=== PATIENT | female | born 1960 | race Caucasian/White ===

== ENCOUNTER 2016-07-25 13:06 | Emergency (ER) | payer MEDICARE, OTHER ==
[2016-07-25 13:09] VITALS: BP 115/58; PULSE 107; RESP 16; TEMP 98.7; O2SAT 99
--- NOTE | 2016-07-25 14:07 | PD ---
HPI Chief Complaint: ba Time Seen by Provider: 14:00 Travel History International Travel<30 days: No Contact w/Intl Traveler<30days: No Traveled to known affect area: No History of Present Illness HPI This is a 56-year-old female who is under Sahni act. According to her paperwork she was transferred here from [facility] because she is outside of their scope of care. According to the paperwork she has an AV fistula that was recently placed and she needs regular dialysis and for this reason she was outside of their scope of care. The Sahni act reads as follows "Chata has been refusing to take her prescribed medication. She states that she will hurt herself by not taking her medication without help. She advised that she has wanted to hurt herself all her life and is currently very depressed." The patient endorses feeling depressed for "a while" and she occasionally has passive thoughts of suicide. She denies any homicidal ideation. Denies any drug or alcohol use, hallucinations. She has no other complaints. Dialysis TRS , due tomorrow, [facility] Nixon. [facility] Social History Tobacco Use: No Allergies-Medications (Allergen,Severity, Reaction): Coded Allergies: No Known Allergies (Unverified , 07/25/16) Reported Meds & Prescriptions Reported Meds & Active Scripts Active Reported Valproic Acid 250 Mg Cap 250 Mg PO TID Pravastatin 20 Mg Tab 20 Mg PO DAILY Levothyroxine (Levothyroxine Sodium) 125 Mcg Tab 125 Mcg PO DAILY Lactulose 10 Gm/15 Ml Solution 20 Gm DAILY Fenofibrate 54 Mg Tab 54 Mg PO DAILY Epogen (Epoetin Brad) 20,000 Unit/2 Ml Vial 10,000 Units 2XWEEK Doxazosin (Doxazosin Mesylate) 8 Mg Tab 8 Mg PO DAILY Citalopram (Citalopram Hydrobromide) 20 Mg Tab 20 Mg PO DAILY Carvedilol 3.125 Mg Tab 3.125 Mg PO BID Calcitriol 0.5 Mcg Cap 0.5 Mcg PO DAILY Bupropion HCl ER (Bupropion HCl) 200 Mg Tablet.er 300 Mg Aspirin 81 (Aspirin) 81 Mg Tabdr 81 Mg PO DAILY Aripiprazole 10 Mg Tab 10 Mg PO DAILY Review of Systems Except as stated in HPI: all other systems reviewed are Neg Physical Exam Narrative GENERAL: Well-nourished female in no acute distress SKIN: Warm and dry. Dialysis access site noted to the right chest wall. HEAD: Atraumatic. Normocephalic. EYES: Pupils equal and round. No scleral icterus. No injection or drainage. ENT: No nasal bleeding or discharge. Mucous membranes pink and moist. NECK: Trachea midline. No JVD. CARDIOVASCULAR: Regular rate and rhythm. No murmur appreciated. RESPIRATORY: No accessory muscle use. Clear to auscultation. Breath sounds equal bilaterally. GASTROINTESTINAL: Abdomen soft, non-tender, nondistended. Hepatic and splenic margins not palpable. MUSCULOSKELETAL: No obvious deformities. Recent AV fistula placed left proximal arm. NEUROLOGICAL: Awake and alert. No obvious cranial nerve deficits. Motor grossly within normal limits. Normal speech. PSYCHIATRIC: Flat affect. Insight and judgment limited. Data Data Last Documented VS Vital Signs Date Time Temp Pulse Resp B/P Pulse Ox O2 Delivery O2 Flow Rate FiO2 07/25/16 14:16 97.6 83 18 102/63 100 Room Air Orders ^ Sitter (07/25/16 14:04) Complete Blood Count With Diff (07/25/16 14:15) Comprehensive Metabolic Panel (07/25/16 14:15) Psych Screen (07/25/16 14:15) Labs Laboratory Tests Test 07/25/16 14:43 White Blood Count 4.5 TH/MM3 Red Blood Count 3.60 MIL/MM3 Hemoglobin 11.2 GM/DL Hematocrit 35.3 % Mean Corpuscular Volume 98.0 FL Mean Corpuscular Hemoglobin 31.0 PG Mean Corpuscular Hemoglobin 31.7 % Concent Red Cell Distribution Width 15.7 % Platelet Count 195 TH/MM3 Mean Platelet Volume 8.7 FL Neutrophils (%) (Auto) 61.9 % Lymphocytes (%) (Auto) 17.8 % Monocytes (%) (Auto) 14.5 % Eosinophils (%) (Auto) 4.8 % Basophils (%) (Auto) 1.0 % Neutrophils # (Auto) 2.8 TH/MM3 Lymphocytes # (Auto) 0.8 TH/MM3 Monocytes # (Auto) 0.7 TH/MM3 Eosinophils # (Auto) 0.2 TH/MM3 Basophils # (Auto) 0.0 TH/MM3 CBC Comment DIFF FINAL Differential Comment Sodium Level 137 MEQ/L Potassium Level 3.6 MEQ/L Chloride Level 99 MEQ/L Carbon Dioxide Level 21.8 MEQ/L Anion Gap 16 MEQ/L Blood Urea Nitrogen 48 MG/DL Creatinine 9.10 MG/DL Estimat Glomerular Filtration 4 ML/MIN Rate Random Glucose 75 MG/DL Calcium Level 9.3 MG/DL Total Bilirubin 0.4 MG/DL Aspartate Amino Transf 37 U/L (AST/SGOT) Alanine Aminotransferase 26 U/L (ALT/SGPT) Alkaline Phosphatase 45 U/L Total Protein 7.5 GM/DL Albumin 3.2 GM/DL MDM Medical Decision Making Medical Screen Exam Complete: Yes Emergency Medical Condition: Yes Medical Record Reviewed: Yes Differential Diagnosis Major depressive disorder, acute psychosis, substance-induced disorder, schizophrenia, schizoaffective disorder Narrative Course 56-year-old female presents under Sahni act for psychiatric evaluation of depression and passive suicidal thoughts. Mental health screening discussed with the patient. Psychiatric screen ordered. The patient will be medically cleared, disposition per psychiatry. If this patient is still here tomorrow then a nephrology consultation should be placed for routine dialysis. Sahni act was lifted by the psychiatry team. The patient is stable for discharge, outpatient dialysis as scheduled tomorrow. Diagnosis Primary Impression: Suicidal ideation Additional Instructions: Follow-up with your staff nurse tomorrow for dialysis as scheduled. Return for any emergent medical conditions. Med/Other Pt SpecificInfo: No Change to Meds Disposition: 01 DISCHARGE HOME Condition: Stable Evelio Gaspar Jul 25, 2016 14:07
[2016-07-25 14:16] VITALS: BP 102/63; PULSE 83; RESP 18; TEMP 97.6; O2SAT 100
[2016-07-25 14:54] LABS: AUTOMATED NEUTROPHIL # 2.8 TH/MM3 (1.8-7.7); EOSINOPHIL # 0.2 TH/MM3 (0-0.4); EOSINOPHIL % 4.8 % (0.0-4.0); HEMATOCRIT 35.3 % (35.0-46.0); HEMO FLAGS DIFF FINAL; LYMPH % 17.8 % (9.0-44.0); LYMPHOCYTE # 0.8 TH/MM3 (1.0-4.8); MEAN CORPUSCULAR HGB CONC 31.7 % (32.0-36.0); MONO % 14.5 % (0.0-8.0); NEUT % 61.9 % (16.0-70.0); PLATELET COUNT 195 TH/MM3 (150-450); RED CELL DISTRIBUTION WIDTH 15.7 % (11.6-17.2); WHITE BLOOD COUNT 4.5 TH/MM3 (4.0-11.0)
[2016-07-25] MEDS ORDERED: DOXA1TAB43 PO (15:01)
[2016-07-25] MEDS ORDERED: LEVO125T4 PO (15:01)
[2016-07-25] MEDS ORDERED: CARV3.12 PO (15:01)
[2016-07-25] MEDS ORDERED: ASPI-110 PO (15:01)
[2016-07-25] MEDS ORDERED: VALP250C PO (15:01)
[2016-07-25] MEDS ORDERED: BUPR200T22 (15:01)
[2016-07-25] MEDS ORDERED: CALC0.5C6 PO (15:01)
[2016-07-25] MEDS ORDERED: [UNRECOGNIZED DRUG - CODE] (15:01)
[2016-07-25] MEDS ORDERED: FENO54TA PO (15:01)
[2016-07-25] MEDS ORDERED: LACT10SO5 (15:01)
[2016-07-25] MEDS ORDERED: CITA20TA4 PO (15:01)
[2016-07-25] MEDS ORDERED: PRAV20TA2 PO (15:01)
[2016-07-25] MEDS ORDERED: ARIP1TAB12 PO (15:01)
[2016-07-25 15:28] LABS: ALKALINE PHOSPHATASE 45 U/L (45-117); TOTAL BILIRUBIN ADULT 0.4 MG/DL (0.2-1.0)
[2016-07-25 15:30] LABS: ALT (GPT) 26 U/L (10-53); ANION GAP 16 MEQ/L (5-15); AST (GOT) 37 U/L (15-37); BICARBONATE 21.8 MEQ/L (21.0-32.0); BLOOD UREA NITROGEN 48 MG/DL (7-18); CHLORIDE 99 MEQ/L (98-107); GLOMERULAR FILTRATION RATE 4 ML/MIN (>89); POTASSIUM 3.6 MEQ/L (3.5-5.1); SODIUM (NA) 137 MEQ/L (136-145)
--- NOTE | 2016-07-25 16:25 | PD ---
History of Present Illness Chief Complaint: Psychiatric Symptoms Time Seen by Provider: 16:10 Travel History International Travel<30 Days: No Contact w/Intl Traveler<30days: No Known affected area: No Legal Status Legal Status: Sahni Act History of Present Illness: History of Present Illness This is a 56-year-old female with history of bipolar disorder who is under Sahni act initiated by [place]. The paperwork staes that she has been refusing to take her medication. She said that she will hurt herself by not taking her medication. She advised she wanted to hurt herself all her life and is currently very depressed. According to her paperwork she was transferred here from [facility] because she is outside of their scope of care due to having an AV fistula . According to the paperwork she has an AV fistula that was recently placed and she needs regular dialysis and for this reason she was outside of their scope of care. EMR is reviewed. No previous contact with [facility] psychiatry team. No hx of substance use. The patient is seen in main ED. Sitter at bedside. She is alert and oriented female. She is calm. No leanna or hypomania. There is no indication that she is experiencing any hallucinations, no delusions and no paranoia. Her speech is clear and logical. She presents at times with childlike responses. She denies suicidal ideation and tells me that she doesn't' take her medication because " I 'm not thirsty so I don't take them. Other times I don't feel well so I don't take them. She denies that it is a suicidal gesture but rather that she does not have help to insure that she does take her medication. She would like to have a nurse help her take her medication or have her sister help her although she appears to be capable of doing so on her own. She acknowledges feeling overwhelmed with multiple medical problems including having dialysis Telephone call to her sister Miriam at [phone]. She informs me that her sister moved from [place] to [place] about 8 months ago and has not had a psychiatric appointment. She informs me that the patient has a hx of leanna in the past. She agrees to pick her up. I have provided her with referrals to [facility]. [facility] Past Medical History Arthritis: Yes Anxiety: Yes Depression: Yes Dialysis: Yes (TUES, THURS, SAT) Hypertension: Yes Psychiatric: Yes Renal Failure: Yes (END STAGE) Thyroid Disease: Yes (HYPO) Past Surgical History Other Surgery: Yes (LEFT ARM AV FISTULA, PERITONEAL DIALYSIS PORT) Psychiatric History Psychiatric History Hx [place] at age 11 years. History of Inpatient Treatment: Yes Guns or firearms in home: No Social History Single female. Lives in an independent living apartment. Hx Alcohol Use: Yes (RARE) Hx Tobacco Use: No Hx Substance Use: No Allergies-Medications (Allergen,Severity, Reaction): Coded Allergies: No Known Allergies (Unverified , 07/25/16) Reported Meds & Prescriptions Reported Meds & Active Scripts Active Reported Valproic Acid 250 Mg Cap 250 Mg PO TID Pravastatin 20 Mg Tab 20 Mg PO DAILY Levothyroxine (Levothyroxine Sodium) 125 Mcg Tab 125 Mcg PO DAILY Lactulose 10 Gm/15 Ml Solution 20 Gm DAILY Fenofibrate 54 Mg Tab 54 Mg PO DAILY Epogen (Epoetin Brad) 20,000 Unit/2 Ml Vial 10,000 Units 2XWEEK Doxazosin (Doxazosin Mesylate) 8 Mg Tab 8 Mg PO DAILY Citalopram (Citalopram Hydrobromide) 20 Mg Tab 20 Mg PO DAILY Carvedilol 3.125 Mg Tab 3.125 Mg PO BID Calcitriol 0.5 Mcg Cap 0.5 Mcg PO DAILY Bupropion HCl ER (Bupropion HCl) 200 Mg Tablet.er 300 Mg Aspirin 81 (Aspirin) 81 Mg Tabdr 81 Mg PO DAILY Aripiprazole 10 Mg Tab 10 Mg PO DAILY Review of Systems Constitutional: COMPLAINS OF: Change in appetite Endocrine: DENIES: Abnorml menstrual pattern, Heat/cold intolerance, Polydipsia , Polyuria, Polyphagia Eyes: COMPLAINS OF: Vision loss Ears, nose, mouth, throat: DENIES: Tinnitus, Hearing loss, Vertigo, Nasal discharge, Oral lesions, Throat pain, Hoarseness, Ear Pain, Running Nose, Epistaxis, Sinus Pain, Toothache, Odynophagia Respiratory: DENIES: Apneas, Cough, Snoring, Wheezing, Hemoptysis, Sputum production, Shortness of breath Cardiovascular: DENIES: Chest pain, Palpitations, Syncope, Dyspnea on Exertion , PND, Lower Extremity Edema, Orthopnea, Claudication Gastrointestinal: COMPLAINS OF: Anorexia Genitourinary: DENIES: Abnormal vaginal bleeding, Dysmenorrhea, Dyspareunia, Sexual dysfunction, Urinary frequency, Urinary incontinence, Urgency, Hematuria , Dysuria, Nocturia, Vaginal discharge Musculoskeletal: DENIES: Joint pain, Muscle aches, Stiffness, Joint Swelling, Back pain, Neck pain Integumentary: DENIES: Abnormal pigmentation, Pruritus, Rash, Nail changes, Breast masses, Breast skin changes, Nipple discharge Hematologic/lymphatic: DENIES: Bruising, Lymphadenopathy Immunologic/allergic: DENIES: Eczema, Urticaria Neurologic: DENIES: Abnormal gait, Headache, Localized weakness, Paresthesias, Seizures, Speech Problems, Tremor, Poor Balance Exam Alert: Yes Savage: Person (ox4) Mood: Calm Affect: Restricted Speech: Clear, Logical Eye Contact: Normal Memory Intact: Comment (No impairmetn) Hallucinations: Other (negative ) Delusions: No Suicidal: Ideation (deneis any) Homicidal: Ideation (deneis any) Insight/Judgement Fair. Notimpaired [facility] Medical Decision Making Medical Record Reviewed: Yes Assessment/Plan 56 year old female with history of bipolar disorder. She has not been medication compliant. She was placed under a BA as this was interpreted as a suicidal ideation. Patient denies any intent to harm self. She states she doesn 't' take her medication due to multiple other reasons and because she believes she needs more help. At this time the patient does not meet BA criteria. I have discussed her care with her sister who agrees to pick her up, contact area psychiatrist for outpatient care as well as to obtain further help for her at home. Orders ^ Sitter (07/25/16 14:04) Complete Blood Count With Diff (07/25/16 14:15) Comprehensive Metabolic Panel (07/25/16 14:15) Psych Screen (07/25/16 14:15) Results Vital Signs Date Time Temp Pulse Resp B/P Pulse Ox O2 Delivery O2 Flow Rate FiO2 07/25/16 14:16 97.6 83 18 102/63 100 Room Air 07/25/16 13:09 98.7 107 16 115/58 99 Room Air Laboratory Tests Test 6/12/17 14:43 White Blood Count 4.5 Red Blood Count 3.60 Hemoglobin 11.2 Hematocrit 35.3 Mean Corpuscular Volume 98.0 Mean Corpuscular Hemoglobin 31.0 Mean Corpuscular Hemoglobin 31.7 Concent Red Cell Distribution Width 15.7 Platelet Count 195 Mean Platelet Volume 8.7 Neutrophils (%) (Auto) 61.9 Lymphocytes (%) (Auto) 17.8 Monocytes (%) (Auto) 14.5 Eosinophils (%) (Auto) 4.8 Basophils (%) (Auto) 1.0 Neutrophils # (Auto) 2.8 Lymphocytes # (Auto) 0.8 Monocytes # (Auto) 0.7 Eosinophils # (Auto) 0.2 Basophils # (Auto) 0.0 CBC Comment DIFF FINAL Differential Comment Sodium Level 137 Potassium Level 3.6 Chloride Level 99 Carbon Dioxide Level 21.8 Anion Gap 16 Blood Urea Nitrogen 48 Creatinine 9.10 Estimat Glomerular Filtration 4 Rate Random Glucose 75 Calcium Level 9.3 Total Bilirubin 0.4 Aspartate Amino Transf 37 (AST/SGOT) Alanine Aminotransferase 26 (ALT/SGPT) Alkaline Phosphatase 45 Total Protein 7.5 Albumin 3.2 Diagnosis Primary Impression: Bipolar disorder current episode depressed Ruled Out: Suicidal ideation Psychiatrically Cleared: Yes Med/ Other Pt Specific Info: No Change to Meds Disposition: 01 DISCHARGE HOME Condition: Stable Problem Qualifiers Primary Impression: Bipolar disorder current episode depressed Qualified Code: F31.31 - Bipolar affective disorder, currently depressed, mild Isabel Caballero [facility] Jul 25, 2016 16:25
== END 2016-07-25 19:54 | disposition home or self-care (01) ==
LOC: NEPD 13:06
DX: F31.31 Bipolar disorder, current episode depressed, mild (principal)
CPT/HCPCS: 80053; 85025; 99285

== ENCOUNTER 2017-09-21 01:19 | Inpatient (IN) ==
--- NOTE | 2017-09-21 02:02 | ED ---
HPI General Chief Complaint: Psychiatric Symptoms Stated Complaint: Psych BONNIE Herrera Time Seen by Provider: 09/21/17 01:44 Source: patient and police Mode of arrival: ambulatory Limitations: no limitations History of Present Illness HPI Narrative: 57-year-old white female presents emergency department under Sahni act by PD. The patient was just seen at [facility] and was released. She lives in a rehab facility. Patient has a history of chronic kidney disease on hemodialysis. She is acutely psychotic. She is screaming out making no sense. A history is not obtainable. The patient is uncooperative and combative. She is placed in nonviolent restraints and medicated with Geodon 10 mg and Ativan 2 mg IM. Related Data Home Medications Medication Instructions Recorded Confirmed Unable to Obtain Home Meds 09/16/17 09/21/17 Allergies Allergy/AdvReac Type Severity Reaction Status Date / Time No Known Allergies Allergy Unverified 09/21/17 01:49 Review of Systems ROS Unobtainable ROS Unobtainable: unobtainable due to mental condition PMFSH Medical History Medical History Schizoaffective disorder (Acute) Anemia (Acute) Anxiety (Acute) End stage renal disease (Acute) Hyperlipemia (Acute) Hypertension (Acute) Hypothyroidism (Acute) Muscle weakness (Acute) Osteoarthritis (Acute) Renal dialysis status (Acute) Family History Family History Other Family history of hypertension Social History Social History Substance History: No History of Abuse Second Hand Smoke Exposure: No Smoking Status: Former smoker Tobacco Type: Cigarettes How Often Do You Have a Drink Containing Alcohol: Never Recent Travel in [place] within the Last 8 Weeks: No Recent Out of Country Travel within the Last 8 Weeks: No Immunization History Tetanus Immunization: Unable to Assess Hx Influenza Vaccine This Season: Unable to Assess Exam Narrative Exam Narrative: GENERAL: Well-nourished, well-developed patient. Patient in soft restraints. SKIN: Warm and dry. Patient has multiple abrasions and skin lesions in various stages of healing. I see no overt cellulitis. HEAD: Normocephalic and atraumatic. EYES: No scleral icterus. No injection or drainage. ENT: No nasal drainage noted. Mucous membranes pink. Airway patent. NECK: Supple, trachea midline. Moves head freely without obvious discomfort. CARDIOVASCULAR: Regular rate and rhythm without murmurs, gallops, or rubs. RESPIRATORY: Breath sounds equal bilaterally. No accessory muscle use. GASTROINTESTINAL: Abdomen soft, non-tender, nondistended. EXTREMITIES: Patient has 1-2+ pitting edema in the lower extremities. She has a dialysis shunt in her left upper arm.. BACK: Nontender without obvious deformity. No CVA tenderness. NEURO: Patient is alert and oriented. no sensorimotor deficits. Nonfocal. Normal speech. PSYCH: Patient is acutely psychotic. Course Initial Documented Vital Signs Temperature 98.1 F 09/21/17 01:42 Pulse Rate 87 09/21/17 01:42 Respiratory Rate 16 09/21/17 01:42 Blood Pressure 127/60 09/21/17 01:42 Pulse Oximetry 100 09/21/17 01:42 Last Documented Vital Signs Temperature 98.3 F 09/21/17 15:04 Pulse Rate 78 09/21/17 15:04 Respiratory Rate 18 09/21/17 15:04 Blood Pressure 147/69 H 09/21/17 15:04 Pulse Oximetry 100 09/21/17 09:25 Medical Decision Making MDM Narrative Medical decision making narrative: Patient was placed in nonviolent restraints and medicated with Geodon 10 mg IM and Ativan 2 mg IM. Routine laboratory tests sent for analysis. I reviewed her visit from earlier last week. The patient now has become cooperative. She is taken out of restraints. Laboratory tests have been reviewed. Patient's labs are stable from prior visit. Differential Diagnosis Differential Diagnosis: MDM: High Differential diagnoses: Schizophrenia, schizoaffective disorder, bipolar, anxiety, depression, adjustment reaction, mood disorder NOS, ODD, depressive disorder NOS, psychosis NOS, substance induced mood disorder, DMDD, Asperger syndrome, infection,electrolyte abnormality, malingering. Mental health screening discussed with the patient. Psychiatric screen ordered. Lab Data Result diagrams: 09/21/17 02:50 09/21/17 02:50 Lab Results 09/21/17 09/21/17 09/21/17 Range/Units 02:50 02:50 10:30 WBC 6.1 (4.0-11.0) th/mm3 RBC 2.74 L (4.00-5.30) mil/mm3 Hgb 8.4 L (11.6-15.3) gm/dL Hct 24.7 L (35.0-46.0) % MCV 90.3 (80.0-100.0) fL MCH 30.8 (27.0-34.0) pg MCHC 34.0 (32.0-36.0) % RDW 14.9 (11.6-17.2) % Plt Count 304 (150-450) th/mm3 MPV 7.6 (7.0-11.0) fL Neut % (Auto) 73.6 H (16.0-70.0) % Lymph % (Auto) 12.6 (9.0-44.0) % Pratt % (Auto) 9.2 H (0.0-8.0) % Eos % (Auto) 3.4 (0.0-4.0) % Baso % (Auto) 1.2 (0.0-2.0) % Neut # (Auto) 4.5 (1.8-7.7) th/mm3 Lymph # (Auto) 0.8 L (1.0-4.8) th/mm3 Pratt # (Auto) 0.6 (0.0-0.9) th/mm3 Eos # (Auto) 0.2 (0.0-0.4) th/mm3 Baso # (Auto) 0.1 (0.0-0.2) th/mm3 WBC Differential . Differential Comment Auto diff final Sodium 136 (136-145) meq/L Potassium 3.8 (3.5-5.1) meq/L Chloride 94 L (98-107) meq/L Carbon Dioxide 30.5 (21.0-32.0) meq/L Anion Gap 12 (5-15) meq/L BUN 31 H (7-18) mg/dL Creatinine 6.21 H (0.50-1.00) mg/dL Estimated GFR 7 L (>89) mL/min POC Glucose (68-110) mg/dl Random Glucose 98 (74-106) mg/dL Calcium 9.5 (8.5-10.1) mg/dL Total Bilirubin 0.4 (0.2-1.0) mg/dL AST 20 (15-37) U/L ALT 10 (10-53) U/L Alkaline Phosphatase 86 (45-117) U/L Total Protein 7.0 (6.4-8.2) g/dL Albumin 3.3 L (3.4-5.0) g/dL Urine Opiates Screen Neg (Neg) Ur Barbiturates Screen Neg (Neg) Ur Amphetamines Screen Neg (Neg) U Benzodiazepines Scrn Neg (Neg) Urine Cocaine Screen Neg (Neg) U Cannabinoids Screen Neg (Neg) Serum Alcohol Less than 3 (0-5) mg/dL 09/21/17 Range/Units 16:13 WBC (4.0-11.0) th/mm3 RBC (4.00-5.30) mil/mm3 Hgb (11.6-15.3) gm/dL Hct (35.0-46.0) % MCV (80.0-100.0) fL MCH (27.0-34.0) pg MCHC (32.0-36.0) % RDW (11.6-17.2) % Plt Count (150-450) th/mm3 MPV (7.0-11.0) fL Neut % (Auto) (16.0-70.0) % Lymph % (Auto) (9.0-44.0) % Pratt % (Auto) (0.0-8.0) % Eos % (Auto) (0.0-4.0) % Baso % (Auto) (0.0-2.0) % Neut # (Auto) (1.8-7.7) th/mm3 Lymph # (Auto) (1.0-4.8) th/mm3 Pratt # (Auto) (0.0-0.9) th/mm3 Eos # (Auto) (0.0-0.4) th/mm3 Baso # (Auto) (0.0-0.2) th/mm3 WBC Differential Differential Comment Sodium (136-145) meq/L Potassium (3.5-5.1) meq/L Chloride (98-107) meq/L Carbon Dioxide (21.0-32.0) meq/L Anion Gap (5-15) meq/L BUN (7-18) mg/dL Creatinine (0.50-1.00) mg/dL Estimated GFR (>89) mL/min POC Glucose 121 H (68-110) mg/dl Random Glucose (74-106) mg/dL Calcium (8.5-10.1) mg/dL Total Bilirubin (0.2-1.0) mg/dL AST (15-37) U/L ALT (10-53) U/L Alkaline Phosphatase (45-117) U/L Total Protein (6.4-8.2) g/dL Albumin (3.4-5.0) g/dL Urine Opiates Screen (Neg) Ur Barbiturates Screen (Neg) Ur Amphetamines Screen (Neg) U Benzodiazepines Scrn (Neg) Urine Cocaine Screen (Neg) U Cannabinoids Screen (Neg) Serum Alcohol (0-5) mg/dL Discharge Plan Discharge Disposition Patient Disposition: 01 Discharge Home Discharge Condition Condition: Stable Discharge Order Discharge Orders: Discharge Order (Routine); Ordered 09/21/17 Ordered By: Gokul Clarke Physicians Team ED Provider: Chandler Davila ED Midlevel Provider: Gokul Clarke Primary Care Provider: UNKNOWN, Attending Provider: Be Marquez Other Providers: Onur Santos ; Schuyler Mir ; Regan Mckinley Discharge Interventions Interventions: ED Discharge Assessment Last Done: 09/21/17 12:47 Vital Signs Last Done: 09/21/17 09:25 Status ED Status: Left Department Discharge Information Discharge Date/Time: 09/21/17 12:48
[2017-09-21 03:08] LABS: Baso # (Auto) 0.1 th/mm3 (0.0-0.2); Baso % (Auto) 1.2 % (0.0-2.0); Eos # (Auto) 0.2 th/mm3 (0.0-0.4); Eos % (Auto) 3.4 % (0.0-4.0); Hematocrit 24.7 % (35.0-46.0); Hemoglobin 8.4 gm/dL (11.6-15.3); Lymph # (Auto) 0.8 th/mm3 (1.0-4.8); Lymph % (Auto) 12.6 % (9.0-44.0); Mean Corpuscular Hemoglobin 30.8 pg (27.0-34.0); Mean Corpuscular Volume 90.3 fL (80.0-100.0); Mean Platelet Volume 7.6 fL (7.0-11.0); Mono # (Auto) 0.6 th/mm3 (0.0-0.9); Mono % (Auto) 9.2 % (0.0-8.0); Neut # (Auto) 4.5 th/mm3 (1.8-7.7); Neut % (Auto) 73.6 % (16.0-70.0); Platelet Count 304 th/mm3 (150-450); Red Blood Count 2.74 mil/mm3 (4.00-5.30); Red Cell Distribution Width 14.9 % (11.6-17.2); White Blood Count 6.1 th/mm3 (4.0-11.0)
[2017-09-21 03:28] LABS: Chloride 94 meq/L (98-107); Potassium 3.8 meq/L (3.5-5.1); Sodium 136 meq/L (136-145)
[2017-09-21 03:33] LABS: Alanine Aminotransferase 10 U/L (10-53)
[2017-09-21 03:49] LABS: Albumin 3.3 g/dL (3.4-5.0); Alkaline Phosphatase 86 U/L (45-117); Anion Gap 12 meq/L (5-15); Aspartate Aminotransferase 20 U/L (15-37); Blood Urea Nitrogen 31 mg/dL (7-18); Calcium 9.5 mg/dL (8.5-10.1); Carbon Dioxide 30.5 meq/L (21.0-32.0); Glomerular Filtration Rate 7 mL/min (>89); Glucose,Random 98 mg/dL (74-106)
[2017-09-21] MEDS ORDERED: Aluminum/Magnesium/Simethacone Susp 30 ML UDC PO PRN (10:12)
[2017-09-21] MEDS ORDERED: Bisacodyl 10 MG Supp RECTAL PRN (10:12)
--- NOTE | 2017-09-21 10:44 | P.HPPSY ---
Provisional Diagnosis Admission Date: September 21, 2017 01:19 [place] I.: Psychotic disorder Competence Certification of Person's Competence To Provide Express and Informed Consent I have personally examined Chata Vargas, a person being served at [facility] on, September 21, 2017 1033. Express and informed consent means consent voluntarily given in writing, by a competent person, after sufficient explanation and disclosure of the subject matter involved to enable the person to make a knowing and willful decision without any element of force, fraud, deceit, duress, or other form of constraint or coercion. This person is 18 years of age or older, is not now known to be incompetent to consent to treatment with a guardian advocate, and does not have a health care surrogate or proxy currently making medical treatment decisions. I have found this person to be one of the following: [] Competent to provide express and informed consent, as defined above, for voluntary admission to this facility and is competent to provide express and informed consent for treatment. He/she has the consistent capacity to make well reasoned, willful, and knowing decisions concerning his or her medical or mental health treatment. The person fully and consistently understands the purpose of the admission for examination/placement and is fully capable of personally exercising all rights [place] [] Incompetent to provide express and informed consent to voluntary admission, and this is incompetent to provide express and informed consent to treatment. The person must be transferred to involuntary status and a petition for a guardian advocate filed with the Circuit Court. [] Refusing to provide express and informed consent to voluntary admission but is competent to provide express and informed consent for treatment. The person must be discharged or transferred to involuntary status. Form shall be completed within 24 hours of a person's arrival at the receiving facility and filed in the clinical record of each person: 1. Admitted on a voluntary basis 2. Permitted to provide express and informed consent to his/her own treatment 3. Allowed to transfer from involuntary to voluntary status 4. Prior to permitting a person to consent to his or her own treatment after having been previously found incompetent to consent to treatment. History of Present Illness Capacity: Has capacity Chief Complaint: Paranoia History of Present Illness: 57-year-old female with history of renal disease, presents under a Sahni act for suicidality and psychotic symptoms. According to the Sahni act, law enforcement was called to evaluate the patient for having suicidal thoughts. When the patient was contacted by the officer, she indicated she did want to commit suicide by "restraints" and repeatedly insisted she wanted to kill herself. 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 However, she also repeated that [employer] was faxing her and [employer] wanted to kill her. She became increasingly agitated and threatened to kill herself with a phone cord. She also reportedly attempted to wrap a bed sheet around her neck. She was screaming inappropriately. Upon interview, the patient is aware of her comments and her suicidality. She is needing dialysis and wants to have this treatment. She is unable to explain her recent thinking or behavior. She does have appropriate insight at this point to competently ask for and receive medical treatment. Review of Systems All other systems reviewed negative except as stated in HPI PMFSH - History History Provided By: Patient - Medical / Surgical Hx Neg / Unobtainable Medical Problems Denied: Yes Surgical History: Unable to Obtain - Medical History Medical History: Medical History (Last Reviewed 09/21/17 @ 01:59 by CLINTON Guan) Anemia Anxiety End stage renal disease Hyperlipemia Hypertension Hypothyroidism Muscle weakness Osteoarthritis Renal dialysis status Schizoaffective disorder - Tobacco History Smoking Status: Refused to answer - Alcohol History How Often Do You Have a Drink Containing Alcohol: Unable to Obtain - Substance Use History Substance History: Unable to Obtain - Travel History Recent Travel in the [place] Within the Last 8 Weeks: No Recent Travel Out of the Country Within the Last 8 Weeks: No - Immunization History Tetanus Immunization: Unable to Assess Hx Influenza Vaccine This Season: Unable to Assess Medications and Allergies Active Medications: Active Medications Al Hydrox/Mg Hydrox/Simethicone (Mag-Al Plus Susp Liq) 30 ml PO Q6H PRN PRN Reason: DYSPEPSIA Al Hydroxide/Mg Hydroxide (Milk Of Magnesia Liq) 30 ml PO Q12H PRN PRN Reason: Mild Constipation Bisacodyl (Dulcolax Supp) 10 mg RECTAL DAILY PRN PRN Reason: SEVERE CONSITIPATION Lactulose (Lactulose Liq) 30 ml PO DAILY PRN PRN Reason: SEVERE CONSITIPATION Senna/Docusate Sodium (Tram-Colace) 1 tab PO BID HEATH Sennosides (Senokot) 17.2 mg PO Q12H PRN PRN Reason: Moderate Constipation Allergies Allergy/AdvReac Type Severity Reaction Status Date / Time No Known Allergies Allergy Unverified 09/21/17 01:49 Home Medications Medication Instructions Recorded Confirmed Type Unable to Obtain Home Meds 09/16/17 09/21/17 History Results - Labs CBC & Chem 7: 09/21/17 02:50 09/21/17 02:50 Labs: Laboratory Results - last 24 hr 09/21/17 09/21/17 02:50 02:50 WBC 6.1 RBC 2.74 L Hgb 8.4 L Hct 24.7 L MCV 90.3 MCH 30.8 MCHC 34.0 RDW 14.9 Plt Count 304 MPV 7.6 Neut % (Auto) 73.6 H Lymph % (Auto) 12.6 [place] % (Auto) 9.2 H Eos % (Auto) 3.4 Baso % (Auto) 1.2 Neut # (Auto) 4.5 Lymph # (Auto) 0.8 L [place] # (Auto) 0.6 Eos # (Auto) 0.2 Baso # (Auto) 0.1 WBC Differential . Differential Comment Auto diff final Sodium 136 Potassium 3.8 Chloride 94 L Carbon Dioxide 30.5 Anion Gap 12 BUN 31 H Creatinine 6.21 H Estimated GFR 7 L Random Glucose 98 Calcium 9.5 Total Bilirubin 0.4 AST 20 ALT 10 Alkaline Phosphatase 86 Total Protein 7.0 Albumin 3.3 L Serum Alcohol Less than 3 Exam Vital signs: Vital Signs 09/21/17 01:42 09/21/17 09:25 Temperature 98.1 F Pulse Rate 87 80 Respiratory Rate 16 19 Blood Pressure 127/60 166/78 H Pulse Oximetry 100 100 Intake & Output 09/20/17 09/21/17 09/21/17 18:59 06:59 18:59 Output Total 300 / 300 Balance -300 / -300 Weight 81.647 kg Output: Urine 300 / 300 Other: # Voids 1 Narrative: Observed to have abnormal gait and station. Mental Status Examination Appearance: Appropriate Consciousness: Alert Orientation: x4 Motor Activity: Abnormal gait Speech: Unremarkable Language: Adequate Fund of Knowledge: Adequate Attention and Concentration: Inadequate Memory: Unremarkable Mood: Sad, Anxious Affect: Sad, Anxious Thought Process & Associations: Other Thought Content: Delusional Hallucination Type: None Delusion Type: Paranoid Suicidal Ideation: Yes Suicidal Plan: Yes Suicidal Intention: Yes Homicidal Ideation: No Homicidal Plan: No Homicidal Intention: No Insight: Fair Judgment: Impulsive Assessment and Plan - Plan Plan: Estimated LOS: [] days Patient requires significant medical attention as well as psychiatric treatment and is therefore being admitted to [facility] Dr. Marquez. Laboratory analyses ordered include CBC with differential, comprehensive metabolic profile, thyroid- stimulating hormone level, EKG to determine cardiac conduction status prior to making significant psychotropic medication changes, hospitalist and boom truck driver consult with hopeful dialysis as soon as possible. Psychotropic medicines however may be needed on an emergency basis to control agitation and active suicidal behavior. Case discussed with patient's nurse and Dr. Marquez. Case management also involved to assist with information gathering and disposition planning. Medications are not able to be reconciled at this time as home meds have not been accurately discerned by emergency department staff. Justification for Continued Inpatient Stay: Actively suicidal and exhibiting paranoid delusions.
[2017-09-21 11:25] LABS: Amphetamine Screen,Urine Neg (Neg); Barbiturate Screen,Urine Neg (Neg); Cannabinoid Screen,Urine Neg (Neg); Cocaine Screen,Urine Neg (Neg)
[2017-09-21 11:57] LABS: Opiate Screen,Urine Neg (Neg)
--- NOTE | 2017-09-21 12:27 | P.CONIM ---
History of Present Illness Service: [facility] Consult date: 09/21/17 Requesting Physician: Orlando Ho Reason for Consult: MEDICAL MANAGEMENT Primary Care Provider: UNKNOWN Family Provider: UNKNOWN Chief Complaint: Help with medical management with a history of dialysis etc. History of Present Illness: Patient is a 57-year-old female who came in acutely suicidal. Patient has been Sahni acted by the police department. Patient was recently seen at [facility] was released. She lives in a rehab facility. Has history of end-stage renal disease on hemodialysis. Is acutely psychotic. She was given Geodon and Ativan earlier today. Per chart review patient had been Sahni acted, law-enforcement was called to evaluate the patient for having suicidal thoughts. When the patient was contacted by the officer, she indicated that she wanted to commit suicide by "restraints". And repeatedly insisted she wanted to kill herself. 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 However she also repeated that present entrance was faxing her and president from wanting to kill her. She became increasingly agitated and threatening to kill herself with a phone cord. She attempted to wrap a bed sheet around her neck was screaming inappropriately patient needs chronic dialysis. End-stage renal disease We have been called consulted regarding medical management Patient has a history of end-stage renal disease on hemodialysis encephalopathic , actively suicidal, and exhibiting paranoid delusions Review of Systems unobtainable due to mental condition, unobtainable due to mental status PMFSH - History History Provided By: Patient - Medical / Surgical Hx Neg / Unobtainable Medical Problems Denied: Yes - Medical History Medical History: Medical History (Last Updated 09/21/17 @ 10:38 by Orlando Ho MD) Schizoaffective disorder (Acute) Anemia Anxiety End stage renal disease Hyperlipemia Hypertension Hypothyroidism Muscle weakness Osteoarthritis Renal dialysis status - Family History Family History: Family History (Last Updated 09/21/17 @ 12:20 by Regan Mckinley DO) Other Family history of hypertension - Tobacco History Smoking Status: Refused to answer - Alcohol History How Often Do You Have a Drink Containing Alcohol: Unable to Obtain - Substance Use History Substance History: Unable to Obtain - Travel History Recent Travel in the [place] Within the Last 8 Weeks: No Recent Travel Out of the Country Within the Last 8 Weeks: No - Immunization History Tetanus Immunization: Unable to Assess Hx Influenza Vaccine This Season: Unable to Assess Medications and Allergies Active Medications: Active Medications Al Hydrox/Mg Hydrox/Simethicone (Mag-Al Plus Susp Liq) 30 ml PO Q6H PRN PRN Reason: DYSPEPSIA Al Hydroxide/Mg Hydroxide (Milk Of Magnesia Liq) 30 ml PO Q12H PRN PRN Reason: Mild Constipation Bisacodyl (Dulcolax Supp) 10 mg RECTAL DAILY PRN PRN Reason: SEVERE CONSITIPATION Lactulose (Lactulose Liq) 30 ml PO DAILY PRN PRN Reason: SEVERE CONSITIPATION Senna/Docusate Sodium (Tram-Colace) 1 tab PO BID HEATH Sennosides (Senokot) 17.2 mg PO Q12H PRN PRN Reason: Moderate Constipation Allergies Allergy/AdvReac Type Severity Reaction Status Date / Time No Known Allergies Allergy Unverified 09/21/17 01:49 Home Medications Medication Instructions Recorded Confirmed Type Unable to Obtain Home Meds 09/16/17 09/21/17 History Exam Vital signs: Vital Signs 09/21/17 01:42 09/21/17 09:25 Temperature 98.1 F Pulse Rate 87 80 Respiratory Rate 16 19 Blood Pressure 127/60 166/78 H Pulse Oximetry 100 100 Intake & Output 09/20/17 09/21/17 09/21/17 18:59 06:59 18:59 Output Total 300 / 300 Balance -300 / -300 Weight 81.647 kg Output: Urine 300 / 300 Other: # Voids 1 Narrative: GENERAL: Awake and alert and oriented 3 talkative and cooperative now SKIN: Warm and dry. HEAD: Atraumatic. Normocephalic. EYES: Pupils equal and round. No scleral icterus. No injection or drainage. ENT: No nasal bleeding or discharge. Mucous membranes pink and moist. Tongue is midline NECK: Trachea midline. No JVD. Supple CARDIOVASCULAR: Regular rate and rhythm. S1-S2 no S3 or S4 no heave or thrill or rub or gallop RESPIRATORY: No accessory muscle use. Clear to auscultation. Breath sounds equal bilaterally. Obese GASTROINTESTINAL: Abdomen soft, non-tender, nondistended. Hepatic and splenic margins not palpable. MUSCULOSKELETAL: Extremities without clubbing, cyanosis. +2 edema bilateral lower extremities. No obvious deformities. Left upper extremity AV fistula with good thrill and bruit NEUROLOGICAL: Awake and alert. No obvious cranial nerve deficits. Motor grossly within normal limits. Five out of 5 muscle strength in the arms and legs. Normal speech. PSYCHIATRIC: INAppropriate mood and affect; insight and judgment ABnormal. Results - Labs CBC & Chem 7: 09/21/17 02:50 09/21/17 02:50 Labs: Laboratory Results - last 24 hr 09/21/17 09/21/17 09/21/17 02:50 02:50 10:30 WBC 6.1 RBC 2.74 L Hgb 8.4 L Hct 24.7 L MCV 90.3 MCH 30.8 MCHC 34.0 RDW 14.9 Plt Count 304 MPV 7.6 Neut % (Auto) 73.6 H Lymph % (Auto) 12.6 [place] % (Auto) 9.2 H Eos % (Auto) 3.4 Baso % (Auto) 1.2 Neut # (Auto) 4.5 Lymph # (Auto) 0.8 L [place] # (Auto) 0.6 Eos # (Auto) 0.2 Baso # (Auto) 0.1 WBC Differential . Differential Comment Auto diff final Sodium 136 Potassium 3.8 Chloride 94 L Carbon Dioxide 30.5 Anion Gap 12 BUN 31 H Creatinine 6.21 H Estimated GFR 7 L Random Glucose 98 Calcium 9.5 Total Bilirubin 0.4 AST 20 ALT 10 Alkaline Phosphatase 86 Total Protein 7.0 Albumin 3.3 L Urine Opiates Screen Neg Ur Barbiturates Screen Neg Ur Amphetamines Screen Neg U Benzodiazepines Scrn Neg Urine Cocaine Screen Neg U Cannabinoids Screen Neg Serum Alcohol Less than 3 Assessment and Plan - Plan Acute paranoid delusions per psychiatry will defer this treatment to them End-stage renal disease on hemodialysis will consult nephrology Hypertension by history continue home medications Hyperlipidemia by history continue home medications Schizoaffective disorder will defer to psychiatry Anemia monitor Hyperlipidemia try and obtain home medications Hypothyroidism we will check a free T4 and a TSH Osteoarthritis will consult physical therapy and Occupational Therapy Muscle weakness will consult physical therapy and Occupational Therapy We will get a.m. labs and will follow throughout the admission for any other issues that may arise we will make sure she is on a sliding scale coverage at this time since she may be a diabetic but lab work does not reflect uncontrolled diabetes Code Status: Full code Discussed Condition With: RN and patient Discharge Planning: Pending psychiatric and nephrology clearance
[2017-09-21] MEDS ORDERED: Dextrose 50% in Water 50 ML Vial IV.PUSH PRN (12:32)
[2017-09-21] MEDS ORDERED: Acetaminophen 325 MG Tablet PO PRN (12:48)
[2017-09-21] MEDS ORDERED: Sod Chloride 0.9% Inj 1,000 ML IV.CONT PRN (12:48)
[2017-09-21] MEDS ORDERED: Sod Chloride 0.9% Inj 1,000 ML OTHER PRN ×2 (12:48)
[2017-09-21] MEDS ORDERED: Albumin Human 25% Inj 100 ML IV.SIG PRN (12:48)
[2017-09-21] MEDS ORDERED: Heparin 10,000 UNITS/10 ML Vial (for IV use) OTHER PRN ×2 (12:48)
--- NOTE | 2017-09-21 13:21 | P.CONNP ---
<Bree Evans - Last Filed: 09/21/17 14:30> History of Present Illness Service: Nephrology Consult date: 09/21/17 Reason for Consult: ESRD on HD Primary Care Provider: UNKNOWN Family Provider: UNKNOWN Chief Complaint: Help with medical management with a history of dialysis etc. History of Present Illness: This is a 57 y/o brought to ER as a horn act due to suicidal ideation/attempt ( putting cord and sheets around her neck) while at her nursing facility. PMH includes ESRD (HD TTS), anemia, HTN, bipolar disorder, hyperlipidemia. She has recent hip surgery in August. since then she has had a decline, being hospitalized on multiple occasions. On exam today she is crying, cooperative but fearful, thinks she has hurt people including the president. She is unaware of recent events. Her lower extremities are edematous, right more than left. She is due for dialysis today, last treatment was Monday. Left arm AVF is patent. Psych has been called to evaluate. Review of Systems Constitutional: Denies anorexia Cardiovascular: Denies chest pain Gastrointestinal: Denies abdominal pain Musculoskeletal: Reports abnormal walking, Reports joint pain, Denies muscle cramps Psychiatric: Reports behavioral changes, Reports panic attacks, Reports paranoia , Reports seeing things others do not see, Reports thoughts of hurting/killing yourself, Reports other, Denies abnormal sleep pattern, Denies hopelessness Comments: delusions of grandeur PMFSH - History History Provided By: Patient - Medical / Surgical Hx Neg / Unobtainable Medical Problems Denied: Yes - Medical History Medical History: Medical History (Last Updated 09/21/17 @ 10:38 by Orlando Ho MD) Schizoaffective disorder (Acute) Anemia Anxiety End stage renal disease Hyperlipemia Hypertension Hypothyroidism Muscle weakness Osteoarthritis Renal dialysis status - Family History Family History: Family History (Last Updated 09/21/17 @ 12:20 by Regan Mckinley DO) Other Family history of hypertension - Tobacco History Smoking Status: Refused to answer - Alcohol History How Often Do You Have a Drink Containing Alcohol: Unable to Obtain - Substance Use History Substance History: Unable to Obtain - Travel History Recent Travel in the [place] Within the Last 8 Weeks: No Recent Travel Out of the Country Within the Last 8 Weeks: No - Immunization History Tetanus Immunization: Unable to Assess Hx Influenza Vaccine This Season: Unable to Assess Medications and Allergies Allergies Allergy/AdvReac Type Severity Reaction Status Date / Time No Known Allergies Allergy Unverified 09/21/17 01:49 Home Medications Medication Instructions Recorded Confirmed Type Unable to Obtain Home Meds 09/16/17 09/21/17 History Active Medications: Active Medications Acetaminophen (Tylenol) 650 mg PO UNSCH PRN PRN Reason: SEE LABEL COMMENTS Al Hydrox/Mg Hydrox/Simethicone (Mag-Al Plus Susp Liq) 30 ml PO Q6H PRN PRN Reason: DYSPEPSIA Al Hydroxide/Mg Hydroxide (Milk Of Magnesia Liq) 30 ml PO Q12H PRN PRN Reason: Mild Constipation Bisacodyl (Dulcolax Supp) 10 mg RECTAL DAILY PRN PRN Reason: SEVERE CONSITIPATION Clonidine HCl (Catapres) 0.1 mg PO UNSCH PRN PRN Reason: SEE LABEL COMMENTS Dextrose (D50w Vial) 50 ml IV.PUSH UNSCH PRN PRN Reason: PER HYPOGLYCEMIA PROTOCOL Diphenhydramine HCl (Benadryl) 25 mg PO UNSCH PRN PRN Reason: SEE LABEL COMMENTS Epoetin Brad (Epogen Inj) 10,000 unit IV.PUSH UNSCH PRN PRN Reason: SEE LABEL COMMENTS Gelatin (Gelfoam 12 Mm/7 Mm Topical) 1 foam TOPICAL PRN PRN PRN Reason: help stop bleeding from site Gentamicin Sulfate (Gentamicin Inj) 20 mg OTHER WITH DIALYSIS PRN PRN Reason: Dwell Gentamycin Lock Glucagon (Glucagon Inj) 1 mg OTHER PRN PRN PRN Reason: for Hypoglycemia Protocol Heparin Sodium (Porcine) (Heparin Inj) 8,000 units OTHER WITH DIALYSIS PRN PRN Reason: for machine prime Heparin Sodium (Porcine) (Heparin Inj) 1,000 units OTHER WITH DIALYSIS PRN PRN Reason: Dwell Heparin to Fill Catheter Sodium Chloride (Ns Inj) 1,000 mls @ 200 mls/hr OTHER .Q5H PRN PRN Reason: for dialyzer flush PRN Sodium Chloride (Ns Inj) 1,000 mls @ 0 mls/hr IV.CONT .Q0M PRN PRN Reason: hypotension / volume replace Albumin Human (Flexbumin 25% Inj) 100 mls @ 60 mls/hr IV.SIG WITH DIALYSIS PRN PRN Reason: hypotension / volume replace Sodium Chloride (Ns Inj) 1,000 mls @ 0 mls/hr OTHER .Q0M PRN PRN Reason: for prime and rinse back Insulin Aspart (Novolog Insulin Correctional Sugar Inj) 0 unit SQ ACHS AND 3AM HEATH; Protocol Lactulose (Lactulose Liq) 30 ml PO DAILY PRN PRN Reason: SEVERE CONSITIPATION Mannitol (Mannitol Inj) 12.5 gm IV.PUSH UNSCH PRN PRN Reason: hypotension / volume replace Nitroglycerin (Nitrostat Sl) 0.4 mg SL Q5M PRN PRN Reason: CHEST PAIN Ondansetron HCl (Zofran Inj) 4 mg IV.PUSH UNSCH PRN PRN Reason: NAUSEA OR VOMITING Senna/Docusate Sodium (Tram-Colace) 1 tab PO BID HEATH Sennosides (Senokot) 17.2 mg PO Q12H PRN PRN Reason: Moderate Constipation Sodium Chloride (Ns Flush) 5 ml IV.FLUSH PRN PRN PRN Reason: flush each lumen during HD Exam Vital signs: Vital Signs 09/21/17 01:42 09/21/17 09:25 Temperature 98.1 F Pulse Rate 87 80 Respiratory Rate 16 19 Blood Pressure 127/60 166/78 H Pulse Oximetry 100 100 Intake & Output 09/20/17 09/21/17 09/21/17 18:59 06:59 18:59 Output Total 300 / 300 Balance -300 / -300 Weight 81.647 kg Output: Urine 300 / 300 Other: # Voids 1 - Constitutional mild distress, obese, cooperative, agitated - Routine HEENT Exam Head: Present: normocephalic - Routine Neck Exam Present: supple, full ROM - Routine Respiratory Exam Present: CTA bilaterally. Absent: accessory muscle use - Routine Cardiovascular Exam Present: RRR, S1, S2 - Routine Abdominal Exam Present: soft, normoactive bowel sounds - Routine Extremities Exam Present: full ROM. Absent: edema - Routine Skin Exam Present: intact, dry, warm - Routine Neurological Exam Present: alert, altered mental status, moving all extremities - Routine Psychiatric Exam Present: suicidal ideation, auditory hallucinations, cooperative, depressed, agitated, paranoid, manic. Absent: normal affect, normal thought process, good insight - Detailed Psychiatric Exam Mood and affect: Present: labile, tearful Thought process: Present: illogical Thought content: Present: phobias, delusions Results - Lab Results 09/21/17 02:50 09/21/17 02:50 Most recent lab results Calcium 9.5 mg/dL (8.5-10.1) 09/21/17 02:50 - Image Kidney/bladder ultrasound: other (not required ) Assessment and Plan - Assessment (1) ESRD (end stage renal disease) on dialysis Code(s): N18.6 - End stage renal disease; Z99.2 - Dependence on renal dialysis Status: Acute Plan: HD TTS, due today Patent AVF left arm, functions well Avoid IVF administration Repeat labs intermittently High protein diet encouraged Obtain phosphorus level in AM (2) Anemia Code(s): D64.9 - Anemia, unspecified Status: Acute Plan: Epogen has been ordered to be given with dialysis. (3) HTN (hypertension) Code(s): I10 - Essential (primary) hypertension Status: Acute Plan: Home medications unknown. Start amlodipine in AM Fluid removal with dialysis. (4) Acute psychosis Code(s): F23 - Brief psychotic disorder Status: Acute Plan: Kaitlyn James Hx of bipolar, has had recent change in behavior Psych has been consulted <Onur Santos - Last Filed: 09/21/17 17:04> History of Present Illness Primary Care Provider: UNKNOWN Family Provider: UNKNOWN [facility] - Medical History Medical History: Medical History (Last Updated 09/21/17 @ 10:38 by Orlando Ho MD) Schizoaffective disorder (Acute) Anemia Anxiety End stage renal disease Hyperlipemia Hypertension Hypothyroidism Muscle weakness Osteoarthritis Renal dialysis status - Family History Family History: Family History (Last Updated 09/21/17 @ 12:20 by Regan Mckinley DO) Other Family history of hypertension Medications and Allergies Active Medications: Active Medications Acetaminophen (Tylenol) 650 mg PO UNSCH PRN PRN Reason: SEE LABEL COMMENTS Al Hydrox/Mg Hydrox/Simethicone (Mag-Al Plus Susp Liq) 30 ml PO Q6H PRN PRN Reason: DYSPEPSIA Al Hydroxide/Mg Hydroxide (Milk Of Magnesia Liq) 30 ml PO Q12H PRN PRN Reason: Mild Constipation Bisacodyl (Dulcolax Supp) 10 mg RECTAL DAILY PRN PRN Reason: SEVERE CONSITIPATION Clonidine HCl (Catapres) 0.1 mg PO UNSCH PRN PRN Reason: SEE LABEL COMMENTS Dextrose (D50w Vial) 50 ml IV.PUSH UNSCH PRN PRN Reason: PER HYPOGLYCEMIA PROTOCOL Diphenhydramine HCl (Benadryl) 25 mg PO UNSCH PRN PRN Reason: SEE LABEL COMMENTS Epoetin Brad (Epogen Inj) 10,000 unit IV.PUSH UNSCH PRN PRN Reason: SEE LABEL COMMENTS Last Admin: 09/21/17 14:37 Dose: 10,000 unit Gelatin (Gelfoam 12 Mm/7 Mm Topical) 1 foam TOPICAL PRN PRN PRN Reason: help stop bleeding from site Gentamicin Sulfate (Gentamicin Inj) 20 mg OTHER WITH DIALYSIS PRN PRN Reason: Dwell Gentamycin Lock Glucagon (Glucagon Inj) 1 mg OTHER PRN PRN PRN Reason: for Hypoglycemia Protocol Heparin Sodium (Porcine) (Heparin Inj) 8,000 units OTHER WITH DIALYSIS PRN PRN Reason: for machine prime Heparin Sodium (Porcine) (Heparin Inj) 1,000 units OTHER WITH DIALYSIS PRN PRN Reason: Dwell Heparin to Fill Catheter Sodium Chloride (Ns Inj) 1,000 mls @ 200 mls/hr OTHER .Q5H PRN PRN Reason: for dialyzer flush PRN Sodium Chloride (Ns Inj) 1,000 mls @ 0 mls/hr IV.CONT .Q0M PRN PRN Reason: hypotension / volume replace Albumin Human (Flexbumin 25% Inj) 100 mls @ 60 mls/hr IV.SIG WITH DIALYSIS PRN PRN Reason: hypotension / volume replace Sodium Chloride (Ns Inj) 1,000 mls @ 0 mls/hr OTHER .Q0M PRN PRN Reason: for prime and rinse back Insulin Aspart (Novolog Insulin Correctional Sugar Inj) 0 unit SQ ACHS AND 3AM HAETH; Protocol Lactulose (Lactulose Liq) 30 ml PO DAILY PRN PRN Reason: SEVERE CONSITIPATION Mannitol (Mannitol Inj) 12.5 gm IV.PUSH UNSCH PRN PRN Reason: hypotension / volume replace Nitroglycerin (Nitrostat Sl) 0.4 mg SL Q5M PRN PRN Reason: CHEST PAIN Ondansetron HCl (Zofran Inj) 4 mg IV.PUSH UNSCH PRN PRN Reason: NAUSEA OR VOMITING Senna/Docusate Sodium (Tram-Colace) 1 tab PO BID HEATH Sennosides (Senokot) 17.2 mg PO Q12H PRN PRN Reason: Moderate Constipation Sodium Chloride (Ns Flush) 5 ml IV.FLUSH PRN PRN PRN Reason: flush each lumen during HD Exam Vital signs: Vital Signs 09/21/17 01:42 09/21/17 09:25 09/21/17 15:04 Temperature 98.1 F 98.3 F Pulse Rate 87 80 78 Respiratory Rate 16 19 18 Blood Pressure 127/60 166/78 H 147/69 H Pulse Oximetry 100 100 Intake & Output 09/20/17 09/21/17 09/21/17 18:59 06:59 18:59 Output Total 300 / 300 Balance -300 / -300 Weight 81.647 kg 85.2 kg Output: Urine 300 / 300 Other: # Voids 1 Weight On Admission 85.2 kg Results - Lab Results 09/21/17 02:50 09/21/17 02:50 Most recent lab results Calcium 9.5 mg/dL (8.5-10.1) 09/21/17 02:50 Assessment and Plan - Assessment (1) ESRD (end stage renal disease) on dialysis Code(s): N18.6 - End stage renal disease; Z99.2 - Dependence on renal dialysis Status: Acute (2) Anemia Code(s): D64.9 - Anemia, unspecified Status: Acute (3) HTN (hypertension) Code(s): I10 - Essential (primary) hypertension Status: Acute (4) Acute psychosis Code(s): F23 - Brief psychotic disorder Status: Acute - Attending Attestation patient was seen and examined. Patient known to me for more than a year. On HD TTS at [place]. Has a long history of psychiatric illness, probably bipolar illness. Renal disease could have been due to [place]. Recently had right hip replacement after which she was sent to rehab. Her condition has deteriorated after this hospitalization, it is possible that she was not getting her psych medications appropriately. She was on Abilify before the hospital admission, and appeared to be doing well on it. physical education aide had called rehab to make sure she was getting the medication. She has had at least 3 ER visits including this because of psychotic episodes. Last Monday she was seen in [place] ER, but was discharged after dialysis. She needs thorough psychiatric evaluation, and treatment to stabilize her condition. Dialysis arranged today, seen again during dialysis. Epogen for anemia.
[2017-09-21] MEDS: Insulin NovoLOG Aspart Correctional Sugar Inj SQ SCH ×2 (17:24→20:39)
[2017-09-21] MEDS: Senna/Docusate Sodium 8.6/50 MG Tablet PO SCH (20:39)
[2017-09-22] MEDS: Insulin NovoLOG Aspart Correctional Sugar Inj SQ SCH ×5 (04:33→20:26)
[2017-09-22 08:38] LABS: Baso # (Auto) 0.1 th/mm3 (0.0-0.2); Baso % (Auto) 1.9 % (0.0-2.0); Eos # (Auto) 0.1 th/mm3 (0.0-0.4); Eos % (Auto) 2.6 % (0.0-4.0); Hematocrit 26.5 % (35.0-46.0); Hemoglobin 9.2 gm/dL (11.6-15.3); Lymph # (Auto) 0.9 th/mm3 (1.0-4.8); Lymph % (Auto) 18.9 % (9.0-44.0); Mean Corpuscular HGB Conc 34.7 % (32.0-36.0); Mean Corpuscular Hemoglobin 31.5 pg (27.0-34.0); Mean Corpuscular Volume 90.7 fL (80.0-100.0); Mean Platelet Volume 7.7 fL (7.0-11.0); Mono # (Auto) 0.5 th/mm3 (0.0-0.9); Mono % (Auto) 9.9 % (0.0-8.0); Neut # (Auto) 3.2 th/mm3 (1.8-7.7); Neut % (Auto) 66.7 % (16.0-70.0); Platelet Count 310 th/mm3 (150-450); Red Blood Count 2.92 mil/mm3 (4.00-5.30); Red Cell Distribution Width 15.6 % (11.6-17.2); White Blood Count 4.7 th/mm3 (4.0-11.0)
[2017-09-22 09:01] LABS: Alanine Aminotransferase 10 U/L (10-53); Albumin 3.4 g/dL (3.4-5.0); Anion Gap 9 meq/L (5-15); Aspartate Aminotransferase 22 U/L (15-37); Blood Urea Nitrogen 22 mg/dL (7-18); Calcium 9.8 mg/dL (8.5-10.1); Carbon Dioxide 30.2 meq/L (21.0-32.0); Chloride 98 meq/L (98-107); Cholesterol 159 mg/dL (120-200); Glomerular Filtration Rate 9 mL/min (>89); Glucose,Random 98 mg/dL (74-106); Magnesium 2.2 mg/dL (1.5-2.5); Phosphorus 2.9 mg/dL (2.5-4.9); Potassium 3.9 meq/L (3.5-5.1); Sodium 137 meq/L (136-145); Triglycerides 259 mg/dL (42-150)
[2017-09-22 09:13] LABS: Alkaline Phosphatase 93 U/L (45-117); Chol/HDL Ratio 4.24 Ratio; Free T4 (Free Thyroxine) 0.77 ng/dL (0.76-1.46); HDL Cholesterol 37.5 mg/dL (40.0-60.0); LDL Cholesterol,Calculated 70 mg/dL (0-99); Total Protein 7.5 g/dL (6.4-8.2)
[2017-09-22] MEDS ORDERED: Acetaminophen 325 MG Tablet PO PRN (10:39)
[2017-09-22] MEDS ORDERED: Aluminum/Magnesium/Simethacone Susp 30 ML UDC PO PRN (10:40)
--- NOTE | 2017-09-22 10:54 | P.PN ---
Subjective Interval history: Patient is a 57-year-old female who came in acutely suicidal, Sahni acted. Currently in rehab after right hip replacement in August 2017. Found actively psychotic. Has PMHX of ESRD on HD x 1 year, HTN, Hyperlipidemia, hypothyroidism. Pt. seen for medical management. Sitting up in chair, c/o pain to right hip, a 4-5 on scale. Ambulated with assistance. Noted with swelling to RLE, states it has been present since rehab. No cp, no sob, no fever. States she is on abx for dental infection, no current list of medications from SNF available. Requesting probiotic, afraid of getting diarrhea. No recent diarrhea, has been eating well. Cooperative, denies suicidal ideation. 12 point ros completed, negative except as noted above Physical Exam Vital signs: Vital Signs 09/21/17 15:04 09/21/17 20:12 09/22/17 06:45 Temperature 98.3 F 97.2 F L Pulse Rate 78 87 Respiratory Rate 18 17 Blood Pressure 147/69 H 161/65 H Pulse Oximetry 95 93 L 09/22/17 08:08 Temperature Pulse Rate Respiratory Rate Blood Pressure Pulse Oximetry 93 L Intake & Output 09/21/17 09/22/17 09/22/17 18:59 06:59 18:59 Intake Total 720 / 720 Output Total 2800 / 2800 Balance -2800 / -2800 720 / 720 Weight 85.2 kg Intake: Oral 720 / 720 Output: Urine 300 / 300 Hemodialysis Amount 2500 / 2500 Other: # Voids 1 2 # Bowel Movements 1 Weight On Admission 85.2 kg Narrative: GENERAL: well developed, well nourished female. No NAD SKIN: Warm and dry. HEAD: Atraumatic. Normocephalic. EYES: Pupils equal and round. No scleral icterus. No injection or drainage. ENT: No nasal bleeding or discharge. Mucous membranes pink and moist. NECK: Trachea midline. No JVD. CARDIOVASCULAR: Regular rate and rhythm, soft murmur noted. RESPIRATORY: No accessory muscle use. Clear to auscultation. Breath sounds equal bilaterally. GASTROINTESTINAL: Abdomen soft, non-tender, nondistended. Hepatic and splenic margins not palpable. MUSCULOSKELETAL: Right hip with incision intact, no erythema, healing well. Right LE/foot with +1 edema, pedal pulses 2+ bilat. RLE with minimal erythema. No obvious deformities. Left AVF with + B/T. NEUROLOGICAL: Awake and alert. No obvious cranial nerve deficits. Motor grossly within normal limits. Five out of 5 muscle strength in the arms and legs. Normal speech. PSYCHIATRIC: Appropriate, cooperative. Results - Labs CBC & Chem 7: 09/22/17 08:14 09/22/17 08:14 Laboratory Results - last 24 hr 09/21/17 09/21/17 09/21/17 10:30 16:13 19:56 WBC RBC Hgb Hct MCV MCH MCHC RDW Plt Count MPV Neut % (Auto) Lymph % (Auto) [place] % (Auto) Eos % (Auto) Baso % (Auto) Neut # (Auto) Lymph # (Auto) [place] # (Auto) Eos # (Auto) Baso # (Auto) WBC Differential Differential Comment Sodium Potassium Chloride Carbon Dioxide Anion Gap BUN Creatinine Estimated GFR POC Glucose 121 H 182 H Random Glucose Calcium Phosphorus Magnesium Total Bilirubin AST ALT Alkaline Phosphatase Ammonia Total Protein Albumin Triglycerides Cholesterol LDL Cholesterol, Calc HDL Cholesterol Cholesterol/HDL Ratio TSH Free T4 Urine Opiates Screen Neg Ur Barbiturates Screen Neg Ur Amphetamines Screen Neg U Benzodiazepines Scrn Neg Urine Cocaine Screen Neg U Cannabinoids Screen Neg 09/22/17 09/22/17 09/22/17 04:29 08:13 08:14 WBC RBC Hgb Hct MCV MCH MCHC RDW Plt Count MPV Neut % (Auto) Lymph % (Auto) [place] % (Auto) Eos % (Auto) Baso % (Auto) Neut # (Auto) Lymph # (Auto) [place] # (Auto) Eos # (Auto) Baso # (Auto) WBC Differential Differential Comment Sodium 137 Potassium 3.9 Chloride 98 Carbon Dioxide 30.2 Anion Gap 9 BUN 22 H Creatinine 4.97 H Estimated GFR 9 L POC Glucose 149 H 113 H Random Glucose 98 Calcium 9.8 Phosphorus 2.9 Magnesium 2.2 Total Bilirubin 0.4 AST 22 ALT 10 Alkaline Phosphatase 93 Ammonia Total Protein 7.5 Albumin 3.4 Triglycerides 259 H Cholesterol 159 LDL Cholesterol, Calc 70 HDL Cholesterol 37.5 L Cholesterol/HDL Ratio 4.24 TSH 41.000 H Free T4 0.77 Urine Opiates Screen Ur Barbiturates Screen Ur Amphetamines Screen U Benzodiazepines Scrn Urine Cocaine Screen U Cannabinoids Screen 09/22/17 09/22/17 08:14 08:14 WBC 4.7 RBC 2.92 L Hgb 9.2 L Hct 26.5 L MCV 90.7 MCH 31.5 MCHC 34.7 RDW 15.6 Plt Count 310 MPV 7.7 Neut % (Auto) 66.7 Lymph % (Auto) 18.9 [place] % (Auto) 9.9 H Eos % (Auto) 2.6 Baso % (Auto) 1.9 Neut # (Auto) 3.2 Lymph # (Auto) 0.9 L [place] # (Auto) 0.5 Eos # (Auto) 0.1 Baso # (Auto) 0.1 WBC Differential . Differential Comment Auto diff final Sodium Potassium Chloride Carbon Dioxide Anion Gap BUN Creatinine Estimated GFR POC Glucose Random Glucose Calcium Phosphorus Magnesium Total Bilirubin AST ALT Alkaline Phosphatase Ammonia 21 Total Protein Albumin Triglycerides Cholesterol LDL Cholesterol, Calc HDL Cholesterol Cholesterol/HDL Ratio TSH Free T4 Urine Opiates Screen Ur Barbiturates Screen Ur Amphetamines Screen U Benzodiazepines Scrn Urine Cocaine Screen U Cannabinoids Screen Assessment and Plan - Plan Assessment/Plan Patient is a 57-year-old female who came in acutely suicidal, Sahni acted. Currently in rehab after right hip replacement in August 2017. Found actively psychotic. Has PMHX of ESRD on HD x 1 year, HTN, Hyperlipidemia, hypothyroidism. [facility] requested for medical management Acute paranoid delusions, improved today. Psychotropic agents may have possibly stopped during prior admission and caused psychosis that led to this admission. Schizoaffective disorder. -started on Abilify, dose will be increased today. Pt. better today -psychiatry managing. End-stage renal disease on hemodialysis x 1 year -Nephrology following -continue with HD per schedule, had tx yesterday -change to renal diet -monitor BMP, renal indices improved. HTN, BP elevated. Medication list not available -will order Clonidine 0.1 mg PO q 6 PRN SBP > 170 and DBP >90 -RN to obtain medication list. Hyperlipidemia by history -will restart statin when home medications obtained. Anemia of CKF -monitor CBC Elevated blood glucose, unclear if she has DM, pt. denies -Continue accuchecks AC/HS with ISS -HgbA1C pending Hypothyroidism -Thyroid function results noted, TSH 41 , free T4 0.77 -medication list not available. Will start Levothyroxine 25 mcg PO daily S/P right hip replacement August 2017, hx of OA -will order Tylenol 650 mg PO q 4 prn pain -PT eval and tx Right leg swelling noted, has been ongoing at SNF -will check US of RLE r/o DVT -hold off on roxann hose at this time Ambulation for DVT prophylaxis. D/W RN, need medication list from facility to reconcile. She has left a message Plan of care d/w pt and RN, further management of the patient will be dependent on the hospital course.
--- NOTE | 2017-09-22 10:58 | P.PNPSY ---
Subjective Chief Complaint: Paranoia Remarks: Patient initially admitted by Dr. Orlando Ho's H&P reviewed and agreed with. Patient was admitted under the Sahni act. I have finished the initial psychiatric admission template orders and the med reconciliation review. Patient also seen by me she is alert oriented somewhat hyperverbal white female feeling a history of mental health issues and also end-stage renal disease. She also just had a hip replaced but him less than a month ago. She was in a rehab facility however it appears her psychotropic medications were not continued leading to her becoming depressed vaguely suicidal and somewhat psychotic leading to this hospitalization. Today patient is calm and pleasant that she is willing to take her dialysis was happy she acknowledged and had her dialysis yesterday. She is willing to go back on a medication he states she was taking Abilify 10 mg daily. She does deny suicidality homicidality voice or visions at the present time. She states she feels like she would be going back to her rehab once she is discharged from here to finish the rehabilitation for her right hip fracture. Thus today I will restart the Abilify at 10 mg in the morning the first dose now I will give an extra dose tonight around 8 PM the continue it at 10 mg daily if all goes well consider discharge first middle part of next week Review of Systems All other systems reviewed negative except as stated in HPI Mental Status Examination Appearance: Appropriate Consciousness: Alert Orientation: x4 Motor Activity: Abnormal gait Speech: Unremarkable Language: Adequate Fund of Knowledge: Adequate Attention and Concentration: Adequate Memory: Unremarkable Mood: Sad, Anxious Affect: Other (Slight increased range and intensity) Thought Process & Associations: Intact, Other Thought Content: Delusional (Decreasing) Hallucination Type: None Delusion Type: Paranoid Suicidal Ideation: No Suicidal Plan: No Suicidal Intention: No Homicidal Ideation: No Homicidal Plan: No Homicidal Intention: No Insight: Fair Judgment: Impulsive Assessment and Plan - Plan Plan: Patient meets criteria for further inpatient psychiatric hospitalization of the Sahni act I will do first opinion request second opinion. They feel she does have capacity sign for medications. We will restart medications continue the dialysis we have both hospitalist and audio visual design engineer consulting with us discharge plans me include return to her rehab facility to continue her rehabilitation for her hip surgery Justification for Continued Inpatient Stay: At this time patient would decompensate a place to a lower level of care Discharge Planning: Possible return to her rehab facility Request Healthcare Surrogate/Guardian Advocate?: No
[2017-09-22] MEDS: ARIPiprazole 10 MG Tablet PO SCH (11:43)
--- NOTE | 2017-09-22 13:48 | P.PNNP ---
Subjective Interval history: She is much more lucid today. Dialzyed yesterday, at that time she had episodes of inappropriate laughter crying historically. <Bree Evans - Last Filed: 09/22/17 13:40> Physical Exam Vital signs: Vital Signs 09/21/17 15:04 09/21/17 20:12 09/22/17 06:45 Temperature 98.3 F 97.2 F L Pulse Rate 78 87 Respiratory Rate 18 17 Blood Pressure 147/69 H 161/65 H Pulse Oximetry 95 93 L 09/22/17 08:08 Temperature Pulse Rate Respiratory Rate Blood Pressure Pulse Oximetry 93 L Intake & Output 09/21/17 09/22/17 09/22/17 18:59 06:59 18:59 Intake Total 720 / 720 Output Total 2800 / 2800 Balance -2800 / -2800 720 / 720 Weight 85.2 kg Intake: Oral 720 / 720 Output: Urine 300 / 300 Hemodialysis Amount 2500 / 2500 Other: # Voids 1 2 # Bowel Movements 1 Weight On Admission 85.2 kg - Constitutional no acute distress, morbidly obese - Routine HEENT Exam Head: Present: normocephalic, atraumatic - Routine Neck Exam Present: supple, full ROM - Routine Respiratory Exam Present: CTA bilaterally. Absent: accessory muscle use - Routine Cardiovascular Exam Present: RRR, S1, S2 - Routine Abdominal Exam Present: soft, normoactive bowel sounds - Routine Extremities Exam Present: full ROM, pulses intact. Absent: edema - Routine Skin Exam Present: intact, dry, warm - Routine Neurological Exam Present: alert, oriented X3, CN II-XII intact - Detailed Neurological Exam: Coma Scale Eye Opening: Spontaneous Verbal Response: Oriented Motor Response: Obey commands Nargis Coma Scale Total: 15 - Routine Psychiatric Exam Present: normal affect, normal thought process <Bree Evans - Last Filed: 09/22/17 13:40> Vital signs: Vital Signs 09/21/17 15:04 09/21/17 20:12 09/22/17 06:45 Temperature 98.3 F 97.2 F L Pulse Rate 78 87 Respiratory Rate 18 17 Blood Pressure 147/69 H 161/65 H Pulse Oximetry 95 93 L 09/22/17 08:08 Temperature Pulse Rate Respiratory Rate Blood Pressure Pulse Oximetry 93 L Intake & Output 09/21/17 09/22/17 09/22/17 18:59 06:59 18:59 Intake Total 720 / 720 Output Total 2800 / 2800 Balance -2800 / -2800 720 / 720 Weight 85.2 kg Intake: Oral 720 / 720 Output: Urine 300 / 300 Hemodialysis Amount 2500 / 2500 Other: # Voids 1 2 # Bowel Movements 1 Weight On Admission 85.2 kg <Onur Santos - Last Filed: 09/22/17 14:53> Assessment and Plan - Assessment (1) ESRD (end stage renal disease) on dialysis Code(s): N18.6 - End stage renal disease; Z99.2 - Dependence on renal dialysis Status: Acute Plan: HD TTS, 2.5L UF yesterday. Patent AVF left arm, functions well Avoid IVF administration Repeat labs intermittently High protein diet encouraged Low-normal phosphorus level, not on binders, monitor. (2) Anemia Code(s): D64.9 - Anemia, unspecified Status: Acute Plan: Epogen with dialysis. Follow Hemoglobin. (3) HTN (hypertension) Code(s): I10 - Essential (primary) hypertension Status: Acute Plan: Home medications unknown. On amlodipine. Fluid removal with dialysis. (4) Acute psychosis Code(s): F23 - Brief psychotic disorder Status: Acute Plan: Kaitlyn Acted Hx of bipolar, has had recent change in behavior since her hip surgery Psych following, on Abilify Much better today. <Bree Evans - Last Filed: 09/22/17 13:40> - Assessment (1) ESRD (end stage renal disease) on dialysis Code(s): N18.6 - End stage renal disease; Z99.2 - Dependence on renal dialysis Status: Acute (2) Anemia Code(s): D64.9 - Anemia, unspecified Status: Acute (3) HTN (hypertension) Code(s): I10 - Essential (primary) hypertension Status: Acute (4) Acute psychosis Code(s): F23 - Brief psychotic disorder Status: Acute - Attending Attestation patient was seen and examined. Agree with above assessment and plan. She has been placed on Abilify. Patient needs PT/OT due to recent hip surgery. <Onur Santos - Last Filed: 09/22/17 14:53>
[2017-09-22] MEDS: amLODIPine 10 MG Tablet PO SCH (14:44)
--- NOTE | 2017-09-22 15:14 | US ---
EXAM DATE: 09/22/2017 3:05 PM EDT AGE/SEX: 57 years / Female INDICATIONS: Edema. CLINICAL DATA: This is the patient's initial encounter. Patient reports that signs and symptoms have been present for 1 day and indicates a pain score of 4/10. MEDICAL/SURGICAL HISTORY: Anemia. Hypothyroidism. Hypertension. Anxiety. End stage renal dis ease. Hyperlipidemia. Osteoarthritis. Schizoaffective disorder. Muscle weakness. Hemodialysis. . Mona ble to obtain. COMPARISON: No prior exams available for comparison. TECHNIQUE: Venous ultrasound of both lower extremities was performed from the inguinal ligament to t he proximal calf. Real-time, color Doppler and spectral tracing, compression and augmentation techni ques were used. FINDINGS: Normal compression of the deep venous system from the inguinal region to the proximal calf . No echogenic clot is seen. Normal response of the venous system to augmentation and respiration. CONCLUSION: 1. No DVT. 2. Subcutaneous edema seen within the calf. Electronically signed by: Renny Bravo MD 09/22/2017 3:13 PM EDT
[2017-09-22 17:06] LABS: Hemoglobin A1c 5.8 % (4.3-6.0)
[2017-09-22] MEDS ORDERED: ARIPiprazole 10 MG Tablet PO ONE (20:00)
[2017-09-22] MEDS: Senna/Docusate Sodium 8.6/50 MG Tablet PO SCH (21:02)
[2017-09-23] MEDS: Insulin NovoLOG Aspart Correctional Sugar Inj SQ SCH ×3 (02:30→11:45)
[2017-09-23 07:37] LABS: Calcium 9.8 mg/dL (8.5-10.1); Carbon Dioxide 27.4 meq/L (21.0-32.0); Potassium 3.9 meq/L (3.5-5.1)
[2017-09-23] MEDS: ARIPiprazole 10 MG Tablet PO SCH (08:14)
[2017-09-23] MEDS: Senna/Docusate Sodium 8.6/50 MG Tablet PO SCH ×2 (08:15→20:44)
--- NOTE | 2017-09-23 09:32 | P.PNNP ---
Subjective Interval history: patient was seen today during dialysis. She still appears somewhat "euphoric", very pleasant. No distress is noted. ON 3K, UF goal is 3 liters. Tolerating it well. AVF is cannulated. Physical Exam Vital signs: Vital Signs 09/22/17 18:15 09/23/17 05:10 09/23/17 07:53 Temperature 98.6 F 97.4 F L Pulse Rate 88 74 Respiratory Rate 18 16 Blood Pressure 161/72 H 140/64 Pulse Oximetry 96 98 98 Intake & Output 09/22/17 09/23/17 09/23/17 18:59 06:59 18:59 Intake Total 1200 / 1200 200 / 200 Output Total 1 / 1 2 / 2 Balance 1199 / 1199 -2 / -2 200 / 200 Intake: Oral 1200 / 1200 200 / 200 Output: Urine / 2 Stool Other: # Voids 5 Date of Last Bowel Movement 09/22/17 - Constitutional no acute distress - Routine HEENT Exam Head: Present: normocephalic, atraumatic Eye: Present: EOMI, PERRL ENT: Present: mucous membranes moist - Routine Neck Exam Present: supple, full ROM - Routine Respiratory Exam Present: CTA bilaterally - Routine Cardiovascular Exam Present: RRR, S1, S2, murmur - Routine Abdominal Exam Present: soft, normoactive bowel sounds - Routine Extremities Exam Present: edema - Routine Neurological Exam Present: alert, oriented X3, CN II-XII intact Assessment and Plan - Assessment (1) ESRD (end stage renal disease) on dialysis Code(s): N18.6 - End stage renal disease; Z99.2 - Dependence on renal dialysis Status: Acute Plan: HD TTS, dialysis today as above. Patent AVF left arm, functions well Avoid IVF administration Repeat labs intermittently High protein diet encouraged Low-normal phosphorus level, not on binders, monitor. (2) Anemia Code(s): D64.9 - Anemia, unspecified Status: Acute Plan: Epogen with dialysis. Follow Hemoglobin. (3) HTN (hypertension) Code(s): I10 - Essential (primary) hypertension Status: Acute Plan: . On amlodipine. Fluid removal with dialysis. (4) Acute psychosis Code(s): F23 - Brief psychotic disorder Status: Acute Plan: Hx of bipolar, has had recent change in behavior since her hip surgery Psych following, on Abilify. Overall improvement.
[2017-09-23] MEDS: Gelatin 12 MM/7 MM Topical Foam TOPICAL PRN (11:00)
[2017-09-23] MEDS ORDERED: Levothyroxine 125 MCG Tablet PO SCH (11:43)
[2017-09-23] MEDS: amLODIPine 10 MG Tablet PO SCH (11:45)
--- NOTE | 2017-09-23 11:53 | P.PN ---
Subjective Interval history: Patient is a 57-year-old female who came in acutely suicidal, Sahni acted. Currently in rehab after right hip replacement in August 2017. Found actively psychotic. Has PMHX of ESRD on HD x 1 year, HTN, Hyperlipidemia, hypothyroidism. Pt. seen for medical management. Evaluated in HD, tolerating HD well. C/O inc. anxiety, distracting herself by drawing. Feels better but still with some anxiety especially since she can't get up and move around. Right hip pain stable. BP ok. States that she was on Levothyroxine 125 mcg orally daily. Asked about abx use, states she is not on it. Still waiting on SNF to send med list. C/O right leg swelling, has been like that since surgery. Doesn't have Teds in place yet. Overall feels better Physical Exam Vital signs: Vital Signs 09/22/17 18:15 09/23/17 05:10 09/23/17 07:53 Temperature 98.6 F 97.4 F L Pulse Rate 88 74 Respiratory Rate 18 16 Blood Pressure 161/72 H 140/64 Pulse Oximetry 96 98 98 Intake & Output 09/22/17 09/23/17 09/23/17 18:59 06:59 18:59 Intake Total 1200 / 1200 200 / 200 Output Total 1 / 1 2 / 2 Balance 1199 / 1199 -2 / -2 200 / 200 Intake: Oral 1200 / 1200 200 / 200 Output: Urine 2 / 2 Stool / Other: # Voids 5 Date of Last Bowel Movement 09/22/17 09/22/17 Narrative: GENERAL: well developed, well nourished female. No NAD SKIN: Warm and dry. HEAD: Atraumatic. Normocephalic. EYES: Pupils equal and round. No scleral icterus. No injection or drainage. ENT: No nasal bleeding or discharge. Mucous membranes pink and moist. NECK: Trachea midline. No JVD. CARDIOVASCULAR: Regular rate and rhythm, soft murmur noted. RESPIRATORY: No accessory muscle use. Clear to auscultation. Breath sounds equal bilaterally. GASTROINTESTINAL: Abdomen soft, non-tender, nondistended. Hepatic and splenic margins not palpable. MUSCULOSKELETAL: Right hip with incision intact, no erythema, healing well. Right LE/foot with +1 edema, pedal pulses 2+ bilat. RLE with minimal erythema. No obvious deformities. Left AVF with + B/T. NEUROLOGICAL: Awake and alert. No obvious cranial nerve deficits. Motor grossly within normal limits. Five out of 5 muscle strength in the arms and legs. Normal speech. PSYCHIATRIC: Appropriate, cooperative. Anxious, euphoric. Results - Labs CBC & Chem 7: 09/22/17 08:14 09/23/17 06:40 Laboratory Results - last 24 hr 09/22/17 09/22/17 09/22/17 08:14 13:45 15:33 Sodium Potassium Chloride Carbon Dioxide Anion Gap BUN Creatinine Estimated GFR POC Glucose 119 H 140 H Random Glucose Hemoglobin A1c 5.8 Calcium 09/22/17 09/23/17 09/23/17 20:21 06:40 07:50 Sodium 139 Potassium 3.9 Chloride 100 Carbon Dioxide 27.4 Anion Gap 12 BUN 35 H Creatinine 6.72 H Estimated GFR 6 L POC Glucose 135 H 98 Random Glucose 90 Hemoglobin A1c Calcium 9.8 - Imaging Impressions Venous Doppler Study 09/22/17 00:00 CONCLUSION: 1. No DVT. 2. Subcutaneous edema seen within the calf. Assessment and Plan - Plan Assessment/Plan Patient is a 57-year-old female who came in acutely suicidal, Sahni acted. Currently in rehab after right hip replacement in August 2017. Found actively psychotic. Has PMHX of ESRD on HD x 1 year, HTN, Hyperlipidemia, hypothyroidism. [facility] requested for medical management Acute paranoid delusions, improved today. Psychotropic agents may have possibly stopped during prior admission and caused psychosis that led to this admission. Schizoaffective disorder. -Continue Abilify 10 mg PO daily -psychiatry managing. -poss dc middle of next week -symptoms improving End-stage renal disease on hemodialysis x 1 year -Nephrology following -continue with HD per schedule, had tx yesterday -continue renal diet -monitor BMP, renal indices improved. HTN, BP elevated. Medication list not available -continue Clonidine 0.1 mg PO q 6 PRN SBP > 170 and DBP >90 -Continue Norvasc. -BP improved. Hyperlipidemia by history -will restart statin when home medications obtained. Anemia of CKF -monitor CBC, stable Elevated blood glucose, unclear if she has DM, pt. denies -Blood glucose 110s, will stop accucheck -HgbA1C 5.8 -d/w pt. need for lifestyle modification, needs to lose weight, portion control. Hypothyroidism -Thyroid function results noted, TSH 41 , free T4 0.77 -Inc. Levothyroxine 125 mcg PO daily, was on this dose before. S/P right hip replacement August 2017, hx of OA -continue Tylenol 650 mg PO q 4 prn pain -PT eval and tx Right leg swelling noted, has been ongoing at SNF -US of RLE negative DVT -will order roxann hose. Ambulation/TEDS for DVT prophylaxis.
--- NOTE | 2017-09-23 16:49 | P.PNPSY ---
Subjective Chief Complaint: Paranoia Remarks: This is a request for second opinion. Admission note was reviewed and I agree with the history. Patient was seen and case was discussed with nursing. Patient continues to have signs of leanna and psychosis. She is hyper energetic , hyperverbal, with pressured speech and bizarre delusions. She just thought that Trump was trying to kill her. Insight is fair, realizing she needs her medications. She vehemently denies suicidal or homicidal ideation intent or plan. Getting along well with her roommate Mental Status Examination Appearance: Appropriate Consciousness: Alert Orientation: x4 Motor Activity: Abnormal gait Speech: Unremarkable Language: Adequate Fund of Knowledge: Adequate Attention and Concentration: Adequate Memory: Unremarkable Mood: Sad, Anxious Affect: Other (Slight increased range and intensity) Thought Process & Associations: Intact, Other Thought Content: Delusional (Decreasing) Hallucination Type: None Delusion Type: Paranoid Suicidal Ideation: No Suicidal Plan: No Suicidal Intention: No Homicidal Ideation: No Homicidal Plan: No Homicidal Intention: No Insight: Fair Judgment: Impulsive Assessment and Plan - Plan Plan: I agree with the first opinion to continue petition. Criteria include acute psychosis Justification for Continued Inpatient Stay: Patient would decompensate in a less restrictive setting Request Healthcare Surrogate/Guardian Advocate?: No
--- NOTE | 2017-09-24 08:27 | P.PNNP ---
Subjective Interval history: Had dialysis yesterday. BP is high. Seen by psychiatry for a second opinion. Notes were reviewed. Physical Exam Vital signs: Vital Signs 09/23/17 21:39 09/24/17 05:42 Temperature 99.1 F Pulse Rate 99 H Respiratory Rate 16 18 Blood Pressure 161/76 H Pulse Oximetry 100 Intake & Output 09/23/17 09/24/17 09/24/17 18:59 06:59 18:59 Intake Total 400 / 400 600 / 600 Output Total 2500 / 2500 Balance -2100 / -2100 600 / 600 Intake: Oral 400 / 400 600 / 600 Output: Hemodialysis Amount 2500 / 2500 Other: # Voids 4 Date of Last Bowel Movement 09/22/17 - Constitutional no acute distress - Routine HEENT Exam Head: Present: normocephalic, atraumatic Eye: Present: EOMI, PERRL - Routine Neck Exam Present: supple. Absent: JVD, lymphadenopathy, thyromegaly - Routine Respiratory Exam Present: CTA bilaterally - Routine Cardiovascular Exam Present: RRR, S1, S2 - Routine Abdominal Exam Present: soft, normoactive bowel sounds - Routine Skin Exam Present: intact - Routine Neurological Exam Present: alert, vision grossly intact, hearing grossly intact - Routine Psychiatric Exam Present: paranoid Assessment and Plan - Assessment (1) ESRD (end stage renal disease) on dialysis Code(s): N18.6 - End stage renal disease; Z99.2 - Dependence on renal dialysis Status: Acute Plan: HD TTS, monitor fluid and electrolytes. Patent AVF left arm, functions well Avoid IVF administration Repeat labs intermittently High protein diet encouraged Low-normal phosphorus level, not on binders, monitor. (2) Anemia Code(s): D64.9 - Anemia, unspecified Status: Acute Plan: Epogen with dialysis. Follow Hemoglobin. (3) HTN (hypertension) Code(s): I10 - Essential (primary) hypertension Status: Acute Plan: . On amlodipine. Started Losartan. Fluid removal with dialysis. (4) Acute psychosis Code(s): F23 - Brief psychotic disorder Status: Acute Plan: Hx of bipolar, has had recent change in behavior since her hip surgery Psych following, on Abilify. Overall improvement.
[2017-09-24] MEDS: Senna/Docusate Sodium 8.6/50 MG Tablet PO SCH ×3 (08:54→20:57)
[2017-09-24] MEDS: amLODIPine 10 MG Tablet PO SCH (08:54)
[2017-09-24] MEDS: ARIPiprazole 10 MG Tablet PO SCH (08:54)
[2017-09-24] MEDS: Acetaminophen 325 MG Tablet PO PRN (10:08)
--- NOTE | 2017-09-24 10:36 | P.PN ---
Subjective Interval history: follow up for medical management-pt. examined in room, appears more anxious, hyperenergetic. " I can't get to my REM", requesting meds to help her sleep. Eating okay. Has dry patches to RLE, hx of psoriasis per SNF report. Per RN, one noted to right leg and small one to buttock. No itching. Temp max 99.7. No cp, no sob, no cough. Eating well and moving bowels.Using walker to get out of bed. BP up 160s. Dr. Danielle calvillo Physical Exam Vital signs: Vital Signs 09/23/17 21:39 09/24/17 05:42 Temperature 99.1 F Pulse Rate 99 H Respiratory Rate 16 18 Blood Pressure 161/76 H Pulse Oximetry 100 Intake & Output 09/23/17 09/24/17 09/24/17 18:59 06:59 18:59 Intake Total 400 / 400 600 / 600 Output Total 2500 / 2500 Balance -2100 / -2100 600 / 600 Intake: Oral 400 / 400 600 / 600 Output: Hemodialysis Amount 2500 / 2500 Other: # Voids 4 Date of Last Bowel Movement 09/22/17 Narrative: GENERAL: well developed, well nourished female. No NAD SKIN: Warm and dry. Dry scaly patch RLE HEAD: Atraumatic. Normocephalic. EYES: Pupils equal and round. No scleral icterus. No injection or drainage. ENT: No nasal bleeding or discharge. Mucous membranes pink and moist. NECK: Trachea midline. No JVD. CARDIOVASCULAR: Regular rate and rhythm, soft murmur noted. RESPIRATORY: No accessory muscle use. Clear to auscultation. Breath sounds equal bilaterally. GASTROINTESTINAL: Abdomen soft, non-tender, nondistended. Hepatic and splenic margins not palpable. MUSCULOSKELETAL: Right hip with incision intact, no erythema, healing well. Right LE/foot with +1 edema, pedal pulses 2+ bilat. RLE with minimal erythema. No obvious deformities. Left AVF with + B/T. NEUROLOGICAL: Awake and alert. No obvious cranial nerve deficits. Motor grossly within normal limits. Five out of 5 muscle strength in the arms and legs. Normal speech. PSYCHIATRIC: hyper today, anxious. Results - Labs CBC & Chem 7: 09/22/17 08:14 09/23/17 06:40 Laboratory Results - last 24 hr 09/23/17 09/23/17 16:45 20:20 POC Glucose 111 H 94 Assessment and Plan - Plan Assessment/Plan Patient is a 57-year-old female who came in acutely suicidal, Sahni acted. Currently in rehab after right hip replacement in August 2017. Found actively psychotic. Has PMHX of ESRD on HD x 1 year, HTN, Hyperlipidemia, hypothyroidism. [facility] requested for medical management Acute paranoid delusions, improved today. Psychotropic agents may have possibly stopped during prior admission and caused psychosis that led to this admission. Schizoaffective disorder. -Continue Abilify 10 mg PO daily -psychiatry managing. End-stage renal disease on hemodialysis x 1 year -Nephrology following -continue with HD per schedule, had tx yesterday -continue renal diet HTN, BP elevated. Medication list not available -continue Clonidine 0.1 mg PO q 6 PRN SBP > 170 and DBP >90 -Continue Norvasc. -Losartan started per nephrology Hyperlipidemia by history -will restart statin when home medications obtained. Anemia of CKF -monitor CBC, stable Elevated blood glucose, unclear if she has DM, pt. denies -Blood glucose 110s, will stop accucheck -HgbA1C 5.8 -d/w pt. need for lifestyle modification, needs to lose weight, portion control. Hypothyroidism -Thyroid function results noted, TSH 41 , free T4 0.77 -Home Levothyroxine dosage noted, resume. Levothyroxine 175 mcg po daily -need TSH in 4-6 weeks. S/P right hip replacement August 2017, hx of OA -continue Tylenol 650 mg PO q 4 prn pain as well as Tramadol PRN -PT eval and tx Right leg swelling noted, has been ongoing at [facility] -US of RLE negative DVT -ALICIA dose RLE with rash, hx of psoriasis. On Triamcinolone at [facility] -resume Triamcinolone Ambulation/TEDS for DVT prophylaxis. [facility] provided med list, reviewed, initiated as indicated Plan of care D/W RN, pt.m, Dr. Santos.
[2017-09-24] MEDS: Aspirin 325 MG Tablet PO SCH ×2 (11:47→20:34)
[2017-09-24] MEDS: Lactobacillus Acidophilus/L. Spores Tablet PO SCH ×2 (11:47→20:33)
--- NOTE | 2017-09-24 16:12 | P.PNPSY ---
Subjective Chief Complaint: Paranoia Remarks: Patient was seen and case discussed with nursing. Patient remains quite manic. She is very elevated hyperverbal with pressured speech and tangential thought process. She is behaving well on the unit. Has not needed any ETO's. She denies suicidal or homicidal ideation intent or plan. Mental Status Examination Appearance: Appropriate Consciousness: Alert Orientation: x4 Motor Activity: Abnormal gait Speech: Pressured Language: Adequate Fund of Knowledge: Adequate Attention and Concentration: Adequate Memory: Unremarkable Mood: Sad, Anxious Affect: Other (Elevated) Thought Process & Associations: Intact, Other Thought Content: Delusional (Decreasing) Hallucination Type: None Delusion Type: Paranoid Suicidal Ideation: No Suicidal Plan: No Suicidal Intention: No Homicidal Ideation: No Homicidal Plan: No Homicidal Intention: No Insight: Fair Judgment: Impulsive Assessment and Plan - Plan Plan: I agree with the first opinion to continue petition. Criteria include acute psychosis Justification for Continued Inpatient Stay: Patient would decompensate in a less restrictive setting Request Healthcare Surrogate/Guardian Advocate?: No
[2017-09-25] MEDS: Acetaminophen 325 MG Tablet PO PRN (03:30)
[2017-09-25] MEDS: Levothyroxine 100 MCG Tablet PO SCH (06:07)
[2017-09-25] MEDS: Levothyroxine 75 MCG Tablet PO SCH (06:08)
--- NOTE | 2017-09-25 08:13 | P.PN ---
Subjective Interval history: Follow-up visit for end-stage renal disease, HTN right hip replacement. Nurse reports that patient complaining of nausea, no vomiting. No acute events overnight or this morning. Patient is seen and examined resting in bed comfortably, appears to be in no acute distress. She is diffusely confused and oriented x1. She reports nausea but no vomiting, states this is chronic and she takes a pill under her tongue for nausea at her facility. She denies any fevers or chills, last move her bowels about 3 days ago. Patient is a poor historian. Physical Exam Vital signs: Vital Signs 09/24/17 12:42 09/24/17 16:52 09/25/17 07:00 Temperature 36.5 C 36.6 C Pulse Rate 76 60 Respiratory Rate 18 17 Blood Pressure 138/77 135/70 Pulse Oximetry 99 98 97 Intake & Output 09/24/17 09/25/17 09/25/17 18:59 06:59 18:59 Intake Total 480 / 480 Balance 480 / 480 Intake: Oral 480 / 480 Other: Date of Last Bowel Movement 09/24/17 Narrative: GENERAL: well developed, well nourished female. No NAD SKIN: Warm and dry. Dry scaly patch lateral RLE EYES: Pupils equal and round. No scleral icterus or drainage. ENT: No nasal bleeding or discharge. Mucous membranes pink and moist. NECK: Trachea midline. No JVD. CARDIOVASCULAR: Regular rate and rhythm, left AV fistula with positive bruit and thrill RESPIRATORY: No accessory muscle use. Clear to auscultation. Breath sounds equal bilaterally. GASTROINTESTINAL: Abdomen soft, non-tender, nondistended. Hepatic and splenic margins not palpable. MUSCULOSKELETAL: Right hip with incision intact, no erythema, healing well. Right LE/foot with +1 edema, pedal pulses 2+ bilat. RLE with minimal erythema. No obvious deformities. NEUROLOGICAL: Awake and alert. No obvious cranial nerve deficits. Motor grossly within normal limits. Normal speech. PSYCHIATRIC: hyper today, anxious. Results - Labs CBC & Chem 7: 09/22/17 08:14 09/23/17 06:40 Assessment and Plan - Plan Patient is a 57-year-old female who came in acutely suicidal, Sahni acted. Currently in rehab after right hip replacement in August 2017. Found actively psychotic. Has PMHX of ESRD on HD x 1 year, HTN, Hyperlipidemia, hypothyroidism. [facility] requested for medical management Acute paranoid delusions, improved today. Psychotropic agents may have possibly stopped during prior admission and caused psychosis that led to this admission. Schizoaffective disorder. -Continue Abilify 10 mg PO daily -psychiatry managing. End-stage renal disease on hemodialysis x 1 year -Nephrology following -continue with HD per schedule, HD 09/24 with 2.5 L removed -continue renal diet HTN, BP elevated. Medication list not available -continue Clonidine 0.1 mg PO q 6 PRN SBP > 170 and DBP >90 -Continue Norvasc and losartan per nephrology -BP improved Hyperlipidemia by history -will restart statin when home medications obtained. Anemia of CKF -monitor CBC, stable Elevated blood glucose, unclear if she has DM, pt. denies -Blood glucose 110s, will stop accucheck -HgbA1C 5.8 -d/w pt. need for lifestyle modification, needs to lose weight, portion control. Hypothyroidism -Thyroid function results noted, TSH 41 , free T4 0.77 -Home Levothyroxine dosage noted, resume. Levothyroxine 175 mcg po daily -need TSH in 4-6 weeks. S/P right hip replacement August 2017, hx of OA -continue Tylenol 650 mg PO q 4 prn pain as well as Tramadol PRN -PT eval and tx Right leg swelling noted, has been ongoing at SNF -US of RLE negative DVT -ALICIA dose RLE with rash, hx of psoriasis. -Continue triamcinolone Nausea Constipation -Patient is a poor historian, check KUB -Zofran as needed, no noted administration as of today and mar -Continue Tram-Colace twice daily Ambulation/TEDS for DVT prophylaxis. Discussed Condition With: Patient, RN
[2017-09-25] MEDS ORDERED: Non-Formulary Drug (Levothyroxine [Levothyroxine] 175 MCG) PO SCH (09:00)
[2017-09-25] MEDS: ARIPiprazole 10 MG Tablet PO SCH (10:30)
[2017-09-25] MEDS: Aspirin 325 MG Tablet PO SCH ×2 (10:30→20:26)
[2017-09-25] MEDS: Lactobacillus Acidophilus/L. Spores Tablet PO SCH ×2 (10:30→20:26)
[2017-09-25] MEDS: Senna/Docusate Sodium 8.6/50 MG Tablet PO SCH ×2 (10:30→20:26)
[2017-09-25] MEDS: amLODIPine 10 MG Tablet PO SCH (10:30)
--- NOTE | 2017-09-25 10:56 | P.PNNP ---
Subjective Interval history: She is awake. Seems manic today. Psych at the bedside. <Bree Evans - Last Filed: 09/25/17 10:53> Physical Exam Vital signs: Vital Signs 09/24/17 12:42 09/24/17 16:52 09/25/17 07:00 Temperature 97.7 F 97.9 F Pulse Rate 76 60 Respiratory Rate 18 17 Blood Pressure 138/77 135/70 Pulse Oximetry 99 98 97 Intake & Output 09/24/17 09/25/17 09/25/17 18:59 06:59 18:59 Intake Total 480 / 480 Balance 480 / 480 Intake: Oral 480 / 480 Other: Date of Last Bowel Movement 09/24/17 - Constitutional no acute distress, morbidly obese - Routine HEENT Exam Head: Present: normocephalic - Routine Neck Exam Present: supple, full ROM - Routine Respiratory Exam Present: CTA bilaterally. Absent: accessory muscle use - Routine Cardiovascular Exam Present: RRR, S1, S2 - Routine Abdominal Exam Present: soft, normoactive bowel sounds - Routine Extremities Exam Present: full ROM, AV fistula. Absent: edema - Routine Skin Exam Present: intact, warm - Routine Neurological Exam Present: alert, oriented X3 - Detailed Neurological Exam: Coma Scale Eye Opening: Spontaneous Verbal Response: Oriented Motor Response: Obey commands [place] Coma Scale Total: 15 - Routine Psychiatric Exam Present: cooperative, anxious, manic. Absent: suicidal ideation, good insight, good judgment - Detailed Psychiatric Exam Mood and affect: Present: labile Thought process: Present: confabulating, flight of ideas, loose association Speech and movement: Present: pressured speech <Bree Evans - Last Filed: 09/25/17 10:53> Vital signs: Vital Signs 09/25/17 18:00 09/26/17 05:56 Temperature 98.0 F 97.3 F L Pulse Rate 96 H 83 Respiratory Rate 18 17 Blood Pressure 172/74 H 160/70 H Pulse Oximetry 95 99 Intake & Output 09/25/17 09/26/17 09/26/17 18:59 06:59 18:59 Intake Total 840 / 840 300 / 300 Balance 840 / 840 300 / 300 Intake: Oral 840 / 840 300 / 300 Other: Date of Last Bowel Movement 09/24/17 09/24/17 <Onur Santos - Last Filed: 09/26/17 08:02> Assessment and Plan - Assessment (1) ESRD (end stage renal disease) on dialysis Code(s): N18.6 - End stage renal disease; Z99.2 - Dependence on renal dialysis Status: Acute Plan: HD TTS, monitor fluid and electrolytes. Patent AVF left arm, functions well Avoid IVF administration Repeat labs intermittently High protein diet encouraged Low-normal phosphorus level, not on binders, monitor. (2) Anemia Code(s): D64.9 - Anemia, unspecified Status: Acute Plan: Epogen with dialysis. Follow Hemoglobin. (3) HTN (hypertension) Code(s): I10 - Essential (primary) hypertension Status: Acute Plan: On amlodipine and Losartan. Fluid removal with dialysis. (4) Acute psychosis Code(s): F23 - Brief psychotic disorder Status: Acute Plan: Hx of bipolar, has had recent change in behavior since her hip surgery Psych following, on Abilify. <Bree Evans - Last Filed: 09/25/17 10:53> - Assessment (1) ESRD (end stage renal disease) on dialysis Code(s): N18.6 - End stage renal disease; Z99.2 - Dependence on renal dialysis Status: Acute (2) Anemia Code(s): D64.9 - Anemia, unspecified Status: Acute (3) HTN (hypertension) Code(s): I10 - Essential (primary) hypertension Status: Acute (4) Acute psychosis Code(s): F23 - Brief psychotic disorder Status: Acute - Attending Attestation patient was seen and examined. Agree with above assessment and plan. <Onur Santos - Last Filed: 09/26/17 08:02>
--- NOTE | 2017-09-25 15:55 | XR ---
EXAM DATE: 09/25/2017 2:52 PM EDT AGE/SEX: 57 years / Female INDICATIONS: Abdominal pain and nausea. CLINICAL DATA: This is the patient's initial encounter. Patient reports that signs and symptoms have been present for 2 days and indicates a pain score of 5/10. MEDICAL/SURGICAL HISTORY: Non-responsive. Non-responsive. COMPARISON: PCI, CT ABDOMEN AND PELVIS W/O CONTRAST, 07/03/2017. . FINDINGS: Air and stool seen throughout the colon. No dilated loops of bowel. No significant pneumatosis or gr oss free air. Surgical clips in the right upper quadrant consistent with prior cholecystectomy. No ab normal calcifications. Right hip arthroplasty in place. CONCLUSION: 1. Nonobstructive bowel gas pattern. Electronically signed by: Lino Richmond MD 09/25/2017 3:54 PM EDT
--- NOTE | 2017-09-25 20:55 | P.PNPSY ---
Subjective Chief Complaint: Paranoia Remarks: Patient seen for follow-up, chart reviewed. Discussion nursing staff reported the patient denying any perceptual disturbances with poor sleep less evening and reporting constipation. Patient was found lying hospital bed noted to have pressured speech, loosening associations and flight of ideas during interview and disorganized at times. Patient states she had poor sleep last evening due to "panic attacks" states that the Abilify is helping. Patient recalls not having been receiving her medications during her rehabilitation prior to admission. Patient denying any suicide ideation. Review of Systems All other systems reviewed negative except as stated in HPI Mental Status Examination Appearance: Appropriate Consciousness: Alert Orientation: x4 Motor Activity: Abnormal gait Speech: Pressured Language: Adequate Fund of Knowledge: Adequate Attention and Concentration: Adequate Memory: Unremarkable Mood: Anxious Affect: Other (Elevated) Thought Process & Associations: Tangential, Other (Flight of ideas) Thought Content: Delusional (Decreasing) Hallucination Type: None Delusion Type: Paranoid Suicidal Ideation: No Suicidal Plan: No Suicidal Intention: No Homicidal Ideation: No Homicidal Plan: No Homicidal Intention: No Insight: Fair Judgment: Impulsive Assessment and Plan - Assessment (1) Acute psychosis Code(s): F23 - Brief psychotic disorder Status: Acute - Plan Plan: Patient this time continues with disorganization, denying any perceptional services but noted to have pressured speech and flight of ideas. We will increase Abilify to 15 mg p.o. daily, continue with medications. Continue dialysis as scheduled. Nephrology and hospitalist consult input appreciated. Continue to monitor mood and behavior. Discharge planning in progress. Justification for Continued Inpatient Stay: At risk for further decompensation if at lower level of care. Request Healthcare Surrogate/Guardian Advocate?: No
[2017-09-26] MEDS: Levothyroxine 75 MCG Tablet PO SCH (05:39)
[2017-09-26] MEDS: Levothyroxine 100 MCG Tablet PO SCH (05:39)
[2017-09-26] MEDS: Lactobacillus Acidophilus/L. Spores Tablet PO SCH ×2 (09:32→20:36)
[2017-09-26] MEDS: Senna/Docusate Sodium 8.6/50 MG Tablet PO SCH ×2 (09:32→20:37)
[2017-09-26] MEDS: amLODIPine 10 MG Tablet PO SCH (09:32)
[2017-09-26] MEDS: Aspirin 325 MG Tablet PO SCH ×2 (09:32→20:36)
--- NOTE | 2017-09-26 10:18 | P.PNNP ---
Subjective Interval history: Seen during dialysis. She is paranoid, with flight of ideas. Currently cooperative. <Bree Evans - Last Filed: 09/26/17 10:15> Physical Exam Vital signs: Vital Signs 09/25/17 18:00 09/26/17 05:56 Temperature 98.0 F 97.3 F L Pulse Rate 96 H 83 Respiratory Rate 18 17 Blood Pressure 172/74 H 160/70 H Pulse Oximetry 95 99 Intake & Output 09/25/17 09/26/17 09/26/17 18:59 06:59 18:59 Intake Total 840 / 840 300 / 300 Balance 840 / 840 300 / 300 Intake: Oral 840 / 840 300 / 300 Other: Date of Last Bowel Movement 09/24/17 09/24/17 - Constitutional no acute distress, chronically ill appearing, cooperative, agitated - Routine HEENT Exam Head: Present: normocephalic ENT: Present: mucous membranes dry - Routine Neck Exam Present: supple, full ROM - Routine Respiratory Exam Present: CTA bilaterally. Absent: accessory muscle use - Routine Cardiovascular Exam Present: RRR, S1, S2 - Routine Abdominal Exam Present: soft, normoactive bowel sounds - Routine Extremities Exam Present: full ROM, pulses intact. Absent: edema - Routine Skin Exam Present: intact, dry, warm - Routine Neurological Exam Present: alert, CN II-XII intact, moving all extremities - Detailed Neurological Exam: Coma Scale Eye Opening: Spontaneous Verbal Response: Confused Motor Response: Obey commands [place] Coma Scale Total: 14 - Routine Psychiatric Exam Present: cooperative, anxious, agitated. Absent: auditory hallucinations, good insight - Detailed Psychiatric Exam Mood and affect: Present: labile, expansive Thought process: Present: confabulating, circumstantial, flight of ideas, illogical, loose association Thought content: Present: delusions Speech and movement: Present: pressured speech <Bree Evans - Last Filed: 09/26/17 10:15> Vital signs: Vital Signs 09/27/17 05:29 Temperature 98 F Pulse Rate 82 Respiratory Rate 17 Blood Pressure 130/59 L Pulse Oximetry 95 Intake & Output 09/26/17 09/27/17 09/27/17 18:59 06:59 18:59 Intake Total 220 / 220 180 / 180 Output Total 4003 / 4003 Balance -3783 / -3783 180 / 180 Intake: IV 100 / 100 Flexbumin 25% Inj 100 ML @ 60 100 / 100 mls/hr IV.SIG WITH DIALYSIS PRN Rx#:[id number] Oral 120 / 120 180 / 180 Output: Urine 2 / 2 Stool 1 / Hemodialysis Amount 4000 / 4000 Other: # Voids 4 Date of Last Bowel Movement 09/24/17 09/24/17 # Bowel Movements 1 <Onur Santos - Last Filed: 09/27/17 09:06> Assessment and Plan - Assessment (1) ESRD (end stage renal disease) on dialysis Code(s): N18.6 - End stage renal disease; Z99.2 - Dependence on renal dialysis Status: Acute Plan: Seen during dialysis today on a 2K, 350 BFR, goal 2.5L Continue HD TTS Intermittently monitor fluid and electrolytes. Patent AVF left arm, functions well Avoid IVF administration Repeat labs intermittently High protein diet encouraged Low-normal phosphorus level, not on binders, monitor. (2) Anemia Code(s): D64.9 - Anemia, unspecified Status: Acute Plan: Epogen with dialysis. Follow Hemoglobin. (3) HTN (hypertension) Code(s): I10 - Essential (primary) hypertension Status: Acute Plan: On amlodipine and Losartan. Fluid removal with dialysis. (4) Acute psychosis Code(s): F23 - Brief psychotic disorder Status: Acute Plan: Hx of bipolar, has had recent change in behavior since her hip surgery Psych following, on Abilify, dosage recently increased for symptom management. <Bree Evans - Last Filed: 09/26/17 10:15> - Assessment (1) ESRD (end stage renal disease) on dialysis Code(s): N18.6 - End stage renal disease; Z99.2 - Dependence on renal dialysis Status: Acute (2) Anemia Code(s): D64.9 - Anemia, unspecified Status: Acute (3) HTN (hypertension) Code(s): I10 - Essential (primary) hypertension Status: Acute (4) Acute psychosis Code(s): F23 - Brief psychotic disorder Status: Acute - Attending Attestation patient was seen and examined. Agree with above assessment and plan. In full blown manic episode. Seen during dialysis. <Onur Santos - Last Filed: 09/27/17 09:06>
[2017-09-26 12:50] LABS: Eos # (Auto) 0.2 th/mm3 (0.0-0.4); Eos % (Auto) 3.2 % (0.0-4.0); Hematocrit 29.3 % (35.0-46.0); Hemoglobin 9.7 gm/dL (11.6-15.3); Lymph # (Auto) 0.8 th/mm3 (1.0-4.8); Lymph % (Auto) 15.5 % (9.0-44.0); Mean Corpuscular HGB Conc 33.2 % (32.0-36.0); Mean Corpuscular Hemoglobin 31.2 pg (27.0-34.0); Mean Corpuscular Volume 93.8 fL (80.0-100.0); Mean Platelet Volume 8.2 fL (7.0-11.0); Mono # (Auto) 0.4 th/mm3 (0.0-0.9); Mono % (Auto) 8.4 % (0.0-8.0); Neut # (Auto) 3.5 th/mm3 (1.8-7.7); Neut % (Auto) 71.9 % (16.0-70.0); Platelet Count 319 th/mm3 (150-450); Red Blood Count 3.13 mil/mm3 (4.00-5.30); White Blood Count 4.9 th/mm3 (4.0-11.0)
[2017-09-26 13:18] LABS: Carbon Dioxide 26.3 meq/L (21.0-32.0); Potassium 4.7 meq/L (3.5-5.1)
--- NOTE | 2017-09-26 16:16 | P.PN ---
Subjective Interval history: Follow-up visit end-stage renal disease on hemodialysis, HTN, right hip replacement. Patient seen and examined today. Reports increasing anxiety. States that she has not been sleeping well. States she needs something for sleep at night. States that every time she goes to sleep she would apparently hear the TV and wake up and start screaming and yelling. She appears to be confused and reports hallucinations. Continues to have right lower extremity edema with pain. Denies SOB/ dyspnea. Denies chest pain, palpitations, headaches, dizziness. Denies fevers, chills, n/v/d. Physical Exam Vital signs: Vital Signs 09/25/17 18:00 09/26/17 05:56 Temperature 98.0 F 97.3 F L Pulse Rate 96 H 83 Respiratory Rate 18 17 Blood Pressure 172/74 H 160/70 H Pulse Oximetry 95 99 Intake & Output 09/25/17 09/26/17 09/26/17 18:59 06:59 18:59 Intake Total 840 / 840 300 / 300 100 / 100 Output Total 1999 Balance 840 / 840 300 / 300 -1900 / -1900 Intake: IV 100 / 100 Flexbumin 25% Inj 100 ML @ 60 100 / 100 mls/hr IV.SIG WITH DIALYSIS PRN Rx#:[id number] Oral 840 / 840 300 / 300 Output: Hemodialysis Amount 1999 Other: Date of Last Bowel Movement 09/24/17 09/24/17 09/24/17 Narrative: GENERAL: This is a well-nourished, well-developed patient, in no apparent distress. SKIN: Warm and dry. HEENT: Normocephalic. Pupils equal round and reactive. Nose without bleeding. Airway patent. NECK: Trachea midline. Supple. CARDIOVASCULAR: Regular rate and rhythm without murmurs, gallops, or rubs. RESPIRATORY: Clear to auscultation. Breath sounds equal bilaterally. No wheezes , rales, or rhonchi. GASTROINTESTINAL: Abdomen soft, non-tender, nondistended. Bowel Sounds normoactive x4. MUSCULOSKELETAL: Extremities without clubbing, cyanosis. RLE edema, tender to palpate NEUROLOGICAL: Awake and alert. Oriented to place, person. Moves all extremities. Normal speech. Results - Labs CBC & Chem 7: 09/26/17 08:35 08/14/18 08:35 Laboratory Results - last 24 hr 09/26/1718 18 08:35 08:35 14:59 WBC 4.9 RBC 3.13 L Hgb 9.7 L Hct 29.3 L MCV 93.8 MCH 31.2 MCHC 33.2 RDW 17.0 Plt Count 319 MPV 8.2 Neut % (Auto) 71.9 H Lymph % (Auto) 15.5 [place] % (Auto) 8.4 H Eos % (Auto) 3.2 Baso % (Auto) 1.0 Neut # (Auto) 3.5 Lymph # (Auto) 0.8 L [place] # (Auto) 0.4 Eos # (Auto) 0.2 Baso # (Auto) 0.0 WBC Differential . Differential Comment Auto diff final Sodium 139 Potassium 4.7 Chloride 101 Carbon Dioxide 26.3 Anion Gap 12 BUN 33 H Creatinine 5.85 H Estimated GFR 7 L Random Glucose 112 H Calcium 10.0 Phosphorus 3.2 Assessment and Plan - Plan Patient is a 57-year-old female who came in acutely suicidal, Sahni acted. Currently in rehab after right hip replacement in August 2017. Found actively psychotic. Has PMHX of ESRD on HD x 1 year, HTN, Hyperlipidemia, hypothyroidism. [facility] requested for medical management Acute paranoid delusions, improved today. Psychotropic agents may have possibly stopped during prior admission and caused psychosis that led to this admission. Schizoaffective disorder. -Managed by psychiatry team -Increasing anxiety. Discussed with nurse, may have to evaluate patient's medication at night if she is not sleeping well. As per nurse, patient is already on Benadryl and Atarax. End-stage renal disease on hemodialysis x 1 year -Nephrology following -continue with HD per schedule, HD 09/24 with 2.5 L removed -continue renal diet HTN, uncontrolled HLD -continue Clonidine 0.1 mg PO q 6 PRN SBP > 170 and DBP >90 -Continue Norvasc and losartan per nephrology -Has not received med today as per nurse. Noted BP elevation. Will give dose tonight. -Start lipitor 10mg daily Hyperlipidemia by history -will restart statin when home medications obtained. Elevated blood glucose -HgbA1C 5.8 -Lifestyle modification, needs to lose weight, portion control. Hypothyroidism -Thyroid function results noted, TSH 41 , free T4 0.77 -Home Levothyroxine dosage noted, resume. Levothyroxine 175 mcg po daily -need TSH in 4-6 weeks. S/P right hip replacement August 2017, hx of OA -continue Tylenol 650 mg PO q 4 prn pain as well as Tramadol PRN -PT eval and tx Right leg swelling noted, has been ongoing at SNF -US of RLE negative DVT -TEDs RLE with rash, hx of psoriasis. -Continue triamcinolone Nausea Constipation -Patient is a poor historian, check KUB -Zofran as needed, no noted administration as of today and mar -Continue Tram-Colace twice daily Ambulation/TEDS for DVT prophylaxis. Code Status: Full code Discussed Condition With: Patient, nursing Discharge Planning: DC disposition by primary team
[2017-09-26] MEDS ORDERED: amLODIPine 10 MG Tablet PO ONE (16:21)
--- NOTE | 2017-09-26 16:43 | P.PNPSY ---
Subjective Chief Complaint: Paranoia Remarks: Patient seen in her room with floor staff, chart reviewed, patient did go through dialysis yesterday she is somewhat alert today though she is disorganized somewhat intense speech is somewhat rapid and pressured. Some vague drug seeking especially saying that she still feels kind of intense and not sleeping well. Though she does like the Abilify. She denies suicidality today but is vague about any voices. We will increase Abilify to 15 mg twice daily Review of Systems All other systems reviewed negative except as stated in HPI Mental Status Examination Appearance: Appropriate Consciousness: Alert Orientation: x4 Motor Activity: Abnormal gait Speech: Pressured Language: Adequate Fund of Knowledge: Adequate Attention and Concentration: Adequate Memory: Unremarkable Mood: Anxious Affect: Other (Elevated) Thought Process & Associations: Tangential, Other (Flight of ideas) Thought Content: Delusional (Decreasing) Hallucination Type: None Delusion Type: Paranoid Suicidal Ideation: No Suicidal Plan: No Suicidal Intention: No Homicidal Ideation: No Homicidal Plan: No Homicidal Intention: No Insight: Fair Judgment: Impulsive Assessment and Plan - Assessment (1) Acute psychosis Code(s): F23 - Brief psychotic disorder Status: Acute - Plan Plan: Patient remained somewhat intense and psychotic please see medication adjustments above Justification for Continued Inpatient Stay: At this time patient would decompensate a place to a lower level of care Discharge Planning: To be determined Request Healthcare Surrogate/Guardian Advocate?: No
[2017-09-27] MEDS: Levothyroxine 75 MCG Tablet PO SCH (05:53)
[2017-09-27] MEDS: Levothyroxine 100 MCG Tablet PO SCH (05:53)
[2017-09-27] MEDS: amLODIPine 10 MG Tablet PO SCH (08:52)
[2017-09-27] MEDS: Senna/Docusate Sodium 8.6/50 MG Tablet PO SCH ×2 (08:52→20:25)
[2017-09-27] MEDS: Lactobacillus Acidophilus/L. Spores Tablet PO SCH ×2 (08:53→20:25)
[2017-09-27] MEDS: Aspirin 325 MG Tablet PO SCH ×2 (08:53→20:26)
--- NOTE | 2017-09-27 09:34 | P.PNPSY ---
Subjective Chief Complaint: Paranoia Remarks: Patient seen in her room with floor staff, chart reviewed, patient compliant medication. Patient continues to improve she feels better and more focused with the addition of the afternoon Abilify. She is oriented to person place time and situation. She denies suicidality homicidality voices or visions. She is willing to continue with her dialysis both here and as an outpatient and continue with outpatient follow-up. I discussed this with the counselor we are verifying that she will return to her independent living her back to her health and rehab for further rehab on her fractured hip. With mental health follow-up with follow-up in the community through [facility] Review of Systems All other systems reviewed negative except as stated in HPI Mental Status Examination Appearance: Appropriate Consciousness: Alert Orientation: x4 Motor Activity: Abnormal gait (Patient using a walker) Speech: Pressured (Decreased) Language: Adequate Fund of Knowledge: Adequate Attention and Concentration: Adequate Memory: Unremarkable Mood: Other (Euthymic to mildly anxious) Affect: Other (Good range and intensity) Thought Process & Associations: Tangential (More focused) Thought Content: Delusional (Decreasing) Hallucination Type: None Delusion Type: Paranoid (Markedly diminished) Suicidal Ideation: No Suicidal Plan: No Suicidal Intention: No Homicidal Ideation: No Homicidal Plan: No Homicidal Intention: No Insight: Fair Judgment: Adequate (Fair) Assessment and Plan - Assessment (1) Acute psychosis Code(s): F23 - Brief psychotic disorder Status: Acute - Plan Plan: Patient's psychosis resolving, compliant medications, at this time will lift Sahni act low patient signed voluntary Justification for Continued Inpatient Stay: At this time patient would decompensate the place to a lower level of care Discharge Planning: The to determine whether return to her independent living or return to health and rehab for further treatment of her fractured hip Request Healthcare Surrogate/Guardian Advocate?: No
--- NOTE | 2017-09-27 10:49 | P.PN ---
Subjective Interval history: Follow-up visit end-stage renal disease on hemodialysis, HTN, right hip replacement. Patient seen and examined today. Reports she is doing a lot betetr. States her medications have been adjusted and she was okay. Denies pain and discomfort. Denies SOB/ dyspnea. Denies chest pain, palpitations, headaches, dizziness. Denies fevers, chills, n/v/d. Physical Exam Vital signs: Vital Signs 09/27/17 05:29 Temperature 98 F Pulse Rate 82 Respiratory Rate 17 Blood Pressure 130/59 L Pulse Oximetry 95 Intake & Output 09/26/17 09/27/17 09/27/17 18:59 06:59 18:59 Intake Total 220 / 220 180 / 180 Output Total 4003 / 4003 Balance -3783 / -3783 180 / 180 Intake: IV 100 / 100 Flexbumin 25% Inj 100 ML @ 60 100 / 100 mls/hr IV.SIG WITH DIALYSIS PRN Rx#:[id number] Oral 120 / 120 180 / 180 Output: Urine 2 / 2 Stool 1 / Hemodialysis Amount 4000 / 4000 Other: # Voids 4 Date of Last Bowel Movement 09/24/17 09/24/17 # Bowel Movements 1 Narrative: GENERAL: This is a well-nourished, well-developed patient, in no apparent distress. SKIN: Warm and dry. HEENT: Normocephalic. Pupils equal round and reactive. Nose without bleeding. Airway patent. NECK: Trachea midline. Supple. CARDIOVASCULAR: Regular rate and rhythm without murmurs, gallops, or rubs. RESPIRATORY: Clear to auscultation. Breath sounds equal bilaterally. No wheezes , rales, or rhonchi. GASTROINTESTINAL: Abdomen soft, non-tender, nondistended. Bowel Sounds normoactive x4. MUSCULOSKELETAL: Extremities without clubbing, cyanosis. RLE edema trace, incision site right hip clean dry intact. NEUROLOGICAL: Awake and alert. Oriented to place, person. Moves all extremities. Normal speech. Results - Labs CBC & Chem 7: 09/26/17 08:35 09/26/17 08:35 Laboratory Results - last 24 hr 09/26/17 09/26/17 09/26/17 08:35 08:35 14:59 WBC 4.9 RBC 3.13 L Hgb 9.7 L Hct 29.3 L MCV 93.8 MCH 31.2 MCHC 33.2 RDW 17.0 Plt Count 319 MPV 8.2 Neut % (Auto) 71.9 H Lymph % (Auto) 15.5 [place] % (Auto) 8.4 H Eos % (Auto) 3.2 Baso % (Auto) 1.0 Neut # (Auto) 3.5 Lymph # (Auto) 0.8 L [place] # (Auto) 0.4 Eos # (Auto) 0.2 Baso # (Auto) 0.0 WBC Differential . Differential Comment Auto diff final Sodium 139 Potassium 4.7 Chloride 101 Carbon Dioxide 26.3 Anion Gap 12 BUN 33 H Creatinine 5.85 H Estimated GFR 7 L Random Glucose 112 H Calcium 10.0 Phosphorus 3.2 Assessment and Plan - Plan Patient is a 57-year-old female who came in acutely suicidal, Sahni acted. Currently in rehab after right hip replacement in August 2017. Found actively psychotic. Has PMHX of ESRD on HD x 1 year, HTN, Hyperlipidemia, hypothyroidism. [facility] requested for medical management Acute paranoid delusions, improved today. Psychotropic agents may have possibly stopped during prior admission and caused psychosis that led to this admission. Schizoaffective disorder. -Managed by psychiatry team -Improved anxiety End-stage renal disease on hemodialysis x 1 year -Nephrology following -continue with HD per schedule, HD 09/24 with 2.5 L removed -continue renal diet HTN, uncontrolled HLD -Continue Norvasc and losartan per nephrology -continue Clonidine 0.1 mg PO q 6 PRN SBP > 170 and DBP >90 -Lipitor 10 mg daily Elevated blood glucose -HgbA1C 5.8 -Lifestyle modification, needs to lose weight, portion control. Hypothyroidism -Thyroid function results noted, TSH 41 , free T4 0.77 -Home Levothyroxine dosage noted, resume. Levothyroxine 175 mcg po daily -need TSH in 4-6 weeks. S/P right hip replacement August 2017, hx of OA -continue Tylenol 650 mg PO q 4 prn pain as well as Tramadol PRN -PT eval and tx Right leg swelling noted, has been ongoing at [facility] -US of RLE negative DVT -TEDs -Improved RLE with rash, hx of psoriasis. -Continue triamcinolone Nausea Constipation -Patient is a poor historian, check KUB -Zofran as needed, no noted administration as of today and mar -Continue Tram-Colace twice daily Ambulation/TEDS for DVT prophylaxis. Code Status: Full code Discussed Condition With: Patient, nursing Discharge Planning: DC disposition by primary team
--- NOTE | 2017-09-27 10:58 | P.PNNP ---
Subjective Interval history: Seen in therapy room. She is happy today, labile emotions. <Bree Evans - Last Filed: 09/27/17 10:56> Physical Exam Vital signs: Vital Signs 09/27/17 05:29 Temperature 98 F Pulse Rate 82 Respiratory Rate 17 Blood Pressure 130/59 L Pulse Oximetry 95 Intake & Output 09/26/17 09/27/17 09/27/17 18:59 06:59 18:59 Intake Total 220 / 220 180 / 180 Output Total 4003 / 4003 Balance -3783 / -3783 180 / 180 Intake: IV 100 / 100 Flexbumin 25% Inj 100 ML @ 60 100 / 100 mls/hr IV.SIG WITH DIALYSIS PRN Rx#:[id number] Oral 120 / 120 180 / 180 Output: Urine 2 / 2 Stool / Hemodialysis Amount 4000 / 4000 Other: # Voids 4 Date of Last Bowel Movement 09/24/17 09/24/17 # Bowel Movements 1 - Constitutional no acute distress, morbidly obese - Routine HEENT Exam Head: Present: normocephalic - Routine Neck Exam Present: supple, full ROM - Routine Respiratory Exam Present: CTA bilaterally. Absent: accessory muscle use - Routine Cardiovascular Exam Present: RRR, S1, S2 - Routine Abdominal Exam Present: soft, normoactive bowel sounds - Routine Skin Exam Present: intact, dry, warm - Routine Neurological Exam Present: alert, oriented X3, CN II-XII intact - Detailed Neurological Exam: Coma Scale Eye Opening: Spontaneous Verbal Response: Oriented Motor Response: Obey commands Nargis Coma Scale Total: 15 - Routine Psychiatric Exam Present: normal affect, normal thought process <Bree Evans - Last Filed: 09/27/17 10:56> Vital signs: Vital Signs 09/27/17 17:13 09/28/17 05:40 Temperature 98.1 F 98 F Pulse Rate 83 81 Respiratory Rate 16 18 Blood Pressure 189/82 H 140/68 Pulse Oximetry 95 98 Intake & Output 09/27/17 09/28/17 09/28/17 18:59 06:59 18:59 Intake Total 480 / 480 Balance 480 / 480 Weight 80.6 kg Intake: Oral 480 / 480 Other: # Voids 1 Date of Last Bowel Movement 09/24/17 <Onur Santos - Last Filed: 09/28/17 07:37> Assessment and Plan - Assessment (1) ESRD (end stage renal disease) on dialysis Code(s): N18.6 - End stage renal disease; Z99.2 - Dependence on renal dialysis Status: Acute Plan: Continue HD TTS Intermittently monitor fluid and electrolytes. Patent AVF left arm, functions well Avoid IVF administration Repeat labs intermittently High protein diet encouraged Low-normal phosphorus level, not on binders, monitor. (2) Anemia Code(s): D64.9 - Anemia, unspecified Status: Acute Plan: Epogen with dialysis. Follow Hemoglobin. (3) HTN (hypertension) Code(s): I10 - Essential (primary) hypertension Status: Acute Plan: On amlodipine and Losartan. Fluid removal with dialysis. (4) Acute psychosis Code(s): F23 - Brief psychotic disorder Status: Acute Plan: Hx of bipolar, has had recent change in behavior since her hip surgery Psych following, on Abilify, may need additional medications added to profile. <Bree Evans - Last Filed: 09/27/17 10:56> - Assessment (1) ESRD (end stage renal disease) on dialysis Code(s): N18.6 - End stage renal disease; Z99.2 - Dependence on renal dialysis Status: Acute (2) Anemia Code(s): D64.9 - Anemia, unspecified Status: Acute (3) HTN (hypertension) Code(s): I10 - Essential (primary) hypertension Status: Acute (4) Acute psychosis Code(s): F23 - Brief psychotic disorder Status: Acute - Attending Attestation patient was seen and examined. Agree with above assessment and plan. <Onur Santos - Last Filed: 09/28/17 07:37>
[2017-09-28] MEDS: Levothyroxine 100 MCG Tablet PO SCH (06:18)
[2017-09-28] MEDS: Levothyroxine 75 MCG Tablet PO SCH (06:18)
--- NOTE | 2017-09-28 09:09 | P.PNPSY ---
Subjective Chief Complaint: Paranoia Remarks: Patient seen in her room with nurse praneeth, chart reviewed, patient compliant medications. Patient calm cooperative focused. Denying suicidality homicidality voice or visions. Is excited about being able to return to her own apartment with home health care. She is compliant and also with her dialysis. For now continue treatment consider discharge tomorrow Review of Systems All other systems reviewed negative except as stated in HPI Mental Status Examination Appearance: Appropriate Consciousness: Alert Orientation: x4 Motor Activity: Abnormal gait (Patient using a walker) Speech: Pressured (Decreased) Language: Adequate Fund of Knowledge: Adequate Attention and Concentration: Adequate Memory: Unremarkable Mood: Other (Euthymic to mildly anxious) Affect: Other (Good range and intensity) Thought Process & Associations: Tangential (More focused) Thought Content: Delusional (Decreasing) Hallucination Type: None Delusion Type: Paranoid (Markedly diminished) Suicidal Ideation: No Suicidal Plan: No Suicidal Intention: No Homicidal Ideation: No Homicidal Plan: No Homicidal Intention: No Insight: Fair Judgment: Adequate (Fair) Assessment and Plan - Assessment (1) Acute psychosis Code(s): F23 - Brief psychotic disorder Status: Acute - Plan Plan: Patient's psychosis is resolving, she is calm cooperative compliant medication, consider possible discharge tomorrow Justification for Continued Inpatient Stay: At this time patient would decompensate if placed in a lower level of care Discharge Planning: Possible discharge tomorrow to her own apartment Request Healthcare Surrogate/Guardian Advocate?: No
[2017-09-28] MEDS: Gelatin 12 MM/7 MM Topical Foam TOPICAL PRN (11:55)
[2017-09-28] MEDS: Aspirin 325 MG Tablet PO SCH ×2 (13:31→20:50)
[2017-09-28] MEDS: amLODIPine 10 MG Tablet PO SCH (13:32)
[2017-09-28] MEDS: Lactobacillus Acidophilus/L. Spores Tablet PO SCH ×2 (13:32→20:50)
[2017-09-28] MEDS: Senna/Docusate Sodium 8.6/50 MG Tablet PO SCH ×2 (13:32→20:50)
--- NOTE | 2017-09-28 14:53 | P.PN ---
Subjective Interval history: Follow-up visit end-stage renal disease on hemodialysis, HTN, right hip replacement. Patient seen and examined today. Reports doing well. Denies pain and discomfort. Denies SOB/ dyspnea. Denies chest pain, palpitations, headaches, dizziness. Denies fevers, chills, n/v/d. Physical Exam Vital signs: Vital Signs 09/27/17 17:13 09/28/17 05:40 Temperature 98.1 F 98 F Pulse Rate 83 81 Respiratory Rate 16 18 Blood Pressure 189/82 H 140/68 Pulse Oximetry 95 98 Intake & Output 09/27/17 09/28/17 09/28/17 18:59 06:59 18:59 Intake Total 480 / 480 480 / 480 Output Total 1500 / 1500 Balance 480 / 480 -1020 / -1020 Weight 80.6 kg Intake: Oral 480 / 480 480 / 480 Output: Hemodialysis Amount 1500 / 1500 Other: # Voids 1 Date of Last Bowel Movement 09/24/17 Narrative: GENERAL: This is a well-nourished, well-developed patient, in no apparent distress. SKIN: Warm and dry. HEENT: Normocephalic. Pupils equal round and reactive. Nose without bleeding. Airway patent. NECK: Trachea midline. Supple. CARDIOVASCULAR: Regular rate and rhythm without murmurs, gallops, or rubs. RESPIRATORY: Coarse BS. Moderate air entry. GASTROINTESTINAL: Abdomen soft, non-tender, nondistended. Bowel Sounds normoactive x4. MUSCULOSKELETAL: Extremities without clubbing, cyanosis. RLE edema trace, incision site right hip clean dry intact. NEUROLOGICAL: Awake and alert. Oriented to place, person. Moves all extremities. Normal speech. Results - Labs CBC & Chem 7: 09/26/17 08:35 09/26/17 08:35 Laboratory Results - last 24 hr 09/28/17 12:02 POC Glucose 112 H Assessment and Plan - Plan Patient is a 57-year-old female who came in acutely suicidal, Sahni acted. Currently in rehab after right hip replacement in August 2017. Found actively psychotic. Has PMHX of ESRD on HD x 1 year, HTN, Hyperlipidemia, hypothyroidism. [facility] requested for medical management Acute paranoid delusions -Managed by psychiatry team -Improving End-stage renal disease on hemodialysis x 1 year -Nephrology following -continue with HD per schedule -continue renal diet HTN, uncontrolled HLD -Continue Norvasc and losartan per nephrology -continue Clonidine 0.1 mg PO q 6 PRN SBP > 170 and DBP >90 -Lipitor 10 mg daily -Improving BP Trend Hypothyroidism -Thyroid function results noted, TSH 41 , free T4 0.77 -Home Levothyroxine dosage noted, resume. Levothyroxine 175 mcg po daily -need TSH in 4-6 weeks, follow up in the outpatient S/P right hip replacement August 2017, hx of OA Right leg swelling noted, has been ongoing at SNF -continue Tylenol 650 mg PO q 4 prn pain as well as Tramadol PRN -PT eval and tx -US of RLE negative DVT -TEDs -Improving. Elevate at rest RLE with rash, hx of psoriasis. -Continue triamcinolone Elevated blood glucose initially -HgbA1C 5.8 -Lifestyle modification, needs to lose weight, portion control. Ambulation/TEDS for DVT prophylaxis. Stable from Hospitalist standpoint. Medically cleared for DC or transfer to SNF Code Status: Full Code Discussed Condition With: Patient, nursing Discharge Planning: DC disposition by primary team
[2017-09-29] MEDS: Levothyroxine 100 MCG Tablet PO SCH (06:17)
[2017-09-29] MEDS: Levothyroxine 75 MCG Tablet PO SCH (06:17)
[2017-09-29 06:40] VITALS: BP 127/60; PULSE 80; RESP 17; TEMP 97.5; O2SAT 97
[2017-09-29] MEDS: Aspirin 325 MG Tablet PO SCH (09:01)
[2017-09-29] MEDS: Lactobacillus Acidophilus/L. Spores Tablet PO SCH (09:01)
[2017-09-29] MEDS: amLODIPine 10 MG Tablet PO SCH (09:01)
[2017-09-29] MEDS: Senna/Docusate Sodium 8.6/50 MG Tablet PO SCH (09:01)
--- NOTE | 2017-09-29 09:05 | P.DSPSY ---
Psychiatry Discharge Summary Inpatient Psychiatric care?: Yes Advance Directives: No Mental Health Advance Directive: No Health Care Proxy: No - Admission Admission Date: September 21, 2017 11:12 - Admission Diagnosis (1) Schizoaffective disorder Code(s): F25.9 - Schizoaffective disorder, unspecified Brief History: 57-year-old female with history of renal disease, presents under a Sahni act for suicidality and psychotic symptoms. According to the Sahni act, law enforcement was called to evaluate the patient for having suicidal thoughts. When the patient was contacted by the officer, she indicated she did want to commit suicide by "restraints" and repeatedly insisted she wanted to kill herself. 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 However, she also repeated that [employer] was faxing her and President [employer] wanted to kill her. She became increasingly agitated and threatened to kill herself with a phone cord. She also reportedly attempted to wrap a bed sheet around her neck. She was screaming inappropriately. Upon interview, the patient is aware of her comments and her suicidality. She is needing dialysis and wants to have this treatment. She is unable to explain her recent thinking or behavior. She does have appropriate insight at this point to competently ask for and receive medical treatment. Tobacco Use In Past 30 Days: No How Often Do You Have a Drink Containing Alcohol: Never Hospital Course: Patient's hospital course initially was somewhat chaotic with psychosis paranoia and hallucinations. However as she became compliant with medications there is the adjustment in the Abilify and she went through with her dialysis with psychosis slowly resolved. There is some residual mild delusional ideation but it is soft and is not intrusive. Patient denies suicidality homicidality voice or visions. She does have her own apartment to go back to she does have appropriate home health care by Dr. Bloom. She does have mental health care through [facility] and she does have her dialysis set up already. Patient is compliant with medications. Has been no behavior problems. Thus at this time we feel this is reached maximum benefit of this hospitalization thus patient to be discharged today with Rx times 1 month follow-up as mentioned above - Discharge Discharge Date: 09/29/17 Discharge Disposition: Home - Discharge Instructions Discharge Diet: Regular Diet Activities You Can Perform: Weight Bearing As Tolerat - Discharge Time > 30 minutes Mental Status Examination Appearance: Appropriate Consciousness: Alert Orientation: x4 Motor Activity: Abnormal gait (Patient using a walker) Speech: Pressured (Decreased) Language: Adequate Fund of Knowledge: Adequate Attention and Concentration: Adequate Memory: Unremarkable Mood: Other (Euthymic to mildly anxious) Affect: Other (Good range and intensity) Thought Process & Associations: Tangential (More focused) Thought Content: Delusional (Decreasing) Hallucination Type: None Delusion Type: Paranoid (Markedly diminished) Suicidal Ideation: No Suicidal Plan: No Suicidal Intention: No Homicidal Ideation: No Homicidal Plan: No Homicidal Intention: No Insight: Fair Judgment: Adequate (Fair) Discharge/Advance Care Plan - Results Vital Signs: Last Vital Signs Temp 97.5 F L 09/29/17 06:00 Pulse 80 09/29/17 06:00 Resp 17 09/29/17 06:00 BP 127/60 09/29/17 06:00 Pulse Ox 97 09/29/17 06:00 Lab Results: Abnormal Lab Results 09/28/17 12:02 POC Glucose 112 H Laboratory Results Hemoglobin A1c 5.8 % (4.3-6.0) 09/22/17 08:14 Triglycerides 259 mg/dL (42-150) H 09/22/17 08:14 Cholesterol 159 mg/dL (120-200) 09/22/17 08:14 LDL Cholesterol, Calc 70 mg/dL (0-99) 09/22/17 08:14 HDL Cholesterol 37.5 mg/dL (40.0-60.0) L 09/22/17 08:14 TSH 41.000 uIU/mL (0.358-3.740) H 09/22/17 08:14 Free T4 0.77 ng/dL (0.76-1.46) 09/22/17 08:14 Summary of Procedures: None done Imaging: ITS Impressions Venous Doppler Study 09/22/17 00:00 CONCLUSION: 1. No DVT. 2. Subcutaneous edema seen within the calf. Abdomen X-Ray 09/25/17 00:00 CONCLUSION: 1. Nonobstructive bowel gas pattern. Pending Results: None - Medications Number of antipsychotic medications at discharge: 1 - Discharge Care Plan Goals to Promote Your Health: * To prevent worsening of your condition and complications * To maintain your health at the optimal level Directions to Meet Your Goals: Take your medications as prescribed Follow your dietary instruction Follow activity as directed Keep your appointments as scheduled Take your immunizations and boosters as scheduled If your symptoms worsen call your PCP, if no PCP go to Urgent Care Center or Emergency Room For 05/09 questions related to your inpatient stay or results of tests pending at discharge, please contact Dr. Be Marquez MD at Smoking is Dangerous to Your Health. Avoid second hand smoking (1) Schizoaffective disorder Qualifiers: Schizoaffective disorder type: bipolar Qualified Code(s): F25.0 - Schizoaffective disorder, bipolar type
== END 2017-09-29 12:45 | disposition home or self-care (01) ==
LOC: NEPD 01:19 → NEDA 11:12 → H4EA 13:16
PROVIDERS: ADMIT Psychiatry & Neurology Psychiatry; ATTEND Psychiatry & Neurology Psychiatry

== ENCOUNTER 2017-10-06 21:17 | Inpatient (IN) ==
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
[2017-10-06 23:05] LABS: Baso # (Auto) 0.1 th/mm3 (0.0-0.2); Baso % (Auto) 1.1 % (0.0-2.0); Eos # (Auto) 0.3 th/mm3 (0.0-0.4); Eos % (Auto) 4.6 % (0.0-4.0); Hematocrit 31.5 % (35.0-46.0); Hemoglobin 10.6 gm/dL (11.6-15.3); Lymph % (Auto) 17.2 % (9.0-44.0); Mean Corpuscular HGB Conc 33.8 % (32.0-36.0); Mean Corpuscular Hemoglobin 31.3 pg (27.0-34.0); Mean Corpuscular Volume 92.7 fL (80.0-100.0); Mean Platelet Volume 8.1 fL (7.0-11.0); Mono # (Auto) 0.5 th/mm3 (0.0-0.9); Mono % (Auto) 7.9 % (0.0-8.0); Neut # (Auto) 4.1 th/mm3 (1.8-7.7); Neut % (Auto) 69.2 % (16.0-70.0); Platelet Count 266 th/mm3 (150-450); Red Cell Distribution Width 16.3 % (11.6-17.2)
[2017-10-06 23:22] LABS: Anion Gap 12 meq/L (5-15); Aspartate Aminotransferase 19 U/L (15-37); Blood Urea Nitrogen 34 mg/dL (7-18); Calcium 9.9 mg/dL (8.5-10.1); Carbon Dioxide 30.2 meq/L (21.0-32.0); Chloride 97 meq/L (98-107); Glomerular Filtration Rate 6 mL/min (>89); Glucose,Random 122 mg/dL (74-106); Potassium 3.8 meq/L (3.5-5.1); Sodium 139 meq/L (136-145)
[2017-10-06 23:23] LABS: Alanine Aminotransferase 17 U/L (10-53)
[2017-10-06 23:33] LABS: Alkaline Phosphatase 112 U/L (45-117); Total Protein 8.4 g/dL (6.4-8.2)
[2017-10-07] MEDS ORDERED: Levothyroxine 75 MCG Tablet PO ONE (00:05)
[2017-10-07] MEDS ORDERED: Levothyroxine 100 MCG Tablet PO ONE (00:06)
[2017-10-07] MEDS ORDERED: LORazepam 1 MG Tablet PO ONE (09:34)
[2017-10-07] MEDS ORDERED: Acetaminophen 325 MG Tablet PO PRN ×2 (11:54→13:49)
[2017-10-07] MEDS ORDERED: Aluminum/Magnesium/Simethacone Susp 30 ML UDC PO PRN (11:54)
--- NOTE | 2017-10-07 12:46 | ED ---
HPI - Psych - General Source: patient Mode of arrival: wheelchair Limitations: physical limitation (uses walker) - History of Present Illness MD complaint: suicidal ideation Onset (ago): day(s) Duration: constant History of same: Yes Relieving factors: medication Exacerbating factors: none Context: not taking psychiatric medications Associated psychiatric symptoms: suicidal ideation, racing thoughts, delusions Associated symptoms: nausea, insomnia Treatments prior to arrival: chemical restraints If self harm: admits thoughts of self harm - General Chief Complaint: Psychiatric Symptoms Stated Complaint: Psych screen/FCSO Time Seen by Provider: 10/07/17 11:33 - History of Present Illness HPI Narrative: This is a 57 year-old , female who presents under a Sahni Act for making suicidal and paranoid statements. She is well-known to this facility. She was discharged from inpatient on 09/29/17. Reviewed electronic medical record, labs, and discussed patient with staff. Patient was evaluated and J103. She is awake, alert and oriented 3. Her speech is clear, organized, mostly logical, and at times rapid with intermittent stuttering present. She endorses suicidal ideation but is vague as far as a plan. She denies homicidal ideation, auditory visual hallucinations. She is internally stimulated as she is heard talking when in the room by herself. Her mood and affect are extremely anxious and irritable. Seems to be having some paranoid delusions when she states, "I am [employer], my sister and brother were trying to steal for me and I had to turn them in which resulted in the of thousands of people". "The reason I had to do a Sahni act was I was afraid I would hurt myself". Patient reports that she lives by herself and has home health and sometimes [facility] come in to help her. She states that she had some college and did work a job at sometime in the past but she refuses to relate what type of work she did. She is reporting that she has not taken her medication for 4 days stating, "I kept doing it in correct I did not want to do it and cracked". She denies any previous suicidal attempts. She denies familial history of mental illness or suicide. She denies any any firearms. She denies smoking, drinking alcohol, and using illicit substances. During the evaluation she became very irritable and agitated. (Marilynn Armendariz) - Related Data Home Medications Medication Instructions Recorded Confirmed amlodipine 10 mg PO DAILY 10/07/17 10/07/17 aripiprazole 15 mg PO BID 10/07/17 10/07/17 atorvastatin 10 mg PO HS 10/07/17 10/07/17 levothyroxine 175 mg PO DAILY 10/07/17 10/07/17 losartan 25 mg PO DAILY 10/07/17 10/07/17 triamcinolone acetonide TOPICAL BID 10/07/17 Allergies Allergy/AdvReac Type Severity Reaction Status Date / Time No Known Allergies Allergy Verified 10/06/17 21:45 Review of Systems All other systems reviewed negative except as stated in HPI [facility] - History History Provided By: Patient - Medical History Medical History: Medical History (Last Reviewed 10/07/17 @ 12:39 by JUAN DIEGO Erwin) Schizoaffective disorder (Acute) End stage renal disease (Acute) Anemia (Acute) Muscle weakness (Acute) Renal dialysis status (Acute) Anxiety (Acute) Hyperlipemia (Acute) Hypothyroidism (Acute) Osteoarthritis (Acute) Hypertension (Acute) - Family History Family History: Family History (Last Updated 09/21/17 @ 12:20 by Regan Mckinley DO) Other Family history of hypertension - Tobacco History Second Hand Smoke Exposure: No Smoking Status: Refused to answer Tobacco Type: Cigarettes - Alcohol History How Often Do You Have a Drink Containing Alcohol: Unable to Obtain - Substance Use History Substance History: Unable to Obtain - Travel History Recent Travel in the [place] Within the Last 8 Weeks: No Recent Travel Out of the Country Within the Last 8 Weeks: No - Immunization History Tetanus Immunization: Unable to Assess Hx Influenza Vaccine This Season: Unable to Assess Psychiatric History - Psychiatric History Psychiatric Treatment History: History of Psychiatric Treatment, History of Hospitalization in a Psychiatric Facility History of Inpatient Treatment: Yes Firearms in Home: No - Psychiatric History Last admission to this facility 09/21/17-09/29/17. (Marilynn Armendariz) - Legal History Denies (Marilynn Armendariz) - Family Psychiatric History Denies. (Marilynn Armendariz) Physical Exam - General Limitations: physical limitation (uses a walker) - Head Head exam: atraumatic - Neurological Exam Neurological exam: Present: alert, oriented X3 - Psychiatric Psychiatric exam: Present: agitated, anxious Mental Status Examination Appearance: Disheveled Consciousness: Alert, Vigilant Orientation: x4 Motor Activity: Abnormal gait Speech: Pressured, Rapid, Stuttering Language: Adequate Fund of Knowledge: Inadequate Attention and Concentration: Adequate Memory: Unremarkable Mood: Anxious, Irritable Affect: Irritable, Anxious Thought Process & Associations: Loose associations Thought Content: Bizarre thinking, Delusional Hallucination Type: None Delusion Type: Bizarre, Paranoid Suicidal Ideation: Yes Suicidal Plan: No Suicidal Intention: No Homicidal Ideation: No Homicidal Plan: No Homicidal Intention: No Insight: Poor Judgment: Impulsive Initial Documented Vital Signs Temperature 98.9 F 10/06/17 21:34 Pulse Rate 89 10/06/17 21:34 Respiratory Rate 16 10/06/17 21:34 Blood Pressure 148/66 H 10/06/17 21:34 Pulse Oximetry 100 10/06/17 21:34 Last Documented Vital Signs Temperature 98.9 F 10/06/17 21:34 Pulse Rate 74 10/07/17 05:26 Respiratory Rate 18 10/07/17 05:26 Blood Pressure 155/70 H 10/07/17 05:26 Pulse Oximetry 97 10/07/17 05:[address] [facility] - Psych - Diagnosis (1) Schizoaffective disorder Status: Acute - Lab Data Result diagrams: 10/06/17 22:00 10/06/17 22:00 - [facility] Narrative Medical decision making narrative: Patient is endorsing suicide although she is vague about a plan. There is delusional material present she believes that her decision resulted in "thousands of ". She is extremely irritable and anxious. At this point I do believe she would be a danger to herself or perhaps others. Therefore, she will be admitted to a locked inpatient psychiatric unit for further evaluation and treatment to achieve psychiatric stabilization. She will be admitted under the Sahni act however she does have the capacity and has signed for her medications. (Marilynn Armendariz) - Lab Data Lab Results 10/06/17 10/06/17 Range/Units 22:00 22:00 WBC 6.0 (4.0-11.0) th/mm3 RBC 3.40 L (4.00-5.30) mil/mm3 Hgb 10.6 L (11.6-15.3) gm/dL Hct 31.5 L (35.0-46.0) % MCV 92.7 (80.0-100.0) fL MCH 31.3 (27.0-34.0) pg MCHC 33.8 (32.0-36.0) % RDW 16.3 (11.6-17.2) % Plt Count 266 (150-450) th/mm3 MPV 8.1 (7.0-11.0) fL Neut % (Auto) 69.2 (16.0-70.0) % Lymph % (Auto) 17.2 (9.0-44.0) % [place] % (Auto) 7.9 (0.0-8.0) % Eos % (Auto) 4.6 H (0.0-4.0) % Baso % (Auto) 1.1 (0.0-2.0) % Neut # (Auto) 4.1 (1.8-7.7) th/mm3 Lymph # (Auto) 1.0 (1.0-4.8) th/mm3 [place] # (Auto) 0.5 (0.0-0.9) th/mm3 Eos # (Auto) 0.3 (0.0-0.4) th/mm3 Baso # (Auto) 0.1 (0.0-0.2) th/mm3 WBC Differential . Differential Comment Auto diff final Sodium 139 (136-145) meq/L Potassium 3.8 (3.5-5.1) meq/L Chloride 97 L (98-107) meq/L Carbon Dioxide 30.2 (21.0-32.0) meq/L Anion Gap 12 (5-15) meq/L BUN 34 H (7-18) mg/dL Creatinine 7.19 H (0.50-1.00) mg/dL Estimated GFR 6 L (>89) mL/min Random Glucose 122 H (74-106) mg/dL Calcium 9.9 (8.5-10.1) mg/dL Total Bilirubin 0.4 (0.2-1.0) mg/dL AST 19 (15-37) U/L ALT 17 (10-53) U/L Alkaline Phosphatase 112 (45-117) U/L Total Protein 8.4 H (6.4-8.2) g/dL Albumin 4.0 (3.4-5.0) g/dL TSH 21.300 H (0.358-3.740) uIU/mL Serum Alcohol Less than 3 (0-5) mg/dL
[2017-10-07] MEDS ORDERED: Heparin 10,000 UNITS/10 ML Vial (for IV use) OTHER PRN (13:49)
[2017-10-07] MEDS ORDERED: Sodium Chlor 0.9% Inj 200 ML IV.SIG PRN (13:49)
[2017-10-07] MEDS ORDERED: Albumin Human 25% Inj 100 ML IV.SIG PRN (13:49)
[2017-10-07] MEDS ORDERED: Sod Chloride 0.9% Inj 1,000 ML OTHER PRN ×2 (13:49)
[2017-10-07] MEDS ORDERED: Gelatin 12 MM/7 MM Topical Foam TOPICAL PRN (13:49)
[2017-10-07] MEDS: LORazepam 1 MG Tablet PO PRN (14:20)
[2017-10-07] MEDS ORDERED: Sodium Chlor 0.9% Inj 200 ML IV.CONT PRN (14:45)
--- NOTE | 2017-10-07 15:13 | P.CONNP ---
History of Present Illness Service: Nephrology Consult date: 10/07/17 Requesting Physician: Jeff Lee Reason for Consult: End-stage renal disease on hemodialysis Primary Care Provider: No Primary Care Physician Family Provider: No Primary Care Physician History of Present Illness: Patient is a 57-year-old white female with a history of manic schizoaffective disorder, she has psychosis and was threatening to herself and others and was agitated, she was brought for admission in the psychiatric lee, patient follows with Dr. Santos on Monday, and Monday dialysis, today is her daily hemodialysis. Patient has a left upper arm AV shunt. 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 Patient cries as well at times. Review of Systems unobtainable due to mental status PMFSH - History History Provided By: Patient - Medical History Medical History: Medical History (Last Reviewed 10/07/17 @ 12:39 by JUAN DIEGO Erwin) Schizoaffective disorder (Acute) End stage renal disease (Acute) Anemia (Acute) Muscle weakness (Acute) Renal dialysis status (Acute) Anxiety (Acute) Hyperlipemia (Acute) Hypothyroidism (Acute) Osteoarthritis (Acute) Hypertension (Acute) - Family History Family History: Family History (Last Updated 09/21/17 @ 12:20 by Regan Mckinley DO) Other Family history of hypertension - Tobacco History Second Hand Smoke Exposure: No Smoking Status: Refused to answer Tobacco Type: Cigarettes - Alcohol History How Often Do You Have a Drink Containing Alcohol: Unable to Obtain - Substance Use History Substance History: Unable to Obtain - Travel History Recent Travel in the [place] Within the Last 8 Weeks: No Recent Travel Out of the Country Within the Last 8 Weeks: No - Immunization History Tetanus Immunization: Unable to Assess Hx Influenza Vaccine This Season: Unable to Assess Medications and Allergies Active Medications: Active Medications Acetaminophen (Tylenol) 650 mg PO Q4H PRN PRN Reason: Pain 1-5 or Temp >101F Acetaminophen (Tylenol) 650 mg PO UNSCH PRN PRN Reason: SEE LABEL COMMENTS Al Hydrox/Mg Hydrox/Simethicone (Mag-Al Plus Susp Liq) 30 ml PO Q6H PRN PRN Reason: DYSPEPSIA Amlodipine Besylate (Norvasc) 10 mg PO DAILY HEATH Aripiprazole (Abilify) 15 mg PO BID HEATH Atorvastatin Calcium (Lipitor) 10 mg PO HS HEATH Clonidine HCl (Catapres) 0.1 mg PO UNSCH PRN PRN Reason: SEE LABEL COMMENTS Diphenhydramine HCl (Benadryl) 50 mg PO HS PRN PRN Reason: INSOMNIA Diphenhydramine HCl (Benadryl) 25 mg PO UNSCH PRN PRN Reason: SEE LABEL COMMENTS Epoetin Brad (Epogen Inj) 4,000 unit IV.PUSH UNSCH PRN PRN Reason: SEE LABEL COMMENTS Gelatin (Gelfoam 12 Mm/7 Mm Topical) 1 foam TOPICAL PRN PRN PRN Reason: help stop bleeding from site Heparin Sodium (Porcine) (Heparin Inj) 8,000 units OTHER WITH DIALYSIS PRN PRN Reason: for machine prime Albumin Human (Flexbumin 25% Inj) 100 mls @ 60 mls/hr IV.SIG WITH DIALYSIS PRN PRN Reason: hypotension / volume replace Sodium Chloride (Ns Inj) 1,000 mls @ 0 mls/hr OTHER .Q0M PRN PRN Reason: for prime and rinse back Sodium Chloride (Ns Inj) 1,000 mls @ 200 mls/hr OTHER .Q5H PRN PRN Reason: for dialyzer flush PRN Sodium Chloride (Ns Inj) 200 mls @ 0 mls/hr IV.CONT .Q0M PRN PRN Reason: hypotension / volume replace Lorazepam (Ativan) 1 mg PO Q6H PRN PRN Reason: MODERATE TO SEVERE ANXIETY Lorazepam (Ativan Inj) 1 mg IM Q6H PRN PRN Reason: MODERATE TO SEVERE ANXIETY Lorazepam (Ativan Inj) 0.5 mg IM Q12H PRN PRN Reason: MODERATE TO SEVERE ANXIETY Lorazepam (Ativan) 0.5 mg PO Q12H PRN PRN Reason: MODERATE TO SEVERE ANXIETY Losartan Potassium (Cozaar) 25 mg PO DAILY HEATH Mannitol (Mannitol Inj) 12.5 gm IV.PUSH UNSCH PRN PRN Reason: hypotension / volume replace Nitroglycerin (Nitrostat Sl) 0.4 mg SL Q5M PRN PRN Reason: CHEST PAIN Non-Formulary Medication (Levothyroxine [Levothyroxine]) 175 mg PO DAILY HEATH Ondansetron HCl (Zofran Inj) 4 mg IV.PUSH UNSCH PRN PRN Reason: WITH DIALYSIS Senna/Docusate Sodium (Tram-Colace) 1 tab PO BID HEATH Sodium Chloride (Ns Flush) 5 ml IV.FLUSH UNSCH PRN PRN Reason: flush each lumen during HD Triamcinolone Acetonide (Aristocort 0.1% Cream) 0 applicatio TOPICAL BID HEATH Allergies Allergy/AdvReac Type Severity Reaction Status Date / Time No Known Allergies Allergy Verified 10/06/17 21:45 Home Medications Medication Instructions Recorded Confirmed Type amlodipine 10 mg PO DAILY 10/07/17 10/07/17 History aripiprazole 15 mg PO BID 10/07/17 10/07/17 History atorvastatin 10 mg PO HS 10/07/17 10/07/17 History levothyroxine 175 mg PO DAILY 10/07/17 10/07/17 History losartan 25 mg PO DAILY 10/07/17 10/07/17 History triamcinolone acetonide TOPICAL BID 10/07/17 History Exam Vital signs: Vital Signs 10/06/17 21:34 10/07/17 05:26 10/07/17 13:07 Temperature 98.9 F 98.4 F Pulse Rate 89 74 94 H Respiratory Rate 16 18 18 Blood Pressure 148/66 H 155/70 H 168/73 H Pulse Oximetry 100 97 97 Intake & Output 10/06/17 10/07/17 10/07/17 18:59 06:59 18:59 Weight 90.718 kg 87.997 kg Other: Weight On Admission 87.997 kg - Constitutional no acute distress - Routine HEENT Exam Head: Present: normocephalic - Routine Neck Exam Present: supple - Routine Respiratory Exam Present: CTA bilaterally - Routine Cardiovascular Exam Present: RRR - Routine Abdominal Exam Present: soft, normoactive bowel sounds - Routine Extremities Exam Present: edema - Routine Neurological Exam Present: alert - Routine Psychiatric Exam Present: suicidal ideation, homicidal ideation, depressed, anxious, manic Results - Lab Results 10/06/17 22:00 10/06/17 22:00 Most recent lab results Calcium 9.9 mg/dL (8.5-10.1) 10/06/17 22:00 Assessment and Plan - Assessment (1) Acute psychosis Code(s): F23 - Brief psychotic disorder Status: Acute (2) ESRD (end stage renal disease) on dialysis Code(s): N18.6 - End stage renal disease; Z99.2 - Dependence on renal dialysis Status: Acute (3) HTN (hypertension) Code(s): I10 - Essential (primary) hypertension Status: Acute (4) Schizoaffective disorder Code(s): F25.9 - Schizoaffective disorder, unspecified Status: Acute - Plan Patient has psychiatric issues and exhibited manic depressive features, patient is seen during hemodialysis he is tolerating dialysis well, ultrafiltration of 3 lesions as planned Continue with Monday, and Monday dialysis schedule Follow-up with Dr. Santos (4) Schizoaffective disorder Qualifiers: Schizoaffective disorder type: bipolar Qualified Code(s): F25.0 - Schizoaffective disorder, bipolar type
[2017-10-07 19:43] LABS: Hepatitis A IgM Antibody Nonreactive (Nonreactive); Hepatitits B Surface Antigen Nonreactive (Nonreactive)
[2017-10-07] MEDS: Senna/Docusate Sodium 8.6/50 MG Tablet PO SCH (22:14)
[2017-10-08] MEDS: Levothyroxine 100 MCG Tablet PO SCH (05:53)
[2017-10-08] MEDS: Levothyroxine 75 MCG Tablet PO SCH (05:53)
[2017-10-08] MEDS ORDERED: Levothyroxine 100 MCG Tablet PO SCH (06:00)
[2017-10-08] MEDS: amLODIPine 10 MG Tablet PO SCH (09:37)
[2017-10-08] MEDS: LORazepam 1 MG Tablet PO PRN (09:37)
[2017-10-08] MEDS: Senna/Docusate Sodium 8.6/50 MG Tablet PO SCH ×3 (09:37→21:20)
--- NOTE | 2017-10-08 13:00 | P.HPPSY ---
Provisional Diagnosis Admission Date: October 07, 2017 11:54 Cecil I.: Unspecified psychosis, history of bipolar disorder and anxiety Cecil II.: Deferred Cecil III.: Hypertension Competence Certification of Person's Competence To Provide Express and Informed Consent I have personally examined Chata Vargas, a person being served at [facility] on, October 08, 2017 1246. Express and informed consent means consent voluntarily given in writing, by a competent person, after sufficient explanation and disclosure of the subject matter involved to enable the person to make a knowing and willful decision without any element of force, fraud, deceit, duress, or other form of constraint or coercion. This person is 18 years of age or older, is not now known to be incompetent to consent to treatment with a guardian advocate, and does not have a health care surrogate or proxy currently making medical treatment decisions. I have found this person to be one of the following: [] Competent to provide express and informed consent, as defined above, for voluntary admission to this facility and is competent to provide express and informed consent for treatment. He/she has the consistent capacity to make well reasoned, willful, and knowing decisions concerning his or her medical or mental health treatment. The person fully and consistently understands the purpose of the admission for examination/placement and is fully capable of personally exercising all rights assured [place] Incompetent to provide express and informed consent to voluntary admission, and this is incompetent to provide express and informed consent to treatment. The person must be transferred to involuntary status and a petition for a guardian advocate filed with the Circuit Court. [x] Refusing to provide express and informed consent to voluntary admission but is competent to provide express and informed consent for treatment. The person must be discharged or transferred to involuntary status. Form shall be completed within 24 hours of a person's arrival at the receiving facility and filed in the clinical record of each person: 1. Admitted on a voluntary basis 2. Permitted to provide express and informed consent to his/her own treatment 3. Allowed to transfer from involuntary to voluntary status 4. Prior to permitting a person to consent to his or her own treatment after having been previously found incompetent to consent to treatment. History of Present Illness Capacity: Has capacity History of Present Illness: The patient is 57 year-old woman, domiciled along in an independent living facility in [place], , no kids, well known by the service, with a psychiatric history of bipolar disorder, anxiety, multiple psychiatric hospitalizations, last hospitalization was here in [place] under the care of Dr. Marquez at the beginning of September 2017, just discharged in September 29, 2017 , the patient is in Abilify 15 mg daily prescribed by nurse practitioner in [facility], medical history hypertension, who presents under a Sahni Act for making suicidal and paranoid statements. Reviewed electronic medical record, labs, and discussed patient with staff. Initial evaluation by [employer] rene Armendariz: "Patient was evaluated and J103. She is awake, alert and oriented 3. Her speech is clear, organized, mostly logical, and at times rapid with intermittent stuttering present. She endorses suicidal ideation but is vague as far as a plan. She denies homicidal ideation, auditory visual hallucinations. She is internally stimulated as she is heard talking when in the room by herself. Her mood and affect are extremely anxious and irritable. Seems to be having some paranoid delusions when she states, "I am Yarsanism, my sister and brother were trying to steal for me and I had to turn them in which resulted in the of thousands of people". On my psychiatric evaluation today find a patient that is calm, cooperative, in a very good spirit. She is eating her breakfast. She reports to be in a very good mood, denies depressive symptoms. The patient reports that the reason she is here is because she had to press charges against her sister and brother because they has being stealing from her. She also states that she has being cooperated with the police and tried to find "a criminal luis f who has being hiding in the [place]" the patient is fully oriented 3, she denies suicidal and homicidal ideation, denies visual and auditory hallucinations at the moment. The patient seems to be at times disorganized, but mostly goal-directed, no loosening of associations, no ideas of reference, no prominent disorganized thought processes present. He denies the use of alcohol and illegal drugs PPHx: psychiatric history of bipolar disorder, anxiety, multiple psychiatric hospitalizations, last hospitalization was here in [place] under the care of Dr. Marquez at the beginning of September 2017, just discharged in September 29, 2017 , the patient is in Abilify 15 mg daily PMHx: Hypertension Substance Hx: She denies the use of illegal drugs and alcohol Family Hx: Patient denies psychiatric family history social Hx: The patient was born and raised in [place], she lives in an independent living facility in [place], she is , no acute - Inpatient Certification I certify that the inpatient services were ordered in accordance with Medicare regulations governing the order. This includes certification that hospital inpatient services are reasonable and necessary and in the case of services not specified as inpatient-only under 42 CFR 419.22(n), that they are appropriately provided as inpatient services in accordance to with the 2-midnight benchmark under 43 CFR 412.3(e) I certify that inpatient psychiatric hospital services are medically necessary. Evaluation and treatment and/or diagnostic testing are expected to improve the patient's condition. The patient needs on a daily basis, active treatment furnished directly by or requiring the supervision of inpatient psychiatric facility personnel. Estimated Total Length of Stay (Days): 7 Plans for Post Hospital Care: Not yet determined Review of Systems Constitutional: Denies anorexia, Denies body ache(s), Denies chills, Denies daytime sleepiness, Denies excessive sweating, Denies fatigue, Denies fever(s), Denies headache(s), Denies increased appetite, Denies lack of energy, Denies malaise, Denies night sweats, Denies weakness, Denies weight gain, Denies weight loss, Denies other Eyes: Denies blind spots, Denies blurry vision, Denies bulging eyes, Denies change in vision, Denies double vision, Denies discharge, Denies dry eyes, Denies floaters, Denies irritation, Denies itchy eyes, Denies loss of vision, Denies pain, Denies requires corrective lenses, Denies sensitivity to light, Denies other Ears, Nose, Mouth, and Throat: Denies abnormal hearing, Denies bleeding gums, Denies bad breath, Denies change in voice, Denies dental pain, Denies difficulty swallowing, Denies dizziness, Denies dry mouth, Denies ear discharge , Denies ear pain, Denies facial pain, Denies headache(s), Denies hearing loss, Denies hoarseness, Denies lip swelling, Denies nosebleed, Denies mouth lesions, Denies mouth pain, Denies nasal congestion, Denies nasal discharge, Denies nasal obstruction, Denies nasal trauma, Denies neck lump, Denies neck pain, Denies nose pain, Denies pain with swallowing, Denies poor balance, Denies post nasal drip, Denies ringing in the ears, Denies sinus pain, Denies sinus pressure , Denies sore throat, Denies throat swelling, Denies tongue swelling, Denies other Cardiovascular: Denies chest pain, Denies chest pain at rest, Denies chest pain with activity, Denies excessive sweating, Denies fainting, Denies fast heart rate, Denies foot swelling, Denies generalized swelling, Denies irregular heart rhythm, Denies leg pain with activity, Denies leg sores, Denies leg swelling, Denies lightheadedness, Denies radiating jaw, neck or arm pain, Denies rapid, pounding, or irregular heartbeat, Denies shortness of breath, Denies shortness of breath with activity, Denies shortness of breath when lying down, Denies shortness of breath causing sudden awakening, Denies slow heart rate, Denies other Respiratory: Denies change in phlegm color, Denies chest congestion, Denies cough, Denies coughing up blood, Denies excessive phlegm production, Denies pain on inspiration, Denies pain with cough, Denies shortness of breath, Denies shortness of breath with activity, Denies snoring, Denies stridor, Denies wheezing, Denies other Gastrointestinal: Denies abdominal pain, Denies belching, Denies black, tarry stools, Denies bloating, Denies bright, red blood in stools, Denies change in bowel habits, Denies constant urge to pass stool, Denies change in stools, Denies coffee ground vomit, Denies constipation, Denies cramping, Denies difficulty swallowing, Denies excessive passing of gas, Denies feeling full early, Denies heartburn, Denies incontinent of stools, Denies loose stools, Denies nausea, Denies pain with swallowing, Denies vomiting, Denies vomiting blood, Denies other Genitourinary: Denies abnormal periods, Denies abnormal vaginal bleeding, Denies absent period, Denies bleeding between periods, Denies blood in urine, Denies difficulty starting urination, Denies difficulty urinating, Denies dribbling after urination, Denies frequent nighttime urination, Denies genital itching, Denies genital lesions, Denies heavy periods, Denies hot flashes, Denies light periods, Denies nipple discharge, Denies painful intercourse, Denies painful periods, Denies painful urination, Denies pelvic pain, Denies prolapse symptoms, Denies sexual problems, Denies side pain, Denies urinary incontinence, Denies urinary urgency, Denies vaginal discharge, Denies vaginal dryness, Denies vaginal odor, Denies vaginal itching, Denies other Musculoskeletal: Denies abnormal walking, Denies back pain, Denies body aches, Denies decreased muscle mass, Denies deformity, Denies joint pain, Denies joint swelling, Denies limited joint movement, Denies loss of height, Denies muscle cramps, Denies muscle weakness, Denies neck pain, Denies numbness, Denies radiating pain into limb, Denies stiffness, Denies tingling, Denies other Neurologic: Denies abnormal hearing, Denies abnormal movements, Denies abnormal speech, Denies abnormal walking, Denies behavioral changes, Denies burning sensations, Denies confusion, Denies dizziness, Denies fainting, Denies frequent falls, Denies headache(s), Denies lack of coordination, Denies localized weakness, Denies loss of vision, Denies memory loss, Denies numbness, Denies other visual disturbances, Denies radiating pain, Denies restless legs, Denies convulsions, Denies seizure-like activity, Denies sensory deficit, Denies tingling, Denies tingling/numbness/burning sensations, Denies tremor(s), Denies unsteadiness, Denies weakness, Denies other Psychiatric: Reports paranoia, Denies abnormal sleep pattern, Denies anxiety, Denies behavioral changes, Denies change in appetite, Denies change in sex drive , Denies confusion, Denies depression, Denies difficulty concentrating, Denies hearing things others do not hear, Denies hopelessness, Denies irritability, Denies lack of enjoyment, Denies memory loss, Denies mood swings, Denies panic attacks, Denies seeing things others do not see, Denies sensing things others do not sense, Denies tactile hallucinations, Denies thoughts of hurting/killing others, Denies thoughts of hurting/killing yourself, Denies other PMFSH - History History Provided By: Patient - Medical History Medical History: Medical History (Last Reviewed 10/07/17 @ 12:39 by JUAN DIEGO Erwin) Schizoaffective disorder (Acute) End stage renal disease (Acute) Anemia (Acute) Muscle weakness (Acute) Renal dialysis status (Acute) Anxiety (Acute) Hyperlipemia (Acute) Hypothyroidism (Acute) Osteoarthritis (Acute) Hypertension (Acute) - Family History Family History: Family History (Last Updated 09/21/17 @ 12:20 by Regan Mckinley DO) Other Family history of hypertension - Tobacco History Second Hand Smoke Exposure: No Smoking Status: Refused to answer Tobacco Type: Cigarettes - Alcohol History How Often Do You Have a Drink Containing Alcohol: Unable to Obtain - Substance Use History Substance History: Unable to Obtain - Travel History Recent Travel in the [place] Within the Last 8 Weeks: No Recent Travel Out of the Country Within the Last 8 Weeks: No - Immunization History Tetanus Immunization: Unable to Assess Hx Influenza Vaccine This Season: Unable to Assess Medications and Allergies Active Medications: Active Medications Acetaminophen (Tylenol) 650 mg PO Q4H PRN PRN Reason: Pain 1-5 or Temp >101F Acetaminophen (Tylenol) 650 mg PO UNSCH PRN PRN Reason: SEE LABEL COMMENTS Al Hydrox/Mg Hydrox/Simethicone (Mag-Al Plus Susp Liq) 30 ml PO Q6H PRN PRN Reason: DYSPEPSIA Amlodipine Besylate (Norvasc) 10 mg PO DAILY [facility] Last Admin: 10/08/17 09:37 Dose: 10 mg Aripiprazole (Abilify) 15 mg PO BID [facility] Last Admin: 10/08/17 09:37 Dose: 15 mg Atorvastatin Calcium (Lipitor) 10 mg PO HS [facility] Last Admin: 10/07/17 22:10 Dose: 10 mg Clonidine HCl (Catapres) 0.1 mg PO UNSCH PRN PRN Reason: SEE LABEL COMMENTS Diphenhydramine HCl (Benadryl) 50 mg PO HS PRN PRN Reason: INSOMNIA Diphenhydramine HCl (Benadryl) 25 mg PO UNSCH PRN PRN Reason: SEE LABEL COMMENTS Epoetin Brad (Epogen Inj) 4,000 unit IV.PUSH UNSCH PRN PRN Reason: SEE LABEL COMMENTS Gelatin (Gelfoam 12 Mm/7 Mm Topical) 1 foam TOPICAL PRN PRN PRN Reason: help stop bleeding from site Heparin Sodium (Porcine) (Heparin Inj) 8,000 units OTHER WITH DIALYSIS PRN PRN Reason: for machine prime Albumin Human (Flexbumin 25% Inj) 100 mls @ 60 mls/hr IV.SIG WITH DIALYSIS PRN PRN Reason: hypotension / volume replace Sodium Chloride (Ns Inj) 1,000 mls @ 0 mls/hr OTHER .Q0M PRN PRN Reason: for prime and rinse back Sodium Chloride (Ns Inj) 1,000 mls @ 200 mls/hr OTHER .Q5H PRN PRN Reason: for dialyzer flush PRN Sodium Chloride (Ns Inj) 200 mls @ 0 mls/hr IV.CONT .Q0M PRN PRN Reason: hypotension / volume replace Levothyroxine Sodium (Synthroid) 75 mcg PO DAILY@0600 [facility] Last Admin: 10/08/17 05:53 Dose: 75 mcg Levothyroxine Sodium (Synthroid) 100 mcg PO DAILY@0600 [facility] Last Admin: 10/08/17 05:53 Dose: 100 mcg Lorazepam (Ativan) 1 mg PO Q6H PRN PRN Reason: MODERATE TO SEVERE ANXIETY Last Admin: 10/08/17 09:37 Dose: 1 mg Lorazepam (Ativan Inj) 1 mg IM Q6H PRN PRN Reason: MODERATE TO SEVERE ANXIETY Lorazepam (Ativan Inj) 0.5 mg IM Q12H PRN PRN Reason: MODERATE TO SEVERE ANXIETY Lorazepam (Ativan) 0.5 mg PO Q12H PRN PRN Reason: MODERATE TO SEVERE ANXIETY Losartan Potassium (Cozaar) 25 mg PO DAILY [facility] Last Admin: 10/08/17 09:37 Dose: 25 mg Mannitol (Mannitol Inj) 12.5 gm IV.PUSH UNSCH PRN PRN Reason: hypotension / volume replace Nitroglycerin (Nitrostat Sl) 0.4 mg SL Q5M PRN PRN Reason: CHEST PAIN Ondansetron HCl (Zofran Inj) 4 mg IV.PUSH UNSCH PRN PRN Reason: WITH DIALYSIS Senna/Docusate Sodium (Tram-Colace) 1 tab PO BID [facility] Last Admin: 10/08/17 09:37 Dose: 1 tab Sodium Chloride (Ns Flush) 5 ml IV.FLUSH UNSCH PRN PRN Reason: flush each lumen during HD Triamcinolone Acetonide (Aristocort 0.1% Cream) 0 applicatio TOPICAL BID [facility] Last Admin: 10/08/17 11:29 Dose: 1 applicatio Allergies Allergy/AdvReac Type Severity Reaction Status Date / Time No Known Allergies Allergy Verified 10/06/17 21:45 Home Medications Medication Instructions Recorded Confirmed Type amlodipine 10 mg PO DAILY 10/07/17 10/07/17 History aripiprazole 15 mg PO BID 10/07/17 10/07/17 History atorvastatin 10 mg PO HS 10/07/17 10/07/17 History levothyroxine 175 mg PO DAILY 10/07/17 10/07/17 History losartan 25 mg PO DAILY 10/07/17 10/07/17 History triamcinolone acetonide TOPICAL BID 10/07/17 History Results - Labs CBC & Chem 7: 10/06/17 22:00 10/06/17 22:00 Labs: Laboratory Results - last 24 hr 10/07/17 16:00 Hepatitis A IgM Ab Nonreactive Hep Bs Antigen Nonreactive Hep B Core IgM Ab Nonreactive Hep C IgG Ab Nonreactive Exam Vital signs: Vital Signs 10/07/17 13:07 10/08/17 06:00 Temperature 98.4 F 98.6 F Pulse Rate 94 H 100 H Respiratory Rate 18 19 Blood Pressure 168/73 H 141/66 H Pulse Oximetry 97 94 L Intake & Output 10/07/17 10/08/17 10/08/17 18:59 06:59 18:59 Intake Total 720 / 720 Output Total 2500 / 2500 Balance -2500 / -2500 719 / 719 Weight 87.997 kg Intake: Oral 720 / 720 Output: Urine Hemodialysis Amount 2500 / 2500 Other: # Voids 2 Weight On Admission 87.997 kg Narrative: No tremors, no EPS, no psychomotor agitation or retardation, no stiffness - Constitutional no acute distress - Routine HEENT Exam Head: Present: normocephalic Eye: Present: EOMI, PERRL ENT: Present: mucous membranes moist Mental Status Examination Appearance: Disheveled Consciousness: Alert, Vigilant Orientation: x4 Motor Activity: Abnormal gait Speech: Pressured, Rapid, Stuttering Language: Adequate Fund of Knowledge: Inadequate Attention and Concentration: Adequate Memory: Unremarkable Mood: Anxious, Irritable Affect: Irritable, Anxious Thought Process & Associations: Loose associations Thought Content: Bizarre thinking, Delusional Hallucination Type: None Delusion Type: Bizarre, Paranoid Suicidal Ideation: Yes Suicidal Plan: No Suicidal Intention: No Homicidal Ideation: No Homicidal Plan: No Homicidal Intention: No Insight: Poor Judgment: Impulsive Assessment and Plan - Assessment (1) Unspecified psychosis Code(s): F29 - Unspecified psychosis not due to a substance or known physiological condition Status: Acute - Plan Plan: Estimated LOS: [] days On psychiatric evaluation today the patient is calm, cooperative and pleasant, but continues to present seems to be quite complex, with a structure and fixed persecutory delusions. Patient does not seem to be aggressive at this moment, but she has been reported as responding to internal stimulation and be quite paranoid. The patient will be admitted in psychiatry for stabilization and safety. I will restart her psychotropics, Abilify 50 mg twice daily. Trazodone 100 mg, gabapentin 800 mg 3 times daily. Will consult psychiatry for second opinion. Justification for Continued Inpatient Stay: Continue admission.
[2017-10-08] MEDS: LORazepam 0.5 MG Tablet PO PRN (20:49)
[2017-10-09] MEDS: LORazepam 1 MG Tablet PO PRN ×3 (01:45→17:55)
[2017-10-09] MEDS: Levothyroxine 75 MCG Tablet PO SCH (06:35)
[2017-10-09] MEDS: Levothyroxine 100 MCG Tablet PO SCH (06:40)
[2017-10-09] MEDS: amLODIPine 10 MG Tablet PO SCH (09:05)
[2017-10-09] MEDS: Senna/Docusate Sodium 8.6/50 MG Tablet PO SCH ×2 (09:05→21:01)
--- NOTE | 2017-10-09 10:14 | P.PNNP ---
Subjective Interval history: Seen in psych day room. She is calm, still delusional. Last HD was Monday. <Bree Evans. - Last Filed: 10/09/17 10:10> Physical Exam Vital signs: Vital Signs 10/08/17 17:41 10/09/17 06:00 Temperature 98.3 F 98.2 F Pulse Rate 86 75 Respiratory Rate 16 16 Blood Pressure 142/66 H 148/67 H Pulse Oximetry 96 100 Intake & Output 10/08/17 10/09/17 10/09/17 18:59 06:59 18:59 Intake Total 1200 / 1200 460 / 460 Balance 1200 / 1200 460 / 460 Weight 83.8 kg Intake: Oral 1200 / 1200 360 / 360 Oral Supplement 100 / 100 Other: # Voids 3 2 Date of Last Bowel Movement 10/08/17 - Constitutional no acute distress, cooperative - Routine HEENT Exam Head: Present: normocephalic - Routine Neck Exam Present: supple, full ROM - Routine Respiratory Exam Present: CTA bilaterally. Absent: accessory muscle use - Routine Cardiovascular Exam Present: RRR, S1, S2 - Routine Abdominal Exam Present: soft, normoactive bowel sounds - Routine Extremities Exam Present: full ROM, AV fistula. Absent: edema - Routine Skin Exam Present: intact, dry, warm - Routine Neurological Exam Present: alert, CN II-XII intact, moving all extremities - Detailed Neurological Exam: Coma Scale Eye Opening: Spontaneous Verbal Response: Confused Motor Response: Obey commands Nargis Coma Scale Total: 14 - Routine Psychiatric Exam Present: cooperative, anxious, paranoid, manic. Absent: normal affect, normal thought process, suicidal ideation, good insight, good judgment <Bree Evans. - Last Filed: 10/09/17 10:10> Vital signs: Vital Signs 10/08/17 17:41 10/09/17 06:00 Temperature 98.3 F 98.2 F Pulse Rate 86 75 Respiratory Rate 16 16 Blood Pressure 142/66 H 148/67 H Pulse Oximetry 96 100 Intake & Output 10/08/17 10/09/17 10/09/17 18:59 06:59 18:59 Intake Total 1200 / 1200 460 / 460 Balance 1200 / 1200 460 / 460 Weight 83.8 kg Intake: Oral 1200 / 1200 360 / 360 Oral Supplement 100 / 100 Other: # Voids 3 2 Date of Last Bowel Movement 10/08/17 <Onur Santos - Last Filed: 10/09/17 11:44> Assessment and Plan - Assessment (1) ESRD (end stage renal disease) on dialysis Code(s): N18.6 - End stage renal disease; Z99.2 - Dependence on renal dialysis Status: Acute Plan: HD TTS, due tomorrow. AVF functions well, protect LUE. Avoid IVF administration. High protein diet should be offered. Epogen ordered for anemia of CKD. (2) Acute psychosis Code(s): F23 - Brief psychotic disorder Status: Acute Plan: Psych managing. On Abilify, but dose may be incorrect, have asked RN to investigate (50 mg BID vs. 15 mg BID) Also on trazodone and gabapentin. (3) Schizoaffective disorder Code(s): F25.9 - Schizoaffective disorder, unspecified Status: Acute Qualifiers: Schizoaffective disorder type: bipolar Qualified Code(s): F25.0 - Schizoaffective disorder, bipolar type Plan: See above. May need skilled nursing placement. (4) HTN (hypertension) Code(s): I10 - Essential (primary) hypertension Status: Acute Plan: Continue medications as ordered. <Bree Evans - Last Filed: 10/09/17 10:10> - Assessment (1) ESRD (end stage renal disease) on dialysis Code(s): N18.6 - End stage renal disease; Z99.2 - Dependence on renal dialysis Status: Acute (2) Acute psychosis Code(s): F23 - Brief psychotic disorder Status: Acute (3) Schizoaffective disorder Code(s): F25.9 - Schizoaffective disorder, unspecified Status: Acute Qualifiers: Schizoaffective disorder type: bipolar Qualified Code(s): F25.0 - Schizoaffective disorder, bipolar type (4) HTN (hypertension) Code(s): I10 - Essential (primary) hypertension Status: Acute - Attending Attestation patient was seen and examined. Agree with above assessment and plan. I believe the dose of Abilify was 15 mg PO BID. She remains delusional, but is calm. Discussed with psychiatrist regarding her issues. Hopefully her condition can be stabilized before her discharge. <Onur Santos - Last Filed: 10/09/17 11:44>
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
[2017-10-10] MEDS: LORazepam 1 MG Tablet PO PRN ×3 (00:50→22:18)
[2017-10-10] MEDS: Levothyroxine 75 MCG Tablet PO SCH (05:08)
[2017-10-10] MEDS: Levothyroxine 100 MCG Tablet PO SCH (05:09)
[2017-10-10] MEDS: Epoetin Alfa Inj 4,000 UNIT/ML Vial IV.PUSH PRN (10:03)
--- NOTE | 2017-10-10 10:05 | P.PNNP ---
Subjective Interval history: Today she is still delusional, talking about her sister and writing a novel about her murder. Due for HD today. <Bree Evans - Last Filed: 10/10/17 10:02> Physical Exam Vital signs: Vital Signs 10/09/17 17:44 Temperature 98.1 F Pulse Rate 83 Respiratory Rate 16 Blood Pressure 124/59 L Pulse Oximetry 98 Intake & Output 10/09/17 10/10/17 10/10/17 18:59 06:59 18:59 Intake Total 720 / 720 240 / 240 240 / 240 Balance 720 / 720 240 / 240 240 / 240 Intake: Oral 720 / 720 240 / 240 240 / 240 Other: # Voids 2 Date of Last Bowel Movement 10/08/17 - Constitutional no acute distress, obese, disheveled, agitated - Routine HEENT Exam Head: Present: normocephalic - Routine Respiratory Exam Present: CTA bilaterally - Routine Cardiovascular Exam Present: RRR, S1, S2 - Routine Abdominal Exam Present: soft, normoactive bowel sounds. Absent: tenderness, guarding - Routine Extremities Exam Present: full ROM, AV fistula. Absent: edema - Routine Skin Exam Present: intact, dry, warm - Routine Neurological Exam Present: alert, altered mental status, normal speech - Detailed Neurological Exam: Coma Scale Eye Opening: Spontaneous Verbal Response: Confused Motor Response: Obey commands Nargis Coma Scale Total: 14 - Routine Psychiatric Exam Present: depressed, paranoid, manic. Absent: normal affect, normal thought process, visual hallucinations, good insight, good judgment - Detailed Psychiatric Exam Mood and affect: Present: labile, expansive Thought process: Present: confabulating, flight of ideas, impoverished Thought content: Present: delusions <Bree Evans. - Last Filed: 10/10/17 10:02> Vital signs: Vital Signs 10/09/17 17:44 Temperature 98.1 F Pulse Rate 83 Respiratory Rate 16 Blood Pressure 124/59 L Pulse Oximetry 98 Intake & Output 10/09/17 10/10/17 10/10/17 18:59 06:59 18:59 Intake Total 720 / 720 240 / 240 240 / 240 Balance 720 / 720 240 / 240 240 / 240 Intake: Oral 720 / 720 240 / 240 240 / 240 Other: # Voids 2 Date of Last Bowel Movement 10/08/17 <Onur Santos - Last Filed: 10/10/17 11:39> Assessment and Plan - Assessment (1) ESRD (end stage renal disease) on dialysis Code(s): N18.6 - End stage renal disease; Z99.2 - Dependence on renal dialysis Status: Acute Plan: HD TTS, due today. Protect left arm from procedures as her AVF functions well. Avoid IVF administration. High protein diet ordered. Epogen ordered for anemia of CKD. (2) Acute psychosis Code(s): F23 - Brief psychotic disorder Status: Acute Plan: Psych managing. On Abilify, trazodone, and gabapentin. (3) Schizoaffective disorder Code(s): F25.9 - Schizoaffective disorder, unspecified Status: Acute Qualifiers: Schizoaffective disorder type: bipolar Qualified Code(s): F25.0 - Schizoaffective disorder, bipolar type Plan: See above. May need terminal supervisor placement. (4) HTN (hypertension) Code(s): I10 - Essential (primary) hypertension Status: Acute Plan: Continue medications as ordered. <Bree Evans - Last Filed: 10/10/17 10:02> - Assessment (1) ESRD (end stage renal disease) on dialysis Code(s): N18.6 - End stage renal disease; Z99.2 - Dependence on renal dialysis Status: Acute (2) Acute psychosis Code(s): F23 - Brief psychotic disorder Status: Acute (3) Schizoaffective disorder Code(s): F25.9 - Schizoaffective disorder, unspecified Status: Acute Qualifiers: Schizoaffective disorder type: bipolar Qualified Code(s): F25.0 - Schizoaffective disorder, bipolar type (4) HTN (hypertension) Code(s): I10 - Essential (primary) hypertension Status: Acute - Attending Attestation patient was seen and examined. Seen during dialysis. Agree with above assessment and plan. <Onur Santos - Last Filed: 10/10/17 11:39>
[2017-10-10] MEDS: amLODIPine 10 MG Tablet PO SCH ×2 (10:35→13:12)
[2017-10-10] MEDS: Senna/Docusate Sodium 8.6/50 MG Tablet PO SCH ×2 (10:36→20:27)
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
[2017-10-11] MEDS: Levothyroxine 100 MCG Tablet PO SCH (05:25)
[2017-10-11] MEDS: Levothyroxine 75 MCG Tablet PO SCH (05:25)
[2017-10-11] MEDS: amLODIPine 10 MG Tablet PO SCH (08:30)
[2017-10-11] MEDS: Senna/Docusate Sodium 8.6/50 MG Tablet PO SCH ×2 (10:55→21:35)
--- NOTE | 2017-10-11 11:14 | P.PNNP ---
Subjective Interval history: Psych/mental status much better. Possible discharge soon. <Bree Evans - Last Filed: 10/11/17 11:10> Physical Exam Vital signs: Vital Signs 10/10/17 17:12 10/11/17 06:32 Temperature 99.1 F 98.5 F Pulse Rate 89 86 Respiratory Rate 18 18 Blood Pressure 151/65 H 116/64 Pulse Oximetry 97 Intake & Output 10/10/17 10/11/17 10/11/17 18:59 06:59 18:59 Intake Total 1920 / 1920 960 / 960 240 / 240 Output Total 1999 Balance -80 / -80 960 / 960 240 / 240 Intake: Oral 1920 / 1920 960 / 960 240 / 240 Output: Hemodialysis Amount 1999 Other: # Voids 2 1 - Constitutional no acute distress, obese, disheveled, cooperative - Routine HEENT Exam Head: Present: normocephalic Eye: Present: EOMI - Routine Neck Exam Present: supple, full ROM. Absent: JVD - Routine Respiratory Exam Present: CTA bilaterally. Absent: accessory muscle use - Routine Cardiovascular Exam Present: RRR, S1, S2 - Routine Abdominal Exam Present: soft, normoactive bowel sounds - Routine Extremities Exam Present: full ROM, pulses intact. Absent: edema - Routine Skin Exam Present: intact, dry, warm - Routine Neurological Exam Present: alert, oriented X3, CN II-XII intact, moving all extremities - Detailed Neurological Exam: Coma Scale Eye Opening: Spontaneous Verbal Response: Oriented Motor Response: Obey commands Morris Coma Scale Total: 15 <Bree Evans - Last Filed: 10/11/17 11:10> Vital signs: Vital Signs 10/11/17 18:48 10/12/17 05:47 10/12/17 06:00 Temperature 97.8 F 98.6 F 98.6 F Pulse Rate 85 86 86 Respiratory Rate 18 17 17 Blood Pressure 134/62 158/72 H 158/72 H Pulse Oximetry 99 97 97 10/12/17 17:32 Temperature 98.6 F Pulse Rate 98 H Respiratory Rate 17 Blood Pressure 115/62 Pulse Oximetry Intake & Output 10/11/17 10/12/17 10/12/17 18:59 06:59 18:59 Intake Total 1080 / 1080 132 / 132 200 / 200 Output Total 1999 Balance 1080 / 1080 132 / 132 -1800 / -1800 Intake: Oral 1079 / 1079 32 / 32 200 / 200 Oral Supplement 100 / 100 Output: Hemodialysis Amount 1999 Other: # Voids 1 # Bowel Movements 0 <Onur Santos - Last Filed: 10/12/17 18:07> Assessment and Plan - Assessment (1) ESRD (end stage renal disease) on dialysis Code(s): N18.6 - End stage renal disease; Z99.2 - Dependence on renal dialysis Status: Acute Plan: HD TTS, had treatment yesterday. 2L fluid removal. Protect left arm from procedures, her AVF functions well. Avoid IVF administration. High protein diet ordered. Renal panel ordered. Start Renvela for metabolic bone disorder. On Epogen for anemia of CKD. Outpatient HD is in [place]. (2) Acute psychosis Code(s): F23 - Brief psychotic disorder Status: Acute Plan: Psych managing. On Abilify, trazodone, and gabapentin. Improved. (3) Schizoaffective disorder Code(s): F25.9 - Schizoaffective disorder, unspecified Status: Acute Qualifiers: Schizoaffective disorder type: bipolar Qualified Code(s): F25.0 - Schizoaffective disorder, bipolar type Plan: See above. (4) HTN (hypertension) Code(s): I10 - Essential (primary) hypertension Status: Acute Plan: Continue medications as ordered. <Bree Evans - Last Filed: 10/11/17 11:10> - Assessment (1) ESRD (end stage renal disease) on dialysis Code(s): N18.6 - End stage renal disease; Z99.2 - Dependence on renal dialysis Status: Acute (2) Acute psychosis Code(s): F23 - Brief psychotic disorder Status: Acute (3) Schizoaffective disorder Code(s): F25.9 - Schizoaffective disorder, unspecified Status: Acute Qualifiers: Schizoaffective disorder type: bipolar Qualified Code(s): F25.0 - Schizoaffective disorder, bipolar type (4) HTN (hypertension) Code(s): I10 - Essential (primary) hypertension Status: Acute - Attending Attestation patient was seen and examined. Patient reports that she will take her medications regularly. Continue dialysis TTS. <Onur Santos - Last Filed: 10/12/17 18:07>
[2017-10-11 12:47] LABS: Albumin 3.9 g/dL (3.4-5.0); Calcium 9.9 mg/dL (8.5-10.1); Carbon Dioxide 26.7 meq/L (21.0-32.0)
[2017-10-11 12:49] LABS: Phosphorus 5.6 mg/dL (2.5-4.9)
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
[2017-10-11] MEDS: LORazepam 1 MG Tablet PO PRN (23:54)
[2017-10-12] MEDS: Levothyroxine 100 MCG Tablet PO SCH (05:50)
[2017-10-12] MEDS: Levothyroxine 75 MCG Tablet PO SCH (05:51)
[2017-10-12] MEDS: LORazepam 1 MG Tablet PO PRN ×3 (07:14→20:11)
[2017-10-12] MEDS: Epoetin Alfa Inj 4,000 UNIT/ML Vial IV.PUSH PRN (11:40)
--- NOTE | 2017-10-12 12:43 | P.PNNP ---
Subjective Interval history: Seen just after finishing dialysis. Had some cramping towards the end of treatment. The patient states she will be discharged today. Mentation improved, much more lucid today. <Bree Evans - Last Filed: 10/12/17 12:40> Physical Exam Vital signs: Vital Signs 10/11/17 18:48 10/12/17 05:47 10/12/17 06:00 Temperature 97.8 F 98.6 F 98.6 F Pulse Rate 85 86 86 Respiratory Rate 18 17 17 Blood Pressure 134/62 158/72 H 158/72 H Pulse Oximetry 99 97 97 Intake & Output 10/11/17 10/12/17 10/12/17 18:59 06:59 18:59 Intake Total 1080 / 1080 132 / 132 Output Total 1999 Balance 1080 / 1080 132 / 132 -1999 Intake: Oral 1080 / 1080 32 / 32 Oral Supplement 100 / 100 Output: Hemodialysis Amount 1999 Other: # Voids 1 # Bowel Movements 0 - Constitutional no acute distress, average body habitus, chronically ill appearing, cooperative - Routine HEENT Exam Head: Present: normocephalic - Routine Neck Exam Present: supple, full ROM - Routine Respiratory Exam Present: CTA bilaterally. Absent: accessory muscle use - Routine Cardiovascular Exam Present: RRR, S1, S2 - Routine Abdominal Exam Present: soft, normoactive bowel sounds - Routine Extremities Exam Present: edema, full ROM, pulses intact, normal capillary refill, AV fistula Comments: trace right leg edema - Routine Skin Exam Present: intact, warm - Routine Neurological Exam Present: alert, oriented X3, CN II-XII intact, moving all extremities - Detailed Neurological Exam: Coma Scale Eye Opening: Spontaneous Verbal Response: Oriented Motor Response: Obey commands [place] Coma Scale Total: 15 - Routine Psychiatric Exam Present: normal affect, normal thought process <Bree Evans - Last Filed: 10/12/17 12:40> Vital signs: Vital Signs 10/11/17 18:48 10/12/17 05:47 10/12/17 06:00 Temperature 97.8 F 98.6 F 98.6 F Pulse Rate 85 86 86 Respiratory Rate 18 17 17 Blood Pressure 134/62 158/72 H 158/72 H Pulse Oximetry 99 97 97 10/12/17 17:32 Temperature 98.6 F Pulse Rate 98 H Respiratory Rate 17 Blood Pressure 115/62 Pulse Oximetry Intake & Output 10/11/17 10/12/17 10/12/17 18:59 06:59 18:59 Intake Total 1079 / 1080 132 / 132 200 / 200 Output Total 1999 Balance 1079 / 1080 132 / 132 -1800 / -1800 Intake: Oral 1079 / 1079 32 / 32 200 / 200 Oral Supplement 100 / 100 Output: Hemodialysis Amount 1999 Other: # Voids 1 # Bowel Movements 0 <Onur Santos - Last Filed: 10/12/17 18:21> Assessment and Plan - Assessment (1) ESRD (end stage renal disease) on dialysis Code(s): N18.6 - End stage renal disease; Z99.2 - Dependence on renal dialysis Status: Acute Plan: HD TTS, 2L UF today. AVF to be used for HD. Avoid IVF administration. High protein diet ordered and recommended. Renal panel unremarkable. On Renvela for metabolic bone disorder, dose increased. On Epogen for anemia of CKD. Outpatient HD is in [place]. (2) Acute psychosis Code(s): F23 - Brief psychotic disorder Status: Acute Plan: Psych managing. Improved. On Abilify, trazodone, and gabapentin. (3) Schizoaffective disorder Code(s): F25.9 - Schizoaffective disorder, unspecified Status: Acute Qualifiers: Schizoaffective disorder type: bipolar Qualified Code(s): F25.0 - Schizoaffective disorder, bipolar type Plan: See above. (4) HTN (hypertension) Code(s): I10 - Essential (primary) hypertension Status: Acute Plan: Continue medications as ordered. <Bree Evans - Last Filed: 10/12/17 12:40> - Assessment (1) ESRD (end stage renal disease) on dialysis Code(s): N18.6 - End stage renal disease; Z99.2 - Dependence on renal dialysis Status: Acute (2) Acute psychosis Code(s): F23 - Brief psychotic disorder Status: Acute (3) Schizoaffective disorder Code(s): F25.9 - Schizoaffective disorder, unspecified Status: Acute Qualifiers: Schizoaffective disorder type: bipolar Qualified Code(s): F25.0 - Schizoaffective disorder, bipolar type (4) HTN (hypertension) Code(s): I10 - Essential (primary) hypertension Status: Acute - Attending Attestation patient was seen and examined. Agree with above assessment and plan. <Onur Santos - Last Filed: 10/12/17 18:21>
[2017-10-12] MEDS: amLODIPine 10 MG Tablet PO SCH ×3 (13:21→13:24)
[2017-10-12] MEDS: Senna/Docusate Sodium 8.6/50 MG Tablet PO SCH ×3 (13:21→21:02)
--- NOTE | 2017-10-12 16:09 | P.PNPSY ---
Subjective Remarks: Reviewed electronic medical records and discussed case with staff. Follow-up was conducted in the hallway. Patient is extremely irritated after her dialysis appointment. She states that she is nauseous, I have ordered Zofran for her. Her nurse advises that she became mildly agitated after she found out that Dr. Lee would not be seeing her today. She is under the delusion that he will be her follow-up provider when she is discharged. He lifted her Sahni act yesterday and today she is requesting to leave. She states that she has not slept in 2 nights "because of all of the craziness in here". She goes on to say that she has no appetite but forces herself to eat because of her kidneys. Overall she seems very somatic and irritable. Mental Status Examination Appearance: Appropriate Consciousness: Alert, Vigilant Orientation: x4 Motor Activity: Abnormal gait (Uses walker) Speech: Unremarkable Language: Adequate Fund of Knowledge: Inadequate Attention and Concentration: Adequate Memory: Unremarkable Mood: Anxious Affect: Anxious Thought Process & Associations: Loose associations Thought Content: Bizarre thinking, Delusional Hallucination Type: None Delusion Type: Bizarre, Paranoid Suicidal Ideation: No (denies today) Suicidal Plan: No Suicidal Intention: No Homicidal Ideation: No Homicidal Plan: No Homicidal Intention: No Insight: Fair Judgment: Impulsive Assessment and Plan - Assessment (1) Schizoaffective disorder Code(s): F25.9 - Schizoaffective disorder, unspecified Status: Acute - Plan Plan: Continue with current treatment plan. Extremely likely for discharge tomorrow if she has new behavioral disturbances overnight. Justification for Continued Inpatient Stay: Moving this patient to a less restrictive environment would likely result in decompensation. (1) Schizoaffective disorder Qualifiers: Schizoaffective disorder type: bipolar Qualified Code(s): F25.0 - Schizoaffective disorder, bipolar type
[2017-10-13] MEDS: LORazepam 1 MG Tablet PO PRN (02:12)
[2017-10-13] MEDS: Levothyroxine 100 MCG Tablet PO SCH (05:54)
[2017-10-13] MEDS: Levothyroxine 75 MCG Tablet PO SCH (05:54)
[2017-10-13] MEDS: LORazepam 0.5 MG Tablet PO PRN (06:33)
[2017-10-13] MEDS: amLODIPine 10 MG Tablet PO SCH (08:45)
[2017-10-13] MEDS: Senna/Docusate Sodium 8.6/50 MG Tablet PO SCH (08:46)
--- NOTE | 2017-10-13 10:09 | P.PNNP ---
Subjective Interval history: Ambulatory, lucid. Possible discharge today. <Bree Evans - Last Filed: 10/13/17 10:10> Physical Exam Vital signs: Vital Signs 10/12/17 17:32 Temperature 98.6 F Pulse Rate 98 H Respiratory Rate 17 Blood Pressure 115/62 Intake & Output 10/12/17 10/13/17 10/13/17 18:59 06:59 18:59 Intake Total 200 / 200 Output Total 1999 Balance -1800 / 1800 Intake: Oral 200 / 200 Output: Hemodialysis Amount 1999 Other: Date of Last Bowel Movement 10/08/17 - Constitutional no acute distress, disheveled, cooperative - Routine HEENT Exam Head: Present: normocephalic - Routine Neck Exam Present: supple, full ROM - Routine Respiratory Exam Present: CTA bilaterally. Absent: accessory muscle use - Routine Cardiovascular Exam Present: S1, S2 - Routine Abdominal Exam Present: soft, normoactive bowel sounds - Routine Extremities Exam Present: full ROM, pulses intact, AV fistula. Absent: edema - Routine Skin Exam Present: intact, dry, warm - Routine Neurological Exam Present: alert, oriented X3, CN II-XII intact, moving all extremities - Detailed Neurological Exam: Coma Scale Eye Opening: Spontaneous Verbal Response: Oriented Motor Response: Obey commands [place] Coma Scale Total: 15 <Bree Evans - Last Filed: 10/13/17 10:10> Vital signs: Vital Signs 10/12/17 17:32 Temperature 98.6 F Pulse Rate 98 H Respiratory Rate 17 Blood Pressure 115/62 Intake & Output 10/12/17 10/13/17 10/13/17 18:59 06:59 18:59 Intake Total 200 / 200 Output Total 1999 Balance -1800 / 1800 Intake: Oral 200 / 200 Output: Hemodialysis Amount 1999 Other: Date of Last Bowel Movement 10/08/17 <Onur Santos - Last Filed: 10/13/17 15:00> Assessment and Plan - Assessment (1) ESRD (end stage renal disease) on dialysis Code(s): N18.6 - End stage renal disease; Z99.2 - Dependence on renal dialysis Status: Acute Plan: HD TTS, due tomorrow. Outpatient HD at [place]. AVF to be used for HD. Avoid IVF administration. High protein diet ordered and recommended. Renal panel unremarkable. On Renvela for metabolic bone disorder. On Epogen for anemia of CKD. Cleared for discharge from renal perspective. (2) Acute psychosis Code(s): F23 - Brief psychotic disorder Status: Acute Plan: Psych managing. Improved. On Abilify, trazodone, and gabapentin. (3) Schizoaffective disorder Code(s): F25.9 - Schizoaffective disorder, unspecified Status: Acute Qualifiers: Schizoaffective disorder type: bipolar Qualified Code(s): F25.0 - Schizoaffective disorder, bipolar type Plan: See above. (4) HTN (hypertension) Code(s): I10 - Essential (primary) hypertension Status: Acute Plan: Continue medications as ordered. <Bree Evans - Last Filed: 10/13/17 10:10> - Assessment (1) ESRD (end stage renal disease) on dialysis Code(s): N18.6 - End stage renal disease; Z99.2 - Dependence on renal dialysis Status: Acute (2) Acute psychosis Code(s): F23 - Brief psychotic disorder Status: Acute (3) Schizoaffective disorder Code(s): F25.9 - Schizoaffective disorder, unspecified Status: Acute Qualifiers: Schizoaffective disorder type: bipolar Qualified Code(s): F25.0 - Schizoaffective disorder, bipolar type (4) HTN (hypertension) Code(s): I10 - Essential (primary) hypertension Status: Acute - Attending Attestation patient was seen and examined. Agree with above assessment and plan. <Onur Santos - Last Filed: 10/13/17 15:00>
--- NOTE | 2017-10-13 10:40 | P.DSPSY ---
Psychiatry Discharge Summary Inpatient Psychiatric care?: Yes Advance Directives: No Mental Health Advance Directive: No Health Care Proxy: No - Admission Admission Date: October 07, 2017 11:54 - Admission Diagnosis (1) Acute psychosis Code(s): F23 - Brief psychotic disorder Brief History: The patient is 57 year-old woman, domiciled along in an independent living facility in [place], , no kids, well known by the service, with a psychiatric history of bipolar disorder, anxiety, multiple psychiatric hospitalizations, last hospitalization was here in [place] under the care of Dr. Marquez at the beginning of September 2017, just discharged in September 29, 2017 , the patient is in Abilify 15 mg daily prescribed by nurse practitioner in [facility], medical history hypertension, who presents under a Sahni Act for making suicidal and paranoid statements. Reviewed electronic medical record, labs, and discussed patient with staff. Initial evaluation by PURCHASING SUPERVISOR rene Armendariz: "Patient was evaluated and J103. She is awake, alert and oriented 3. Her speech is clear, organized, mostly logical, and at times rapid with intermittent stuttering present. She endorses suicidal ideation but is vague as far as a plan. She denies homicidal ideation, auditory visual hallucinations. She is internally stimulated as she is heard talking when in the room by herself. Her mood and affect are extremely anxious and irritable. Seems to be having some paranoid delusions when she states, "I am Hindu, my sister and brother were trying to steal for me and I had to turn them in which resulted in the of thousands of people". On my psychiatric evaluation today find a patient that is calm, cooperative, in a very good spirit. She is eating her breakfast. She reports to be in a very good mood, denies depressive symptoms. The patient reports that the reason she is here is because she had to press charges against her sister and brother because they has being stealing from her. She also states that she has being cooperated with the police and tried to find "a criminal luis f who has being hiding in the [place]" the patient is fully oriented 3, she denies suicidal and homicidal ideation, denies visual and auditory hallucinations at the moment. The patient seems to be at times disorganized, but mostly goal-directed, no loosening of associations, no ideas of reference, no prominent disorganized thought processes present. He denies the use of alcohol and illegal drugs PPHx: psychiatric history of bipolar disorder, anxiety, multiple psychiatric hospitalizations, last hospitalization was here in [place] under the care of Dr. Marquez at the beginning of September 2017, just discharged in September 29, 2017 , the patient is in Abilify 15 mg daily PMHx: Hypertension Substance Hx: She denies the use of illegal drugs and alcohol Family Hx: Patient denies psychiatric family history social Hx: The patient was born and raised in [place], she lives in an independent living facility in [place], she is , no acute Tobacco Use In Past 30 Days: No How Often Do You Have a Drink Containing Alcohol: Unable to Obtain Hospital Course: The patient is 57 year-old woman, domiciled along in an independent living facility in [place], , no kids, well known by the service, with a psychiatric history of bipolar disorder, anxiety, multiple psychiatric hospitalizations, last hospitalization was here in [place] under the care of Dr. Marquez at the beginning of September 2017, just discharged in September 29, 2017 , the patient is in Abilify 15 mg daily prescribed by nurse practitioner in [facility], medical history hypertension, who presents under a Sahni Act for making suicidal and paranoid statements. Reviewed electronic medical record, labs, and discussed patient with staff. Initial evaluation by PURCHASING SUPERVISOR rene Armendariz: "Patient was evaluated and J103. She is awake, alert and oriented 3. Her speech is clear, organized, mostly logical, and at times rapid with intermittent stuttering present. She endorses suicidal ideation but is vague as far as a plan. She denies homicidal ideation, auditory visual hallucinations. She is internally stimulated as she is heard talking when in the room by herself. Her mood and affect are extremely anxious and irritable. Seems to be having some paranoid delusions when she states, "I am Hindu, my sister and brother were trying to steal for me and I had to turn them in which resulted in the of thousands of people". On my psychiatric evaluation today find a patient that is calm, cooperative, in a very good spirit. She is eating her breakfast. She reports to be in a very good mood, denies depressive symptoms. The patient reports that the reason she is here is because she had to press charges against her sister and brother because they has being stealing from her. She also states that she has being cooperated with the police and tried to find "a criminal luis f who has being hiding in the [place]" the patient is fully oriented 3, she denies suicidal and homicidal ideation, denies visual and auditory hallucinations at the moment. The patient seems to be at times disorganized, but mostly goal-directed, no loosening of associations, no ideas of reference, no prominent disorganized thought processes present. He denies the use of alcohol and illegal drugs. Patient was admitted to a locked psychiatric unit. All safety precautions were maintained throughout her visit. She was followed by a psychiatric provider on a daily basis as well was seen by counselor and pillowcase turner. Patient received her medications which she reported that she had not taken in 4 days. She also received her scheduled dialysis treatments. She quickly stabilized her mood improved. Staff reports she is compliant with medications no behavioral disturbances reported. She cooperates and group activities and fresh air. She is seen interacting with other patients in the milieu. The delusions seem to have decreased. Upon examination today, patient reports being in a good mood and her affect is euthymic. She states that she "finally slept well last night ". Reports that her appetite has been good. She maintains that she still desire to be discharged today. She states that when she goes home she would like to "play with my cat and do my artwork". She may still have some mild delusional material present however, this is likely her baseline. After speaking with staff and reading through the notes, I feel that this patient has likely reached her maximum therapeutic benefit from this admission. She does not appear to be an eminent danger to herself or anyone else. Therefore, she will be discharged back to her assisted living facility with instructions to return if her condition should worsen. She was once again counseled on the importance of adherence to her medication regimen and expresses an intent to be compliant. - Discharge Discharge Date: 10/13/17 Discharge Disposition: Assisted Living Facility - Discharge Instructions Discharge Diet: Dialysis Diet Activities You Can Perform: Regular- No Restrictions - Discharge Time > 30 minutes Mental Status Examination Appearance: Appropriate Consciousness: Alert, Vigilant Orientation: x4 Motor Activity: Abnormal gait (Uses walker) Speech: Unremarkable Language: Adequate Fund of Knowledge: Inadequate Attention and Concentration: Adequate Memory: Unremarkable Mood: Anxious Affect: Anxious Thought Process & Associations: Loose associations Thought Content: Bizarre thinking, Delusional Hallucination Type: None Delusion Type: Bizarre, Paranoid Suicidal Ideation: No (denies today) Suicidal Plan: No Suicidal Intention: No Homicidal Ideation: No Homicidal Plan: No Homicidal Intention: No Insight: Fair Judgment: Impulsive Discharge/Advance Care Plan Your Health Problems Are: Anxiety - Results Vital Signs: Last Vital Signs Temp 98.6 F 10/12/17 17:32 Pulse 98 H 10/12/17 17:32 Resp 17 10/12/17 17:32 BP 115/62 10/12/17 17:32 Pulse Ox 97 10/12/17 06:00 Lab Results: Laboratory Results TSH 21.300 uIU/mL (0.358-3.740) H 10/06/17 22:00 Summary of Procedures: Routine dialysis. Pending Results: None - Medications Number of antipsychotic medications at discharge: 1 - Discharge Care Plan Goals to Promote Your Health: * To prevent worsening of your condition and complications * To maintain your health at the optimal level Directions to Meet Your Goals: Take your medications as prescribed Follow your dietary instruction Follow activity as directed Keep your appointments as scheduled Take your immunizations and boosters as scheduled If your symptoms worsen call your PCP, if no PCP go to Urgent Care Center or Emergency Room For 05/09 questions related to your inpatient stay or results of tests pending at discharge, please contact JUAN DIEGO Perez at Smoking is Dangerous to Your Health. Avoid second hand smoking
== END 2017-10-13 15:05 | disposition home or self-care (01) ==
LOC: NEPE 21:17 → NEPJ 10-07 11:33 → NEDA 10-07 11:54 → NEPJ 10-07 12:52 → H250 10-07 13:05
PROVIDERS: ADMIT Student in an Organized Health Care Education/Training Program; ATTEND Student in an Organized Health Care Education/Training Program

== ENCOUNTER 2017-12-26 17:32 | Inpatient (IN) ==
--- NOTE | 2017-12-26 21:09 | ED ---
HPI General Chief Complaint: Psychiatric Symptoms Stated Complaint: psych eval/[place] [facility] Time Seen by Provider: 12/26/17 20:50 Source: patient and police Mode of arrival: ambulatory Limitations: no limitations History of Present Illness HPI Narrative: This is a 57-year-old white female who presents emergency department under a [place] act by PD. Patient has a history of end-stage renal disease on hemodialysis on Monday, , Saturdays. She also has a history of anxiety, depression, schizoaffective disorder, hypertension, hyperlipidemia, hypothyroidism, degenerative disc disease, anemia. She was at dialysis today and she appeared to be acutely depressed. The patient had banged her self in the head with her hands. She did imply that she was feeling depressed and having suicidal thoughts. Patient's transition social worker/porter sample case came out to the scene. Police were notified. Patient was placed under a Sahni act. Patient here admits to feeling depressed and suicidal but does not have any current plan on self-harm. She denies any homicidal ideation. No toxic ingestions. She states that her conditions are chronic and nothing is more acute today. She denies any fever or chills. No chest pain or shortness of breath. No pedal edema. She has been eating and drinking. She does urinate once a day. She felt her dialysis went well. She denies any alcohol, tobacco, or drugs. Related Data Home Medications Medication Instructions Recorded Confirmed B complex with C#20-folic acid 1 cap PO HS 12/26/17 12/26/17 [Renal Caps] amlodipine 10 mg PO DAILY 12/26/17 12/26/17 aripiprazole 10 mg PO DAILY 12/26/17 12/26/17 aspirin [Aspir-81] 81 tab PO DAILY 12/26/17 12/26/17 atorvastatin 10 mg PO DAILY 12/26/17 12/26/17 biotin 1,000 mcg PO DAILY 12/26/17 12/26/17 diphenhydramine HCl [Benadryl] 25 mg PO HS PRN 12/26/17 12/26/17 ferric citrate 420 mg PO TID 12/26/17 12/26/17 hydralazine 25 mg PO HS 12/26/17 12/26/17 hydroxyzine HCl 50 mg PO TID PRN 12/26/17 12/26/17 lactobacillus combination no.4 3,000 mmu cells PO BID 12/26/17 12/26/17 [Probiotic] lorazepam [Ativan] 0.5 mg PO HS 12/26/17 12/26/17 losartan 25 mg PO DAILY 12/26/17 12/26/17 ondansetron 4 mg PO BID PRN 12/26/17 12/26/17 prazosin 2 mg PO HS 12/26/17 12/26/17 tramadol 50 mg PO Q6H PRN 12/26/17 12/26/17 Allergies Allergy/AdvReac Type Severity Reaction Status Date / Time No Known Allergies Allergy Verified 12/26/17 17:38 Review of Systems ROS: all other systems reviewed are negative [facility] Medical History Medical History Schizoaffective disorder (Acute) End stage renal disease (Acute) Anemia (Acute) Muscle weakness (Acute) Renal dialysis status (Acute) Anxiety (Acute) Hyperlipemia (Acute) Hypothyroidism (Acute) Osteoarthritis (Acute) Hypertension (Acute) Social History Social History Substance History: No History of Abuse Second Hand Smoke Exposure: No Smoking Status: Never smoker Tobacco Type: Cigarettes How Often Do You Have a Drink Containing Alcohol: Never Recent Travel in [facility] within the Last 8 Weeks: No Recent Out of Country Travel within the Last 8 Weeks: No Immunization History Tetanus Immunization: Unsure Exam Narrative Exam Narrative: GENERAL: Well-nourished, well-developed patient. SKIN: Warm and dry. HEAD: Normocephalic and atraumatic. EYES: No scleral icterus. No injection or drainage. ENT: No nasal drainage noted. Mucous membranes pink. Airway patent. NECK: Supple, trachea midline. Moves head freely without obvious discomfort. CARDIOVASCULAR: Regular rate and rhythm without murmurs, gallops, or rubs. RESPIRATORY: Breath sounds equal bilaterally. No accessory muscle use. GASTROINTESTINAL: Abdomen soft, non-tender, nondistended. EXTREMITIES: No cyanosis or edema. Patient has a AV fistula in the left upper arm with a good thrill. BACK: Nontender without obvious deformity. No CVA tenderness. NEURO: Patient is alert and oriented. no sensorimotor deficits. Nonfocal. Normal speech. PSYCH: No delusions. No auditory or visual hallucinations. Course Initial Documented Vital Signs Temperature 98.3 F 12/26/17 17:39 Pulse Rate 82 12/26/17 17:39 Respiratory Rate 16 12/26/17 17:39 Blood Pressure 153/73 H 12/26/17 17:39 Pulse Oximetry 96 12/26/17 17:39 Last Documented Vital Signs Temperature 98.3 F 12/26/17 17:39 Pulse Rate 89 12/26/17 21:46 Respiratory Rate 18 12/26/17 21:46 Blood Pressure 146/67 H 12/26/17 21:46 Pulse Oximetry 96 12/26/17 21:46 Medical Decision Making MDM Narrative Medical decision making narrative: We will perform routine laboratory testing for medical clearance. Medical Screen Exam Complete: Yes Emergency Medical Condition: Yes Differential Diagnosis Differential Diagnosis: MDM: High Differential diagnoses: Schizophrenia, schizoaffective disorder, bipolar, anxiety, depression, adjustment reaction, mood disorder NOS, ODD, depressive disorder NOS, psychosis NOS, substance induced mood disorder, infection, electrolyte abnormality, malingering. Mental health screening discussed with the patient. Psychiatric screen ordered. Lab Data Result diagrams: 12/26/17 17:57 12/26/17 17:57 Lab Results 12/26/17 12/26/17 12/26/17 Range/Units 17:57 17:57 21:16 WBC 6.4 (4.0-11.0) th/mm3 RBC 4.32 (4.00-5.30) mil/mm3 Hgb 12.9 (11.6-15.3) gm/dL Hct 37.9 (35.0-46.0) % MCV 87.7 (80.0-100.0) fL MCH 29.9 (27.0-34.0) pg MCHC 34.1 (32.0-36.0) % RDW 14.3 (11.6-17.2) % Plt Count 220 (150-450) th/mm3 MPV 7.7 (7.0-11.0) fL Neut % (Auto) 71.3 H (16.0-70.0) % Lymph % (Auto) 15.8 (9.0-44.0) % [place] % (Auto) 8.9 H (0.0-8.0) % Eos % (Auto) 3.3 (0.0-4.0) % Baso % (Auto) 0.7 (0.0-2.0) % Neut # (Auto) 4.5 (1.8-7.7) th/mm3 Lymph # (Auto) 1.0 (1.0-4.8) th/mm3 [place] # (Auto) 0.6 (0.0-0.9) th/mm3 Eos # (Auto) 0.2 (0.0-0.4) th/mm3 Baso # (Auto) 0.0 (0.0-0.2) th/mm3 WBC Differential . Differential Comment Auto diff final Sodium 137 (136-145) meq/L Potassium 3.7 (3.5-5.1) meq/L Chloride 94 L (98-107) meq/L Carbon Dioxide 29.8 (21.0-32.0) meq/L Anion Gap 13 (5-15) meq/L BUN 35 H (7-18) mg/dL Creatinine 5.10 H (0.50-1.00) mg/dL Estimated GFR 9 L (>89) mL/min Random Glucose 76 (74-106) mg/dL Calcium 9.2 (8.5-10.1) mg/dL Magnesium 2.2 (1.5-2.5) mg/dL Total Bilirubin 0.5 (0.2-1.0) mg/dL AST 32 (15-37) U/L ALT 30 (10-53) U/L Alkaline Phosphatase 109 (45-117) U/L Total Protein 8.4 H (6.4-8.2) g/dL Albumin 3.9 (3.4-5.0) g/dL TSH 6.170 H (0.358-3.740) uIU/mL Urine Color Yellow (Yellw/Straw) Urine Clarity Hazy H (Clear) Urine pH 8.0 (5.0-8.5) Ur Specific [place] 1.008 (1.002-1.035) Urine Protein 500 or greater (Neg-Trace) mg/dL Urine Glucose (UA) 50 (Negative) mg/dL Urine Ketones Negative (Negative) mg/dL Urine Occult Blood Negative (Negative) Urine Nitrate Negative (Negative) Urine Bilirubin Negative (Negative) Urine Urobilinogen Less than 2 (Less than 2) mg/dL Ur Leukocyte Esterase Large H (Negative) Urine RBC 2 (0-3) /hpf Urine WBC 4 (0-5) /hpf Ur Squamous Epith Cells 2 (0-5) /hpf Urine Bacteria Many H (None) /hpf Micro UA Comment Culture indicated Ur Microscopic Review Not Reportable Urine Culture Comments Culture indicated Urine Opiates Screen (Neg) Ur Barbiturates Screen (Neg) Ur Amphetamines Screen (Neg) U Benzodiazepines Scrn (Neg) Urine Cocaine Screen (Neg) U Cannabinoids Screen (Neg) Serum Alcohol Less than 3 (0-5) mg/dL 12/26/17 Range/Units 21:16 WBC (4.0-11.0) th/mm3 RBC (4.00-5.30) mil/mm3 Hgb (11.6-15.3) gm/dL Hct (35.0-46.0) % MCV (80.0-100.0) fL MCH (27.0-34.0) pg MCHC (32.0-36.0) % RDW (11.6-17.2) % Plt Count (150-450) th/mm3 MPV (7.0-11.0) fL Neut % (Auto) (16.0-70.0) % Lymph % (Auto) (9.0-44.0) % [place] % (Auto) (0.0-8.0) % Eos % (Auto) (0.0-4.0) % Baso % (Auto) (0.0-2.0) % Neut # (Auto) (1.8-7.7) th/mm3 Lymph # (Auto) (1.0-4.8) th/mm3 [place] # (Auto) (0.0-0.9) th/mm3 Eos # (Auto) (0.0-0.4) th/mm3 Baso # (Auto) (0.0-0.2) th/mm3 WBC Differential Differential Comment Sodium (136-145) meq/L Potassium (3.5-5.1) meq/L Chloride (98-107) meq/L Carbon Dioxide (21.0-32.0) meq/L Anion Gap (5-15) meq/L BUN (7-18) mg/dL Creatinine (0.50-1.00) mg/dL Estimated GFR (>89) mL/min Random Glucose (74-106) mg/dL Calcium (8.5-10.1) mg/dL Magnesium (1.5-2.5) mg/dL Total Bilirubin (0.2-1.0) mg/dL AST (15-37) U/L ALT (10-53) U/L Alkaline Phosphatase (45-117) U/L Total Protein (6.4-8.2) g/dL Albumin (3.4-5.0) g/dL TSH (0.358-3.740) uIU/mL Urine Color (Yellw/Straw) Urine Clarity (Clear) Urine pH (5.0-8.5) Ur Specific [place] (1.002-1.035) Urine Protein (Neg-Trace) mg/dL Urine Glucose (UA) (Negative) mg/dL Urine Ketones (Negative) mg/dL Urine Occult Blood (Negative) Urine Nitrate (Negative) Urine Bilirubin (Negative) Urine Urobilinogen (Less than 2) mg/dL Ur Leukocyte Esterase (Negative) Urine RBC (0-3) /hpf Urine WBC (0-5) /hpf Ur Squamous Epith Cells (0-5) /hpf Urine Bacteria (None) /hpf Micro UA Comment Ur Microscopic Review Urine Culture Comments Urine Opiates Screen Neg (Neg) Ur Barbiturates Screen Neg (Neg) Ur Amphetamines Screen Neg (Neg) U Benzodiazepines Scrn Neg (Neg) Urine Cocaine Screen Neg (Neg) U Cannabinoids Screen Neg (Neg) Serum Alcohol (0-5) mg/dL Discharge Plan Discharge Disposition Patient Disposition: 30 Still Patient Discharge Condition Condition: Stable Physicians Team ED Provider: Rodriguez Rm ED Midlevel Provider: Gokul Clarke Primary Care Provider: UNKNOWN, Rxs /Orders / Referrals /Forms Prescriptions: No Action atorvastatin 10 mg Tablet 10 mg PO DAILY RF: 0 hydralazine 25 mg Tablet 25 mg PO HS RF: 0 hydroxyzine HCl 50 mg Tablet 50 mg PO TID PRN (Reason: Itching) RF: 0 aspirin [Aspir-81] 81 mg Tablet,Delayed Release (Dr/Ec) 81 tab PO DAILY RF: 0 tramadol 50 mg Tablet 50 mg PO Q6H PRN (Reason: Pain) RF: 0 lorazepam [Ativan] 0.5 mg Tablet 0.5 mg PO HS RF: 0 amlodipine 10 mg Tablet 10 mg PO DAILY RF: 0 diphenhydramine HCl [Benadryl] 25 mg Capsule 25 mg PO HS PRN (Reason: Insomnia) RF: 0 losartan 25 mg Tablet 25 mg PO DAILY RF: 0 B complex with C#20-folic acid [Renal Caps] 1 mg Capsule 1 cap PO HS RF: 0 ondansetron 4 mg Tablet,Disintegrating 4 mg PO BID PRN (Reason: Nausea) RF: 0 prazosin 2 mg Capsule 2 mg PO HS RF: 0 aripiprazole 10 mg Tablet 10 mg PO DAILY RF: 0 lactobacillus combination no.4 [Probiotic] 3 billion cell Capsule 3,000 mmu cells PO BID RF: 0 ferric citrate 210 mg iron Tablet 420 mg PO TID RF: 0 biotin 1,000 mcg Tablet,Chewable 1,000 mcg PO DAILY RF: 0 Discharge Interventions Interventions: Vital Signs Last Done: 12/26/17 21:46 Status ED Status: Medically Cleared
[2017-12-26 21:46] LABS: Baso % (Auto) 0.7 % (0.0-2.0); Eos # (Auto) 0.2 th/mm3 (0.0-0.4); Eos % (Auto) 3.3 % (0.0-4.0); Hematocrit 37.9 % (35.0-46.0); Hemoglobin 12.9 gm/dL (11.6-15.3); Lymph % (Auto) 15.8 % (9.0-44.0); Mean Corpuscular HGB Conc 34.1 % (32.0-36.0); Mean Corpuscular Hemoglobin 29.9 pg (27.0-34.0); Mean Corpuscular Volume 87.7 fL (80.0-100.0); Mean Platelet Volume 7.7 fL (7.0-11.0); Mono # (Auto) 0.6 th/mm3 (0.0-0.9); Mono % (Auto) 8.9 % (0.0-8.0); Neut # (Auto) 4.5 th/mm3 (1.8-7.7); Neut % (Auto) 71.3 % (16.0-70.0); Platelet Count 220 th/mm3 (150-450); Red Blood Count 4.32 mil/mm3 (4.00-5.30); Red Cell Distribution Width 14.3 % (11.6-17.2); White Blood Count 6.4 th/mm3 (4.0-11.0)
[2017-12-26 22:05] LABS: Amphetamine Screen,Urine Neg (Neg); Barbiturate Screen,Urine Neg (Neg); Cannabinoid Screen,Urine Neg (Neg); Cocaine Screen,Urine Neg (Neg)
[2017-12-26 22:06] LABS: Opiate Screen,Urine Neg (Neg)
[2017-12-26 22:08] LABS: Bacteria,Urine Many /hpf; Bilirubin,Urine Negative (Negative); Clarity,Urine Hazy (Clear); Color,Urine Yellow (Yellw/Straw); Glucose,Urine (UA) 50 mg/dL (Negative); Leukocyte Esterase,Urine Large (Negative); Nitrite,Urine Negative (Negative); Specific Gravity,Urine 1.008 (1.002-1.035); Squamous Epithelial Cell,Urine 2 /hpf (0-5)
[2017-12-26 22:23] LABS: Alanine Aminotransferase 30 U/L (10-53)
[2017-12-26 22:26] LABS: Albumin 3.9 g/dL (3.4-5.0); Anion Gap 13 meq/L (5-15); Aspartate Aminotransferase 32 U/L (15-37); Blood Urea Nitrogen 35 mg/dL (7-18); Calcium 9.2 mg/dL (8.5-10.1); Carbon Dioxide 29.8 meq/L (21.0-32.0); Chloride 94 meq/L (98-107); Glomerular Filtration Rate 9 mL/min (>89); Glucose,Random 76 mg/dL (74-106); Magnesium 2.2 mg/dL (1.5-2.5); Potassium 3.7 meq/L (3.5-5.1); Sodium 137 meq/L (136-145)
[2017-12-26 22:33] LABS: Alkaline Phosphatase 109 U/L (45-117); Total Protein 8.4 g/dL (6.4-8.2)
[2017-12-27] MEDS ORDERED: LORazepam 0.5 MG Tablet PO ONE (00:08)
[2017-12-27] MEDS ORDERED: hydrALAZINE 25 MG Tablet PO ONE (00:08)
[2017-12-27] MEDS ORDERED: Vitamin B Complex/Vit C/Folic Tablet PO ONE (00:08)
[2017-12-27] MEDS ORDERED: Aluminum/Magnesium/Simethacone Susp 30 ML UDC PO PRN (08:12)
[2017-12-27] MEDS ORDERED: Bisacodyl 10 MG Supp RECTAL PRN (08:12)
[2017-12-27] MEDS: Senna/Docusate Sodium 8.6/50 MG Tablet PO SCH ×2 (10:48→20:54)
--- NOTE | 2017-12-27 13:37 | P.HPPSY ---
Provisional Diagnosis Admission Date: December 27, 2017 09:03 [place] I.: Bipolar depression, schizoaffective disorder, bipolar type, Competence Certification of Person's Competence To Provide Express and Informed Consent I have personally examined Chata Vargas, a person being served at [facility] on, December 27, 2017 1316. Express and informed consent means consent voluntarily given in writing, by a competent person, after sufficient explanation and disclosure of the subject matter involved to enable the person to make a knowing and willful decision without any element of force, fraud, deceit, duress, or other form of constraint or coercion. This person is 18 years of age or older, is not now known to be incompetent to consent to treatment with a guardian advocate, and does not have a health care surrogate or proxy currently making medical treatment decisions. I have found this person to be one of the following: [] Competent to provide express and informed consent, as defined above, for voluntary admission to this facility and is competent to provide express and informed consent for treatment. He/she has the consistent capacity to make well reasoned, willful, and knowing decisions concerning his or her medical or mental health treatment. The person fully and consistently understands the purpose of the admission for examination/placement and is fully capable of personally exercising all rights [place] [] Incompetent to provide express and informed consent to voluntary admission, and this is incompetent to provide express and informed consent to treatment. The person must be transferred to involuntary status and a petition for a guardian advocate filed with the Circuit Court. [x] Refusing to provide express and informed consent to voluntary admission but is competent to provide express and informed consent for treatment. The person must be discharged or transferred to involuntary status. Form shall be completed within 24 hours of a person's arrival at the receiving facility and filed in the clinical record of each person: 1. Admitted on a voluntary basis 2. Permitted to provide express and informed consent to his/her own treatment 3. Allowed to transfer from involuntary to voluntary status 4. Prior to permitting a person to consent to his or her own treatment after having been previously found incompetent to consent to treatment. History of Present Illness Capacity: Has capacity History of Present Illness: The he patient is 57 year-old woman, domiciled along in an independent living facility in [place], , no kids, well-known by the service, with a psychiatric history of schizoaffective disorder, bipolar type, bipolar disorder, anxiety, multiple psychiatric hospitalizations, last hospitalization was here in [place] under the care of Dr. Castillo in November 2017 , the patient is in Abilify 10 mg daily prescribed by nurse practitioner in [facility], medical history hypertension, hypothyroidism, end- stage renal disease and hemodialysis, arthritis who presents under a Sahni Act. She was at dialysis today and she appeared to be acutely depressed and not herself. The patient had banged herself in the head with her hands. She did imply that she was feeling depressed and having suicidal thoughts. Patient's social sciences lecturer/top case assembler came out to the scene. Police were notified. Patient was placed under a Sahni act. Patient here admits to feeling depressed and suicidal but does not have any current plan on self-harm. She denies any homicidal ideation. No toxic ingestions. She states that her conditions are chronic and nothing is more acute today. She denies any fever or chills. No chest pain or shortness of breath. No pedal edema. She has been eating and drinking. She does urinate once a day. She felt her dialysis went well. She denies any alcohol, tobacco, or drugs. On my psychiatric evaluation today I find a patient that is very psychomotor retarded, with a prominent flat affect, delay speech, blocking thought and seems to be internally preoccupied. The patient tells me that she is very depressed and she can barely talk. At the same time she tells me that she is paranoid, and she feels that she cannot trust anybody. She says that she wishes that she would be better because I am very sick and I do not know what to do anymore. The patient reports that she is not sleeping, does not have any appetite, she has no energy no motivation to do anything. She is fully oriented x3, at times confused, but no major gross cognitive impairment present. I have been informed that this patient is in hospice, I have called her hospice executive director Mon[place] , who has explained me that the patient was placed in hospice due to CHF, but this condition has improved to the point that the patient does not need to be in hospice anymore. She also has told me that the end-stage renal disease of the patient, for which the patient needs hemodialysis, is not a terminal disease and the patient is in the transplant list with the inconvenience that the patient has a very poor family and social support. I have also tried to obtain collateral information from her brother Shamar Vargas , , but he was not available to answer the phone. PPHx: with a psychiatric history of bipolar disorder, anxiety, multiple psychiatric hospitalizations, last hospitalization was here in [place] under the care of Dr. Castillo in November 2017, the patient is in Abilify 10 mg daily prescribed by nurse practitioner in [facility], PMHx: Hypertension, hypothyroidism, arthritis, end-stage renal disease Substance Hx: She denies the use of illegal drugs and alcohol Family Hx: Patient denies psychiatric family history Social Hx: The patient was born and raised in [place], she lives in an independent living facility in [place], she is , no acute Meds torvastatin 10 mg Tablet 10 mg PO DAILY RF: 0 hydralazine 25 mg Tablet 25 mg PO HS RF: 0 hydroxyzine HCl 50 mg Tablet 50 mg PO TID PRN (Reason: Itching) RF: 0 aspirin [Aspir-81] 81 mg Tablet,Delayed Release (Dr/Ec) 81 tab PO DAILY RF: 0 tramadol 50 mg Tablet 50 mg PO Q6H PRN (Reason: Pain) RF: 0 lorazepam [Ativan] 0.5 mg Tablet 0.5 mg PO HS RF: 0 amlodipine 10 mg Tablet 10 mg PO DAILY RF: 0 diphenhydramine HCl [Benadryl] 25 mg Capsule 25 mg PO HS PRN (Reason: Insomnia) RF: 0 losartan 25 mg Tablet 25 mg PO DAILY RF: 0 B complex with C#20-folic acid [Renal Caps] 1 mg Capsule 1 cap PO HS RF: 0 ondansetron 4 mg Tablet,Disintegrating 4 mg PO BID PRN (Reason: Nausea) RF: 0 prazosin 2 mg Capsule 2 mg PO HS RF: 0 - Inpatient Certification I certify that the inpatient services were ordered in accordance with Medicare regulations governing the order. This includes certification that hospital inpatient services are reasonable and necessary and in the case of services not specified as inpatient-only under 42 CFR 419.22(n), that they are appropriately provided as inpatient services in accordance to with the 2-midnight benchmark under 43 CFR 412.3(e) I certify that inpatient psychiatric hospital services are medically necessary. Evaluation and treatment and/or diagnostic testing are expected to improve the patient's condition. The patient needs on a daily basis, active treatment furnished directly by or requiring the supervision of inpatient psychiatric facility personnel. Estimated Total Length of Stay (Days): 7 Plans for Post Hospital Care: [facility] Review of Systems All other systems reviewed negative except as stated in HPI Psychiatric: Reports depression, Reports hopelessness, Reports mood swings, Reports paranoia, Reports thoughts of hurting/killing yourself [facility] - History History Provided By: Patient - Medical History Medical History: Medical History (Last Reviewed 12/26/17 @ 21:08 by CLINTON Guan) Schizoaffective disorder (Acute) End stage renal disease (Acute) Anemia (Acute) Muscle weakness (Acute) Renal dialysis status (Acute) Anxiety (Acute) Hyperlipemia (Acute) Hypothyroidism (Acute) Osteoarthritis (Acute) Hypertension (Acute) - Family History Family History: Family History (Last Reviewed 10/22/17 @ 00:19 by Juliet Sahni MD) Other Family history of hypertension - Tobacco History Second Hand Smoke Exposure: No Smoking Status: Never smoker Tobacco Type: Cigarettes - Alcohol History How Often Do You Have a Drink Containing Alcohol: Never - Substance Use History Substance History: No History of Abuse - Travel History Recent Travel in the [place] Within the Last 8 Weeks: No Recent Travel Out of the Country Within the Last 8 Weeks: No - Immunization History Tetanus Immunization: Unsure Medications and Allergies Active Medications: Active Medications Al Hydrox/Mg Hydrox/Simethicone (Mag-Al Plus Susp Liq) 30 ml PO Q6H PRN PRN Reason: DYSPEPSIA Al Hydroxide/Mg Hydroxide (Milk Of Magnesia Liq) 30 ml PO Q12H PRN PRN Reason: Mild Constipation Bisacodyl (Dulcolax Supp) 10 mg RECTAL DAILY PRN PRN Reason: SEVERE CONSITIPATION Hydralazine HCl (Apresoline) 25 mg PO HS HEATH Hydroxyzine HCl (Atarax) 50 mg PO TID PRN PRN Reason: Itching Lactulose (Lactulose Liq) 30 ml PO DAILY PRN PRN Reason: SEVERE CONSITIPATION Lamotrigine (Lamictal) 25 mg PO BID HEATH Lorazepam (Ativan) 0.5 mg PO HS [facility] Losartan Potassium (Cozaar) 25 mg PO DAILY [facility] Last Admin: 12/27/17 10:48 Dose: 25 mg Non-Formulary Medication (Lactobacillus Combination No.4 [Probiotic]) 3,000 mmu cells PO BID [facility] Ondansetron HCl (Zofran Odt) 4 mg PO BID PRN PRN Reason: Nausea Prazosin HCl (Minipress) 2 mg PO HS [facility] Senna/Docusate Sodium (Tarm-Colace) 1 tab PO BID [facility] Last Admin: 12/27/17 10:48 Dose: 1 tab Sennosides (Senokot) 17.2 mg PO Q12H PRN PRN Reason: Moderate Constipation Tramadol HCl (Ultram) 50 mg PO Q6H PRN PRN Reason: PAIN SCALE 1 TO 10 Allergies Allergy/AdvReac Type Severity Reaction Status Date / Time No Known Allergies Allergy Verified 12/26/17 17:38 Home Medications Medication Instructions Recorded Confirmed Type B complex with C#20-folic acid 1 cap PO HS 12/26/17 12/26/17 History [Renal Caps] amlodipine 10 mg PO DAILY 12/26/17 12/26/17 History aripiprazole 10 mg PO DAILY 12/26/17 12/26/17 History aspirin [Aspir-81] 81 tab PO DAILY 12/26/17 12/26/17 History atorvastatin 10 mg PO DAILY 12/26/17 12/26/17 History biotin 1,000 mcg PO DAILY 12/26/17 12/26/17 History diphenhydramine HCl [Benadryl] 25 mg PO HS PRN 12/26/17 12/26/17 History ferric citrate 420 mg PO TID 12/26/17 12/26/17 History hydralazine 25 mg PO HS 12/26/17 12/26/17 History hydroxyzine HCl 50 mg PO TID PRN 12/26/17 12/26/17 History lactobacillus combination no.4 3,000 mmu cells PO BID 12/26/17 12/26/17 History [Probiotic] lorazepam [Ativan] 0.5 mg PO HS 12/26/17 12/26/17 History losartan 25 mg PO DAILY 12/26/17 12/26/17 History ondansetron 4 mg PO BID PRN 12/26/17 12/26/17 History prazosin 2 mg PO HS 12/26/17 12/26/17 History tramadol 50 mg PO Q6H PRN 12/26/17 12/26/17 History Results - Labs CBC & Chem 7: 12/26/17 17:57 12/26/17 17:57 Labs: Laboratory Results - last 24 hr 12/26/17 12/26/17 12/26/17 17:57 17:57 21:16 WBC 6.4 RBC 4.32 Hgb 12.9 Hct 37.9 MCV 87.7 MCH 29.9 MCHC 34.1 RDW 14.3 Plt Count 220 MPV 7.7 Neut % (Auto) 71.3 H Lymph % (Auto) 15.8 [place]ender % (Auto) 8.9 H Eos % (Auto) 3.3 Baso % (Auto) 0.7 Neut # (Auto) 4.5 Lymph # (Auto) 1.0 Pender # (Auto) 0.6 Eos # (Auto) 0.2 Baso # (Auto) 0.0 WBC Differential . Differential Comment Auto diff final Sodium 137 Potassium 3.7 Chloride 94 L Carbon Dioxide 29.8 Anion Gap 13 BUN 35 H Creatinine 5.10 H Estimated GFR 9 L Random Glucose 76 Calcium 9.2 Magnesium 2.2 Total Bilirubin 0.5 AST 32 ALT 30 Alkaline Phosphatase 109 Total Protein 8.4 H Albumin 3.9 TSH 6.170 H Urine Color Yellow Urine Clarity Hazy H Urine pH 8.0 Ur Specific [place] 1.008 Urine Protein 500 or greater Urine Glucose (UA) 50 Urine Ketones Negative Urine Occult Blood Negative Urine Nitrate Negative Urine Bilirubin Negative Urine Urobilinogen Less than 2 Ur Leukocyte Esterase Large H Urine RBC 2 Urine WBC 4 Ur Squamous Epith Cells 2 Urine Bacteria Many H Micro UA Comment Culture indicated Ur Microscopic Review Not Reportable Urine Culture Comments Culture indicated Urine Opiates Screen Ur Barbiturates Screen Ur Amphetamines Screen U Benzodiazepines Scrn Urine Cocaine Screen U Cannabinoids Screen Serum Alcohol Less than 3 12/26/17 21:16 WBC RBC Hgb Hct MCV MCH MCHC RDW Plt Count MPV Neut % (Auto) Lymph % (Auto) Pender % (Auto) Eos % (Auto) Baso % (Auto) Neut # (Auto) Lymph # (Auto) Pender # (Auto) Eos # (Auto) Baso # (Auto) WBC Differential Differential Comment Sodium Potassium Chloride Carbon Dioxide Anion Gap BUN Creatinine Estimated GFR Random Glucose Calcium Magnesium Total Bilirubin AST ALT Alkaline Phosphatase Total Protein Albumin TSH Urine Color Urine Clarity Urine pH Ur Specific [place] Urine Protein Urine Glucose (UA) Urine Ketones Urine Occult Blood Urine Nitrate Urine Bilirubin Urine Urobilinogen Ur Leukocyte Esterase Urine RBC Urine WBC Ur Squamous Epith Cells Urine Bacteria Micro UA Comment Ur Microscopic Review Urine Culture Comments Urine Opiates Screen Neg Ur Barbiturates Screen Neg Ur Amphetamines Screen Neg U Benzodiazepines Scrn Neg Urine Cocaine Screen Neg U Cannabinoids Screen Neg Serum Alcohol Exam Vital signs: Vital Signs 12/26/17 17:39 12/26/17 21:46 12/27/17 10:45 Temperature 98.3 F 97.8 F Pulse Rate 82 89 92 H Respiratory Rate 16 18 20 Blood Pressure 153/73 H 146/67 H 139/67 Pulse Oximetry 96 96 98 Intake & Output 12/26/17 12/27/17 12/27/17 18:59 06:59 18:59 Weight 81.647 kg 83.1 kg Other: Weight On Admission 83.1 kg Narrative: Significant psychomotor retardation, flat affect, some level of stiffness, but no tremors, no EPS, no prominent catatonia - Constitutional moderate distress - Routine HEENT Exam Head: Present: normocephalic, atraumatic Eye: Present: EOMI, PERRL ENT: Present: mucous membranes moist Mental Status Examination Appearance: Appropriate Consciousness: Alert Orientation: x4 Motor Activity: Other Speech: Unremarkable Language: Adequate Fund of Knowledge: Adequate Attention and Concentration: Adequate Memory: Unremarkable Mood: Appropriate, Sad Affect: Flat Thought Process & Associations: Intact Thought Content: Bizarre thinking, Thought blocking Hallucination Type: None Delusion Type: Bizarre, Paranoid Suicidal Ideation: No Suicidal Plan: No Suicidal Intention: No Homicidal Ideation: No Homicidal Plan: No Homicidal Intention: No Insight: Poor Judgment: Poor Assessment and Plan - Assessment (1) Bipolar depression Code(s): F31.30 - Bipolar disorder, current episode depressed, mild or moderate severity, unspecified Status: Acute - Plan Plan: On my psychiatric evaluation today I find a patient that is very distant, superficially cooperative, with a prominent objective neurovegetative symptoms of depression such as psychomotor retardation, decreased speech production, slow speech, lack of energy and lack of sleep, poor appetite, but at the same time the patient also have subjective depression described as hopelessness, helplessness, worthlessness, lack of motivation, desire to . The patient also presents internal preoccupation and paranoia, and stating that she does not trust anybody, and she feels as people is over looking at her. This is a patient without significant history of bipolar disorder/schizoaffective, multiple psychiatric hospitalizations, she has been hospitalized twice in the last 3 months here in [place] due to elevation and psychosis, but apparently she is noncompliant with medications. The patient also have a prominent medical history of end-stage renal disease, she is on hemodialysis, hypothyroidism, hypertension, arthritis. At this moment the patient has an elevated risk of self neglect and danger to self. She needs psychiatric admission for stabilization and safety. I will restart her Abilify 10 mg, and will add Lamictal 25 mg for her bipolar depression. This medication regimen has been discussed with the patient. I will consult palliative care to clarify her hospice situation and the goals of care. Will consult hospitalist to help with her underlying medical conditions. Will consult psychiatry for second opinion. bake room worker intervention for collateral information, individual and group therapies, psychosocial assessment, and to coordinate safe discharge. Extensive support, motivational psych education provided. Justification for Continued Inpatient Stay: Patient needs psychiatric hospitalization
--- NOTE | 2017-12-27 14:14 | P.CONPAL ---
Consult Service: Palliative Care Requesting Physician: Jeff Lee Reason for Consult: a. To assist with evaluation and management of symptoms including: Depression. b. To assist medical decision maker(s) with: better understanding of current medical conditions; weighing benefits/burdens of medical treatment options; making medical treatment decisions. Primary Care Provider: Luann ruggiero History of Present Illness History of Present Illness: Ms. Vargas is a 57-year-old female with a medical history significant for end- stage renal disease on hemodialysis bipolar disorder on lithium, schizoaffective disorder, severe depression and anxiety, hypertension, hypothyroidism, and anemia. Patient presented to ED under [place] act by police department. As per medical records and patient, she was asked at her dialysis center today and became acutely depressed verbalizing suicidal thoughts. No chest pain, shortness of breath reported on arrival. ED workup to include laboratory workup revealing BUN and creatinine 35/5.10. UA negative for nitrates, large leukocytes. Toxicology negative. Patient was admitted for further monitoring and management. Palliative care has been consulted for clarifications of goals in the setting of severe depression with multiple ED visits/hospitalizations on a patient on hospice services. Patient with a well-known psychiatric history with repeated ED visits and hospitalizations. Most recent ED visit 10/21/17 for evaluation of worsening mood/ depression. According to the notes from her [facility], she has been throwing things and disrupting staff. Previous hospitalization from 10/07/17 to 10/13/17 secondary to suicidal ideation. She also presented under [place] act by the police department. She was seen by nephrology in the setting of end-stage renal disease on hemodialysis. She is a patient of Dr. Santos. As per medical records, she was previously on peritoneal dialysis from april 2016, switched to hemodialysis since June 2016 secondary to peritonitis. Patient continues producing urine, she reports that amount "varies depending on the day ". As per medical records. Patient with chronic kidney disease thought to be secondary to lithium toxicity. Reportedly she was evaluated by [facility] in [place] but declined for transplant secondary to concerns regarding her psychiatric medications. She was evaluated by [place] renal transplant team Dr. Joaquin on 06/07/17. She was found a potential candidate for renal transplant, pending further liver studies and psychiatry clearance. Spoke with [facility] revenue liaison, patient under hospice services since April 2016 with hospice diagnosis of atherosclerotic heart disease. Patient seen in med/psych floor. She was sitting in bed in no acute distress. Flat affect, denies any pain, shortness of breath, nausea vomiting or abdominal discomfort. Endorsing feelings of sadness, verbalizing wishing to go home to feed her cat. Patient alert and oriented x self, place and situation. She was able to provide her brother's name, patient reports that brother Shamar assist in medical decision making. She tells me that her sister Marcella resides locally that they are "not in good terms". Patient confirms that she has been under hospice services with [facility] secondary to "heart issues". Patient was unable to verbalize hospice benefits or philosophy, reports that hospice nurse comes to see her once a week. Reviewed patient's past medical history, psychosocial history and events leading to this hospitalization. She tells me that she was brought to the ED yesterday because she was feeling sad but was unable to elaborate further. Patient reports that her goal is to go back to her independent living to be with her cat. Telephone call to patient's sister Marcella, she wishes not to be involved in patient's care and ask to contact their brother Shamar Nye who is in [place]. Telephone conversation with brother Shamar, he reports that he has been assistant professor surgical technology patient with medical decisions and coordination of care for a while now. Medical update provided, reviewed current plan of care. He reports that their family goal is for patient to return to [facility] for independent living and to re-enroll into hospice services with [facility]. Case discussion with Dr. Lee, patient with multiple ED visits/ hospitalizations for intractable depression/SI. Reviewed families goals. Reviewed hospice admission diagnosis of atherosclerotic heart disease, no records on cardiac function located. However, patient independent with ADLs and not oxygen dependent. Reviewed that given my physical assessment and review of records, patient does not appear end-of-life/prognosis of 6 months or less as per hospice CMS guidelines for heart disease. Function/Cognitive Trajectory: Patient residing in independent living facility, independent with ADLs to include bathing, dressing, toileting and feeding. Disabled secondary to end- stage renal disease/psych. She is provided with her meals at her [facility] community. Does not drive. Cognitive decline reported by family secondary to psych disorders. Review of Systems Constitutional: Denies chills, Denies headache(s) Ears, Nose, Mouth, and Throat: Denies abnormal hearing, Denies difficulty swallowing, Denies headache(s), Denies nasal congestion Cardiovascular: Denies chest pain Respiratory: Denies chest congestion, Denies cough, Denies shortness of breath Gastrointestinal: Denies abdominal pain, Denies bright, red blood in stools Genitourinary: Reports difficulty urinating, Denies blood in urine Musculoskeletal: Denies back pain Skin/Breast: Denies skin ulcer Neurologic: Denies dizziness, Denies fainting Psychiatric: Reports anxiety, Reports behavioral changes, Reports lack of enjoyment Endocrine: Denies heat intolerance PMFSH - History History Provided By: Patient, Family Member, Medical Record - Medical History Medical History: Medical History (Last Updated 12/27/17 @ 13:59 by Shoshana Delacruz APRN) Schizoaffective disorder (Acute) End stage renal disease (Acute) Anemia (Acute) Muscle weakness (Acute) Renal dialysis status (Acute) Anxiety (Acute) Hyperlipemia (Acute) Hypothyroidism (Acute) Osteoarthritis (Acute) Hypertension (Acute) AV fistula Bipolar 1 disorder - Surgical History Surgical History: Surgical History (Last Updated 12/27/17 @ 13:59 by Shoshana Delacruz APRN) History of left-sided carotid endarterectomy Hx of cholecystectomy - Family History Family History: Family History (Last Updated 12/27/17 @ 14:00 by Shoshana Delacruz APRN) Father Lung cancer Other Family history of hypertension - Tobacco History Second Hand Smoke Exposure: No Tobacco Use In Past 30 Days: No Smoking Status: Former smoker Tobacco Type: Cigarettes Packs Per Day: 1 - Alcohol History How Often Do You Have a Drink Containing Alcohol: Never - Substance Use History Substance History: No History of Abuse - Travel History Recent Travel in the [place] Within the Last 8 Weeks: No Recent Travel Out of the Country Within the Last 8 Weeks: No - Immunization History Tetanus Immunization: Unsure Medications and Allergies Active Medications: Active Medications Al Hydrox/Mg Hydrox/Simethicone (Mag-Al Plus Susp Liq) 30 ml PO Q6H PRN PRN Reason: DYSPEPSIA Al Hydroxide/Mg Hydroxide (Milk Of Magnesia Liq) 30 ml PO Q12H PRN PRN Reason: Mild Constipation Bisacodyl (Dulcolax Supp) 10 mg RECTAL DAILY PRN PRN Reason: SEVERE CONSITIPATION Hydralazine HCl (Apresoline) 25 mg PO HS HEATH Hydroxyzine HCl (Atarax) 50 mg PO TID PRN PRN Reason: Itching Lactulose (Lactulose Liq) 30 ml PO DAILY PRN PRN Reason: SEVERE CONSITIPATION Lamotrigine (Lamictal) 25 mg PO BID [facility] Lorazepam (Ativan) 0.5 mg PO HS [facility] Losartan Potassium (Cozaar) 25 mg PO DAILY [facility] Last Admin: 12/27/17 10:48 Dose: 25 mg Non-Formulary Medication (Lactobacillus Combination No.4 [Probiotic]) 3,000 mmu cells PO BID [facility] Ondansetron HCl (Zofran Odt) 4 mg PO BID PRN PRN Reason: Nausea Prazosin HCl (Minipress) 2 mg PO HS [facility] Senna/Docusate Sodium (Tram-Colace) 1 tab PO BID [facility] Last Admin: 12/27/17 10:48 Dose: 1 tab Sennosides (Senokot) 17.2 mg PO Q12H PRN PRN Reason: Moderate Constipation Tramadol HCl (Ultram) 50 mg PO Q6H PRN PRN Reason: PAIN SCALE 1 TO 10 Allergies Allergy/AdvReac Type Severity Reaction Status Date / Time No Known Allergies Allergy Verified 12/26/17 17:38 Home Medications Medication Instructions Recorded Confirmed Type B complex with C#20-folic acid 1 cap PO HS 12/26/17 12/26/17 History [Renal Caps] amlodipine 10 mg PO DAILY 12/26/17 12/26/17 History aripiprazole 10 mg PO DAILY 12/26/17 12/26/17 History aspirin [Aspir-81] 81 tab PO DAILY 12/26/17 12/26/17 History atorvastatin 10 mg PO DAILY 12/26/17 12/26/17 History biotin 1,000 mcg PO DAILY 12/26/17 12/26/17 History diphenhydramine HCl [Benadryl] 25 mg PO HS PRN 12/26/17 12/26/17 History ferric citrate 420 mg PO TID 12/26/17 12/26/17 History hydralazine 25 mg PO HS 12/26/17 12/26/17 History hydroxyzine HCl 50 mg PO TID PRN 12/26/17 12/26/17 History lactobacillus combination no.4 3,000 mmu cells PO BID 12/26/17 12/26/17 History [Probiotic] lorazepam [Ativan] 0.5 mg PO HS 12/26/17 12/26/17 History losartan 25 mg PO DAILY 12/26/17 12/26/17 History ondansetron 4 mg PO BID PRN 12/26/17 12/26/17 History prazosin 2 mg PO HS 12/26/17 12/26/17 History tramadol 50 mg PO Q6H PRN 12/26/17 12/26/17 History Advance Directives Living Will: No Healthcare Surrogate: No Power of Inside Tester: No Physical Exam Vital Signs: Vital Signs - 24 hr 12/26/17 17:39 12/26/17 21:46 12/27/17 10:45 Temperature 98.3 F 97.8 F Pulse Rate 82 89 92 H Respiratory Rate 16 18 20 Blood Pressure 153/73 H 146/67 H 139/67 Pulse Oximetry 96 96 98 I&O: Intake & Output 12/25/17 12/26/17 12/27/17 12/28/17 06:59 06:59 06:59 06:59 Weight 81.647 kg 83.1 kg Physical Exam: CONSTITUTIONAL/GENERAL: This is an adequately nourished patient, in no apparent distress. TUBES/LINES/DRAINS: PIV. SKIN: Pale, dry skin. No jaundice, rashes, or lesions. No wounds seen anteriorly. Skin temperature appropriate. Not diaphoretic. HEAD: Atraumatic. Normocephalic. EYES: Pupils equal and round and reactive. Extraocular motions intact. No scleral icterus. No injection or drainage. Fundi not examined. ENT: Hearing grossly normal. Nose without bleeding or purulent drainage. Moist oral mucosa. NECK: Trachea midline. Supple, nontender. CARDIOVASCULAR: Regular rate and rhythm. Peripheral pulses symmetric. RESPIRATORY/CHEST: Symmetric, unlabored respirations. Clear to auscultation. Breath sounds equal bilaterally. No wheezes, rales, or rhonchi. GASTROINTESTINAL: Abdomen soft, non-tender, nondistended. No guarding. Bowel sounds present. GENITOURINARY: Without palpable bladder distension. Gonzalez catheter in place. MUSCULOSKELETAL: Extremities without clubbing, cyanosis, or edema. No mottling or clubbing. LYMPHATICS: No palpable cervical or supraclavicular adenopathy. NEUROLOGICAL: Awake and alert x self, place and situation. Motor and sensory grossly within normal limits. Follows commands. Moves all extremities. Verbal, able to communicate needs. PSYCHIATRIC: Flat affect. Sad. Diagnostic Tests Laboratory: Laboratory Results - last 72 hr 12/26/17 12/26/17 12/26/17 17:57 17:57 21:16 WBC 6.4 RBC 4.32 Hgb 12.9 Hct 37.9 MCV 87.7 MCH 29.9 MCHC 34.1 RDW 14.3 Plt Count 220 MPV 7.7 Neut % (Auto) 71.3 H Lymph % (Auto) 15.8 [place] % (Auto) 8.9 H Eos % (Auto) 3.3 Baso % (Auto) 0.7 Neut # (Auto) 4.5 Lymph # (Auto) 1.0 [place] # (Auto) 0.6 Eos # (Auto) 0.2 Baso # (Auto) 0.0 WBC Differential . Differential Comment Auto diff final Sodium 137 Potassium 3.7 Chloride 94 L Carbon Dioxide 29.8 Anion Gap 13 BUN 35 H Creatinine 5.10 H Estimated GFR 9 L Random Glucose 76 Calcium 9.2 Magnesium 2.2 Total Bilirubin 0.5 AST 32 ALT 30 Alkaline Phosphatase 109 Total Protein 8.4 H Albumin 3.9 TSH 6.170 H Urine Color Yellow Urine Clarity Hazy H Urine pH 8.0 Ur Specific [place] 1.008 Urine Protein 500 or greater Urine Glucose (UA) 50 Urine Ketones Negative Urine Occult Blood Negative Urine Nitrate Negative Urine Bilirubin Negative Urine Urobilinogen Less than 2 Ur Leukocyte Esterase Large H Urine RBC 2 Urine WBC 4 Ur Squamous Epith Cells 2 Urine Bacteria Many H Micro UA Comment Culture indicated Ur Microscopic Review Not Reportable Urine Culture Comments Culture indicated Urine Opiates Screen Ur Barbiturates Screen Ur Amphetamines Screen U Benzodiazepines Scrn Urine Cocaine Screen U Cannabinoids Screen Serum Alcohol Less than 3 12/26/17 21:16 WBC RBC Hgb Hct MCV MCH MCHC RDW Plt Count MPV Neut % (Auto) Lymph % (Auto) [place] % (Auto) Eos % (Auto) Baso % (Auto) Neut # (Auto) Lymph # (Auto) [place] # (Auto) Eos # (Auto) Baso # (Auto) WBC Differential Differential Comment Sodium Potassium Chloride Carbon Dioxide Anion Gap BUN Creatinine Estimated GFR Random Glucose Calcium Magnesium Total Bilirubin AST ALT Alkaline Phosphatase Total Protein Albumin TSH Urine Color Urine Clarity Urine pH Ur Specific [place] Urine Protein Urine Glucose (UA) Urine Ketones Urine Occult Blood Urine Nitrate Urine Bilirubin Urine Urobilinogen Ur Leukocyte Esterase Urine RBC Urine WBC Ur Squamous Epith Cells Urine Bacteria Micro UA Comment Ur Microscopic Review Urine Culture Comments Urine Opiates Screen Neg Ur Barbiturates Screen Neg Ur Amphetamines Screen Neg U Benzodiazepines Scrn Neg Urine Cocaine Screen Neg U Cannabinoids Screen Neg Serum Alcohol Result Diagrams: 12/26/17 17:57 12/26/17 17:57 Patient/Family Conference Present at Family Conference: Brother Shamar Vargas Family Conference Time: 33 Family Conference Location: Telephone Issues Discussed: * Palliative care role, purpose, approach * Additional medical, psychosocial, and spiritual history * Patients general health, functional status, and cognitive changes in the months leading up to the current hospitalization * Patient/family understanding of the current medical problems * Patients goals of care as best understood from advance directives and/or conversations and/or values * Current medical treatment options and benefits/burdens of those options * Questions answered to the best of my ability * Palliative care contact information provided * Risks, benefits and limitations of CPR, intubation and mechanical ventilation * Hospice philosophy and benefits Assessment and Plan - Disease Oriented Problem List (1) Depression (2) Atherosclerotic heart disease (3) Bipolar depression (4) Schizoaffective disorder (5) ESRD (end stage renal disease) on dialysis - Symptom Scale (1) Depression 0-10 Scale: Unable to quantify Pertinent Non-Medical Issues: Psychosocial: Patient resides at independent living facility for the past 2 years. She is , no biological children. Disabled secondary to end- stage renal/psych. 2 siblings. 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 Spiritual: No anabaptist affiliations reported. Legal: No advance directives completed. Ethical issues impacting care: No ethical issues identified. Important Contacts: Brothdnana Vargas Prognosis: Ms. Vargas is a 57-year-old female with a medical history significant for end- stage renal disease on hemodialysis bipolar disorder on lithium, schizoaffective disorder, severe depression and anxiety, hypertension, hypothyroidism, and anemia. Patient presented to ED under [place] act by police department secondary to suicidal thoughts. Patient with a well-known psychiatric history with repeated ED visits and hospitalizations. Patient at high risk for further decompensation, continued decline and . Does not appear hospice appropriate at this time given aggressive goals. Code Status: Full Code Plan: * CODE STATUS: Full code. Signed community DNR at home, however, patient's brother electing full code during this hospitalization. Risks, benefits and limitations of CPR, intubation and mechanical ventilation have been discussed in great detail with brother. * * HEALTHCARE DECISION-MAKING: Patient with limited participation in medical decision making given poor insight and judgment. Psych following in the setting of bipolar disorder, schizoaffective disorder and severe depression. As per brother Shamar, no advanced directives have been completed. Patient is with no biological children. Parents are . As per [place] statue, healthcare proxy decision making falls to the majority of patient's siblings for which she has 2. Sister Marcella Vazquez deferred participation in medical decision making, therefore, brother Shamar Vargas is proxy decision maker. * GOALS OF CARE: Patient's brother electing full aggressive management to include full code at this time. His goal is for patient to return to independent living facility "[facility]" under hospice services with [facility]. * SYMPTOMS: =Depression: Patient with a significant history of bipolar disorder on lithium and schizoaffective disorder, depression. Well-known psychiatric history were repeated ED visits and hospitalizations. Depression management deferred to psych. * Hospice: Patient currently under hospice services with [facility] as since April 2016 for a diagnosis of atherosclerotic heart disease/CHF. No records on cardiac function located; however, patient independent with ADLs and not oxygen dependent. AR heart failure classification II, PPS 60%. Given physical assessment and review of records, patient does not appear end-of-life/prognosis of 6 months or less as per hospice [facility] guidelines for heart disease. However, she would qualify for hospice benefits in the setting of end-stage renal condition should she/family elects to discontinue hemodialysis (NOT current goal of care). * Case discussed in great detail with Dr. Lee. * Palliative care will continue to follow-up as needed for further clarifications of goals of care as patient's clinical course continues to evolve. Time Spent Total Floor Time (mins): 71 (Total time to include review of summarization of available medical records to include multiple prior hospitalizations and ED visits, physical exam, goals of care conversation with patient/brother, case discussion with Dr. Lee. ) >50% Time in Counseling or Coordination of Care: Yes (Total visit time = 71 minutes; > 50% spent counseling/coordinating care) Appreciation Thank you for the opportunity to participate in the care of Chata Vargas. Attestation Attestation: To help prompt me to consider important information that might be impacting today's encounter and assessment, information from prior notes written by myself or my colleagues may have been "brought forward" into today's note. My signature on this note, however, is an attestation that I personally performed the exam, history, and/or decision-making noted today, and, unless otherwise indicated, the interactions with patient, family, and staff as well as the review of records all occurred today. I also attest that the listed assessment and stated plan reflect my best clinical judgment today based on the combination of historical information, prior notes, and today's exam/ interactions. When time spent is documented, it refers only to time spent today by the signer, or if indicated, combined time spent today by collaborating physician/nurse practitioner.
--- NOTE | 2017-12-27 16:04 | P.CONPSY ---
Provisional Diagnosis Admission Date: December 27, 2017 09:03 [place] I.: Bipolar depression, schizoaffective disorder, bipolar type, History of Present Illness Service: Psychiatry Consult date: 12/27/17 Requesting Physician: Jeff Lee Reason for Consult: Second opinion Primary Care Provider: UNKNOWN History of Present Illness: Patient is a 57-year-old woman, , no children, domiciled and close, with a past psychiatric history of schizoaffective disorder, previous psychiatric admissions, with a past medical history of hypertension, hypothyroidism, anemia, end-stage renal disease on who presented under Sahni act from dialysis Center for worsening depression and suicidal ideation which patient was admitted to the inpatient psychiatry unit for further evaluation and management. Patient was found lying hospital bed noted B, cooperative. Patient noted to have flat affect, prominent psychomotor symptoms. Patient state that she has been feeling "sad" was noted to have difficulty with recalling psychosocial stressors and with noted cognitive deficits. Patient states that she was "hyper than I was depressed". She recalls having had a right hip surgery in August and was then transferred to rehabilitation center where she states she was off her medications during that time which was approximately 15 days and states having gone home and resume her medications. Patient states that the period of noncompliance with medications was the reason she became hyper and states that she recently became depressed prior to her admission but was unable to quantify days or time frame that this started. She states that she was at dialysis and was feeling down which led her to be in the inpatient psychiatry unit. She reports decreased sleep, appetite, energy and concentration with decreased pleasure in activities, denies any feelings of guilt but did report continued suicidal ideation. Review of Systems All other systems reviewed negative except as stated in HPI PMFSH - History History Provided By: Patient, Medical Record - Medical History Medical History: Medical History (Last Updated 12/27/17 @ 13:59 by Shoshana Delacruz APRN) Schizoaffective disorder (Acute) End stage renal disease (Acute) Anemia (Acute) Muscle weakness (Acute) Renal dialysis status (Acute) Anxiety (Acute) Hyperlipemia (Acute) Hypothyroidism (Acute) Osteoarthritis (Acute) Hypertension (Acute) AV fistula Bipolar 1 disorder - Surgical History Surgical History: Surgical History (Last Updated 12/27/17 @ 13:59 by Shoshana Delacruz APRN) History of left-sided carotid endarterectomy Hx of cholecystectomy - Family History Family History: Family History (Last Updated 12/27/17 @ 14:00 by Shoshana Delacruz APRN) Father Lung cancer Other Family history of hypertension - Tobacco History Second Hand Smoke Exposure: No Tobacco Use In Past 30 Days: No Smoking Status: Former smoker Tobacco Type: Cigarettes Packs Per Day: 1 - Alcohol History How Often Do You Have a Drink Containing Alcohol: Never - Substance Use History Substance History: No History of Abuse - Travel History Recent Travel in the [place] Within the Last 8 Weeks: No Recent Travel Out of the Country Within the Last 8 Weeks: No - Immunization History Tetanus Immunization: Unsure Medications and Allergies Active Medications: Active Medications Al Hydrox/Mg Hydrox/Simethicone (Mag-Al Plus Susp Liq) 30 ml PO Q6H PRN PRN Reason: DYSPEPSIA Al Hydroxide/Mg Hydroxide (Milk Of Magnesia Liq) 30 ml PO Q12H PRN PRN Reason: Mild Constipation Bisacodyl (Dulcolax Supp) 10 mg RECTAL DAILY PRN PRN Reason: SEVERE CONSITIPATION Hydralazine HCl (Apresoline) 25 mg PO HS [facility] Hydroxyzine HCl (Atarax) 50 mg PO TID PRN PRN Reason: Itching Lactulose (Lactulose Liq) 30 ml PO DAILY PRN PRN Reason: SEVERE CONSITIPATION Lamotrigine (Lamictal) 25 mg PO BID [facility] Lorazepam (Ativan) 0.5 mg PO HS [facility] Losartan Potassium (Cozaar) 25 mg PO DAILY [facility] Last Admin: 12/27/17 10:48 Dose: 25 mg Non-Formulary Medication (Lactobacillus Combination No.4 [Probiotic]) 3,000 mmu cells PO BID [facility] Ondansetron HCl (Zofran Odt) 4 mg PO BID PRN PRN Reason: Nausea Prazosin HCl (Minipress) 2 mg PO HS [facility] Senna/Docusate Sodium (Tram-Colace) 1 tab PO BID [facility] Last Admin: 12/27/17 10:48 Dose: 1 tab Sennosides (Senokot) 17.2 mg PO Q12H PRN PRN Reason: Moderate Constipation Tramadol HCl (Ultram) 50 mg PO Q6H PRN PRN Reason: PAIN SCALE 1 TO 10 Allergies Allergy/AdvReac Type Severity Reaction Status Date / Time No Known Allergies Allergy Verified 12/26/17 17:38 Home Medications Medication Instructions Recorded Confirmed Type B complex with C#20-folic acid 1 cap PO HS 12/26/17 12/26/17 History [Renal Caps] amlodipine 10 mg PO DAILY 12/26/17 12/26/17 History aripiprazole 10 mg PO DAILY 12/26/17 12/26/17 History aspirin [Aspir-81] 81 tab PO DAILY 12/26/17 12/26/17 History atorvastatin 10 mg PO DAILY 12/26/17 12/26/17 History biotin 1,000 mcg PO DAILY 12/26/17 12/26/17 History diphenhydramine HCl [Benadryl] 25 mg PO HS PRN 12/26/17 12/26/17 History ferric citrate 420 mg PO TID 12/26/17 12/26/17 History hydralazine 25 mg PO HS 12/26/17 12/26/17 History hydroxyzine HCl 50 mg PO TID PRN 12/26/17 12/26/17 History lactobacillus combination no.4 3,000 mmu cells PO BID 12/26/17 12/26/17 History [Probiotic] lorazepam [Ativan] 0.5 mg PO HS 12/26/17 12/26/17 History losartan 25 mg PO DAILY 12/26/17 12/26/17 History ondansetron 4 mg PO BID PRN 12/26/17 12/26/17 History prazosin 2 mg PO HS 12/26/17 12/26/17 History tramadol 50 mg PO Q6H PRN 12/26/17 12/26/17 History Exam Vital signs: Vital Signs 12/26/17 17:39 12/26/17 21:46 12/27/17 10:45 Temperature 98.3 F 97.8 F Pulse Rate 82 89 92 H Respiratory Rate 16 18 20 Blood Pressure 153/73 H 146/67 H 139/67 Pulse Oximetry 96 96 98 Intake & Output 12/26/17 12/27/17 12/27/17 18:59 06:59 18:59 Weight 81.647 kg 83.1 kg Other: Weight On Admission 83.1 kg Narrative: Patient not noted to be in acute distress, no gross motor abnormalities, no signs of tremor or EPS, but noted with prominent psychomotor retardation. - Constitutional no acute distress, cooperative Mental Status Examination Appearance: Appropriate Consciousness: Alert Orientation: x4 Motor Activity: Other Speech: Unremarkable Language: Adequate Fund of Knowledge: Adequate Attention and Concentration: Adequate Memory: Unremarkable Mood: Sad Affect: Flat Thought Process & Associations: Intact Thought Content: Bizarre thinking, Thought blocking Hallucination Type: None Delusion Type: Bizarre, Paranoid Suicidal Ideation: No Suicidal Plan: No Suicidal Intention: No Homicidal Ideation: No Homicidal Plan: No Homicidal Intention: No Insight: Poor Judgment: Poor Assessment and Plan - Assessment (1) Bipolar depression Code(s): F31.30 - Bipolar disorder, current episode depressed, mild or moderate severity, unspecified Status: Acute - Plan Plan: I have seen and examined this patient, reviewed the documentation, and I agree and concur with Dr. Lee assessment and plan. I have completed second opinion for the petition for involuntary hospitalization. Consult appreciated. Justification for Continued Inpatient Stay: At risk of further decompensation at lower level care.
[2017-12-27] MEDS: Lactobacillus Acidophilus/L. Spores Tablet PO SCH ×2 (16:33→20:56)
--- NOTE | 2017-12-27 18:58 | P.CONNP ---
History of Present Illness Service: Nephrology Reason for Consult: ESRD Primary Care Provider: UNKNOWN History of Present Illness: Ms. Vargas is a patient known to me from [facility] where she undergoes dialysis TTS. She has been admitted for depression with suicidal ideations. She is currently under Sahni act. Patient was seen and examined. She appeared depressed, kept repeating "I want to go home", but admits to ongoing suicidal ideations. Review of Systems Constitutional: Reports anorexia Cardiovascular: Denies chest pain Gastrointestinal: Denies abdominal pain Musculoskeletal: Denies back pain, Denies muscle weakness Skin/Breast: Denies acne Neurologic: Denies frequent falls, Denies headache(s), Denies loss of vision, Denies seizure-like activity, Denies sensory deficit Psychiatric: Reports abnormal sleep pattern, Reports behavioral changes, Reports change in appetite, Reports lack of enjoyment, Reports mood swings PMFSH - History History Provided By: Patient, Medical Record - Medical History Medical History: Medical History (Last Updated 12/27/17 @ 13:59 by Shoshana Delacruz APRN) Schizoaffective disorder (Acute) End stage renal disease (Acute) Anemia (Acute) Muscle weakness (Acute) Renal dialysis status (Acute) Anxiety (Acute) Hyperlipemia (Acute) Hypothyroidism (Acute) Osteoarthritis (Acute) Hypertension (Acute) AV fistula Bipolar 1 disorder - Surgical History Surgical History: Surgical History (Last Updated 12/27/17 @ 13:59 by Shoshana Delacruz APRN) History of left-sided carotid endarterectomy Hx of cholecystectomy - Family History Family History: Family History (Last Updated 12/27/17 @ 14:00 by Shoshana Delacruz APRN) Father Lung cancer Other Family history of hypertension - Tobacco History Second Hand Smoke Exposure: No Tobacco Use In Past 30 Days: No Smoking Status: Former smoker Tobacco Type: Cigarettes Packs Per Day: 1 - Alcohol History How Often Do You Have a Drink Containing Alcohol: Never - Substance Use History Substance History: No History of Abuse - Travel History Recent Travel in the [place] Within the Last 8 Weeks: No Recent Travel Out of the Country Within the Last 8 Weeks: No - Immunization History Tetanus Immunization: Unsure Medications and Allergies Active Medications: Active Medications Al Hydrox/Mg Hydrox/Simethicone (Mag-Al Plus Susp Liq) 30 ml PO Q6H PRN PRN Reason: DYSPEPSIA Al Hydroxide/Mg Hydroxide (Milk Of Magnesia Liq) 30 ml PO Q12H PRN PRN Reason: Mild Constipation Aripiprazole (Abilify) 10 mg PO DAILY [facility] Bisacodyl (Dulcolax Supp) 10 mg RECTAL DAILY PRN PRN Reason: SEVERE CONSITIPATION Hydralazine HCl (Apresoline) 25 mg PO HS [facility] Hydroxyzine HCl (Atarax) 50 mg PO TID PRN PRN Reason: Itching Last Admin: 12/27/17 18:08 Dose: 50 mg Lactobacillus Acidophilus (Lactinex) 1 tab PO BID [facility] Last Admin: 12/27/17 16:33 Dose: 1 tab Lactulose (Lactulose Liq) 30 ml PO DAILY PRN PRN Reason: SEVERE CONSITIPATION Lamotrigine (Lamictal) 25 mg PO BID [facility] Lorazepam (Ativan) 0.5 mg PO HS [facility] Losartan Potassium (Cozaar) 25 mg PO DAILY [facility] Last Admin: 12/27/17 10:48 Dose: 25 mg Ondansetron HCl (Zofran Odt) 4 mg PO BID PRN PRN Reason: Nausea Prazosin HCl (Minipress) 2 mg PO HS [facility] Senna/Docusate Sodium (Tram-Colace) 1 tab PO BID [facility] Last Admin: 12/27/17 10:48 Dose: 1 tab Sennosides (Senokot) 17.2 mg PO Q12H PRN PRN Reason: Moderate Constipation Tramadol HCl (Ultram) 50 mg PO Q6H PRN PRN Reason: PAIN SCALE 1 TO 10 Allergies Allergy/AdvReac Type Severity Reaction Status Date / Time No Known Allergies Allergy Verified 12/26/17 17:38 Home Medications Medication Instructions Recorded Confirmed Type B complex with C#20-folic acid 1 cap PO HS 12/26/17 12/26/17 History [Renal Caps] amlodipine 10 mg PO DAILY 12/26/17 12/26/17 History aripiprazole 10 mg PO DAILY 12/26/17 12/26/17 History aspirin [Aspir-81] 81 tab PO DAILY 12/26/17 12/26/17 History atorvastatin 10 mg PO DAILY 12/26/17 12/26/17 History biotin 1,000 mcg PO DAILY 12/26/17 12/26/17 History diphenhydramine HCl [Benadryl] 25 mg PO HS PRN 12/26/17 12/26/17 History ferric citrate 420 mg PO TID 12/26/17 12/26/17 History hydralazine 25 mg PO HS 12/26/17 12/26/17 History hydroxyzine HCl 50 mg PO TID PRN 12/26/17 12/26/17 History lactobacillus combination no.4 3,000 mmu cells PO BID 12/26/17 12/26/17 History [Probiotic] lorazepam [Ativan] 0.5 mg PO HS 12/26/17 12/26/17 History losartan 25 mg PO DAILY 12/26/17 12/26/17 History ondansetron 4 mg PO BID PRN 12/26/17 12/26/17 History prazosin 2 mg PO HS 12/26/17 12/26/17 History tramadol 50 mg PO Q6H PRN 12/26/17 12/26/17 History Exam Vital signs: Vital Signs 12/26/17 21:46 12/27/17 10:45 12/27/17 11:45 Temperature 97.8 F 98.0 F Pulse Rate 89 92 H 93 H Respiratory Rate 18 20 18 Blood Pressure 146/67 H 139/67 130/62 Pulse Oximetry 96 98 94 L 12/27/17 18:00 Temperature 97.8 F Pulse Rate 85 Respiratory Rate 18 Blood Pressure 140/67 Pulse Oximetry 94 L Intake & Output 12/26/17 12/27/17 12/27/17 18:59 06:59 18:59 Weight 81.647 kg 83.1 kg Other: Weight On Admission 83.1 kg - Constitutional no acute distress, chronically ill appearing - Routine HEENT Exam Head: Present: normocephalic, atraumatic Eye: Present: EOMI, PERRL - Routine Neck Exam Present: supple, full ROM. Absent: JVD - Routine Chest/Breast/Axilla Exam Axillae: Absent: lymphadenopathy - Routine Respiratory Exam Absent: accessory muscle use, CTA bilaterally - Routine Cardiovascular Exam Present: RRR, S1, S2 - Routine Abdominal Exam Present: soft, normoactive bowel sounds - Routine Extremities Exam Present: AV fistula. Absent: edema - Routine Neurological Exam Present: alert, oriented X3. Absent: moving all extremities Results - Lab Results 12/26/17 17:57 12/26/17 17:57 Most recent lab results Calcium 9.2 mg/dL (8.5-10.1) 12/26/17 17:57 Magnesium 2.2 mg/dL (1.5-2.5) 12/26/17 17:57 Assessment and Plan - Assessment (1) ESRD (end stage renal disease) on dialysis Code(s): N18.6 - End stage renal disease; Z99.2 - Dependence on renal dialysis Status: Acute Plan: patient was on dialysis TTS. She will be dialyzed tomorrow here in the hospital. Monitor fluid and electrolytes. She has AVF in the left upper extremity. No IVF. High protein diet. Potassium restriction and phosphorus restriction. (2) Metabolic bone disease Code(s): E88.9 - Metabolic disorder, unspecified; M90.80 - Osteopathy in diseases classified elsewhere, unspecified site Status: Acute Plan: She was on Auryxia at home, but [place] does not carry it. Can switch to Renvela here. Monitor phosphorus. (3) Anemia Code(s): D64.9 - Anemia, unspecified Status: Acute Plan: Hemoglobin is 12.9, no need for Epogen at this time. (4) HTN (hypertension) Code(s): I10 - Essential (primary) hypertension Status: Acute Plan: Hold Prazosin. On Hydralazine and Losartan which can be continued. (5) Depression Code(s): F32.9 - Major depressive disorder, single episode, unspecified Status : Acute Plan: History of bipolar illness. Currently Sahni acted. Needs optimization of medications, therapy. - Attending Attestation Thanks for the consult.
[2017-12-27] MEDS: lamoTRIgine 25 MG TABLET PO SCH (20:56)
[2017-12-27] MEDS ORDERED: hydrALAZINE 25 MG Tablet PO SCH (21:00)
[2017-12-27] MEDS ORDERED: LORazepam 0.5 MG Tablet PO SCH (21:00)
[2017-12-28 08:11] LABS: Albumin 3.6 g/dL (3.4-5.0); Calcium 9.6 mg/dL (8.5-10.1); Carbon Dioxide 27.9 meq/L (21.0-32.0); Chol/HDL Ratio 4.83 Ratio; HDL Cholesterol 34.1 mg/dL (40.0-60.0); Potassium 4.4 meq/L (3.5-5.1)
[2017-12-28] MEDS: Lactobacillus Acidophilus/L. Spores Tablet PO SCH ×2 (08:54→21:14)
[2017-12-28] MEDS: ARIPiprazole 10 MG Tablet PO SCH (08:54)
[2017-12-28] MEDS: Senna/Docusate Sodium 8.6/50 MG Tablet PO SCH ×2 (08:55→21:14)
[2017-12-28] MEDS: lamoTRIgine 25 MG TABLET PO SCH ×2 (08:55→21:14)
--- NOTE | 2017-12-28 12:43 | P.PNNP ---
Subjective Interval history: Patient was seen, no distress, flat affect. Currently Sahni acted. Per the nurse , patient did not eat breakfast today. Patient undergoes dialysis TTS. Patient to be dialyzed today. <Santos Good - Last Filed: 12/28/17 12:38> Physical Exam Vital signs: Vital Signs 12/27/17 18:00 12/28/17 06:18 12/28/17 09:35 Temperature 97.8 F 98.2 F 98.0 F Pulse Rate 85 82 82 Respiratory Rate 18 15 17 Blood Pressure 140/67 167/75 H 156/87 H Pulse Oximetry 94 L 97 Intake & Output 12/27/17 12/28/17 12/28/17 18:59 06:59 18:59 Weight 83.1 kg Other: Weight On Admission 83.1 kg - Constitutional no acute distress - Routine HEENT Exam Head: Present: normocephalic Eye: Present: EOMI, PERRL ENT: Present: mucous membranes moist - Routine Neck Exam Present: trachea midline. Absent: tracheal deviation - Routine Respiratory Exam Absent: accessory muscle use, respiratory distress - Routine Cardiovascular Exam Present: RRR - Routine Abdominal Exam Absent: tenderness - Routine Extremities Exam Present: AV fistula - Routine Neurological Exam Present: alert - Routine Psychiatric Exam Present: depressed <Santos Good - Last Filed: 12/28/17 12:38> Vital signs: Vital Signs 12/28/17 06:18 12/28/17 09:35 12/28/17 18:04 Temperature 98.2 F 98.0 F Pulse Rate 82 82 Respiratory Rate 15 17 Blood Pressure 167/75 H 156/87 H Pulse Oximetry 97 99 Intake & Output 12/28/17 12/28/17 12/29/17 06:59 18:59 06:59 Output Total 1999 Balance -1999 Output: Hemodialysis Amount 1999 <Onur Santos - Last Filed: 12/28/17 19:55> Assessment and Plan - Assessment (1) ESRD (end stage renal disease) on dialysis Code(s): N18.6 - End stage renal disease; Z99.2 - Dependence on renal dialysis Status: Acute Plan: Patient gets dialysis TTS. Patient to be dialyzed today. Monitor fluid and electrolytes. She has AVF in the left upper extremity. No IVF. High protein diet. Potassium restriction and phosphorus restriction. (2) Metabolic bone disease Code(s): E88.9 - Metabolic disorder, unspecified; M90.80 - Osteopathy in diseases classified elsewhere, unspecified site Status: Acute Plan: She was on Auryxia at home, but [place] does not carry it. Switched to Renvela. Monitor phosphorus. (3) Anemia Code(s): D64.9 - Anemia, unspecified Status: Acute Plan: Hemoglobin is 12.9, no need for Epogen at this time. (4) HTN (hypertension) Code(s): I10 - Essential (primary) hypertension Status: Acute Plan: Hold Prazosin. On Hydralazine and Losartan which can be continued. (5) Depression Code(s): F32.9 - Major depressive disorder, single episode, unspecified Status : Acute Plan: History of bipolar illness. Currently Sahni acted. Needs optimization of medications, therapy. <Santos Good - Last Filed: 12/28/17 12:38> - Assessment (1) ESRD (end stage renal disease) on dialysis Code(s): N18.6 - End stage renal disease; Z99.2 - Dependence on renal dialysis Status: Acute (2) Metabolic bone disease Code(s): E88.9 - Metabolic disorder, unspecified; M90.80 - Osteopathy in diseases classified elsewhere, unspecified site Status: Acute (3) Anemia Code(s): D64.9 - Anemia, unspecified Status: Acute (4) HTN (hypertension) Code(s): I10 - Essential (primary) hypertension Status: Acute (5) Depression Code(s): F32.9 - Major depressive disorder, single episode, unspecified Status : Acute - Attending Attestation patient was seen and examined. Agree with above assessment and plan. <Onur Santos - Last Filed: 12/28/17 19:55>
--- NOTE | 2017-12-28 14:17 | P.PNPAL ---
Reason for Visit Reason for visit: a. To assist with evaluation and management of symptoms including: Depression. b. To assist medical decision maker(s) with: better understanding of current medical conditions; weighing benefits/burdens of medical treatment options; making medical treatment decisions. Subjective Subjective/Interval History: Patient seen in med/psych floor. She was sitting in bed in no acute distress. Flat affect, denies any pain, shortness of breath, nausea vomiting or abdominal discomfort. Patient alert and oriented x self, place and situation. Endorsing feeling depressed, did not eat breakfast today. Patient answered "yes" when asked if she is wanted to hurt herself but later verbalized "I do not know how" . Nephrology following, plan for hemodialysis today. Urine culture positive for E. coli, hospitalist consult order 12/27 -still pending. Shared with patient that I have been in contact with her brother Shamar, she tells me that this is okay because she trust Shamar. Patient tells me that she is concerned about her being alone at home, patient repeatedly asking to go home. Case discussed with bedside RN Cyndi, recommended to follow-up with hospitalist group. Telephone conversation with brother Shamar. Medical update provided, reviewed current plan of care. Reviewed current treatment plan. Brother reports that patient has been following at [facility] with a director social welfare and psychiatry's for depression management. Goals of treatment remain unchanged, family goal is for patient to return to [facility] for independent living and to re-enroll into hospice services with [facility]. Brother Shamar asking questions regarding DNR order and resuscitation while at the hospital. Reviewed in detail risks, benefits and limitations of CPR, intubation and mechanical ventilation in the setting of end-stage renal disease and multiple other comorbidities. Advance Directives Living Will: Never completed Health Care Surrogate: Never completed Durable Power of Corporation Officer: Never completed Objective Vital Signs: Vital Signs 12/27/17 18:00 12/28/17 06:18 12/28/17 09:35 Temperature 97.8 F 98.2 F 98.0 F Pulse Rate 85 82 82 Respiratory Rate 18 15 17 Blood Pressure 140/67 167/75 H 156/87 H Pulse Oximetry 94 L 97 Intake & Output 12/27/17 12/28/17 12/28/17 18:59 06:59 18:59 Weight 83.1 kg Other: Weight On Admission 83.1 kg Physical Exam: CONSTITUTIONAL/GENERAL: This is an adequately nourished patient, in no apparent distress. TUBES/LINES/DRAINS: PIV. SKIN: Pale, dry skin. No jaundice, rashes, or lesions. No wounds seen anteriorly. Skin temperature appropriate. Not diaphoretic. HEAD: Atraumatic. Normocephalic. EYES: Pupils equal and round and reactive. Extraocular motions intact. No scleral icterus. No injection or drainage. Fundi not examined. ENT: Hearing grossly normal. Nose without bleeding or purulent drainage. Moist oral mucosa. NECK: Trachea midline. Supple, nontender. CARDIOVASCULAR: Regular rate and rhythm. Peripheral pulses symmetric. RESPIRATORY/CHEST: Symmetric, unlabored respirations. Clear to auscultation. Breath sounds equal bilaterally. No wheezes, rales, or rhonchi. GASTROINTESTINAL: Abdomen soft, non-tender, nondistended. No guarding. Bowel sounds present. GENITOURINARY: Without palpable bladder distension. Gonzalez catheter in place. MUSCULOSKELETAL: Extremities without clubbing, cyanosis, or edema. No mottling or clubbing. LYMPHATICS: No palpable cervical or supraclavicular adenopathy. NEUROLOGICAL: Awake and alert x self, place and situation. Motor and sensory grossly within normal limits. Follows commands. Moves all extremities. Verbal, able to communicate needs. PSYCHIATRIC: Flat affect. Sad. Diagnostic Tests Laboratory: Laboratory Results - last 72 hr 12/26/17 12/26/17 12/26/17 17:57 17:57 21:16 WBC 6.4 RBC 4.32 Hgb 12.9 Hct 37.9 MCV 87.7 MCH 29.9 MCHC 34.1 RDW 14.3 Plt Count 220 MPV 7.7 Neut % (Auto) 71.3 H Lymph % (Auto) 15.8 [place] % (Auto) 8.9 H Eos % (Auto) 3.3 Baso % (Auto) 0.7 Neut # (Auto) 4.5 Lymph # (Auto) 1.0 [place] # (Auto) 0.6 Eos # (Auto) 0.2 Baso # (Auto) 0.0 WBC Differential . Differential Comment Auto diff final Sodium 137 Potassium 3.7 Chloride 94 L Carbon Dioxide 29.8 Anion Gap 13 BUN 35 H Creatinine 5.10 H Estimated GFR 9 L Random Glucose 76 Calcium 9.2 Phosphorus Magnesium 2.2 Total Bilirubin 0.5 AST 32 ALT 30 Alkaline Phosphatase 109 Total Protein 8.4 H Albumin 3.9 Triglycerides Cholesterol LDL Cholesterol, Calc HDL Cholesterol Cholesterol/HDL Ratio TSH 6.170 H Urine Color Yellow Urine Clarity Hazy H Urine pH 8.0 Ur Specific Spart[place] 1.008 Urine Protein 500 or greater Urine Glucose (UA) 50 Urine Ketones Negative Urine Occult Blood Negative Urine Nitrate Negative Urine Bilirubin Negative Urine Urobilinogen Less than 2 Ur Leukocyte Esterase Large H Urine RBC 2 Urine WBC 4 Ur Squamous Epith Cells 2 Urine Bacteria Many H Micro UA Comment Culture indicated Ur Microscopic Review Not Reportable Urine Culture Comments Culture indicated Urine Opiates Screen Ur Barbiturates Screen Ur Amphetamines Screen U Benzodiazepines Scrn Urine Cocaine Screen U Cannabinoids Screen Serum Alcohol Less than 3 12/26/17 12/28/17 21:16 07:08 WBC RBC Hgb Hct MCV MCH MCHC RDW Plt Count MPV Neut % (Auto) Lymph % (Auto) [place] % (Auto) Eos % (Auto) Baso % (Auto) Neut # (Auto) Lymph # (Auto) [place] # (Auto) Eos # (Auto) Baso # (Auto) WBC Differential Differential Comment Sodium 138 Potassium 4.4 Chloride 98 Carbon Dioxide 27.9 Anion Gap 12 BUN 71 H Creatinine 8.41 H Estimated GFR 5 L Random Glucose 101 Calcium 9.6 Phosphorus 8.0 H Magnesium Total Bilirubin AST ALT Alkaline Phosphatase Total Protein Albumin 3.6 Triglycerides 294 H Cholesterol 165 LDL Cholesterol, Calc 72 HDL Cholesterol 34.1 L Cholesterol/HDL Ratio 4.83 TSH Urine Color Urine Clarity Urine pH Ur Specific [place] Urine Protein Urine Glucose (UA) Urine Ketones Urine Occult Blood Urine Nitrate Urine Bilirubin Urine Urobilinogen Ur Leukocyte Esterase Urine RBC Urine WBC Ur Squamous Epith Cells Urine Bacteria Micro UA Comment Ur Microscopic Review Urine Culture Comments Urine Opiates Screen Neg Ur Barbiturates Screen Neg Ur Amphetamines Screen Neg U Benzodiazepines Scrn Neg Urine Cocaine Screen Neg U Cannabinoids Screen Neg Serum Alcohol Result Diagrams: 12/26/17 17:57 12/28/17 07:08 Microbiology: Microbiology 12/26/17 21:16 Urine Culture - Final Clean Catch Urine Escherichia coli Assessment and Plan - Disease Oriented Problem List (1) Depression (2) Atherosclerotic heart disease (3) Bipolar depression (4) Schizoaffective disorder (5) ESRD (end stage renal disease) on dialysis Pertinent Non-Medical Issues: Psychosocial: Patient resides at independent living facility for the past 2 years. She is , no biological children. Disabled secondary to end- stage renal/psych. 2 siblings. 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 Spiritual: No catholic affiliations reported. Legal: No advance directives completed. Ethical issues impacting care: No ethical issues identified. Important Contacts: Brother Shamar Vargas Prognosis: Ms. Vargas is a 57-year-old female with a medical history significant for end- stage renal disease on hemodialysis bipolar disorder on lithium, schizoaffective disorder, severe depression and anxiety, hypertension, hypothyroidism, and anemia. Patient presented to ED under [place] act by police department secondary to suicidal thoughts. Patient with a well-known psychiatric history with repeated ED visits and hospitalizations. Patient at high risk for further decompensation, continued decline and . Does not appear hospice appropriate at this time given aggressive goals. Code Status: Full Code Plan: * CODE STATUS: Full code. Signed community DNR at home, however, patient's brother electing full code during this hospitalization. Risks, benefits and limitations of CPR, intubation and mechanical ventilation have been discussed in great detail with brother on 12/27 and 12/28. * HEALTHCARE DECISION-MAKING: Patient with limited participation in medical decision making given poor insight and judgment. Psych following in the setting of bipolar disorder, schizoaffective disorder and severe depression. As per brothdanna Ibanez, no advanced directives have been completed. Patient is with no biological children. Parents are . As per [place] statue, healthcare proxy decision making falls to the majority of patient's siblings for which she has 2. Sister Marcella Vazquez deferred participation in medical decision making, therefore, brother Shamar Vargas is proxy decision maker. * GOALS OF CARE: Patient's brother electing full aggressive management to include full code at this time. His goal is for patient to return to independent living facility "[facility]" under hospice services with [facility]. Brother reports that patient follows with the [facility] in [place] for psych management. * SYMPTOMS: =Depression: Patient with a significant history of bipolar disorder on lithium and schizoaffective disorder, depression. Well-known psychiatric history were repeated ED visits and hospitalizations. Depression management deferred to psych. * Hospice: Patient currently under hospice services with [facility] as since April 2016 for a diagnosis of atherosclerotic heart disease/CHF. No records on cardiac function located; however, patient independent with ADLs and not oxygen dependent. MO heart failure classification II, PPS 60%. Given physical assessment and review of records, patient does not appear end-of-life/prognosis of 6 months or less as per hospice CMS guidelines for heart disease. However, she would qualify for hospice benefits in the setting of end-stage renal condition should she/family elects to discontinue hemodialysis (NOT current goal of care). * Palliative care will continue to follow-up as needed for further clarifications of goals of care as patient's clinical course continues to evolve. Time Spent Total Floor Time (mins): 25 (Total time to include review medical records, physical exam, telephone conversation with patient's brother.) >50% Time in Counseling or Coordination of Care: Yes (Total visit time = 25 minutes; > 50% spent counseling/coordinating care) Attestation Attestation: To help prompt me to consider important information that might be impacting today's encounter and assessment, information from prior notes written by myself or my colleagues may have been "brought forward" into today's note. My signature on this note, however, is an attestation that I personally performed the exam, history, and/or decision-making noted today, and, unless otherwise indicated, the interactions with patient, family, and staff as well as the review of records all occurred today. I also attest that the listed assessment and stated plan reflect my best clinical judgment today based on the combination of historical information, prior notes, and today's exam/ interactions. When time spent is documented, it refers only to time spent today by the signer, or if indicated, combined time spent today by collaborating physician/nurse practitioner.
[2017-12-28] MEDS ORDERED: Gelatin 12 MM/7 MM Topical Foam TOPICAL PRN (15:22)
[2017-12-28] MEDS ORDERED: Albumin Human 25% Inj 100 ML IV.SIG PRN (15:22)
[2017-12-28] MEDS ORDERED: Acetaminophen 325 MG Tablet PO PRN (15:22)
[2017-12-28] MEDS ORDERED: Sod Chloride 0.9% Inj 1,000 ML IV.CONT PRN (15:22)
[2017-12-28] MEDS ORDERED: Heparin 10,000 UNITS/10 ML Vial (for IV use) OTHER PRN ×2 (15:22)
[2017-12-28] MEDS ORDERED: Sod Chloride 0.9% Inj 1,000 ML OTHER PRN ×2 (15:22)
[2017-12-28 15:58] LABS: Hemoglobin A1c 6.6 % (4.3-6.0)
[2017-12-28] MEDS ORDERED: amLODIPine 10 MG Tablet PO SCH (16:00)
--- NOTE | 2017-12-28 16:06 | P.CON ---
History of Present Illness Service: [facility] Consult date: 12/28/17 Requesting Physician: Jeff Lee Reason for Consult: ESRD, CHF Primary Care Provider: UNKNOWN Chief Complaint: suicidal, depression History of Present Illness: 57-year-old female with history of ESRD on HD, HTN, hypothyroidism, anemia, anxiety, depression, bipolar disorder, schizoaffective disorder, conversion disorder, admitted to psychiatry unit for depression with suicidal ideations. Hospitalists consulted for medical management. The patient is seen during dialysis. She reports feeling uncomfortable while receiving dialysis but cannot further elaborate on her symptoms. Denies any fevers/chills, headache, lightheadedness, chest pain, shortness of breath, abdominal or urinary complaints. Discussed her UA positive for UTI. Patient states she does still make urine, but does not notice any recent dysuria, suprapubic pain, or increased urinary frequency/urgency. She has no other medical complaints to report at this time. Discussed with mental health unit lead psychologist and load tallier. Patient's son has provided updated list of home meds. Reportedly not on Norvasc anymore. The patient also denies any history of CHF or any heart disease, although CHF is documented in EMR. Review of Systems All other systems reviewed negative except as stated in HPI [facility] - History History Provided By: Patient, Medical Record - Medical History Medical History: Medical History (Last Reviewed 12/28/17 @ 16:00 by Kierra Morton) Schizoaffective disorder (Acute) End stage renal disease (Acute) Anemia (Acute) Muscle weakness (Acute) Renal dialysis status (Acute) Anxiety (Acute) Hyperlipemia (Acute) Hypothyroidism (Acute) Osteoarthritis (Acute) Hypertension (Acute) AV fistula Bipolar 1 disorder - Surgical History Surgical History: Surgical History (Last Updated 12/28/17 @ 17:53 by Kierra Morton) History of hip replacement History of left-sided carotid endarterectomy History of thyroidectomy Hx of cholecystectomy Status post wrist surgery - Family History Family History: Family History (Last Reviewed 12/28/17 @ 16:00 by Kierra Morton) Father Lung cancer Other Family history of hypertension - Social History I have reviewed the patient's Social History: Yes - Tobacco History Second Hand Smoke Exposure: No Tobacco Use In Past 30 Days: No Smoking Status: Former smoker Tobacco Type: Cigarettes Packs Per Day: 1 - Alcohol History How Often Do You Have a Drink Containing Alcohol: Never - Substance Use History Substance History: No History of Abuse - Travel History Recent Travel in the [place] Within the Last 8 Weeks: No Recent Travel Out of the Country Within the Last 8 Weeks: No - Immunization History Tetanus Immunization: Unsure Medications and Allergies Active Medications: Active Medications Acetaminophen (Tylenol) 650 mg PO UNSCH PRN PRN Reason: SEE LABEL COMMENTS Al Hydrox/Mg Hydrox/Simethicone (Mag-Al Plus Susp Liq) 30 ml PO Q6H PRN PRN Reason: DYSPEPSIA Al Hydroxide/Mg Hydroxide (Milk Of Magnesia Liq) 30 ml PO Q12H PRN PRN Reason: Mild Constipation Amlodipine Besylate (Norvasc) 10 mg PO DAILY [facility] Aripiprazole (Abilify) 10 mg PO DAILY [facility] Last Admin: 12/28/17 08:54 Dose: 10 mg Aspirin (Ecotrin) 81 mg PO DAILY HEATH Atorvastatin Calcium (Lipitor) 10 mg PO DAILY HEATH Bisacodyl (Dulcolax Supp) 10 mg RECTAL DAILY PRN PRN Reason: SEVERE CONSITIPATION Cefuroxime Axetil (Ceftin) 250 mg PO Q12H [facility] Stop: 01/04/18 16:59 Clonidine HCl (Catapres) 0.1 mg PO UNSCH PRN PRN Reason: SEE LABEL COMMENTS Diphenhydramine HCl (Benadryl) 25 mg PO UNSCH PRN PRN Reason: SEE LABEL COMMENTS Epoetin Brad (Epogen Inj) 10,000 unit IV.PUSH UNSCH PRN PRN Reason: SEE LABEL COMMENTS Gelatin (Gelfoam 12 Mm/7 Mm Topical) 1 foam TOPICAL PRN PRN PRN Reason: help stop bleeding from site Gentamicin Sulfate (Gentamicin Inj) 20 mg OTHER WITH DIALYSIS PRN PRN Reason: Dwell Gentamycin Lock Heparin Sodium (Porcine) (Heparin Inj) 8,000 units OTHER WITH DIALYSIS PRN PRN Reason: for machine prime Heparin Sodium (Porcine) (Heparin Inj) 1,000 units OTHER WITH DIALYSIS PRN PRN Reason: Dwell Heparin to Fill Catheter Hydralazine HCl (Apresoline) 25 mg PO HS [facility] Last Admin: 12/27/17 20:56 Dose: 25 mg Hydroxyzine HCl (Atarax) 50 mg PO TID PRN PRN Reason: Itching Last Admin: 12/27/17 18:08 Dose: 50 mg Albumin Human (Flexbumin 25% Inj) 100 mls @ 60 mls/hr IV.SIG WITH DIALYSIS PRN PRN Reason: hypotension / volume replace Sodium Chloride (Ns Inj) 1,000 mls @ 200 mls/hr OTHER .Q5H PRN PRN Reason: for dialyzer flush PRN Sodium Chloride (Ns Inj) 1,000 mls @ 0 mls/hr IV.CONT .Q0M PRN PRN Reason: hypotension / volume replace Sodium Chloride (Ns Inj) 1,000 mls @ 0 mls/hr OTHER .Q0M PRN PRN Reason: for prime and rinse back Lactobacillus Acidophilus (Lactinex) 1 tab PO BID [facility] Last Admin: 12/28/17 08:54 Dose: 1 tab Lactulose (Lactulose Liq) 30 ml PO DAILY PRN PRN Reason: SEVERE CONSITIPATION Lamotrigine (Lamictal) 25 mg PO BID [facility] Last Admin: 12/28/17 08:55 Dose: 25 mg Lorazepam (Ativan) 0.5 mg PO [facility] Last Admin: 12/27/17 20:54 Dose: 0.5 mg Losartan Potassium (Cozaar) 25 mg PO DAILY [facility] Last Admin: 12/28/17 09:15 Dose: Not Given Mannitol (Mannitol Inj) 12.5 gm IV.PUSH UNSCH PRN PRN Reason: hypotension / volume replace Nitroglycerin (Nitrostat Sl) 0.4 mg SL Q5M PRN PRN Reason: CHEST PAIN Non-Formulary Medication (Ferric Citrate [Ferric Citrate]) 420 mg PO TID [facility] Ondansetron HCl (Zofran Odt) 4 mg PO BID PRN PRN Reason: Nausea Ondansetron HCl (Zofran Inj) 4 mg IV.PUSH UNSCH PRN PRN Reason: NAUSEA OR VOMITING Prazosin HCl (Minipress) 2 mg PO [facility] Senna/Docusate Sodium (Tram-Colace) 1 tab PO BID [facility] Last Admin: 12/28/17 08:55 Dose: 1 tab Sennosides (Senokot) 17.2 mg PO Q12H PRN PRN Reason: Moderate Constipation Sevelamer Carbonate (Renvela) 2,400 mg PO TIDAC [facility] Last Admin: 12/28/17 12:05 Dose: 2,400 mg Sodium Chloride (Ns Flush) 5 ml IV.FLUSH PRN PRN PRN Reason: flush each lumen during HD Tramadol HCl (Ultram) 50 mg PO Q6H PRN PRN Reason: PAIN SCALE 1 TO 10 Last Admin: 12/27/17 20:53 Dose: 50 mg Vitamin B Complex/Vit C/Folic Acid (Nephrocaps) tab PO HS [facility] Allergies Allergy/AdvReac Type Severity Reaction Status Date / Time No Known Allergies Allergy Verified 12/26/17 17:38 Home Medications Medication Instructions Recorded Confirmed Type B complex with C#20-folic acid 1 cap PO HS 12/26/17 12/26/17 History [Renal Caps] amlodipine 10 mg PO DAILY 12/26/17 12/26/17 History aripiprazole 10 mg PO DAILY 12/26/17 12/26/17 History aspirin [Aspir-81] 81 tab PO DAILY 12/26/17 12/26/17 History atorvastatin 10 mg PO DAILY 12/26/17 12/26/17 History biotin 1,000 mcg PO DAILY 12/26/17 12/26/17 History diphenhydramine HCl [Benadryl] 25 mg PO HS PRN 12/26/17 12/26/17 History ferric citrate 420 mg PO TID 12/26/17 12/26/17 History hydralazine 25 mg PO HS 12/26/17 12/26/17 History hydroxyzine HCl 50 mg PO TID PRN 12/26/17 12/26/17 History lactobacillus combination no.4 3,000 mmu cells PO BID 12/26/17 12/26/17 History [Probiotic] lorazepam [Ativan] 0.5 mg PO HS 12/26/17 12/26/17 History losartan 25 mg PO DAILY 12/26/17 12/26/17 History ondansetron 4 mg PO BID PRN 12/26/17 12/26/17 History prazosin 2 mg PO HS 12/26/17 12/26/17 History tramadol 50 mg PO Q6H PRN 12/26/17 12/26/17 History Physical Exam Vital signs: Vital Signs 12/27/17 18:00 12/28/17 06:18 12/28/17 09:35 Temperature 97.8 F 98.2 F 98.0 F Pulse Rate 85 82 82 Respiratory Rate 18 15 17 Blood Pressure 140/67 167/75 H 156/87 H Pulse Oximetry 94 L 97 Intake & Output 12/27/17 12/28/17 12/28/17 18:59 06:59 18:59 Weight 83.1 kg Other: Weight On Admission 83.1 kg Narrative: GENERAL: Well-nourished, well-developed patient in NAD. SKIN: Warm and dry. No rash. HEENT: Normocephalic. Atraumatic. Pupils equal and round. Mucous membranes pink and moist. NECK: Supple. Trachea midline. CARDIOVASCULAR: Regular rate and rhythm. No murmur appreciated. RESPIRATORY: No accessory muscle use. Clear to auscultation. Breath sounds equal bilaterally. GASTROINTESTINAL: Abdomen soft, non-tender, nondistended. Normoactive bowel sounds x4. MUSCULOSKELETAL: No obvious deformities. Extremities without clubbing, cyanosis , or edema. NEUROLOGICAL: Awake and alert. No obvious cranial nerve deficits. Motor grossly within normal limits. Moving all extremities spontaneously. Normal speech. PSYCHIATRIC: Appropriate mood and affect; insight and judgment normal. Results - Labs CBC & Chem 7: 12/29/17 07:21 12/29/17 07:21 Labs: Laboratory Results - last 24 hr 12/28/17 07:08 Sodium 138 Potassium 4.4 Chloride 98 Carbon Dioxide 27.9 Anion Gap 12 BUN 71 H Creatinine 8.41 H Estimated GFR 5 L Random Glucose 101 Calcium 9.6 Phosphorus 8.0 H Albumin 3.6 Triglycerides 294 H Cholesterol 165 LDL Cholesterol, Calc 72 HDL Cholesterol 34.1 L Cholesterol/HDL Ratio 4.83 Assessment and Plan - Plan 57-year-old female with history of ESRD on HD, HTN, hypothyroidism, anemia, anxiety, depression, bipolar disorder, schizoaffective disorder, conversion disorder, admitted to psychiatry unit for depression with suicidal ideations. Hospitalists consulted for medical management. Depression/Suicidal Ideations: acute -continue management per psychiatry ESRD on HD: chronic. On HD TTS. -nephrology consulted, appreciate assistance -continue Renvela -monitor BMP Anemia: likely chronic anemia secondary to renal disease -hemoglobin stable at 12.9 -monitor UTI: UA positive for UTI -urine culture with E.coli -give Ceftin 250mg po bid Hypertension: chronic, BP not optimally controlled -continue patient's cozaar and norvasc -monitor BP, adjust antihypertensives as needed Hypothyroidism: patient is s/p thyroidectomy -does not appear to be on thyroid supplement per home med list -TSH elevated, check T4 -start on levothyroxine 50mcg daily All other chronic medical conditions stable, continue home medications as appropriate. DVT Prophylaxis: patient is ambulatory
--- NOTE | 2017-12-28 17:54 | P.PNPSY ---
Subjective Remarks: Patient seen for follow-up, chart reviewed. Discussion with nursing staff reported that patient denying breakfast to continue to be paranoid believes she is in trouble. Patient was found lying hospital bed noted with flat affect but more reactive compared to yesterday. Patient states she had difficulty with sleeping, states her mood is "not good" stating that she is feeling depressed and having suicidal ideation at this time. Patient denies any perceptional services but states that she has no desire to do anything with poor motivation. She mentions that she had been followed up in outpatient clinic called at [facility]. She denies any recent medication changes prior to her admission. She also reports feeling anxious and continues to ask if she is in trouble during interview. Review of Systems All other systems reviewed negative except as stated in HPI Mental Status Examination Appearance: Appropriate Consciousness: Alert Orientation: x4 Motor Activity: Other Speech: Unremarkable Language: Adequate Fund of Knowledge: Adequate Attention and Concentration: Adequate Memory: Unremarkable Mood: Sad Affect: Flat Thought Process & Associations: Intact Thought Content: Bizarre thinking, Thought blocking Hallucination Type: None Delusion Type: Bizarre, Paranoid Suicidal Ideation: Yes Suicidal Plan: No Suicidal Intention: No Homicidal Ideation: No Homicidal Plan: No Homicidal Intention: No Insight: Poor Judgment: Poor Assessment and Plan - Assessment (1) Bipolar depression Code(s): F31.30 - Bipolar disorder, current episode depressed, mild or moderate severity, unspecified Status: Acute - Plan Plan: Patient this time continues to report depressed mood continue to be noted with psychomotor retardation but more reactive today and continues with suicidal ideation. We will increase lorazepam to 0.5 mg p.o. twice daily as well as increase aripiprazole to 50 mg p.o. daily, continue rest of medications. We will continue recommendations as per nephrology and hospitalist consult, input appreciated. We will continue to monitor mood and behavior. Discharge planning in progress. Justification for Continued Inpatient Stay: At risk of further decompensation at lower level care.
[2017-12-28] MEDS ORDERED: FERRIC CITRATE 420 MG PO SCH (18:00)
[2017-12-28] MEDS ORDERED: FERRIC CITRATE 210 MG PO SCH (18:00)
--- NOTE | 2017-12-28 21:10 | ECG ---
Date Performed: 12/27/2017 Time Performed: 13:58:17 PTAGE: 57 years EKG: Sinus rhythm Small lateral Q waves are likely nonpathologic. Since the previous tracing, no significant change no roxann BORDERLINE ECG PREVIOUS TRACING : 10/22/2017 00.49 DOCTOR: Iain Zamudio Interpretating Date/Time 12/28/2017 21:09:00
[2017-12-28] MEDS: Vitamin B Complex/Vit C/Folic Tablet PO SCH (21:14)
[2017-12-28] MEDS: LORazepam 0.5 MG Tablet PO SCH (21:14)
[2017-12-29] MEDS: Levothyroxine 50 MCG Tablet PO SCH (05:32)
[2017-12-29 08:10] LABS: Baso # (Auto) 0.1 th/mm3 (0.0-0.2); Baso % (Auto) 0.9 % (0.0-2.0); Eos # (Auto) 0.2 th/mm3 (0.0-0.4); Eos % (Auto) 2.9 % (0.0-4.0); Hematocrit 40.6 % (35.0-46.0); Hemoglobin 13.9 gm/dL (11.6-15.3); Lymph % (Auto) 17.1 % (9.0-44.0); Mean Corpuscular HGB Conc 34.3 % (32.0-36.0); Mean Corpuscular Hemoglobin 30.2 pg (27.0-34.0); Mean Platelet Volume 7.4 fL (7.0-11.0); Mono # (Auto) 0.7 th/mm3 (0.0-0.9); Mono % (Auto) 11.7 % (0.0-8.0); Neut # (Auto) 3.9 th/mm3 (1.8-7.7); Neut % (Auto) 67.4 % (16.0-70.0); Platelet Count 178 th/mm3 (150-450); Red Blood Count 4.61 mil/mm3 (4.00-5.30); Red Cell Distribution Width 14.4 % (11.6-17.2); White Blood Count 5.8 th/mm3 (4.0-11.0)
--- NOTE | 2017-12-29 08:38 | P.PN ---
Subjective Interval history: Follow-up visit for ESRD, UTI and HTN. Patient is seen and examined resting in bed comfortably, appears to be in no acute distress. Not interested in breakfast this morning, reports that this is cold, offered alternative options as well as heating breakfast however refuses. Patient with flat affect, yes and no answers. Denies any fevers, chills, nausea, vomiting or diarrhea. Does endorse constipation however later this morning had a large bowel movement. Nurse does not report any acute events overnight with this morning. Physical Exam Vital signs: Vital Signs 12/28/17 09:35 12/28/17 18:04 12/28/17 20:00 Temperature 98.0 F Pulse Rate 82 Respiratory Rate 17 Blood Pressure 156/87 H Pulse Oximetry 97 99 99 12/29/17 06:00 Temperature 98.2 F Pulse Rate 92 H Respiratory Rate 18 Blood Pressure 148/78 H Pulse Oximetry 96 Intake & Output 12/28/17 12/29/17 12/29/17 18:59 06:59 18:59 Intake Total 120 / 120 Output Total 1999 Balance -1879 / Intake: Oral 120 / 120 Output: Hemodialysis Amount 1999 Other: # Voids 1 Narrative: GENERAL: Well-nourished, well-developed patient in NAD. SKIN: Warm and dry. No rash. HEENT: Normocephalic. Atraumatic. Pupils equal and round. Mucous membranes pink and moist. NECK: Supple. Trachea midline. CARDIOVASCULAR: Regular rate and rhythm. No murmur appreciated. RESPIRATORY: No accessory muscle use. Clear to auscultation. Breath sounds equal bilaterally. GASTROINTESTINAL: Abdomen soft, non-tender, nondistended. Normoactive bowel sounds x4. MUSCULOSKELETAL: No obvious deformities. Extremities without clubbing, cyanosis , or edema. NEUROLOGICAL: Awake and alert. No obvious cranial nerve deficits. Motor grossly within normal limits. Moving all extremities spontaneously. Normal speech. PSYCHIATRIC: Flat affect. Results - Labs CBC & Chem 7: 12/29/17 07:21 12/29/17 07:21 Laboratory Results - last 24 hr 12/28/17 12/29/17 07:08 07:21 WBC 5.8 RBC 4.61 Hgb 13.9 Hct 40.6 MCV 88.0 MCH 30.2 MCHC 34.3 RDW 14.4 Plt Count 178 MPV 7.4 Neut % (Auto) 67.4 Lymph % (Auto) 17.1 Boundary % (Auto) 11.7 H Eos % (Auto) 2.9 Baso % (Auto) 0.9 Neut # (Auto) 3.9 Lymph # (Auto) 1.0 Boundary # (Auto) 0.7 Eos # (Auto) 0.2 Baso # (Auto) 0.1 WBC Differential . Differential Comment Auto diff final Hemoglobin A1c 6.6 H Microbiology 12/26/17 21:16 Clean Catch Urine Urine Culture - Final Escherichia coli Assessment and Plan - Plan 57-year-old female with history of ESRD on HD, HTN, hypothyroidism, anemia, anxiety, depression, bipolar disorder, schizoaffective disorder, conversion disorder, admitted to psychiatry unit for depression with suicidal ideations. Hospitalists consulted for medical management. Depression/Suicidal Ideations: acute -continue management per psychiatry ESRD on HD: chronic. On HD TTS. -nephrology consulted, appreciate assistance -continue Renvela -monitor BMP, stable this morning Anemia: likely chronic anemia secondary to renal disease -hemoglobin stable at 12.9 -monitor UTI: UA positive for UTI -urine culture with E.coli -give Ceftin 250mg po bid Hypertension: chronic, BP not optimally controlled -continue patient's cozaar and norvasc -monitor BP, adjust antihypertensives as needed Hypothyroidism: patient is s/p thyroidectomy -No thyroid supplementation reported on home medication list. -TSH elevated, T4 within normal limits -Continue levothyroxine 50mcg daily -We will need follow-up TSH in 4-6 weeks. All other chronic medical medical conditions stable, continue home medications as appropriate. DVT Prophylaxis: patient is ambulatory Discussed Condition With: Patient and RN
[2017-12-29 08:44] LABS: Calcium 10.2 mg/dL (8.5-10.1); Potassium 4.8 meq/L (3.5-5.1)
[2017-12-29 08:59] LABS: Free T4 (Free Thyroxine) 1.25 ng/dL (0.76-1.46); Thyroid Stimulating Hormone 25.1 uIU/mL (0.358-3.740)
[2017-12-29] MEDS: ARIPiprazole 10 MG Tablet PO SCH (09:10)
[2017-12-29] MEDS: amLODIPine 5 MG Tablet PO SCH (09:11)
[2017-12-29] MEDS: Senna/Docusate Sodium 8.6/50 MG Tablet PO SCH ×2 (09:11→20:24)
[2017-12-29] MEDS: Lactobacillus Acidophilus/L. Spores Tablet PO SCH ×2 (09:11→20:23)
[2017-12-29] MEDS: lamoTRIgine 25 MG TABLET PO SCH ×2 (09:11→20:24)
[2017-12-29] MEDS: LORazepam 0.5 MG Tablet PO SCH ×2 (09:12→20:24)
--- NOTE | 2017-12-29 11:00 | P.PNNP ---
Subjective Interval history: Patient was seen, no distress, flat affect. Per the nurse, patient was eating more today. Patient was dialyzed yesterday, 2 L removed. Patient to be dialyzed tomorrow. Patient currently Sahni Acted. <Santos Good - Last Filed: 12/29/17 10:55> Physical Exam Vital signs: Vital Signs 12/28/17 18:04 12/28/17 20:00 12/29/17 06:00 Temperature 98.2 F Pulse Rate 92 H Respiratory Rate 18 Blood Pressure 148/78 H Pulse Oximetry 99 99 96 Intake & Output 12/28/17 12/29/17 12/29/17 18:59 06:59 18:59 Intake Total 120 / 120 Output Total 1999 Balance -1879 Intake: Oral 120 / 120 Output: Hemodialysis Amount 1999 Other: # Voids 1 - Constitutional no acute distress - Routine HEENT Exam Head: Present: normocephalic Eye: Present: EOMI, PERRL ENT: Present: mucous membranes moist - Routine Respiratory Exam Absent: accessory muscle use, decreased breath sounds, respiratory distress - Routine Cardiovascular Exam Present: RRR - Routine Abdominal Exam Present: soft. Absent: tenderness - Routine Extremities Exam Present: AV fistula. Absent: edema Comments: AVF in the left upper extremity - Routine Psychiatric Exam Absent: normal affect <Santos Good - Last Filed: 12/29/17 10:55> Vital signs: Vital Signs 12/28/17 18:04 12/28/17 20:00 12/29/17 06:00 Temperature 98.2 F Pulse Rate 92 H Respiratory Rate 18 Blood Pressure 148/78 H Pulse Oximetry 99 99 96 12/29/17 07:10 Temperature 98.0 F Pulse Rate 86 Respiratory Rate 18 Blood Pressure 128/80 Pulse Oximetry 93 L Intake & Output 12/28/17 12/29/17 12/29/17 18:59 06:59 18:59 Intake Total 120 / 120 Output Total 1999 Balance -1879 Intake: Oral 120 / 120 Output: Hemodialysis Amount 1999 Other: # Voids 1 <Onur Santos - Last Filed: 12/29/17 14:06> Assessment and Plan - Assessment (1) ESRD (end stage renal disease) on dialysis Code(s): N18.6 - End stage renal disease; Z99.2 - Dependence on renal dialysis Status: Acute Plan: Patient gets dialysis TTS. Patient dialyzed yesterday, 2 L removed. Monitor fluid and electrolytes. She has AVF in the left upper extremity. No IVF. High protein diet. Potassium restriction and phosphorus restriction. (2) Metabolic bone disease Code(s): E88.9 - Metabolic disorder, unspecified; M90.80 - Osteopathy in diseases classified elsewhere, unspecified site Status: Acute Plan: She was on Auryxia at home, but [place] does not carry it. Switched to Renvela. Monitor phosphorus intermittently. Phosphorus is 6.8. (3) Anemia Code(s): D64.9 - Anemia, unspecified Status: Acute Plan: Hemoglobin is 13.9, no need for Epogen at this time. (4) HTN (hypertension) Code(s): I10 - Essential (primary) hypertension Status: Acute Plan: Hold Prazosin. On Hydralazine and Losartan which can be continued. (5) Depression Code(s): F32.9 - Major depressive disorder, single episode, unspecified Status : Acute Plan: History of bipolar illness. Currently Sahni acted. Needs optimization of medications, therapy. <Santos Good - Last Filed: 12/29/17 10:55> - Assessment (1) ESRD (end stage renal disease) on dialysis Code(s): N18.6 - End stage renal disease; Z99.2 - Dependence on renal dialysis Status: Acute (2) Metabolic bone disease Code(s): E88.9 - Metabolic disorder, unspecified; M90.80 - Osteopathy in diseases classified elsewhere, unspecified site Status: Acute (3) Anemia Code(s): D64.9 - Anemia, unspecified Status: Acute (4) HTN (hypertension) Code(s): I10 - Essential (primary) hypertension Status: Acute (5) Depression Code(s): F32.9 - Major depressive disorder, single episode, unspecified Status : Acute - Attending Attestation patient was seen and examined. Agree with above assessment and plan. <Onur Santos - Last Filed: 12/29/17 14:06>
--- NOTE | 2017-12-29 15:41 | P.PNPSY ---
Subjective Remarks: Patient seen for follow-up, chart reviewed. Discussion with nursing staff reported that patient had slept well, had dialysis yesterday, reported to nursing that she is feeling she is getting better. Patient was found sitting in hospital bed after patient had a fecal incontinence earlier this morning. Patient states that she has these occasional "accidents" but has in general been feeling "good" but then also states that she is feeling depressed. Patient has been consistent with her report of her mood. She continues to ask if she is in trouble several times during interview noted to have certain degree of anxiety related to this recurrent thought. Patient continues report feeling depressed and also continues to report having suicidal ideations. Patient also requesting to be discharged home but was explained that patient will need to improve her mood prior to consideration of returning back home which she acknowledged. Patient noted to be less psychomotorly retarded and more reactive today during interview. Review of Systems All other systems reviewed negative except as stated in HPI Mental Status Examination Appearance: Appropriate Consciousness: Alert Orientation: x4 Motor Activity: Other Speech: Unremarkable Language: Adequate Fund of Knowledge: Adequate Attention and Concentration: Adequate Memory: Unremarkable Mood: Sad Affect: Flat Thought Process & Associations: Intact Thought Content: Bizarre thinking, Thought blocking Hallucination Type: None Delusion Type: Bizarre, Paranoid Suicidal Ideation: Yes Suicidal Plan: No Suicidal Intention: No Homicidal Ideation: No Homicidal Plan: No Homicidal Intention: No Insight: Poor Judgment: Poor Assessment and Plan - Assessment (1) Bipolar depression Code(s): F31.30 - Bipolar disorder, current episode depressed, mild or moderate severity, unspecified Status: Acute - Plan Plan: Patient continues with depressed mood along with noted anxiety as well as perseveration with a believe that she is in trouble. We will continue to titrate aripiprazole to 50 mg p.o. daily, increase lorazepam to 1 mg p.o. twice daily for anxiety. We will continue rest of medications. Nephrology input appreciated. We will continue to monitor mood and behavior. Discharge planning in progress. Justification for Continued Inpatient Stay: At risk of further decompensation at lower level care.
[2017-12-29] MEDS: Vitamin B Complex/Vit C/Folic Tablet PO SCH (20:24)
[2017-12-30] MEDS: Levothyroxine 50 MCG Tablet PO SCH (05:08)
--- NOTE | 2017-12-30 08:35 | P.PN ---
Subjective Interval history: Follow-up visit for ESRD and UTI. Patient seen and examined ambulating in her room with the assistance of a walker. She reports she had a bowel movement yesterday, no other acute events reported by nurse. Physical Exam Vital signs: Vital Signs 12/29/17 17:39 12/30/17 05:55 Temperature 97.6 F 98.5 F Pulse Rate 92 H 90 Respiratory Rate 18 16 Blood Pressure 141/81 H 159/77 H Pulse Oximetry 94 L Intake & Output 12/29/17 12/30/17 12/30/17 18:59 06:59 18:59 Intake Total 240 / 240 Balance 240 / 240 Intake: Oral 240 / 240 Other: # Voids 1 Narrative: GENERAL: Well-nourished, well-developed patient in NAD. SKIN: Warm and dry. No rash. HEENT: Normocephalic. Atraumatic. Pupils equal and round. Mucous membranes pink and moist. NECK: Supple. Trachea midline. CARDIOVASCULAR: Regular rate and rhythm. No murmur appreciated. RESPIRATORY: No accessory muscle use. Clear to auscultation. Breath sounds equal bilaterally. GASTROINTESTINAL: Abdomen soft, non-tender, nondistended. Normoactive bowel sounds x4. MUSCULOSKELETAL: No obvious deformities. Extremities without clubbing, cyanosis , or edema. NEUROLOGICAL: Awake and alert. No obvious cranial nerve deficits. Motor grossly within normal limits. Moving all extremities spontaneously. Normal speech. PSYCHIATRIC: Flat affect. Results - Labs CBC & Chem 7: 12/29/17 07:21 12/29/17 07:21 Laboratory Results - last 24 hr 12/29/17 12/29/17 07:21 07:21 Sodium 138 Potassium 4.8 Chloride 98 Carbon Dioxide 30.0 Anion Gap 10 BUN 46 H Creatinine 7.03 H Estimated GFR 6 L Random Glucose 97 Calcium 10.2 H Phosphorus 6.8 H D TSH 25.100 H Free T4 1.25 Assessment and Plan - Plan 57-year-old female with history of ESRD on HD, HTN, hypothyroidism, anemia, anxiety, depression, bipolar disorder, schizoaffective disorder, conversion disorder, admitted to psychiatry unit for depression with suicidal ideations. Hospitalists consulted for medical management. Depression/Suicidal Ideations: acute -continue management per psychiatry ESRD on HD: chronic. On HD TTS. -nephrology consulted, appreciate assistance - Renal diet -continue Renvela -monitor BMP Anemia: likely chronic anemia secondary to renal disease -hemoglobin stable at 12.9 -monitor UTI: UA positive for UTI -urine culture with E.coli -give Ceftin 250mg po bid Hypertension: chronic, BP not optimally controlled -continue patient's cozaar and norvasc -monitor BP, adjust antihypertensives as needed Hypothyroidism: patient is s/p thyroidectomy -No thyroid supplementation reported on home medication list. -TSH elevated, T4 within normal limits -Continue levothyroxine 50mcg daily -We will need follow-up TSH in 4-6 weeks. All other chronic medical medical conditions stable, continue home medications as appropriate. DVT Prophylaxis: patient is ambulatory Discussed Condition With: Patient and RN
--- NOTE | 2017-12-30 09:21 | P.PNNP ---
Subjective Interval history: Seen during hemodialysis, does not have any complaints. Denies shortness of breath, nausea, or vomiting. <Amy Leon - Last Filed: 12/30/17 09:12> Physical Exam Vital signs: Vital Signs 12/29/17 17:39 12/30/17 05:55 Temperature 97.6 F 98.5 F Pulse Rate 92 H 90 Respiratory Rate 18 16 Blood Pressure 141/81 H 159/77 H Pulse Oximetry 94 L Intake & Output 12/29/17 12/30/17 12/30/17 18:59 06:59 18:59 Intake Total 240 / 240 Balance 240 / 240 Intake: Oral 240 / 240 Other: # Voids 1 Narrative: GENERAL: Well-nourished, well-developed patient in NAD. Awake and alert. SKIN: Warm and dry. Right lower extremity redness. NECK: Supple. Trachea midline. No JVD CARDIOVASCULAR: Regular rate and rhythm. No murmur appreciated. RESPIRATORY: No accessory muscle use. Clear to auscultation. Breath sounds equal bilaterally. GASTROINTESTINAL: Abdomen soft, non-tender, nondistended. Normoactive bowel sounds x4. MUSCULOSKELETAL: No obvious deformities. Extremities without clubbing, cyanosis , or edema. <Amy Leon - Last Filed: 12/30/17 09:12> Vital signs: Vital Signs 12/29/17 17:39 12/30/17 05:55 Temperature 97.6 F 98.5 F Pulse Rate 92 H 90 Respiratory Rate 18 16 Blood Pressure 141/81 H 159/77 H Pulse Oximetry 94 L Intake & Output 12/29/17 12/30/17 12/30/17 18:59 06:59 18:59 Intake Total 240 / 240 Balance 240 / 240 Intake: Oral 240 / 240 Other: # Voids 1 <Tom Miramontes Q - Last Filed: 12/30/17 11:35> Assessment and Plan - Assessment (1) ESRD (end stage renal disease) on dialysis Code(s): N18.6 - End stage renal disease; Z99.2 - Dependence on renal dialysis Status: Acute Plan: Patient gets dialysis TTS, AVF in left upper extremity. Monitor fluid and electrolytes Avoid IVF and gadolinium. High protein diet with Potassium and phosphorus restriction. Seen during HD tolerating well will remove fluid as tolerated. (2) Metabolic bone disease Code(s): E88.9 - Metabolic disorder, unspecified; M90.80 - Osteopathy in diseases classified elsewhere, unspecified site Status: Acute Plan: She was on Auryxia at home, but [place] does not carry it. Continue renvela Monitor phosphorus intermittently. (3) Anemia Code(s): D64.9 - Anemia, unspecified Status: Acute Plan: Hemoglobin stable. (4) HTN (hypertension) Code(s): I10 - Essential (primary) hypertension Status: Acute Plan: Well controlled. Will monitor. (5) Depression Code(s): F32.9 - Major depressive disorder, single episode, unspecified Status : Acute Plan: History of bipolar illness. Currently Sahni acted. <Amy Leon - Last Filed: 12/30/17 09:12> - Assessment (1) ESRD (end stage renal disease) on dialysis Code(s): N18.6 - End stage renal disease; Z99.2 - Dependence on renal dialysis Status: Acute Plan: Patient seen during HD, awake, not fully oriented, not in distress. HD now, remove fluid as tolerated. (2) Metabolic bone disease Code(s): E88.9 - Metabolic disorder, unspecified; M90.80 - Osteopathy in diseases classified elsewhere, unspecified site Status: Acute (3) Anemia Code(s): D64.9 - Anemia, unspecified Status: Acute (4) HTN (hypertension) Code(s): I10 - Essential (primary) hypertension Status: Acute (5) Depression Code(s): F32.9 - Major depressive disorder, single episode, unspecified Status : Acute <Asya Miramontes - Last Filed: 12/30/17 11:35>
[2017-12-30] MEDS: Lactobacillus Acidophilus/L. Spores Tablet PO SCH ×3 (09:22→20:46)
[2017-12-30] MEDS: lamoTRIgine 25 MG TABLET PO SCH ×3 (09:22→20:47)
[2017-12-30] MEDS: LORazepam 0.5 MG Tablet PO SCH ×3 (09:22→20:47)
[2017-12-30] MEDS: amLODIPine 5 MG Tablet PO SCH ×2 (09:22→13:24)
[2017-12-30] MEDS: Senna/Docusate Sodium 8.6/50 MG Tablet PO SCH ×2 (09:23→20:47)
[2017-12-30 14:19] LABS: Activated Partial Thrombo Time 27.4 sec (23.4-31.7); Prothrombin Time 10.6 sec (9.8-11.6)
--- NOTE | 2017-12-30 16:39 | P.PNPSY ---
Subjective Remarks: Pt seen and discussed with staff. Chart reviewed. She has a hx of schizoaffective d/o and was admitted after she began banging head against the wall during dialysis and stated that she wanted to . Staff report that pt remains depressed and exhibits strong dependent personality traits. She is flat with psychomotor retardation. She is compliant with medications and care. Vague SI without plans. Mental Status Examination Appearance: Appropriate Consciousness: Alert Orientation: x4 Motor Activity: Other Speech: Unremarkable Language: Adequate Fund of Knowledge: Adequate Attention and Concentration: Adequate Memory: Unremarkable Mood: Sad Affect: Flat Thought Process & Associations: Intact Thought Content: Bizarre thinking, Thought blocking Hallucination Type: None Delusion Type: Bizarre, Paranoid Suicidal Ideation: Yes Suicidal Plan: No Suicidal Intention: No Homicidal Ideation: No Homicidal Plan: No Homicidal Intention: No Insight: Poor Judgment: Poor Assessment and Plan - Assessment (1) Bipolar depression Code(s): F31.30 - Bipolar disorder, current episode depressed, mild or moderate severity, unspecified Status: Acute - Plan Plan: Continue current tx plan. Discharge planning in progress. Justification for Continued Inpatient Stay: risk of decompensation
[2017-12-30] MEDS: Vitamin B Complex/Vit C/Folic Tablet PO SCH (20:46)
[2017-12-31] MEDS: Levothyroxine 50 MCG Tablet PO SCH (05:24)
--- NOTE | 2017-12-31 08:44 | P.PN ---
Subjective Interval history: Follow-up visit for end-stage renal disease. Nurse reports no acute events overnight or this morning. Patient seen and examined sitting in bed in no acute distress, slightly more talkative this morning with me. Denies any fevers , chills, nausea, vomiting or diarrhea. Reports she was tired yesterday after dialysis. Physical Exam Vital signs: Vital Signs 12/30/17 13:27 12/30/17 16:23 12/31/17 06:00 Temperature 97.5 F L 97.8 F 97.6 F Pulse Rate 99 H 107 H 94 H Respiratory Rate Blood Pressure 120/68 127/74 130/72 Pulse Oximetry 98 94 L 98 Intake & Output 12/30/17 12/31/17 12/31/17 18:59 06:59 18:59 Intake Total 480 / 480 480 / 480 Balance 480 / 480 480 / 480 Intake: Oral 480 / 480 480 / 480 Other: # Voids 1 Narrative: GENERAL: Well-nourished, well-developed patient in NAD. SKIN: Warm and dry. Right lower leg psoriasis scar noted. HEENT: Normocephalic. Atraumatic. Pupils equal and round. Mucous membranes pink and moist. NECK: Supple. Trachea midline. CARDIOVASCULAR: Regular rate and rhythm. No murmur appreciated. Left upper arm AV fistula with positive bruit and thrill. RESPIRATORY: No accessory muscle use. Clear to auscultation. Breath sounds equal bilaterally. GASTROINTESTINAL: Abdomen soft, non-tender, nondistended. Normoactive bowel sounds x4. MUSCULOSKELETAL: No obvious deformities. Extremities without clubbing, cyanosis , or edema. NEUROLOGICAL: Awake and alert. No obvious cranial nerve deficits. Motor grossly within normal limits. Moving all extremities spontaneously. Normal speech. PSYCHIATRIC: Flat affect. Results - Labs CBC & Chem 7: 12/29/17 07:21 12/29/17 07:21 Laboratory Results - last 24 hr 12/30/17 13:15 PT 10.6 INR 1.0 APTT 27.4 Assessment and Plan - Plan 57-year-old female with history of ESRD on HD, HTN, hypothyroidism, anemia, anxiety, depression, bipolar disorder, schizoaffective disorder, conversion disorder, admitted to psychiatry unit for depression with suicidal ideations. Hospitalists consulted for medical management. Depression/Suicidal Ideations: acute -continue management per psychiatry ESRD on HD: chronic. On HD TTS. -nephrology consulted, appreciate assistance - Renal and diabetic diet. -continue Renvela -monitor BMP Anemia: likely chronic anemia secondary to renal disease -hemoglobin stable at 12.9 -monitor UTI: UA positive for UTI -urine culture with E.coli -give Ceftin 250mg po bid, end date 01/04 Hypertension: chronic, BP controlled -continue patient's cozaar and norvasc -monitor BP, adjust antihypertensives as needed Hypothyroidism: patient is s/p thyroidectomy -No thyroid supplementation reported on home medication list. -TSH elevated, T4 within normal limits -Continue levothyroxine 50mcg daily -We will need follow-up TSH in 4-6 weeks. Diabetes mellitus, new diagnosis Hemoglobin A1C 5.8-->6.6 - No oral agents due to ESRD, Monitor accu-checks if needed initiate ISS - Renal and diabetic diet, patient already on statin. - Consult cosmetology educator due to new diagnosis All other chronic medical medical conditions stable, continue home medications as appropriate. DVT Prophylaxis: patient is ambulatory Discussed Condition With: Patient and RN
[2017-12-31] MEDS: lamoTRIgine 25 MG TABLET PO SCH ×2 (08:49→20:29)
[2017-12-31] MEDS: LORazepam 0.5 MG Tablet PO SCH ×2 (08:54→20:29)
[2017-12-31] MEDS: Lactobacillus Acidophilus/L. Spores Tablet PO SCH ×2 (08:56→20:30)
[2017-12-31] MEDS: amLODIPine 5 MG Tablet PO SCH (08:56)
[2017-12-31] MEDS: Senna/Docusate Sodium 8.6/50 MG Tablet PO SCH ×2 (08:58→20:30)
[2017-12-31] MEDS ORDERED: Sodium Chloride 0.9% 2 ML Flush PRN IV.FLUSH (16:17)
--- NOTE | 2017-12-31 18:00 | P.PNPSY ---
Subjective Remarks: Pt seen and discussed with staff. She has been cooperative with care and medications. She denies SI/HI.She remains depressed with flat affect. Staff report that she has been withdrawn and suspicious today. She did come out of room once today for a walk. No aggression or agitation. Mental Status Examination Appearance: Appropriate Consciousness: Alert Orientation: x4 Motor Activity: Other Speech: Unremarkable Language: Adequate Fund of Knowledge: Adequate Attention and Concentration: Adequate Memory: Unremarkable Mood: Sad Affect: Flat Thought Process & Associations: Intact Thought Content: Bizarre thinking, Thought blocking Hallucination Type: None Delusion Type: Bizarre, Paranoid Suicidal Ideation: Yes Suicidal Plan: No Suicidal Intention: No Homicidal Ideation: No Homicidal Plan: No Homicidal Intention: No Insight: Poor Judgment: Poor Assessment and Plan - Assessment (1) Bipolar depression Code(s): F31.30 - Bipolar disorder, current episode depressed, mild or moderate severity, unspecified Status: Acute - Plan Plan: Continue current tx plan. Discharge planning in progress. Justification for Continued Inpatient Stay: risk of decompensation
[2017-12-31] MEDS: Vitamin B Complex/Vit C/Folic Tablet PO SCH (20:30)
[2017-12-31] MEDS: Sodium Chloride 0.9% 2 ML Flush BID IV.FLUSH SCH (20:30)
[2018-01-01] MEDS: Levothyroxine 50 MCG Tablet PO SCH (05:58)
[2018-01-01] MEDS: amLODIPine 5 MG Tablet PO SCH (08:00)
[2018-01-01] MEDS: LORazepam 0.5 MG Tablet PO SCH ×2 (08:01→21:23)
[2018-01-01] MEDS: Lactobacillus Acidophilus/L. Spores Tablet PO SCH ×2 (08:02→21:24)
[2018-01-01] MEDS: lamoTRIgine 25 MG TABLET PO SCH ×2 (08:02→21:24)
[2018-01-01] MEDS: Senna/Docusate Sodium 8.6/50 MG Tablet PO SCH ×2 (08:02→21:23)
--- NOTE | 2018-01-01 10:26 | P.PN ---
Subjective Interval history: Follow-up visit for ESRD and diabetes mellitus. Nurses report any acute events overnight or this morning, blood sugars have been stable. Patient seen and examined resting in bed in no acute distress. Denies any fevers, chills, nausea , vomiting or diarrhea. Briefly discussed new diagnosis of diabetes as well as consult for casting machine control board operator. Physical Exam Vital signs: Vital Signs 12/31/17 13:21 12/31/17 14:40 12/31/17 20:00 Temperature 98.2 F Pulse Rate 98 H Respiratory Rate 17 Blood Pressure 116/78 Pulse Oximetry 98 98 98 01/01/18 05:13 01/01/18 09:12 Temperature 98.2 F Pulse Rate 94 H Respiratory Rate 16 Blood Pressure 135/68 Pulse Oximetry 94 L 94 L Intake & Output 12/31/17 01/01/18 01/01/18 18:59 06:59 18:59 Intake Total 1560 / 1560 480 / 480 240 / 240 Output Total Balance 1560 / 1560 479 / 479 240 / 240 Weight 82.6 kg Intake: Oral 1560 / 1560 480 / 480 240 / 240 Output: Urine Other: # Voids 3 1 Narrative: GENERAL: Well-nourished, well-developed patient in NAD. SKIN: Warm and dry. Right lower leg psoriasis scar noted. HEENT: Normocephalic. Atraumatic. Pupils equal and round. Mucous membranes pink and moist. NECK: Supple. Trachea midline. CARDIOVASCULAR: Regular rate and rhythm. No murmur appreciated. Left upper arm AV fistula with positive bruit and thrill. RESPIRATORY: No accessory muscle use. Clear to auscultation. Breath sounds equal bilaterally. GASTROINTESTINAL: Abdomen soft, non-tender, nondistended. Normoactive bowel sounds x4. MUSCULOSKELETAL: No obvious deformities. Extremities without clubbing, cyanosis , or edema. NEUROLOGICAL: Awake and alert. No obvious cranial nerve deficits. Motor grossly within normal limits. Moving all extremities spontaneously. Normal speech. PSYCHIATRIC: Flat affect. Results - Labs CBC & Chem 7: 12/29/17 07:21 12/29/17 07:21 Laboratory Results - last 24 hr 12/31/17 12/31/17 12/31/17 11:07 16:26 20:46 POC Glucose 106 124 H 152 H 01/01/18 06:00 POC Glucose 101 Assessment and Plan - Plan 57-year-old female with history of ESRD on HD, HTN, hypothyroidism, anemia, anxiety, depression, bipolar disorder, schizoaffective disorder, conversion disorder, admitted to psychiatry unit for depression with suicidal ideations. Hospitalists consulted for medical management. Depression/Suicidal Ideations: acute -continue management per psychiatry ESRD on HD: chronic. On HD TTS. -nephrology consulted, appreciate assistance - Renal and diabetic diet. -continue Renvela -monitor BMP Anemia: likely chronic anemia secondary to renal disease -hemoglobin stable at 12.9 -monitor UTI: UA positive for UTI -urine culture with E.coli -give Ceftin 250mg po bid, end date 01/04 Hypertension: chronic, BP controlled -continue patient's cozaar and norvasc -monitor BP, adjust antihypertensives as needed Hypothyroidism: patient is s/p thyroidectomy -No thyroid supplementation reported on home medication list. -TSH elevated, T4 within normal limits -Continue levothyroxine 50mcg daily -We will need follow-up TSH in 4-6 weeks. Diabetes mellitus, new diagnosis Hemoglobin A1C 5.8-->6.6 - No oral agents due to ESRD, Monitor accu-checks if needed initiate ISS - Renal and diabetic diet, patient already on statin. - Consult casting machine control board operator due to new diagnosis -Blood sugar so far stable. All other chronic medical medical conditions stable, continue home medications as appropriate. DVT Prophylaxis: patient is ambulatory Discussed Condition With: Patient and RN
--- NOTE | 2018-01-01 10:26 | P.PNNP ---
Subjective Interval history: patient exhibits flat affect, but appears to be improving. Ambulatory within her room. Physical Exam Vital signs: Vital Signs 12/31/17 13:21 12/31/17 14:40 12/31/17 20:00 Temperature 98.2 F Pulse Rate 98 H Respiratory Rate 17 Blood Pressure 116/78 Pulse Oximetry 98 98 98 01/01/18 05:13 01/01/18 09:12 Temperature 98.2 F Pulse Rate 94 H Respiratory Rate 16 Blood Pressure 135/68 Pulse Oximetry 94 L 94 L Intake & Output 12/31/17 01/01/18 01/01/18 18:59 06:59 18:59 Intake Total 1560 / 1560 480 / 480 240 / 240 Output Total Balance 1560 / 1560 479 / 479 240 / 240 Weight 82.6 kg Intake: Oral 1560 / 1560 480 / 480 240 / 240 Output: Urine Other: # Voids 3 1 Narrative: GENERAL: Well-nourished, well-developed patient in NAD. SKIN: Warm and dry. Right lower leg psoriasis scar noted. HEENT: Normocephalic. Atraumatic. Pupils equal and round. Mucous membranes pink and moist. NECK: Supple. Trachea midline. CARDIOVASCULAR: Regular rate and rhythm. No murmur appreciated. Left upper arm AV fistula with positive bruit and thrill. RESPIRATORY: No accessory muscle use. Clear to auscultation. Breath sounds equal bilaterally. GASTROINTESTINAL: Abdomen soft, non-tender, nondistended. Normoactive bowel sounds x4. MUSCULOSKELETAL: No obvious deformities. Extremities without clubbing, cyanosis , or edema. NEUROLOGICAL: Awake and alert. No obvious cranial nerve deficits. Motor grossly within normal limits. Moving all extremities spontaneously. Normal speech. PSYCHIATRIC: Flat affect. Assessment and Plan - Assessment (1) ESRD (end stage renal disease) on dialysis Code(s): N18.6 - End stage renal disease; Z99.2 - Dependence on renal dialysis Status: Acute Plan: We will continue dialysis TTS. Monitor fluid and electrolytes. (2) Metabolic bone disease Code(s): E88.9 - Metabolic disorder, unspecified; M90.80 - Osteopathy in diseases classified elsewhere, unspecified site Status: Acute Plan: She was on Auryxia at home, but [email or web address] does not carry it. Continue Renvela. Monitor phosphorus intermittently. (3) Anemia Code(s): D64.9 - Anemia, unspecified Status: Acute Plan: Hemoglobin stable. (4) HTN (hypertension) Code(s): I10 - Essential (primary) hypertension Status: Acute Plan: Well controlled. Will monitor. (5) Depression Code(s): F32.9 - Major depressive disorder, single episode, unspecified Status : Acute Plan: History of bipolar illness. Currently Sahni acted. (6) Hypothyroidism Code(s): E03.9 - Hypothyroidism, unspecified Status: Acute Plan: patient was on 150 mcg of Levothyroxine at home, I will increase the dose.
[2018-01-01] MEDS: Sodium Chloride 0.9% 2 ML Flush BID IV.FLUSH SCH ×3 (12:53→23:29)
--- NOTE | 2018-01-01 14:43 | P.TTN ---
- Patient Problems Problems: 1. Discharge planning 2. Medication compliance 3. Knowledge deficit 4. Lack of coping skills - Progress Toward Goals Provider Present: Dr. Tristin Castillo Provider Input: Patient still appears flat affect and depressed. Nurse(s) Present: Sakshi Nurse Input: New onset of diabetes. Psychiatric Counselors Present: Other Psychiatric Therapist Input: Patient appears a little brighter and more talkative although still minimal. Very soft spoken. Did shower and has clean hygiene Group Spec/RT/OT/MARSH Present: Jed Dupree, OT Group Spec/RT/OT/MARSH Input: Patient did go outside today which was a big step. - Documentation Teaching Recipient: Patient
--- NOTE | 2018-01-01 18:16 | P.PNPSY ---
Subjective Remarks: Patient seen for follow-up, chart reviewed. Discussion with nursing staff reported that patient attended group today was noted to be depressed at times when walking back from the activity, eating and drinking well, not anymore reactive with her affect. Patient was found lying in hospital bed B, cooperative. Noted to be more engaging and less thought blocking less psychomotor retardation. Patient reports having gone to groups which she states she enjoyed but reported feeling exhausted. Patient was encouraged to maintain physical activity on the unit such as ambulating on the unit which she agreed. Patient reports her mood has been "fine" but states she continues to report feeling depressed but no longer has any thoughts of suicide ideation. To have a delayed response when answering regarding suicidality. Review of Systems All other systems reviewed negative except as stated in HPI Mental Status Examination Appearance: Appropriate Consciousness: Alert Orientation: x4 Motor Activity: Other Speech: Unremarkable Language: Adequate Fund of Knowledge: Adequate Attention and Concentration: Adequate Memory: Unremarkable Mood: Sad Affect: Blunt (More reactive) Thought Process & Associations: Intact, Linear Thought Content: Thought blocking (Improved) Hallucination Type: None Delusion Type: Bizarre, Paranoid Suicidal Ideation: Yes (Denies today but unreliable to contract for safety at this time) Suicidal Plan: No Suicidal Intention: No Homicidal Ideation: No Homicidal Plan: No Homicidal Intention: No Insight: Poor Judgment: Poor Assessment and Plan - Assessment (1) Bipolar depression Code(s): F31.30 - Bipolar disorder, current episode depressed, mild or moderate severity, unspecified Status: Acute - Plan Plan: Patient with improvement of reactive affect, continue to report feeling depressed but appears to be lessening. Patient continues with vague suicidal ideation. Patient noted to be started to participate in groups today. We will request PT and OT eval. We will continue to titrate Abilify to 20 mg p.o. daily for mood stabilization. Continue present medications. Continue to monitor mood and behavior. Discharge planning in progress. Justification for Continued Inpatient Stay: At risk of further decompensation at lower level care.
[2018-01-01] MEDS: Vitamin B Complex/Vit C/Folic Tablet PO SCH (21:24)
[2018-01-02] MEDS: Levothyroxine 50 MCG Tablet PO SCH (06:11)
--- NOTE | 2018-01-02 08:37 | P.PN ---
Subjective Interval history: Follow-up visit for DM and ESRD. Nurse does not report any acute concerns or events. Patient seen and examined in her room sitting on side of the bed filling out her menu. She denies any fevers, chills, N/V/D, is asking questions regarding her diabetes. States "that is not good". We discussed diet as well as diabetic education by nurse. Physical Exam Vital signs: Vital Signs 01/01/18 09:12 01/01/18 18:01 01/02/18 05:22 Temperature 97.3 F L 98.1 F Pulse Rate 101 H 73 Respiratory Rate 15 16 Blood Pressure 112/55 L 132/67 Pulse Oximetry 94 L 95 94 L Intake & Output 01/01/18 01/02/18 01/02/18 18:59 06:59 18:59 Intake Total 1200 / 1200 460 / 460 Balance 1200 / 1200 460 / 460 Intake: Oral 1200 / 1200 460 / 460 Other: # Voids 1 Narrative: GENERAL: Well-nourished, well-developed patient in NAD. SKIN: Warm and dry. HEENT: Normocephalic. Atraumatic. Pupils equal and round. Mucous membranes pink and moist. NECK: Supple. Trachea midline. CARDIOVASCULAR: Regular rate and rhythm. No murmur appreciated. Left upper arm AV fistula with positive bruit and thrill. RESPIRATORY: No accessory muscle use. Clear to auscultation. Breath sounds equal bilaterally. GASTROINTESTINAL: Abdomen soft, non-tender, nondistended. Normoactive bowel sounds x4. MUSCULOSKELETAL: No obvious deformities. Extremities without clubbing, cyanosis , or edema. NEUROLOGICAL: Awake and alert. No obvious cranial nerve deficits. Motor grossly within normal limits. Moving all extremities spontaneously. Speech is clear but slow. PSYCHIATRIC: Flat affect. Results - Labs CBC & Chem 7: 12/29/17 07:21 12/29/17 07:21 Laboratory Results - last 24 hr 01/01/18 01/01/18 01/02/18 11: 20:27 07:14 POC Glucose 156 H 127 H 111 H Assessment and Plan - Plan 57-year-old female with history of ESRD on HD, HTN, hypothyroidism, anemia, anxiety, depression, bipolar disorder, schizoaffective disorder, conversion disorder, admitted to psychiatry unit for depression with suicidal ideations. Hospitalists consulted for medical management. Depression/Suicidal Ideations: acute -continue management per psychiatry ESRD on HD: chronic. On HD TTS. -nephrology consulted, appreciate assistance - Renal and diabetic diet. -continue Renvela -monitor BMP Anemia: likely chronic anemia secondary to renal disease -hemoglobin stable at 12.9 -monitor UTI: UA positive for UTI -urine culture with E.coli -give Ceftin 250mg po bid, end date 01/04 Hypertension: chronic, BP controlled -continue patient's cozaar and norvasc -BP stable on current meds. Hypothyroidism: patient is s/p thyroidectomy -No thyroid supplementation reported on home medication list. -TSH elevated, T4 within normal limits -Continue levothyroxine 50mcg daily -We will need follow-up TSH in 4-6 weeks. Diabetes mellitus, new diagnosis Hemoglobin A1C 5.8-->6.6 - No oral agents due to ESRD, Monitor accu-checks ISS - Renal and diabetic diet, patient already on statin. - Consult rn diabetes educator due to new diagnosis -Blood sugar so far stable. All other chronic medical medical conditions stable, continue home medications as appropriate. DVT Prophylaxis: patient is ambulatory [facility] will sign off, please reconsult if needed. Thank you. Discussed Condition With: Patient, RN and Dr. Castillo.
[2018-01-02] MEDS ORDERED: Dextrose 50% in Water 50 ML Vial IV.PUSH PRN (08:38)
--- NOTE | 2018-01-02 08:51 | P.PNPSY ---
Subjective Remarks: Feels slightly better today, plans on calling a friend later. Patient was found awake in bed selecting meals for the following day. She is speaking more than yesterday and even left her room after our encounter. She appears to have made improvements since yesterday. Current Active Problems Problem Status Onset Bipolar depression Acute Depression Acute Atherosclerotic heart disease Acute Metabolic bone disease Acute Hypothyroidism Acute Review of Systems All other systems reviewed negative except as stated in HPI Constitutional: Reports increased appetite Psychiatric: Denies seeing things others do not see, Denies sensing things others do not sense, Denies thoughts of hurting/killing others Mental Status Examination Appearance: Appropriate Consciousness: Alert Orientation: x4 Motor Activity: Other Speech: Unremarkable, Slow, Other Language: Adequate Fund of Knowledge: Adequate Attention and Concentration: Adequate Memory: Unremarkable Mood: Sad Affect: Flat, Blunt (More reactive) Thought Process & Associations: Intact, Linear Thought Content: Thought blocking (Improved) Hallucination Type: None Delusion Type: Bizarre, Paranoid Suicidal Ideation: Yes (Denies today but unreliable to contract for safety at this time) Suicidal Plan: No Suicidal Intention: No Homicidal Ideation: No Homicidal Plan: No Homicidal Intention: No Insight: Poor Judgment: Poor Assessment and Plan - Assessment (1) Bipolar depression Code(s): F31.30 - Bipolar disorder, current episode depressed, mild or moderate severity, unspecified Status: Acute - Plan Plan: Patient with improvement of reactive affect, continue to report feeling depressed but appears to be lessening. Patient continues with vague suicidal ideation. Patient noted to be started to participate in groups today. We will request PT and OT eval. We will continue to titrate Abilify to 20 mg p.o. daily for mood stabilization. Continue present medications. Continue to monitor mood and behavior. Discharge planning in progress.
--- NOTE | 2018-01-02 09:23 | P.PNNP ---
Subjective Interval history: patient is stable. She thinks she has not improved, but according to notes, she is not suicidal at this point. Continues to have a flat affect. To have dialysis today. Physical Exam Vital signs: Vital Signs 01/01/18 18:01 01/02/18 05:22 Temperature 97.3 F L 98.1 F Pulse Rate 101 H 73 Respiratory Rate 15 16 Blood Pressure 112/55 L 132/67 Pulse Oximetry 95 94 L Intake & Output 01/01/18 01/02/18 01/02/18 18:59 06:59 18:59 Intake Total 1200 / 1200 460 / 460 Balance 1200 / 1200 460 / 460 Intake: Oral 1200 / 1200 460 / 460 Other: # Voids 1 - Constitutional no acute distress - Routine HEENT Exam Head: Present: normocephalic, atraumatic Eye: Present: EOMI, PERRL - Routine Neck Exam Present: supple, JVD - Routine Respiratory Exam Present: CTA bilaterally - Routine Cardiovascular Exam Present: RRR, S1, S2 - Routine Abdominal Exam Present: soft, normoactive bowel sounds - Routine Extremities Exam Present: AV fistula Assessment and Plan - Assessment (1) ESRD (end stage renal disease) on dialysis Code(s): N18.6 - End stage renal disease; Z99.2 - Dependence on renal dialysis Status: Acute Plan: We will continue dialysis TTS. Monitor fluid and electrolytes. (2) Metabolic bone disease Code(s): E88.9 - Metabolic disorder, unspecified; M90.80 - Osteopathy in diseases classified elsewhere, unspecified site Status: Acute Plan: Continue Renvela. Monitor phosphorus intermittently. (3) Anemia Code(s): D64.9 - Anemia, unspecified Status: Acute Plan: Hemoglobin stable. (4) HTN (hypertension) Code(s): I10 - Essential (primary) hypertension Status: Acute Plan: Well controlled. Will monitor. (5) Depression Code(s): F32.9 - Major depressive disorder, single episode, unspecified Status : Acute Plan: History of bipolar illness. Currently Sahni acted. (6) Hypothyroidism Code(s): E03.9 - Hypothyroidism, unspecified Status: Acute Plan: Continue Levothyroxine.
[2018-01-02] MEDS: Lactobacillus Acidophilus/L. Spores Tablet PO SCH ×2 (13:59→20:06)
[2018-01-02] MEDS: Senna/Docusate Sodium 8.6/50 MG Tablet PO SCH ×2 (14:01→20:06)
[2018-01-02] MEDS: lamoTRIgine 25 MG TABLET PO SCH ×2 (14:01→20:06)
[2018-01-02] MEDS: LORazepam 0.5 MG Tablet PO SCH ×2 (14:01→20:06)
[2018-01-02] MEDS: amLODIPine 5 MG Tablet PO SCH (14:03)
[2018-01-02] MEDS: Sodium Chloride 0.9% 2 ML Flush BID IV.FLUSH SCH ×2 (14:03→20:06)
[2018-01-02] MEDS: Insulin NovoLOG Aspart Correctional Sugar Inj SQ SCH ×3 (14:29→22:10)
--- NOTE | 2018-01-02 15:24 | P.PNPAL ---
Reason for Visit Reason for visit: a. To assist with evaluation and management of symptoms including: Depression. b. To assist medical decision maker(s) with: better understanding of current medical conditions; weighing benefits/burdens of medical treatment options; making medical treatment decisions. Subjective Subjective/Interval History: Patient seen during hemodialysis. She was resting in bed in no acute distress. Flat affect, denies any pain, shortness of breath, nausea vomiting or abdominal discomfort. Patient alert and oriented x self, place and situation. Endorsing feeling depressed and sad. Inquired as to reason for sadness, patient verbalized "I do not know". Patient reports that her appetite has remained poor, reported that she does not like "hospital food". Patient remains afebrile, stable hemodynamically. No acute events overnight. Nephrology following for end-stage renal hemodialysis dependent. Telephone conversation with brother Shamar. Medical update provided, reviewed current plan of care. Brother reports that after further consideration, he has elected to honor patient's wishes by changing her CODE STATUS to DNR/DNI. Patient has signed community DNR at home. Goal of treatment remain unchanged, goal is for patient to return to [facility] for independent living and to re- enroll into hospice services with [facility]. Brother Shamar asking to speak with case briefer/psych therapist, spoke with Maria E Henry to discuss patient's case. Advance Directives Living Will: Never completed Health Care Surrogate: Never completed Durable Power of Electronic Publications Specialist: Never completed Objective Vital Signs: Vital Signs 01/01/18 18:01 01/02/18 05:22 Temperature 97.3 F L 98.1 F Pulse Rate 101 H 73 Respiratory Rate 15 16 Blood Pressure 112/55 L 132/67 Pulse Oximetry 95 94 L Intake & Output 01/01/18 01/02/18 01/02/18 18:59 06:59 18:59 Intake Total 1200 / 1200 460 / 460 Output Total 1999 Balance 1200 / 1200 460 / 460 -1999 Intake: Oral 1200 / 1200 460 / 460 Output: Hemodialysis Amount 1999 Other: # Voids 1 Physical Exam: CONSTITUTIONAL/GENERAL: This is an adequately nourished patient, in no apparent distress. TUBES/LINES/DRAINS: PIV. SKIN: Pale, dry skin. No jaundice, rashes, or lesions. No wounds seen anteriorly. Skin temperature appropriate. Not diaphoretic. HEAD: Atraumatic. Normocephalic. EYES: Pupils equal and round and reactive. Extraocular motions intact. No scleral icterus. No injection or drainage. Fundi not examined. ENT: Hearing grossly normal. Nose without bleeding or purulent drainage. Moist oral mucosa. NECK: Trachea midline. Supple, nontender. CARDIOVASCULAR: Regular rate and rhythm. Peripheral pulses symmetric. RESPIRATORY/CHEST: Symmetric, unlabored respirations. Clear to auscultation. Breath sounds equal bilaterally. No wheezes, rales, or rhonchi. GASTROINTESTINAL: Abdomen soft, non-tender, nondistended. No guarding. Bowel sounds present. GENITOURINARY: Without palpable bladder distension. Gonzalez catheter in place. MUSCULOSKELETAL: Extremities without clubbing, cyanosis, or edema. No mottling or clubbing. LYMPHATICS: No palpable cervical or supraclavicular adenopathy. NEUROLOGICAL: Awake and alert x self, place and situation. Motor and sensory grossly within normal limits. Follows commands. Moves all extremities. Verbal, able to communicate needs. PSYCHIATRIC: Flat affect. Sad. Diagnostic Tests Laboratory: Laboratory Results - last 72 hr 12/31/17 12/31/17 12/31/17 11:07 16:26 20:46 POC Glucose 106 124 H 152 H 01/01/18 01/01/18 01/01/18 06:00 11:18 20:27 POC Glucose 101 156 H 127 H 01/02/18 01/02/18 07:14 12:21 POC Glucose 111 H 113 H Result Diagrams: 12/29/17 07:21 12/29/17 07:21 Assessment and Plan - Disease Oriented Problem List (1) Depression (2) Atherosclerotic heart disease (3) Bipolar depression (4) Schizoaffective disorder (5) ESRD (end stage renal disease) on dialysis Pertinent Non-Medical Issues: Psychosocial: Patient resides at independent living facility for the past 2 years. She is , no biological children. Disabled secondary to end- stage renal/psych. 2 siblings. 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 Spiritual: No sabianist affiliations reported. Legal: No advance directives completed. Ethical issues impacting care: No ethical issues identified. Important Contacts: Brother Shamar Vargas Prognosis: Ms. Vargas is a 57-year-old female with a medical history significant for end- stage renal disease on hemodialysis bipolar disorder on lithium, schizoaffective disorder, severe depression and anxiety, hypertension, hypothyroidism, and anemia. Patient presented to ED under [place] act by police department secondary to suicidal thoughts. Patient with a well-known psychiatric history with repeated ED visits and hospitalizations. Patient at high risk for further decompensation, continued decline and . Does not appear hospice appropriate at this time given aggressive goals. Code Status: No Code DNR Plan: * CODE STATUS: 01/02: DNR/DNI. Signed community DNR at home. * HEALTHCARE DECISION-MAKING: Patient with limited participation in medical decision making given poor insight and judgment. Psych following in the setting of bipolar disorder, schizoaffective disorder and severe depression. As per brother Shamar, no advanced directives have been completed. Patient is with no biological children. Parents are . As per [place] statue, healthcare proxy decision making falls to the majority of patient's siblings for which she has 2. Sister Marcella Vazquez deferred participation in medical decision making, therefore, brother Shamar Vargas is proxy decision maker. * GOALS OF CARE: 01/02: Patient's brother electing full aggressive management short of NO resuscitation. Goal is for patient to return to [facility] for independent living and to re-enroll into hospice services with [facility]. * * SYMPTOMS: =Depression: Patient with a significant history of bipolar disorder on lithium and schizoaffective disorder, depression. Well-known psychiatric history were repeated ED visits and hospitalizations. Depression management deferred to psych. * Hospice: Patient currently under hospice services with [facility] as since April 2016 for a diagnosis of atherosclerotic heart disease/CHF. No records on cardiac function located; however, patient independent with ADLs and not oxygen dependent. [place] heart failure classification II, PPS 60%. Given physical assessment and review of records, patient does not appear end-of-life/prognosis of 6 months or less as per hospice CMS guidelines for heart disease. However, she would qualify for hospice benefits in the setting of end-stage renal condition should she/family elects to discontinue hemodialysis (NOT current goal of care). * Case discussed with psych therapist Maria E Henry. * Palliative care will continue to follow-up as needed for further clarifications of goals of care as patient's clinical course continues to evolve. Time Spent Total Floor Time (mins): 34 (Total time to include review of medical records, physical exam, goals of care conversation with patient's brother Shamar, case discussion with psych therapist.) >50% Time in Counseling or Coordination of Care: Yes (Total visit time = 34 minutes; > 50% spent counseling/coordinating care) Attestation Attestation: To help prompt me to consider important information that might be impacting today's encounter and assessment, information from prior notes written by myself or my colleagues may have been "brought forward" into today's note. My signature on this note, however, is an attestation that I personally performed the exam, history, and/or decision-making noted today, and, unless otherwise indicated, the interactions with patient, family, and staff as well as the review of records all occurred today. I also attest that the listed assessment and stated plan reflect my best clinical judgment today based on the combination of historical information, prior notes, and today's exam/ interactions. When time spent is documented, it refers only to time spent today by the signer, or if indicated, combined time spent today by collaborating physician/nurse practitioner.
--- NOTE | 2018-01-02 16:24 | P.PNPSY ---
Subjective Chief Complaint: Feels slightly better today, plans on calling a friend later. Remarks: Patient seen for follow-up, chart reviewed. Discussion with nursing staff reported that patient medically cleared noted to be more verbal and engaging interview more with staff, had walked around the unit and more physically active. Patient was found sitting in hospital bed filling out a menu for lunch but eating breakfast. Patient reports sleeping well less evening states her mood has been "okay" but continues report having poor appetite due to not liking the food in the hospital. She continues report feeling depressed although denying any suicide ideations at this time but unreliable to contract for safety. Patient denying any perceptional services. She continues to have psychomotor retardation but lessening, as well as thought blocking continues to be present but also decreasing. Discussion as to having patient start antidepressant was reviewed with patient which she agreed and consented this to begin. Review of Systems All other systems reviewed negative except as stated in HPI Mental Status Examination Appearance: Appropriate Consciousness: Alert Orientation: x4 Motor Activity: Other Speech: Unremarkable, Slow, Other Language: Adequate Fund of Knowledge: Adequate Attention and Concentration: Adequate Memory: Unremarkable Mood: Sad Affect: Blunt (More reactive) Thought Process & Associations: Intact, Linear Thought Content: Thought blocking (Lessening) Hallucination Type: None Delusion Type: Bizarre, Paranoid Suicidal Ideation: Yes (Denies today but unreliable to contract for safety at this time) Suicidal Plan: No Suicidal Intention: No Homicidal Ideation: No Homicidal Plan: No Homicidal Intention: No Insight: Poor Judgment: Poor Assessment and Plan - Assessment (1) Bipolar depression Code(s): F31.30 - Bipolar disorder, current episode depressed, mild or moderate severity, unspecified Status: Acute - Plan Plan: Patient continues to report feeling depressed along with noted psychomotor retardation but is lessening and patient now found to be more reactive and affect and engaging more in ADLs. We will start Effexor 37.5 mg daily for depression, will continue rest of medications. We will continue to monitor mood and behavior. Continue recommendations as per nephrology and hospitalist team, input appreciated. Patient to continue dialysis as scheduled. Discharge planning in progress. Justification for Continued Inpatient Stay: At risk of further decompensation at lower level care.
[2018-01-02] MEDS: Venlafaxine XR 37.5 MG Capsule PO SCH (16:54)
[2018-01-02] MEDS: Vitamin B Complex/Vit C/Folic Tablet PO SCH (20:06)
[2018-01-03] MEDS: Levothyroxine 50 MCG Tablet PO SCH (06:05)
[2018-01-03] MEDS: Insulin NovoLOG Aspart Correctional Sugar Inj SQ SCH ×4 (07:43→21:18)
[2018-01-03] MEDS: Senna/Docusate Sodium 8.6/50 MG Tablet PO SCH ×2 (07:59→21:18)
[2018-01-03] MEDS: Lactobacillus Acidophilus/L. Spores Tablet PO SCH ×2 (07:59→21:18)
[2018-01-03] MEDS: Venlafaxine XR 37.5 MG Capsule PO SCH (07:59)
[2018-01-03] MEDS: LORazepam 0.5 MG Tablet PO SCH ×2 (07:59→21:18)
[2018-01-03] MEDS: amLODIPine 5 MG Tablet PO SCH (07:59)
[2018-01-03] MEDS: Sodium Chloride 0.9% 2 ML Flush BID IV.FLUSH SCH ×2 (08:12→21:18)
--- NOTE | 2018-01-03 08:45 | P.PNIM ---
Subjective Interval history: F/U Htn, Uti, DM, ESRD Patient seen in examined sitting at the bedside, going to dialysis. Patient stated does not want to go to Dialysis, pt encouraged to go Nurse reported patient refused blood drawn today Patient stated she sleep well, eat well Denies any pain, SOB, headache, dizziness,nausea, vomiting, diarrhea or constipation. Denies any fever or chills Physical Exam Vital signs: Vital Signs 01/02/18 17:55 01/03/18 06:15 Temperature 98.2 F 98.0 F Pulse Rate 99 H 88 Respiratory Rate 18 19 Blood Pressure 122/67 130/72 Pulse Oximetry 95 93 L Intake & Output 01/02/18 01/03/18 01/03/18 18:59 06:59 18:59 Intake Total 960 / 960 480 / 480 Output Total 1999 Balance -1040 / -1040 480 / 480 Intake: Oral 960 / 960 480 / 480 Output: Hemodialysis Amount 1999 Other: # Voids 3 2 Narrative: GENERAL: Well developed, Well-nourished, Caucasean female in no acute distress. SKIN: Warm and dry. Right lower extremity skin rash HEENT: Normocephalic. Atraumatic. Pupils equal and round. Mucous membranes pink and moist. NECK: Supple. Trachea midline. CARDIOVASCULAR: Regular rate and rhythm. No murmur appreciated. Left upper arm AV fistula with positive bruit and thrill. RESPIRATORY: No accessory muscle use. Clear to auscultation. Breath sounds equal bilaterally. GASTROINTESTINAL: Abdomen obese, soft, non-tender, nondistended. Normoactive bowel sounds x4. MUSCULOSKELETAL: No obvious deformities. Extremities without clubbing, cyanosis , or edema. NEUROLOGICAL: Awake and alert. No obvious cranial nerve deficits. Motor grossly within normal limits. Moving all extremities spontaneously. Speech is clear but slow. PSYCHIATRIC: Flat affect. Results - Labs CBC & Chem 7: 12/29/17 07:21 12/29/17 07:21 Laboratory Results - last 24 hr 01/02/18 01/02/18 01/03/18 12:21 16:31 07:18 POC Glucose 113 H 120 H 107 Assessment and Plan - Plan 57-year-old female with history of ESRD on HD, HTN, hypothyroidism, anemia, anxiety, depression, bipolar disorder, schizoaffective disorder, conversion disorder, admitted to psychiatry unit for depression with suicidal ideations. Hospitalists consulted for medical management. ESRD on HD: chronic. On HD TTS. -nephrology consulted, appreciate assistance - Renal and diabetic diet. -continue Renvela -monitor BMP, patient refused blood drawn this morning again -pls obtain lab results from Dialysis Anemia likely chronic anemia secondary to renal disease -hemoglobin stable at 12.9 -monitor CBC UTI UA positive for UTI -urine culture with E.coli -give Ceftin 250mg po bid, end date 01/04 -monitor signs and symptoms Hypertension - chronic, BP controlled -continue Cozaar and Norvasc -monitor BP, adjust medications as needed Hypothyroidism - s/p thyroidectomy -No thyroid supplementation reported on home medication list. -TSH elevated, T4 within normal limits -Continue levothyroxine 50mcg daily -We will need follow-up TSH in 4-6 weeks. Diabetes mellitus, new diagnosis Hemoglobin A1C 5.8-->6.6 - No oral agents due to ESRD, Monitor accu-checks ISS - Renal and diabetic diet, patient already on statin. - Consult life educator due to new diagnosis -Blood sugar so far stable. Depression/Suicidal Ideations, acute Bipolar Disorder/Schizoaffective DO -continue management per psychiatry DVT Prophylaxis: patient is ambulatory Code Status: DNR Discussed Condition With: patient and Nurse
--- NOTE | 2018-01-03 11:25 | P.PNNP ---
Subjective Interval history: Seen during hemodialysis, tolerating well. No acute events overnight. <Amy Leon - Last Filed: 01/03/18 11:17> Physical Exam Vital signs: Vital Signs 01/02/18 17:55 01/03/18 06:15 Temperature 98.2 F 98.0 F Pulse Rate 99 H 88 Respiratory Rate 18 19 Blood Pressure 122/67 130/72 Pulse Oximetry 95 93 L Intake & Output 01/02/18 01/03/18 01/03/18 18:59 06:59 18:59 Intake Total 960 / 960 480 / 480 240 / 240 Output Total 1999 Balance -1040 / -1040 480 / 480 240 / 240 Intake: Oral 960 / 960 480 / 480 240 / 240 Output: Hemodialysis Amount 1999 Other: # Voids 3 2 Narrative: GENERAL: Well developed. Alert and oriented. NAD SKIN: Warm and dry. Right lower extremity skin rash NECK: Supple. Trachea midline. No JVD. CARDIOVASCULAR: Regular rate and rhythm. No murmur appreciated. Left upper arm AV fistula with positive bruit and thrill. RESPIRATORY: No accessory muscle use. Clear to auscultation. Breath sounds equal bilaterally. GASTROINTESTINAL: Abdomen obese, soft, non-tender, nondistended. Normoactive bowel sounds x4. MUSCULOSKELETAL: No obvious deformities. Extremities without edema. PSYCHIATRIC: Flat affect. <Amy Leon - Last Filed: 01/03/18 11:17> Vital signs: Vital Signs 01/04/18 06:25 01/04/18 18:00 Temperature 97.7 F 97.6 F Pulse Rate 87 90 Respiratory Rate 16 18 Blood Pressure 116/67 Pulse Oximetry 97 Intake & Output 01/04/18 01/04/18 01/05/18 06:59 18:59 06:59 Intake Total 720 / 720 1440 / 1440 Balance 720 / 720 1440 / 1440 Intake: Oral 720 / 720 1440 / 1440 Other: # Voids 1 3 Date of Last Bowel Movement 01/02/18 <Asya Miramontes - Last Filed: 01/04/18 21:00> Assessment and Plan - Assessment (1) ESRD (end stage renal disease) on dialysis Code(s): N18.6 - End stage renal disease; Z99.2 - Dependence on renal dialysis Status: Acute Plan: We will continue dialysis TTS. Monitor fluid and electrolytes. HD done today as it is holiday tomorrow, 2 K bath, tolerating well (2) Metabolic bone disease Code(s): E88.9 - Metabolic disorder, unspecified; M90.80 - Osteopathy in diseases classified elsewhere, unspecified site Status: Acute Plan: Continue Renvela. Monitor phosphorus intermittently. (3) Anemia Code(s): D64.9 - Anemia, unspecified Status: Acute Plan: Hemoglobin stable. (4) HTN (hypertension) Code(s): I10 - Essential (primary) hypertension Status: Acute Plan: Well controlled. Will monitor. (5) Depression Code(s): F32.9 - Major depressive disorder, single episode, unspecified Status : Acute Plan: History of bipolar illness. Currently Sahni acted. (6) Hypothyroidism Code(s): E03.9 - Hypothyroidism, unspecified Status: Acute Plan: Continue Levothyroxine. <Amy Leon - Last Filed: 01/03/18 11:17> - Assessment (1) ESRD (end stage renal disease) on dialysis Code(s): N18.6 - End stage renal disease; Z99.2 - Dependence on renal dialysis Status: Acute Plan: Patient seen and examined, agree with above. Seen after HD, no fluid overload. Continue HD TTS after today, will be next on Sat. (2) Metabolic bone disease Code(s): E88.9 - Metabolic disorder, unspecified; M90.80 - Osteopathy in diseases classified elsewhere, unspecified site Status: Acute (3) Anemia Code(s): D64.9 - Anemia, unspecified Status: Acute (4) HTN (hypertension) Code(s): I10 - Essential (primary) hypertension Status: Acute (5) Depression Code(s): F32.9 - Major depressive disorder, single episode, unspecified Status : Acute (6) Hypothyroidism Code(s): E03.9 - Hypothyroidism, unspecified Status: Acute <Asya Miramontes - Last Filed: 01/04/18 21:00>
[2018-01-03] MEDS: lamoTRIgine 25 MG TABLET PO SCH ×2 (12:23→21:18)
[2018-01-03 15:16] LABS: Calcium 10.7 mg/dL (8.5-10.1); Carbon Dioxide 30.7 meq/L (21.0-32.0); Potassium 3.8 meq/L (3.5-5.1)
--- NOTE | 2018-01-03 16:07 | P.PNPSY ---
Subjective Chief Complaint: Feels slightly better today, plans on calling a friend later. Remarks: Patient seen for follow-up, chart reviewed. Discussion with nursing staff reported that patient doing better, slept well, also appetite is improving. Patient was found by hospital bed after having returned from dialysis. Patient states she is feeling somewhat tired. Patient noted with more reactive affect smiling at times during interview continues reporting feeling depressed still noted with slight thought blocking, patient reported having had recent suicidal ideations although noted to pause prior to answering this question continues to be unreliable to contract for safety at this time. Patient did report having some weakness upon ambulation. Patient denies any perceptual disturbances or delusions at this time. Review of Systems All other systems reviewed negative except as stated in HPI Mental Status Examination Appearance: Appropriate Consciousness: Alert Orientation: x4 Motor Activity: Other Speech: Unremarkable, Slow, Other Language: Adequate Fund of Knowledge: Adequate Attention and Concentration: Adequate Memory: Unremarkable Mood: Sad Affect: Blunt (More reactive, smiles at times) Thought Process & Associations: Intact, Linear Thought Content: Thought blocking (Lessening) Hallucination Type: None Delusion Type: Bizarre, Paranoid Suicidal Ideation: Yes (Denies today but unreliable to contract for safety at this time) Suicidal Plan: No Suicidal Intention: No Homicidal Ideation: No Homicidal Plan: No Homicidal Intention: No Insight: Poor Judgment: Poor Assessment and Plan - Assessment (1) Bipolar depression Code(s): F31.30 - Bipolar disorder, current episode depressed, mild or moderate severity, unspecified Status: Acute - Plan Plan: Patient currently continues with depressed mood although noted to be lessening slowly, denying any suicidal ideations today but continue to be unreliable to contract for safety as patient's affect continued to be noted to be blunted and dysphoric but was able to smile at times. We will continue current treatment. We will continue to monitor mood and behavior. Discharge planning in progress. Justification for Continued Inpatient Stay: At risk of further decompensation at lower level care.
[2018-01-03] MEDS: Vitamin B Complex/Vit C/Folic Tablet PO SCH (21:18)
[2018-01-04] MEDS: Levothyroxine 50 MCG Tablet PO SCH (06:07)
--- NOTE | 2018-01-04 08:09 | P.PNPSY ---
Subjective Chief Complaint: Feels slightly better today, plans on calling a friend later. Remarks: Patient seen for follow-up, chart reviewed. Discussion with nursing staff reported that patient worried about having a new roommate as her former roommate was moved to a different unit, slept well last night. Patient was found lying hospital bed stating that she had difficulty sleeping last evening and contrary to nursing report. Patient states "I do not feel good" stating that she feels weak. Patient state her mood has been "okay", continues report with depressed mood stating "I still feel depressed" but denying any suicide ideations. Patient continues to have sad and dysphoric affect but appears to the patient is attempting to recover physically and attending to engage more in activities. There is still noted psychomotor retardation continues with poor appetite but level of activity slowly is improving. Review of Systems All other systems reviewed negative except as stated in HPI Mental Status Examination Appearance: Appropriate Consciousness: Alert Orientation: x4 Motor Activity: Other Speech: Unremarkable, Slow, Other Language: Adequate Fund of Knowledge: Adequate Attention and Concentration: Adequate Memory: Unremarkable Mood: Sad, Other ("Still depressed") Affect: Blunt (More reactive, smiles at times) Thought Process & Associations: Intact, Linear Thought Content: Thought blocking (Lessening) Hallucination Type: None Delusion Type: Paranoid (Continue to be present) Suicidal Ideation: Yes (Denies today but unreliable to contract for safety at this time) Suicidal Plan: No Suicidal Intention: No Homicidal Ideation: No Homicidal Plan: No Homicidal Intention: No Insight: Poor Judgment: Poor Assessment and Plan - Assessment (1) Bipolar depression Code(s): F31.30 - Bipolar disorder, current episode depressed, mild or moderate severity, unspecified Status: Acute - Plan Plan: Patient this time continues to endorse depressed mood, although denying suicide ideations does have sense of ambiguity when answering this question. Patient with lessening of psychomotor retardation and is noted to have a and attempting to engage more during interview as well as activity on the unit. We will continue current treatment. We will continue to monitor mood and behavior. Discharge planning in progress. Justification for Continued Inpatient Stay: At risk of further decompensation at lower level care.
[2018-01-04] MEDS: Senna/Docusate Sodium 8.6/50 MG Tablet PO SCH ×2 (08:13→20:28)
[2018-01-04] MEDS: Lactobacillus Acidophilus/L. Spores Tablet PO SCH ×2 (08:13→20:28)
[2018-01-04] MEDS: amLODIPine 5 MG Tablet PO SCH (08:13)
[2018-01-04] MEDS: lamoTRIgine 25 MG TABLET PO SCH ×2 (08:13→20:28)
[2018-01-04] MEDS: LORazepam 0.5 MG Tablet PO SCH ×2 (08:13→20:29)
[2018-01-04] MEDS: Venlafaxine XR 37.5 MG Capsule PO SCH (08:13)
[2018-01-04] MEDS: Insulin NovoLOG Aspart Correctional Sugar Inj SQ SCH ×3 (09:06→16:42)
[2018-01-04] MEDS: Sodium Chloride 0.9% 2 ML Flush BID IV.FLUSH SCH ×2 (09:07→21:12)
--- NOTE | 2018-01-04 09:34 | P.PNIM ---
Subjective Interval history: Follow-up hypertension, UTI, diabetes mellitus type 2, ESRD on HD Monday and Monday. Patient seen and examined sitting on her bed, denies any headache or dizziness, denies any pain chest pain or shortness of breath. Patient denies any abdominal pain, nausea, or vomiting. Patient complaint of constipation stated did not have stool for a few days. Patient states that she does not want to eat her breakfast. Nurse denies any patient's acute complaint. Physical Exam Vital signs: Vital Signs 01/03/18 18:00 01/04/18 06:25 Temperature 97.7 F 97.7 F Pulse Rate 94 H 87 Respiratory Rate 16 16 Blood Pressure 127/72 Pulse Oximetry 94 L Intake & Output 01/03/18 01/04/18 01/04/18 18:59 06:59 18:59 Intake Total 720 / 720 720 / 720 Output Total 1999 Balance -1280 / -1280 720 / 720 Intake: Oral 720 / 720 720 / 720 Output: Hemodialysis Amount 1999 Other: # Voids 1 Date of Last Bowel Movement 01/02/18 Narrative: GENERAL: Well developed, Well-nourished, female in no acute distress. SKIN: Warm and dry. Bilateral upper arm, and right lower extremity skin rash HEENT: Normocephalic. Atraumatic. Pupils equal and round. Mucous membranes pink and moist. NECK: Supple. Trachea midline. CARDIOVASCULAR: Regular rate and rhythm. No murmur appreciated. Left upper arm AV fistula with positive bruit and thrill. RESPIRATORY: No accessory muscle use. Clear to auscultation. Breath sounds equal bilaterally. GASTROINTESTINAL: Abdomen obese, soft, non-tender, nondistended. Normoactive bowel sounds x4. MUSCULOSKELETAL: No obvious deformities. Extremities without clubbing, cyanosis , or edema. NEUROLOGICAL: Awake and alert. No obvious cranial nerve deficits. Motor grossly within normal limits. Moving all extremities spontaneously. Speech is clear but slow. PSYCHIATRIC: Flat affect. Results - Labs CBC & Chem 7: 12/29/17 07:21 01/03/18 14:37 Laboratory Results - last 24 hr 01/03/18 01/03/18 01/04/18 14:37 21:12 07:47 Sodium 136 Potassium 3.8 Chloride 93 L Carbon Dioxide 30.7 Anion Gap 12 BUN 38 H Creatinine 6.61 H Estimated GFR 6 L POC Glucose 114 H 112 H Random Glucose 144 H Calcium 10.7 H Assessment and Plan - Assessment (1) Acute psychosis Code(s): F23 - Brief psychotic disorder Status: Acute (2) ESRD (end stage renal disease) on dialysis Code(s): N18.6 - End stage renal disease; Z99.2 - Dependence on renal dialysis Status: Acute (3) Anemia Code(s): D64.9 - Anemia, unspecified Status: Acute (4) HTN (hypertension) Code(s): I10 - Essential (primary) hypertension Status: Acute (5) Bipolar depression Code(s): F31.30 - Bipolar disorder, current episode depressed, mild or moderate severity, unspecified Status: Acute (6) Depression Code(s): F32.9 - Major depressive disorder, single episode, unspecified Status : Acute - Plan 57-year-old female with history of ESRD on HD, HTN, hypothyroidism, anemia, anxiety, depression, bipolar disorder, schizoaffective disorder, conversion disorder, admitted to psychiatry unit for depression with suicidal ideations. Hospitalists consulted for medical management. ESRD on HD, chronic -On hemodialysis T- -Nephrology following, appreciate assistance - Renal and diabetic diet. -continue Renvela -monitor BMP Anemia likely chronic anemia secondary to renal disease -hemoglobin stable at 12.9 -monitor CBC UTI UA positive for UTI -urine culture with E.coli -Continue Ceftin 250mg po bid, end date 01/04 -monitor signs and symptoms Hypertension - chronic, BP controlled -continue Cozaar and Norvasc -monitor BP, adjust medications as needed Hypothyroidism - s/p thyroidectomy -No thyroid supplementation reported on home medication list. -TSH elevated, T4 within normal limits -Continue levothyroxine 50mcg daily -We will need follow-up TSH in 4-6 weeks. Diabetes mellitus, new diagnosis Hemoglobin A1C 5.8-->6.6 - No oral agents due to ESRD - Monitor accu-checks with ISS - Renal and diabetic diet - Consult hydrogeology professor due to new diagnosis -Blood sugar fair controlled in the low 100s Depression/Suicidal Ideations, acute Bipolar Disorder/Schizoaffective DO -continue management per psychiatry DVT Prophylaxis: patient is ambulatory Code Status: DNR Discussed Condition With: Patient and nurse
[2018-01-04] MEDS: Vitamin B Complex/Vit C/Folic Tablet PO SCH (20:28)
[2018-01-05] MEDS: Insulin NovoLOG Aspart Correctional Sugar Inj SQ SCH ×5 (00:22→21:02)
[2018-01-05] MEDS: Levothyroxine 50 MCG Tablet PO SCH (05:17)
--- NOTE | 2018-01-05 09:24 | P.PNIM ---
Subjective Interval history: Follow-up hypertension, UTI, diabetes mellitus type 2, ESRD on HD Monday and Monday. Patient seen and examined sitting on the side of the bed, eating breakfast, denies any nausea or vomiting. Patient denies any headache or dizziness, denies any chest pain or shortness of breath, denies any fever or chills. Patient complaint of the right hip wound, stated it was a blister that popped. Also reported patient had hip surgery in August. Patient stated eating well sleeping well. And had a good bowel movement. States that she voided sometimes. Physical Exam Vital signs: Vital Signs 01/04/18 18:00 01/05/18 06:09 Temperature 97.6 F 98.1 F Pulse Rate 90 89 Respiratory Rate 18 15 Blood Pressure 116/67 132/68 Pulse Oximetry 97 95 Intake & Output 01/04/18 01/05/18 01/05/18 18:59 06:59 18:59 Intake Total 1440 / 1440 480 / 480 480 / 480 Balance 1440 / 1440 480 / 480 480 / 480 Intake: Oral 1440 / 1440 480 / 480 480 / 480 Other: # Voids 3 0 Date of Last Bowel Movement 01/02/18 Narrative: GENERAL: Well developed, Well-nourished, female in no acute distress. SKIN: Warm and dry. Bilateral upper arm, and right lower extremity skin rash. Right hip round wound with scab. Right hip surgical incision healed HEENT: Normocephalic. Atraumatic. Pupils equal and round. Mucous membranes pink and moist. NECK: Supple. Trachea midline. CARDIOVASCULAR: Regular rate and rhythm. No murmur appreciated. Left upper arm AV fistula with positive bruit and thrill. RESPIRATORY: No accessory muscle use. Clear to auscultation. Breath sounds equal bilaterally. GASTROINTESTINAL: Abdomen obese, soft, non-tender, nondistended. Normoactive bowel sounds x4. MUSCULOSKELETAL: No obvious deformities. Extremities without clubbing, cyanosis , or edema. NEUROLOGICAL: Awake and alert. No obvious cranial nerve deficits. Motor grossly within normal limits. Moving all extremities spontaneously. Speech is clear but slow. PSYCHIATRIC: Flat affect. Results - Labs CBC & Chem 7: 12/29/17 07:21 01/03/18 14:37 Laboratory Results - last 24 hr 01/04/18 01/04/18 01/04/18 11:32 16:35 20:43 POC Glucose 108 123 H 107 01/05/18 05:14 POC Glucose 105 Assessment and Plan - Assessment (1) Acute psychosis Code(s): F23 - Brief psychotic disorder Status: Acute (2) ESRD (end stage renal disease) on dialysis Code(s): N18.6 - End stage renal disease; Z99.2 - Dependence on renal dialysis Status: Acute (3) Anemia Code(s): D64.9 - Anemia, unspecified Status: Acute (4) HTN (hypertension) Code(s): I10 - Essential (primary) hypertension Status: Acute (5) Bipolar depression Code(s): F31.30 - Bipolar disorder, current episode depressed, mild or moderate severity, unspecified Status: Acute (6) Depression Code(s): F32.9 - Major depressive disorder, single episode, unspecified Status : Acute - Plan 57-year-old female with history of ESRD on HD, HTN, hypothyroidism, anemia, anxiety, depression, bipolar disorder, schizoaffective disorder, conversion disorder, admitted to psychiatry unit for depression with suicidal ideations. Hospitalists consulted for medical management. ESRD on HD, chronic -On hemodialysis T- -Nephrology following, appreciate assistance - Renal and diabetic diet. -continue Renvela -monitor BMP Anemia likely chronic anemia secondary to renal disease -hemoglobin stable at 12.9 -monitor CBC UTI UA positive for UTI -urine culture with E.coli -Continue Ceftin 250mg po bid, end date 01/04 -monitor signs and symptoms Hypertension - chronic, BP controlled -continue Cozaar and Norvasc -monitor BP, adjust medications as needed Hypothyroidism - s/p thyroidectomy -No thyroid supplementation reported on home medication list. -TSH elevated, T4 within normal limits -Continue levothyroxine 50mcg daily -We will need follow-up TSH in 4-6 weeks. Diabetes mellitus, new diagnosis Hemoglobin A1C 5.8-->6.6 - No oral agents due to ESRD - Monitor accu-checks with ISS - Renal and diabetic diet - Consult outlet manager due to new diagnosis -Blood sugar fair controlled in the low 100s -monitor accu checks and HGbA1c Depression/Suicidal Ideations, acute Bipolar Disorder/Schizoaffective DO -continue management per psychiatry Right hip wound -wound care consult for treatment and management DVT Prophylaxis: patient is ambulatory Code Status: full code Discussed Condition With: patient and nurse
[2018-01-05] MEDS: LORazepam 0.5 MG Tablet PO SCH ×2 (09:30→20:47)
[2018-01-05] MEDS: lamoTRIgine 25 MG TABLET PO SCH ×2 (09:30→20:48)
[2018-01-05] MEDS: Senna/Docusate Sodium 8.6/50 MG Tablet PO SCH ×2 (09:30→20:47)
[2018-01-05] MEDS: Lactobacillus Acidophilus/L. Spores Tablet PO SCH ×2 (09:31→20:47)
[2018-01-05] MEDS: amLODIPine 5 MG Tablet PO SCH (09:31)
[2018-01-05] MEDS: Venlafaxine XR 37.5 MG Capsule PO SCH (09:31)
[2018-01-05] MEDS: Sodium Chloride 0.9% 2 ML Flush BID IV.FLUSH SCH ×2 (09:32→21:03)
--- NOTE | 2018-01-05 15:12 | P.PNWCN ---
Wound Care Nurse Consult Description: Received wound management consult for R hip wound from JUAN DIEGO Reynolds Communicated with: CLAUDIA Hernandez and Call placed to Gayle ADAMSON Recommendation: Please leave scab to R hip open to air and monitor for s/s of infection/ deterioration. Reconsult wound care for wound deterioration. Wound/Pressure Injury - Additional Information Patient seen on 4 floor medical psych unit for R hip wound management. Patient is laying in bed upon software writer's arrival.Pulled back sheets to reveal scab on R hip that dry and intact, without erythema or induration to periwound. Patient is not complaining of discomfort from scab.Scab was left open to air.Juan Diego Reynolds to be notified
[2018-01-05] MEDS: Vitamin B Complex/Vit C/Folic Tablet PO SCH (20:48)
--- NOTE | 2018-01-05 21:10 | P.PNPSY ---
Subjective Chief Complaint: Feels slightly better today, plans on calling a friend later. Remarks: Patient seen for follow-up, chart reviewed. Discussion with nursing staff reported that patient no behavioral disturbances, has been compliant with medications, noted to be more engaging but continues with flat affect and monotone speech. Patient was found sitting in hospital bed B, cooperative. Patient states she is feeling anxious due to stay in her room alone. Patient reports adequate sleep, but continues to have poor appetite and energy but states her mood has been "okay and reporting feeling depressed but lessening. Patient denies any suicidal ideation at this time this last time she had these thoughts was "I do not know". "I think I should do more". Review of Systems All other systems reviewed negative except as stated in HPI Mental Status Examination Appearance: Appropriate Consciousness: Alert Orientation: x4 Motor Activity: Other Speech: Unremarkable, Slow, Other Language: Adequate Fund of Knowledge: Adequate Attention and Concentration: Adequate Memory: Unremarkable Mood: Sad, Anxious, Other ("ok") Affect: Blunt (More reactive, smiles at times) Thought Process & Associations: Intact, Linear Thought Content: Thought blocking (Lessening) Hallucination Type: None Delusion Type: Paranoid (Continue to be present) Suicidal Ideation: Yes (Denies today but unreliable to contract for safety at this time) Suicidal Plan: No Suicidal Intention: No Homicidal Ideation: No Homicidal Plan: No Homicidal Intention: No Insight: Poor Judgment: Poor Assessment and Plan - Assessment (1) Bipolar depression Code(s): F31.30 - Bipolar disorder, current episode depressed, mild or moderate severity, unspecified Status: Acute - Plan Plan: She is noted to have more affect smiling at times with continues to be somewhat anxious but denying suicidal ideations but continues to be noted with flat affect most of the time. Patient was encouraged to engage in more activities which she agreed. We will continue current treatment. Continue to monitor mood and behavior. Discharge planning in progress. Justification for Continued Inpatient Stay: At risk of further decompensation at lower level care.
[2018-01-06 08:27] LABS: Calcium 9.2 mg/dL (8.5-10.1); Carbon Dioxide 21.8 meq/L (21.0-32.0); Potassium 5.1 meq/L (3.5-5.1)
--- NOTE | 2018-01-06 09:37 | P.PNIM ---
Subjective Interval history: Follow-up hypertension, UTI, diabetes mellitus type 2, ESRD on HD Monday and Monday. Patient seen and examined sitting in the side of the bed, getting ready to go to dialysis. Patient c/o not sleeping well at night. Patient deneis any headache or dizziness, denies any pain, chest pain or shortness of breath, denies any abdominal pain, nausea, vomiting, diarrhea or constipation. Denies any fever or chills. Nurse reported no acute complaints overnight. Physical Exam Vital signs: Vital Signs 01/05/18 18:02 01/06/18 05:24 Temperature 97.4 F L 97.9 F Pulse Rate 95 H 88 Respiratory Rate 18 20 Blood Pressure 124/71 157/82 H Pulse Oximetry 97 94 L Intake & Output 01/05/18 01/06/18 01/06/18 18:59 06:59 18:59 Intake Total 1920 / 192 240 / 240 Balance 1920 / 1920 240 / 240 Intake: Oral 1919 / 1919 240 / 240 Other: # Voids 1 Date of Last Bowel Movement 01/02/18 Narrative: GENERAL: Well developed, Well-nourished, female in no acute distress. SKIN: Warm and dry. Bilateral upper arm, and right lower extremity skin rash. Right hip round wound with scab. Right hip surgical incision healed HEENT: Normocephalic. Atraumatic. Pupils equal and round. Mucous membranes pink and moist. NECK: Supple. Trachea midline. CARDIOVASCULAR: Regular rate and rhythm. No murmur appreciated. Left upper arm AV fistula with positive bruit and thrill. RESPIRATORY: No accessory muscle use. Clear to auscultation. Breath sounds equal bilaterally. GASTROINTESTINAL: Abdomen obese, soft, non-tender, nondistended. Normoactive bowel sounds x4. MUSCULOSKELETAL: No obvious deformities. Extremities without clubbing, cyanosis , or edema. NEUROLOGICAL: Awake and alert. No obvious cranial nerve deficits. Motor grossly within normal limits. Moving all extremities spontaneously. Speech is clear but slow. PSYCHIATRIC: Flat affect. Results - Labs CBC & Chem 7: 12/29/17 07:21 01/06/18 07:06 Laboratory Results - last 24 hr 01/05/18 01/05/18 01/05/18 12:18 16:04 20:51 Sodium Potassium Chloride Carbon Dioxide Anion Gap BUN Creatinine Estimated GFR POC Glucose 135 H 117 H 123 H Random Glucose Calcium 01/06/18 01/06/18 06:55 07:06 Sodium 130 L Potassium 5.1 Chloride 90 L Carbon Dioxide 21.8 Anion Gap 18 H BUN 119 H Creatinine 13.16 H* D Estimated GFR 3 L POC Glucose 96 Random Glucose 79 Calcium 9.2 Assessment and Plan - Assessment (1) Acute psychosis Code(s): F23 - Brief psychotic disorder Status: Acute (2) ESRD (end stage renal disease) on dialysis Code(s): N18.6 - End stage renal disease; Z99.2 - Dependence on renal dialysis Status: Acute (3) Anemia Code(s): D64.9 - Anemia, unspecified Status: Acute (4) HTN (hypertension) Code(s): I10 - Essential (primary) hypertension Status: Acute (5) Bipolar depression Code(s): F31.30 - Bipolar disorder, current episode depressed, mild or moderate severity, unspecified Status: Acute (6) Depression Code(s): F32.9 - Major depressive disorder, single episode, unspecified Status : Acute - Plan 57-year-old female with history of ESRD on HD, HTN, hypothyroidism, anemia, anxiety, depression, bipolar disorder, schizoaffective disorder, conversion disorder, admitted to psychiatry unit for depression with suicidal ideations. Hospitalists consulted for medical management. ESRD on HD, chronic -On hemodialysis T- -Nephrology following, appreciate assistance - Renal and diabetic diet. -continue Renvela -Elevated creatinine Today 13.1, Dialysis today, recheck in BMP AM Anemia likely chronic anemia secondary to renal disease -hemoglobin stable at 12.9 -monitor CBC UTI UA positive for UTI, E. coli -S/p antbx treatment -monitor signs and symptoms Hypertension - chronic, BP controlled -continue Cozaar and Norvasc -monitor BP, adjust medications as needed Hypothyroidism - s/p thyroidectomy -No thyroid supplementation reported on home medication list. -TSH elevated, T4 within normal limits -Continue levothyroxine 50mcg daily -follow-up TSH in 4-6 weeks. Diabetes mellitus, new diagnosis Hemoglobin A1C 5.8-->6.6 - No oral agents due to ESRD - Monitor accu-checks with ISS - Renal and diabetic diet - Consult peer educator due to new diagnosis -Blood sugar fair controlled in the low 100s -monitor accu checks and HGbA1c Depression/Suicidal Ideations, acute Bipolar Disorder/Schizoaffective DO -continue management per psychiatry Right hip wound -wound care consult for treatment and management -recommended, leave open to air -skin checks/wound checks, monitor for signs and symptoms of infection DVT Prophylaxis: patient is ambulatory Code Status: DNR Discussed Condition With: patient, nurse Wound care nurse
--- NOTE | 2018-01-06 10:52 | P.PNNP ---
Subjective Interval history: patient seen at dialysis doing OK, flat affect, voice no complaint Physical Exam Vital signs: Vital Signs 01/05/18 18:02 01/06/18 05:24 Temperature 97.4 F L 97.9 F Pulse Rate 95 H 88 Respiratory Rate 18 20 Blood Pressure 124/71 157/82 H Pulse Oximetry 97 94 L Intake & Output 01/05/18 01/06/18 01/06/18 18:59 06:59 18:59 Intake Total 1919 240 / 240 Balance 1919 240 / 240 Intake: Oral 1919 240 / 240 Other: # Voids 1 Date of Last Bowel Movement 01/02/18 Narrative: GENERAL: Well developed, Well-nourished, female in no acute distress. SKIN: Warm and dry. Bilateral upper arm, and right lower extremity skin rash. Right hip round wound with scab. Right hip surgical incision healed HEENT: Normocephalic. Atraumatic. Pupils equal and round. Mucous membranes pink and moist. NECK: Supple. Trachea midline. CARDIOVASCULAR: Regular rate and rhythm. No murmur appreciated. Left upper arm AV fistula with positive bruit and thrill. RESPIRATORY: No accessory muscle use. Clear to auscultation. Breath sounds equal bilaterally. GASTROINTESTINAL: Abdomen obese, soft, non-tender, nondistended. Normoactive bowel sounds x4. MUSCULOSKELETAL: No obvious deformities. Extremities without clubbing, cyanosis , or edema. NEUROLOGICAL: Awake and alert. No obvious cranial nerve deficits. Motor grossly within normal limits. Moving all extremities spontaneously. Speech is clear but slow. PSYCHIATRIC: Flat affect. Assessment and Plan - Assessment (1) ESRD (end stage renal disease) on dialysis Code(s): N18.6 - End stage renal disease; Z99.2 - Dependence on renal dialysis Status: Acute Plan: Patient seen and examined, agree with above. Seen during hemodialysis UF 2 L tolerating it well Continue HD TTS after today, will be next on Mon. Follows with Dr. Santos (2) Metabolic bone disease Code(s): E88.9 - Metabolic disorder, unspecified; M90.80 - Osteopathy in diseases classified elsewhere, unspecified site Status: Acute Plan: Continue Renvela. Monitor phosphorus intermittently. (3) Anemia Code(s): D64.9 - Anemia, unspecified Status: Acute Plan: Hemoglobin stable. (4) HTN (hypertension) Code(s): I10 - Essential (primary) hypertension Status: Acute Plan: Well controlled. Will monitor. (5) Depression Code(s): F32.9 - Major depressive disorder, single episode, unspecified Status : Acute Plan: History of bipolar illness. Currently Sahni acted. (6) Hypothyroidism Code(s): E03.9 - Hypothyroidism, unspecified Status: Acute Plan: Continue Levothyroxine.
[2018-01-06] MEDS ORDERED: Melatonin 5 MG Tablet PO PRN (12:15)
--- NOTE | 2018-01-06 12:18 | P.PNPSY ---
Subjective Remarks: Patient seen and examined in dialysis in coverage for Dr. Castillo. Chart reviewed. Case discussed with nursing staff. On my examination today, the patient presents as somewhat dysphoric and withdrawn. She complains of poor sleep overnight. She denies any suicidal ideation. Denies any audiovisual hallucinations. Denies any side effects from medications and reports that current dose of Abilify has been efficacious for her condition in the past. No acute physical complaints. Vital Signs Temp Pulse Resp BP Pulse Ox 01/06/18 05:24 97.9 F 88 20 157/82 H 94 L 01/05/18 18:02 97.4 F L 95 H 18 124/71 97 Intake and Output 01/05/18 01/06/18 01/06/18 22:59 06:59 14:59 Intake Total 960 / 960 0 / 0 Output Total 1999 Balance 960 / 960 0 / 0 -1999 Intake: Oral 960 / 960 0 / 0 Output: Hemodialysis Amount 1999 Other: # Voids 1 1 Laboratory Results - last 24 hr 01/05/18 01/05/18 01/05/18 12:18 16:04 20:51 Sodium Potassium Chloride Carbon Dioxide Anion Gap BUN Creatinine Estimated GFR POC Glucose 135 H 117 H 123 H Random Glucose Calcium 01/06/18 01/06/18 01/06/18 06:55 07:06 11:29 Sodium 130 L Potassium 5.1 Chloride 90 L Carbon Dioxide 21.8 Anion Gap 18 H BUN 119 H Creatinine 13.16 H* D Estimated GFR 3 L POC Glucose 96 107 Random Glucose 79 Calcium 9.2 Labs reviewed. Review of Systems All other systems reviewed negative except as stated in HPI Mental Status Examination Appearance: Appropriate Consciousness: Alert Orientation: x4 Motor Activity: Other (No motor abnormalities noted) Speech: Slow Language: Adequate Fund of Knowledge: Adequate Attention and Concentration: Adequate Memory: Unremarkable Mood: Sad Affect: Other (Somewhat dysphoric) Thought Process & Associations: Intact, Linear Thought Content: Thought blocking (Mild) Hallucination Type: None Delusion Type: None Suicidal Ideation: No Suicidal Plan: No Suicidal Intention: No Homicidal Ideation: No Homicidal Plan: No Homicidal Intention: No Insight: Poor Judgment: Poor Assessment and Plan - Assessment (1) Bipolar depression Code(s): F31.30 - Bipolar disorder, current episode depressed, mild or moderate severity, unspecified Status: Acute - Plan Plan: Continue Abilify as ordered. I will add low-dose melatonin as needed for sleep. Nephrology and hospitalist input appreciated. Continue to monitor on the medical psychiatric unit. Continue other medications and care as ordered. Justification for Continued Inpatient Stay: Risk for decompensation and less restrictive setting. Discharge Planning: Per Dr. Castillo
[2018-01-06] MEDS: Insulin NovoLOG Aspart Correctional Sugar Inj SQ SCH ×2 (13:27→13:28)
[2018-01-06] MEDS: Venlafaxine XR 37.5 MG Capsule PO SCH (13:28)
[2018-01-06] MEDS: Senna/Docusate Sodium 8.6/50 MG Tablet PO SCH ×2 (13:29→21:18)
[2018-01-06] MEDS: amLODIPine 5 MG Tablet PO SCH (13:30)
[2018-01-06] MEDS: lamoTRIgine 25 MG TABLET PO SCH ×2 (13:31→21:19)
[2018-01-06] MEDS: LORazepam 0.5 MG Tablet PO SCH ×2 (13:31→21:18)
[2018-01-06] MEDS: Lactobacillus Acidophilus/L. Spores Tablet PO SCH ×2 (13:33→21:19)
[2018-01-06] MEDS: Sodium Chloride 0.9% 2 ML Flush BID IV.FLUSH SCH (20:55)
[2018-01-06] MEDS: Vitamin B Complex/Vit C/Folic Tablet PO SCH (21:19)
[2018-01-07] MEDS: Insulin NovoLOG Aspart Correctional Sugar Inj SQ SCH ×5 (06:01→18:13)
[2018-01-07] MEDS: Levothyroxine 50 MCG Tablet PO SCH (07:10)
[2018-01-07] MEDS: Sodium Chloride 0.9% 2 ML Flush BID IV.FLUSH SCH ×3 (08:42→21:40)
[2018-01-07] MEDS: Venlafaxine XR 37.5 MG Capsule PO SCH (08:43)
[2018-01-07] MEDS: Lactobacillus Acidophilus/L. Spores Tablet PO SCH ×2 (08:43→21:40)
[2018-01-07] MEDS: LORazepam 0.5 MG Tablet PO SCH ×2 (08:43→21:39)
[2018-01-07] MEDS: Senna/Docusate Sodium 8.6/50 MG Tablet PO SCH ×2 (08:44→21:40)
[2018-01-07] MEDS: amLODIPine 5 MG Tablet PO SCH (08:44)
[2018-01-07] MEDS: lamoTRIgine 25 MG TABLET PO SCH ×2 (08:45→21:40)
[2018-01-07 09:32] LABS: Calcium 9.8 mg/dL (8.5-10.1); Carbon Dioxide 29.2 meq/L (21.0-32.0); Potassium 4.6 meq/L (3.5-5.1)
--- NOTE | 2018-01-07 09:37 | P.PNIM ---
Subjective Interval history: Follow-up hypertension, UTI, diabetes mellitus type 2, ESRD on HD Monday and Monday. Patient seen and examined sitting on the side of the bed, denies any pain or shortness of breath. Patient complaint of constipation times 2 days. However states that she is taking a p.o. for stool. Patient denies any abdominal pain, nausea, vomiting. Patient denies any headache or dizziness, stated she is doing well. Patient stated had a good breakfast. Nurse denies any acute concerns overnight Physical Exam Vital signs: Vital Signs 01/06/18 19:32 Temperature 98.1 F Pulse Rate 99 H Respiratory Rate 18 Blood Pressure 96/56 L Pulse Oximetry 96 Intake & Output 01/06/18 01/07/18 01/07/18 18:59 06:59 18:59 Intake Total 520 / 520 360 / 360 Output Total 4000 / 4000 Balance -3480 / -3480 360 / 360 Intake: Oral 520 / 520 360 / 360 Output: Hemodialysis Amount 4000 / 4000 Other: # Voids 4 1 Date of Last Bowel Movement 01/02/18 Narrative: GENERAL: Well developed, Well-nourished, female in no acute distress. SKIN: Warm and dry. Bilateral upper arm, and right lower extremity skin rash. Right hip round wound with scab. Right hip surgical incision healed HEENT: Normocephalic. Atraumatic. Pupils equal and round. Mucous membranes pink and moist. NECK: Supple. Trachea midline. CARDIOVASCULAR: Regular rate and rhythm. No murmur appreciated. Left upper arm AV fistula with positive bruit and thrill. RESPIRATORY: No accessory muscle use. Clear to auscultation. Breath sounds equal bilaterally. GASTROINTESTINAL: Abdomen obese, soft, non-tender, nondistended. Normoactive bowel sounds x4. MUSCULOSKELETAL: No obvious deformities. Extremities without clubbing, cyanosis , or edema. NEUROLOGICAL: Awake and alert. No obvious cranial nerve deficits. Motor grossly within normal limits. Moving all extremities spontaneously. Speech is clear but slow. PSYCHIATRIC: Flat affect. Results - Labs CBC & Chem 7: 12/29/17 07:21 01/07/18 08:11 Laboratory Results - last 24 hr 01/06/18 01/06/18 01/06/18 11:29 13:20 16:35 POC Glucose 107 114 H 114 H 01/06/18 01/07/18 21:38 07:16 POC Glucose 134 H 88 Assessment and Plan - Assessment (1) Acute psychosis Code(s): F23 - Brief psychotic disorder Status: Acute (2) ESRD (end stage renal disease) on dialysis Code(s): N18.6 - End stage renal disease; Z99.2 - Dependence on renal dialysis Status: Acute (3) Anemia Code(s): D64.9 - Anemia, unspecified Status: Acute (4) HTN (hypertension) Code(s): I10 - Essential (primary) hypertension Status: Acute (5) Bipolar depression Code(s): F31.30 - Bipolar disorder, current episode depressed, mild or moderate severity, unspecified Status: Acute (6) Depression Code(s): F32.9 - Major depressive disorder, single episode, unspecified Status : Acute - Plan 57-year-old female with history of ESRD on HD, HTN, hypothyroidism, anemia, anxiety, depression, bipolar disorder, schizoaffective disorder, conversion disorder, admitted to psychiatry unit for depression with suicidal ideations. Hospitalists consulted for medical management. ESRD on HD, chronic -On hemodialysis T- -Nephrology following, appreciate assistance - Renal and diabetic diet. -continue Renvela -Elevated creatinine trending down was 13.1, today 10.1 -Monitor, recheck BMP on Monday after dialysis Anemia likely chronic anemia secondary to renal disease -hemoglobin stable at 12.9 -monitor CBC UTI UA positive for UTI, E. coli -S/p antbx treatment -monitor signs and symptoms Hypertension - chronic, BP labile -continue Norvasc, DC losartan due to worsening kidney function Plan to increase dose of Norvasc if patient's blood pressure elevated, -monitor BP, adjust medications as needed Hypothyroidism - s/p thyroidectomy -No thyroid supplementation reported on home medication list. -TSH elevated, T4 within normal limits -Continue levothyroxine 50mcg daily -follow-up TSH in 4-6 weeks. Diabetes mellitus, new diagnosis Hemoglobin A1C 5.8-->6.6 - No oral agents due to ESRD - Monitor accu-checks with ISS - Renal and diabetic diet - Consult breastfeeding educator due to new diagnosis -Blood sugar fair controlled in the low 100s -monitor accu checks and HGbA1c Depression/Suicidal Ideations, acute Bipolar Disorder/Schizoaffective DO -continue management per psychiatry Right hip wound -wound care consult for treatment and management -recommended, leave open to air -skin checks/wound checks, monitor for signs and symptoms of infection DVT Prophylaxis: patient is ambulatory Code Status: DNR Discussed Condition With: Patient and nurse
--- NOTE | 2018-01-07 12:51 | P.PNPSY ---
Subjective Remarks: Patient seen and examined with nurse in coverage for Dr. Castillo. Chart reviewed. Case discussed with nursing staff. No behavioral issues noted overnight. On my examination today, the patient says she still feels somewhat depressed. She denies suicidal ideation. Denies audiovisual hallucinations. No side effects from medications. Did not utilize melatonin as needed last night. She continues to complain of some poor sleep, and I have encouraged her to give this medication a try. No acute physical complaints. Vital Signs Temp Pulse Resp BP Pulse Ox 01/06/18 19:32 98.1 F 99 H 18 96/56 L 96 Intake and Output 01/06/18 01/07/18 01/07/18 22:59 06:59 14:59 Intake Total 760 / 760 120 / 120 Balance 760 / 760 120 / 120 Intake: Oral 760 / 760 120 / 120 Other: # Voids 4 1 Laboratory Results - last 24 hr 01/06/18 01/06/18 01/06/18 13:20 16:35 21:38 Sodium Potassium Chloride Carbon Dioxide Anion Gap BUN Creatinine Estimated GFR POC Glucose 114 H 114 H 134 H Random Glucose Calcium 01/07/18 01/07/18 01/07/18 07:16 08:11 11:47 Sodium 134 L Potassium 4.6 Chloride 91 L Carbon Dioxide 29.2 Anion Gap 14 BUN 75 H Creatinine 10.09 H* D Estimated GFR 4 L POC Glucose 88 95 Random Glucose 100 Calcium 9.8 Labs reviewed. Creatinine trending down. Review of Systems All other systems reviewed negative except as stated in HPI Mental Status Examination Appearance: Appropriate Consciousness: Alert Orientation: x4 Motor Activity: Other (No abnormal motor movements noted) Speech: Slow Language: Adequate Fund of Knowledge: Adequate Attention and Concentration: Adequate Memory: Unremarkable Mood: Sad Affect: Other (Somewhat dysphoric) Thought Process & Associations: Intact, Linear Thought Content: Thought blocking (Mild) Hallucination Type: None Delusion Type: None Suicidal Ideation: No Suicidal Plan: No Suicidal Intention: No Homicidal Ideation: No Insight: Poor Judgment: Poor Assessment and Plan - Assessment (1) Bipolar depression Code(s): F31.30 - Bipolar disorder, current episode depressed, mild or moderate severity, unspecified Status: Acute - Plan Plan: Continue current psychotropics as ordered. Hospitalist input noted and appreciated. Continue other medications and care as ordered. Justification for Continued Inpatient Stay: Risk for decompensation and less restrictive environment. Discharge Planning: Per Dr. Castillo
[2018-01-07] MEDS: Vitamin B Complex/Vit C/Folic Tablet PO SCH (21:40)
[2018-01-08] MEDS: Insulin NovoLOG Aspart Correctional Sugar Inj SQ SCH ×4 (00:06→20:37)
[2018-01-08] MEDS: Levothyroxine 50 MCG Tablet PO SCH ×2 (06:26→07:55)
--- NOTE | 2018-01-08 08:23 | P.PNPSY ---
Subjective Remarks: Patient seen and chart reviewed. Case discussed with nursing staff. No behavioral issues noted overnight. Patient does not readily answer open-ended questions but rather nods yes or no. She denies suicidal ideation. Denies audiovisual hallucinations. No side effects from medications. She does not enjoy her food and would like to leave soon. Patient was encouraged to attend some group therapy sessions today. Review of Systems All other systems reviewed negative except as stated in HPI Mental Status Examination Appearance: Appropriate Consciousness: Alert Orientation: x4 Motor Activity: Other (No abnormal motor movements noted) Speech: Hesitant, Slow Language: Adequate Fund of Knowledge: Adequate Attention and Concentration: Adequate Memory: Unremarkable Mood: Sad Affect: Sad, Flat, Other (Somewhat dysphoric) Thought Process & Associations: Intact, Linear Thought Content: Thought blocking (Mild) Hallucination Type: None Delusion Type: None Suicidal Ideation: No Suicidal Plan: No Suicidal Intention: No Homicidal Ideation: No Homicidal Plan: No Homicidal Intention: No Insight: Poor Judgment: Poor Assessment and Plan - Assessment (1) Bipolar depression Code(s): F31.30 - Bipolar disorder, current episode depressed, mild or moderate severity, unspecified Status: Acute - Plan Plan: Continue current psychotropics as ordered. Hospitalist input noted and appreciated. Continue other medications and care as ordered. Justification for Continued Inpatient Stay: Dialysis
[2018-01-08] MEDS: Venlafaxine XR 37.5 MG Capsule PO SCH (08:41)
[2018-01-08] MEDS: Lactobacillus Acidophilus/L. Spores Tablet PO SCH ×2 (08:41→20:14)
[2018-01-08] MEDS: Senna/Docusate Sodium 8.6/50 MG Tablet PO SCH ×2 (08:41→20:14)
[2018-01-08] MEDS: LORazepam 0.5 MG Tablet PO SCH ×2 (08:41→20:14)
[2018-01-08] MEDS: amLODIPine 5 MG Tablet PO SCH (08:41)
[2018-01-08] MEDS: lamoTRIgine 25 MG TABLET PO SCH ×2 (08:42→20:14)
[2018-01-08] MEDS: Sodium Chloride 0.9% 2 ML Flush BID IV.FLUSH SCH ×2 (08:42→20:14)
--- NOTE | 2018-01-08 09:04 | P.PNIM ---
Subjective Interval history: Follow-up hypertension, UTI, diabetes mellitus type 2, ESRD on HD Monday and Monday. Patient seen and examined sitting on the side of the bed, stated had taken MOM last night but still did not have BM yet. Discussed will give her different laxative today if dont go today. Patient stated she sleep well last night, and ate good breakfast today. Patient denies any pain or SOB, denies any headache or dizziness, nausea or vomiting. Only complaints of constipation but denies any bowel impaction. Nurse reported any acute concerns. Physical Exam Vital signs: Vital Signs 01/07/18 18:32 Temperature 97.4 F L Pulse Rate 88 Respiratory Rate 18 Blood Pressure 111/74 Pulse Oximetry 97 Intake & Output 01/07/18 01/08/18 01/08/18 18:59 06:59 18:59 Intake Total 480 / 480 460 / 460 480 / 480 Balance 480 / 480 460 / 460 480 / 480 Weight 84.4 kg Intake: Oral 480 / 480 360 / 360 480 / 480 Oral Supplement 100 / 100 Other: # Voids 2 Date of Last Bowel Movement 01/02/18 Narrative: GENERAL: Well developed, Well-nourished, female in no acute distress. SKIN: Warm and dry. Bilateral upper arm, and right lower extremity skin rash. Right hip round wound with scab. Right hip surgical incision healed HEENT: Normocephalic. Atraumatic. Pupils equal and round. Mucous membranes pink and moist. NECK: Supple. Trachea midline. CARDIOVASCULAR: Regular rate and rhythm. No murmur appreciated. Left upper arm AV fistula with positive bruit and thrill. RESPIRATORY: No accessory muscle use. Clear to auscultation. Breath sounds equal bilaterally. GASTROINTESTINAL: Abdomen obese, soft, non-tender, nondistended. Normoactive bowel sounds x4. MUSCULOSKELETAL: No obvious deformities. Extremities without clubbing, cyanosis , or edema. NEUROLOGICAL: Awake and alert and oriented x 3. No obvious cranial nerve deficits. Motor grossly within normal limits. Moving all 4 extremities. Speech is clear but slow. PSYCHIATRIC: Flat affect. Pleasant and follows commands Results - Labs CBC & Chem 7: 12/29/17 07:21 01/07/18 08:11 Laboratory Results - last 24 hr 01/07/18 01/07/18 01/07/18 08:11 11:47 16:48 Sodium 134 L Potassium 4.6 Chloride 91 L Carbon Dioxide 29.2 Anion Gap 14 BUN 75 H Creatinine 10.09 H* D Estimated GFR 4 L POC Glucose 95 102 Random Glucose 100 Calcium 9.8 01/07/18 01/08/18 22:00 06:30 Sodium Potassium Chloride Carbon Dioxide Anion Gap BUN Creatinine Estimated GFR POC Glucose 108 91 Random Glucose Calcium Assessment and Plan - Assessment (1) Acute psychosis Code(s): F23 - Brief psychotic disorder Status: Acute (2) ESRD (end stage renal disease) on dialysis Code(s): N18.6 - End stage renal disease; Z99.2 - Dependence on renal dialysis Status: Acute (3) Anemia Code(s): D64.9 - Anemia, unspecified Status: Acute (4) HTN (hypertension) Code(s): I10 - Essential (primary) hypertension Status: Acute (5) Bipolar depression Code(s): F31.30 - Bipolar disorder, current episode depressed, mild or moderate severity, unspecified Status: Acute (6) Depression Code(s): F32.9 - Major depressive disorder, single episode, unspecified Status : Acute - Plan 57-year-old female with history of ESRD on HD, HTN, hypothyroidism, anemia, anxiety, depression, bipolar disorder, schizoaffective disorder, conversion disorder, admitted to psychiatry unit for depression with suicidal ideations. Hospitalists consulted for medical management. ESRD on HD, chronic -On hemodialysis T- -Nephrology following, appreciate assistance - Renal and diabetic diet. -continue Renvela -Elevated creatinine trending down was 13.1, today 10.1 - Losartan was discontinued due to worsening kidney function -Monitor, recheck BMP on Monday after dialysis Anemia likely chronic anemia secondary to renal disease -hemoglobin stable at 12.9 -monitor CBC UTI UA positive for UTI, E. coli -S/p antbx treatment -monitor signs and symptoms Hypertension - chronic, BP labile -continue Norvasc, DC losartan due to worsening kidney function -Plan to increase dose of Norvasc if patient's blood pressure elevated -monitor BP, adjust medications as needed Hypothyroidism - s/p thyroidectomy -No thyroid supplementation reported on home medication list. -TSH elevated, T4 within normal limits -Continue levothyroxine 50mcg daily -follow-up TSH in 4-6 weeks. Diabetes mellitus, new diagnosis Hemoglobin A1C 5.8-->6.6 - No oral agents due to ESRD - Renal and diabetic diet - Consult environmental educator due to new diagnosis -Blood sugar fair controlled in the low 100s, no ceoverage needed -change accu-checks to BIB with ISS Depression/Suicidal Ideations, acute Bipolar Disorder/Schizoaffective DO -continue management per psychiatry Right hip wound -wound care consult for treatment and management -recommended, leave open to air -skin checks/wound checks, monitor for signs and symptoms of infection Constipation -continue lactulose, and senna/docusate -give laxative, mag citrate today -monitor response DVT Prophylaxis: patient is ambulatory Patient medically stable to transfer to Regular Psych Unit Code Status: DNR Discussed Condition With: patient and Nurse Dr Castillo
--- NOTE | 2018-01-08 09:39 | P.PNNP ---
Subjective Interval history: Patient was seen resting in bed, no distress. Patient denies any pain or SOB, chest pain, nausea or vomiting. Magnesium Citrate ordered today for constipation. Patient gets dialysis TTS, patient to be dialyzed tomorrow. <Santos Good - Last Filed: 01/08/18 09:42> Physical Exam Vital signs: Vital Signs 01/07/18 18:32 Temperature 97.4 F L Pulse Rate 88 Respiratory Rate 18 Blood Pressure 111/74 Pulse Oximetry 97 Intake & Output 01/07/18 01/08/18 01/08/18 18:59 06:59 18:59 Intake Total 480 / 480 460 / 460 480 / 480 Balance 480 / 480 460 / 460 480 / 480 Weight 84.4 kg Intake: Oral 480 / 480 360 / 360 480 / 480 Oral Supplement 100 / 100 Other: # Voids 2 Date of Last Bowel Movement 01/02/18 - Constitutional no acute distress - Routine HEENT Exam Head: Present: normocephalic Eye: Present: EOMI, PERRL ENT: Present: mucous membranes moist - Routine Neck Exam Present: trachea midline. Absent: JVD, tracheal deviation - Routine Respiratory Exam Present: CTA bilaterally. Absent: accessory muscle use, respiratory distress - Routine Cardiovascular Exam Present: RRR, S1, S2 - Routine Abdominal Exam Present: soft. Absent: tenderness - Routine Extremities Exam Present: pulses intact, AV fistula. Absent: edema Comments: AVF left arm, covered in gauze. - Routine Skin Exam Comments: Psoriasis upper extremities. - Routine Neurological Exam Present: alert <Santos Good - Last Filed: 01/08/18 09:42> Vital signs: Vital Signs 01/08/18 17:34 01/09/18 05:47 Temperature 98.1 F 98.1 F Pulse Rate 81 79 Respiratory Rate 16 16 Blood Pressure 121/61 127/67 Pulse Oximetry 96 94 L Intake & Output 01/08/18 01/09/18 01/09/18 18:59 06:59 18:59 Intake Total 1680 / 1680 340 / 340 Balance 1680 / 1680 340 / 340 Intake: Oral 1680 / 1680 240 / 240 Oral Supplement 100 / 100 Other: # Voids 1 <Onur Santos - Last Filed: 01/09/18 09:11> Assessment and Plan - Assessment (1) ESRD (end stage renal disease) on dialysis Code(s): N18.6 - End stage renal disease; Z99.2 - Dependence on renal dialysis Status: Acute Plan: Patient gets dialysis TTS. Patient will be dialyzed tomorrow. (2) Metabolic bone disease Code(s): E88.9 - Metabolic disorder, unspecified; M90.80 - Osteopathy in diseases classified elsewhere, unspecified site Status: Acute Plan: Continue Renvela. Monitor phosphorus intermittently. Ordered phosphorus lab today. (3) Anemia Code(s): D64.9 - Anemia, unspecified Status: Acute Plan: Epogen with dialysis. Ordered CBC w/diff today. (4) HTN (hypertension) Code(s): I10 - Essential (primary) hypertension Status: Acute Plan: Well controlled. Will monitor. (5) Depression Code(s): F32.9 - Major depressive disorder, single episode, unspecified Status : Acute Plan: History of bipolar illness. Currently Sahni acted. (6) Hypothyroidism Code(s): E03.9 - Hypothyroidism, unspecified Status: Acute Plan: Continue Levothyroxine. <Santos Good - Last Filed: 01/08/18 09:42> - Assessment (1) ESRD (end stage renal disease) on dialysis Code(s): N18.6 - End stage renal disease; Z99.2 - Dependence on renal dialysis Status: Acute (2) Metabolic bone disease Code(s): E88.9 - Metabolic disorder, unspecified; M90.80 - Osteopathy in diseases classified elsewhere, unspecified site Status: Acute (3) Anemia Code(s): D64.9 - Anemia, unspecified Status: Acute (4) HTN (hypertension) Code(s): I10 - Essential (primary) hypertension Status: Acute (5) Depression Code(s): F32.9 - Major depressive disorder, single episode, unspecified Status : Acute (6) Hypothyroidism Code(s): E03.9 - Hypothyroidism, unspecified Status: Acute - Attending Attestation patient was seen and examined. Agree with above assessment and plan. We will continue dialysis TTS. <Onur Santos - Last Filed: 01/09/18 09:11>
[2018-01-08] MEDS ORDERED: Magnesium Citrate Liq 300 ML Bottle PO ONE (10:00)
--- NOTE | 2018-01-08 16:12 | P.PNPSY ---
Subjective Chief Complaint: Feels slightly better today, plans on calling a friend later. Remarks: Patient seen for follow up; chart reviewed. Discussion with nursing staff reported that patient went to group, continues with flat affect but with more participation. Patient found sitting on hospital bed, noted to be cooperative, noted with low volume, continues to appear dysphoric but no longer endorsing suicidal ideation. She states that her mood continues to be depressed, denies any SI, states her appetite has been improving, sleeping better. Review of Systems All other systems reviewed negative except as stated in HPI Mental Status Examination Appearance: Appropriate Consciousness: Alert Orientation: x4 Motor Activity: Other (No abnormal motor movements noted) Speech: Hesitant, Slow Language: Adequate Fund of Knowledge: Adequate Attention and Concentration: Adequate Memory: Unremarkable Mood: Sad Affect: Sad Thought Process & Associations: Intact, Linear Thought Content: Thought blocking (minimal) Hallucination Type: None Delusion Type: None Suicidal Ideation: No Suicidal Plan: No Suicidal Intention: No Homicidal Ideation: No Homicidal Plan: No Homicidal Intention: No Insight: Poor Judgment: Poor Assessment and Plan - Assessment (1) Bipolar depression Code(s): F31.30 - Bipolar disorder, current episode depressed, mild or moderate severity, unspecified Status: Acute - Plan Plan: Patient continues to report feeling depressed denying any suicidal ideations, states that she is slowly improving attempting to attend more groups today. Patient encouraged to continue participation continue current treatment and continue nutritional intake. We will continue current treatment. We will continue to monitor mood and behavior. Discharge planning in progress. Justification for Continued Inpatient Stay: At risk of further decompensation at lower level care.
[2018-01-08] MEDS: Vitamin B Complex/Vit C/Folic Tablet PO SCH (20:14)
[2018-01-09] MEDS: Levothyroxine 50 MCG Tablet PO SCH (05:56)
[2018-01-09 07:09] LABS: Baso # (Auto) 0.1 th/mm3 (0.0-0.2); Baso % (Auto) 1.9 % (0.0-2.0); Eos # (Auto) 0.2 th/mm3 (0.0-0.4); Eos % (Auto) 5.6 % (0.0-4.0); Hematocrit 31.8 % (35.0-46.0); Hemoglobin 11.2 gm/dL (11.6-15.3); Lymph % (Auto) 22.9 % (9.0-44.0); Mean Corpuscular HGB Conc 35.2 % (32.0-36.0); Mean Corpuscular Hemoglobin 30.3 pg (27.0-34.0); Mean Corpuscular Volume 86.2 fL (80.0-100.0); Mean Platelet Volume 8.4 fL (7.0-11.0); Mono # (Auto) 0.5 th/mm3 (0.0-0.9); Mono % (Auto) 11.1 % (0.0-8.0); Neut # (Auto) 2.5 th/mm3 (1.8-7.7); Neut % (Auto) 58.5 % (16.0-70.0); Platelet Count 135 th/mm3 (150-450); Red Blood Count 3.69 mil/mm3 (4.00-5.30); Red Cell Distribution Width 14.1 % (11.6-17.2); White Blood Count 4.3 th/mm3 (4.0-11.0)
--- NOTE | 2018-01-09 07:31 | P.TTN ---
- Patient Problems Problems: 1. Discharge planning 2. Medication compliance 3. Knowledge deficit 4. Lack of coping skills - Progress Toward Goals Provider Present: Dr. Tristin Castillo Provider Input: 01/08/2018; patient continues to require medication stablizing prior to dc. No med adjustment at this time. Patient still appears flat affect and depressed. Nurse(s) Present: RN Nurse Input: 01/08/2018; patient is taking medication with prompting, and eating meals with compliance, no behavior she does however appearance to be responding to internal stimili. New onset of diabetes. Psychiatric Counselors Present: Shara Aquino [facility], Other Psychiatric Therapist Input: 01/08/2018; patient will be dc home with outpatient service in place. Patient appears a little brighter and more talkative although still minimal. Very soft spoken. Did shower and has clean hygiene Group Spec/RT/OT/MARSH Present: Jed Dupree, OT Group Spec/RT/OT/MARSH Input: 01/08/2018; patient has selective activity participation. Patient did go outside today which was a big step. - Documentation Teaching Recipient: Patient
[2018-01-09 08:24] LABS: Calcium 9.4 mg/dL (8.5-10.1); Carbon Dioxide 23.9 meq/L (21.0-32.0); Potassium 4.8 meq/L (3.5-5.1)
--- NOTE | 2018-01-09 09:33 | P.PNIM ---
Subjective Interval history: Follow-up hypertension, UTI, diabetes mellitus type 2, ESRD on HD Monday and Monday. Pt seen and examined sitting on the bed, stated wants to go home. Patient stated she leave in an Independent home. Patient does not want to go to other facility, but wanted to go home.Patient stated sleeping well and eating well., able to go to the bathroom by herself, Patient denies any pain or shortness of breath. Stated waiting for the dialysis to come and get her. patient denies any fever or chillsn h/a or dizziness, Cp or SOB, denies any abdominal pain, nausea, vomiting, diarrhea or constipation. Dr. Castillo discussed the plan for discharge. Physical Exam Vital signs: Vital Signs 01/08/18 17:34 01/09/18 05:47 Temperature 98.1 F 98.1 F Pulse Rate 81 79 Respiratory Rate 16 16 Blood Pressure 121/61 127/67 Pulse Oximetry 96 94 L Intake & Output 01/08/18 01/09/18 01/09/18 18:59 06:59 18:59 Intake Total 1680 / 1680 340 / 340 Balance 1680 / 1680 340 / 340 Intake: Oral 1680 / 1680 240 / 240 Oral Supplement 100 / 100 Other: # Voids 1 Narrative: GENERAL: Well developed, Well-nourished, female in no acute distress. SKIN: Warm and dry. Bilateral upper arm, and right lower extremity skin rash. Right hip round wound with scab. Right hip surgical incision healed HEENT: Normocephalic. Atraumatic. Pupils equal and round. Mucous membranes pink and moist. NECK: Supple. Trachea midline. CARDIOVASCULAR: Regular rate and rhythm. No murmur appreciated. Left upper arm AV fistula with positive bruit and thrill. RESPIRATORY: No accessory muscle use. Clear to auscultation. Breath sounds equal bilaterally. GASTROINTESTINAL: Abdomen obese, soft, non-tender, nondistended. Normoactive bowel sounds x4. MUSCULOSKELETAL: No obvious deformities. Extremities without clubbing, cyanosis , or edema. NEUROLOGICAL: Awake and alert and oriented x 3. No obvious cranial nerve deficits. Motor grossly within normal limits. Moving all 4 extremities. Speech is clear but slow. PSYCHIATRIC: Flat affect. Pleasant and follows commands Results - Labs CBC & Chem 7: 01/09/18 06:23 01/09/18 06:23 Laboratory Results - last 24 hr 01/08/18 01/08/18 01/09/18 16:09 20:18 06:02 WBC RBC Hgb Hct MCV MCH MCHC RDW Plt Count MPV Neut % (Auto) Lymph % (Auto) Donley % (Auto) Eos % (Auto) Baso % (Auto) Neut # (Auto) Lymph # (Auto) Donley # (Auto) Eos # (Auto) Baso # (Auto) WBC Differential Differential Comment Sodium Potassium Chloride Carbon Dioxide Anion Gap BUN Creatinine Estimated GFR POC Glucose 93 89 Random Glucose Calcium Phosphorus 8.8 H 01/09/18 01/09/18 06:23 06:23 WBC 4.3 RBC 3.69 L Hgb 11.2 L Hct 31.8 L MCV 86.2 MCH 30.3 MCHC 35.2 RDW 14.1 Plt Count 135 L MPV 8.4 Neut % (Auto) 58.5 Lymph % (Auto) 22.9 Donley % (Auto) 11.1 H Eos % (Auto) 5.6 H Baso % (Auto) 1.9 Neut # (Auto) 2.5 Lymph # (Auto) 1.0 Donley # (Auto) 0.5 Eos # (Auto) 0.2 Baso # (Auto) 0.1 WBC Differential . Differential Comment Auto diff final Sodium 131 L Potassium 4.8 Chloride 92 L Carbon Dioxide 23.9 Anion Gap 15 BUN 122 H Creatinine 12.50 H* D Estimated GFR 3 L POC Glucose Random Glucose 77 Calcium 9.4 Phosphorus Assessment and Plan - Assessment (1) Acute psychosis Code(s): F23 - Brief psychotic disorder Status: Acute (2) ESRD (end stage renal disease) on dialysis Code(s): N18.6 - End stage renal disease; Z99.2 - Dependence on renal dialysis Status: Acute (3) Anemia Code(s): D64.9 - Anemia, unspecified Status: Acute (4) HTN (hypertension) Code(s): I10 - Essential (primary) hypertension Status: Acute (5) Bipolar depression Code(s): F31.30 - Bipolar disorder, current episode depressed, mild or moderate severity, unspecified Status: Acute (6) Depression Code(s): F32.9 - Major depressive disorder, single episode, unspecified Status : Acute - Plan 57-year-old female with history of ESRD on HD, HTN, hypothyroidism, anemia, anxiety, depression, bipolar disorder, schizoaffective disorder, conversion disorder, admitted to psychiatry unit for depression with suicidal ideations. Hospitalists consulted for medical management. ESRD on HD, chronic -On hemodialysis T-- -Nephrology following, appreciate assistance - Renal and diabetic diet. -continue Renvela -Elevated creatinine, going to HD today, Nephro following - Losartan was discontinued due to worsening kidney function -Monitor, recheck BMP on Monday after dialysis Anemia likely chronic anemia secondary to renal disease -hemoglobin stable at 12.9 -monitor CBC Hypertension - chronic, BP labile, improving -continue Norvasc, DC losartan due to worsening kidney function -Plan to increase dose of Norvasc if patient's blood pressure elevated -monitor BP, adjust medications as needed Hypothyroidism - s/p thyroidectomy -No thyroid supplementation reported on home medication list. -TSH elevated, T4 within normal limits -Continue levothyroxine 50mcg daily -follow-up TSH in 4-6 weeks. Diabetes mellitus, new diagnosis Hemoglobin A1C 5.8-->6.6 - No oral agents due to ESRD - Renal and diabetic diet - Consult telegraph service rater due to new diagnosis -Blood sugar fair controlled in the low 100s, no ceoverage needed -change accu-checks to BIB with ISS Depression/Suicidal Ideations, acute Bipolar Disorder/Schizoaffective DO -continue management per psychiatry Right hip wound -wound care consult for treatment and management -recommended, leave open to air -skin checks/wound checks, monitor for signs and symptoms of infection Constipation -continue lactulose, and senna/docusate -give laxative, mag citrate today -monitor response, improving DVT Prophylaxis: patient is ambulatory Patient medically stable to transfer to Regular Psych Unit Code Status: full code Discussed Condition With: patient and nurse
--- NOTE | 2018-01-09 09:56 | P.PNNP ---
Subjective Interval history: Patient was seen, no distress. Patient to be dialyzed today. Patient's Phosphorus was 8.8, patient wasn't sure she was taking her phosphorus binder Renvela with every meal. Discussed with charge nurse importance of taking with meals. <Santos Good - Last Filed: 01/09/18 09:51> Physical Exam Vital signs: Vital Signs 01/08/18 17:34 01/09/18 05:47 Temperature 98.1 F 98.1 F Pulse Rate 81 79 Respiratory Rate 16 16 Blood Pressure 121/61 127/67 Pulse Oximetry 96 94 L Intake & Output 01/08/18 01/09/18 01/09/18 18:59 06:59 18:59 Intake Total 1680 / 1680 340 / 340 Balance 1680 / 1680 340 / 340 Intake: Oral 1680 / 1680 240 / 240 Oral Supplement 100 / 100 Other: # Voids 1 - Constitutional no acute distress - Routine HEENT Exam Head: Present: normocephalic Eye: Present: EOMI, PERRL ENT: Present: mucous membranes moist - Routine Neck Exam Present: trachea midline. Absent: JVD, tracheal deviation - Routine Respiratory Exam Present: CTA bilaterally. Absent: accessory muscle use, decreased breath sounds - Routine Cardiovascular Exam Present: RRR. Absent: murmur - Routine Abdominal Exam Present: soft, normoactive bowel sounds. Absent: tenderness - Routine Extremities Exam Present: pulses intact, AV fistula Comments: Left upper arm AV fistula with positive bruit and thrill. - Routine Neurological Exam Present: alert <Santos Good - Last Filed: 01/09/18 09:51> Vital signs: Vital Signs 01/09/18 17:13 01/10/18 06:00 Temperature 98.1 F 98.3 F Pulse Rate 96 H 81 Respiratory Rate 16 16 Blood Pressure 110/60 119/69 Pulse Oximetry 95 94 L Intake & Output 01/09/18 01/10/18 01/10/18 18:59 06:59 18:59 Intake Total 600 / 600 340 / 340 240 / 240 Output Total 2500 / 2500 Balance -1900 / -1900 340 / 340 240 / 240 Weight 82.5 kg Intake: Oral 600 / 600 240 / 240 240 / 240 Oral Supplement 100 / 100 Output: Hemodialysis Amount 2500 / 2500 Other: # Voids 3 1 <Onur Santos - Last Filed: 01/10/18 10:17> Assessment and Plan - Assessment (1) ESRD (end stage renal disease) on dialysis Code(s): N18.6 - End stage renal disease; Z99.2 - Dependence on renal dialysis Status: Acute Plan: Patient gets dialysis TTS. Patient to be dialyzed today. Monitor fluid and electrolytes. (2) Metabolic bone disease Code(s): E88.9 - Metabolic disorder, unspecified; M90.80 - Osteopathy in diseases classified elsewhere, unspecified site Status: Acute Plan: Continue Renvela with meals. Monitor phosphorus intermittently. Phosphorus yesterday was 8.8. (3) Anemia Code(s): D64.9 - Anemia, unspecified Status: Acute Plan: Epogen with dialysis. Hgb 11.2. (4) HTN (hypertension) Code(s): I10 - Essential (primary) hypertension Status: Acute Plan: Well controlled. Will monitor. (5) Depression Code(s): F32.9 - Major depressive disorder, single episode, unspecified Status : Acute Plan: History of bipolar illness. Currently Sahni acted. (6) Hypothyroidism Code(s): E03.9 - Hypothyroidism, unspecified Status: Acute Plan: Continue Levothyroxine. <Santos Good - Last Filed: 01/09/18 09:51> - Assessment (1) ESRD (end stage renal disease) on dialysis Code(s): N18.6 - End stage renal disease; Z99.2 - Dependence on renal dialysis Status: Acute (2) Metabolic bone disease Code(s): E88.9 - Metabolic disorder, unspecified; M90.80 - Osteopathy in diseases classified elsewhere, unspecified site Status: Acute (3) Anemia Code(s): D64.9 - Anemia, unspecified Status: Acute (4) HTN (hypertension) Code(s): I10 - Essential (primary) hypertension Status: Acute (5) Depression Code(s): F32.9 - Major depressive disorder, single episode, unspecified Status : Acute (6) Hypothyroidism Code(s): E03.9 - Hypothyroidism, unspecified Status: Acute - Attending Attestation patient was seen and examined. Advised the patient to take the binders with meals. <Onur Santos - Last Filed: 01/10/18 10:17>
[2018-01-09] MEDS: Senna/Docusate Sodium 8.6/50 MG Tablet PO SCH ×2 (14:02→21:04)
[2018-01-09] MEDS: Venlafaxine XR 37.5 MG Capsule PO SCH (14:03)
[2018-01-09] MEDS: Insulin NovoLOG Aspart Correctional Sugar Inj SQ SCH ×2 (14:03→21:04)
[2018-01-09] MEDS: LORazepam 0.5 MG Tablet PO SCH ×2 (14:03→21:03)
[2018-01-09] MEDS: amLODIPine 5 MG Tablet PO SCH (14:03)
[2018-01-09] MEDS: Lactobacillus Acidophilus/L. Spores Tablet PO SCH ×2 (14:03→21:03)
[2018-01-09] MEDS: lamoTRIgine 25 MG TABLET PO SCH ×2 (14:03→21:03)
[2018-01-09] MEDS: Sodium Chloride 0.9% 2 ML Flush BID IV.FLUSH SCH ×2 (14:04→21:04)
--- NOTE | 2018-01-09 15:54 | P.PNPSY ---
Subjective Chief Complaint: Feels slightly better today, plans on calling a friend later. Remarks: Patient seen for follow-up, chart reviewed. Discussion with nursing staff reported that patient continues with blunted affect, compliant with medication is walking around the unit more. Patient was found sitting in hospital bed B, cooperative. Patient continues to be noted to have some psychomotor retardation but is improving and able to engage in interview adequately with adequate responses. Patient stated that she slept okay was attending to walk around more with her walker but continues to report feeling weak. She continues to report having depressed mood but denies any suicidal ideations at this time. Patient states that she is feeling overwhelmed and continues to feel not sure about going home. Discussion of possibility of her requiring more support services was reviewed but states that she would like to be able to return back to her independent living once she feels better. Patient this time states that she does not feel ready although patient would benefit from a health and rehab to continue her treatment she would benefit from this prior to going home where she was ambivalent about initially but agreed. Review of Systems All other systems reviewed negative except as stated in HPI Mental Status Examination Appearance: Appropriate Consciousness: Alert Orientation: x4 Motor Activity: Other (No abnormal motor movements noted) Speech: Hesitant, Slow Language: Adequate Fund of Knowledge: Adequate Attention and Concentration: Adequate Memory: Unremarkable Mood: Other ("Depressed") Affect: Flat, Other (Somewhat dysphoric) Thought Process & Associations: Intact, Linear Thought Content: Appropriate, Preoccupations (Worried about feeling overwhelmed with responsibilities at home.) Hallucination Type: None Delusion Type: None Suicidal Ideation: No Suicidal Plan: No Suicidal Intention: No Homicidal Ideation: No Homicidal Plan: No Homicidal Intention: No Insight: Poor Judgment: Poor Assessment and Plan - Assessment (1) Bipolar depression Code(s): F31.30 - Bipolar disorder, current episode depressed, mild or moderate severity, unspecified Status: Acute - Plan Plan: Patient at this time no longer endorsing suicide ideations but continues to have depressed mood and at this time appearing to require assistance. Patient noted to have continued blunted affect but more reactive recently noted with ambivalence of engaging in responsibilities of living independently and appearing overwhelmed with the possibility of going home to take on these endeavors. Discussion of having patient be referred to a health and rehab to continue recovery was reviewed with patient and agreed. Patient would benefit from continued rehabilitation prior to transitioning home as patient appearing to require further assistance. Treatment team will search for health and rehab to have patient referred to upon discharge from the hospital. We will continue current treatment. Continue to monitor with behavior. Discharge planning in progress. Justification for Continued Inpatient Stay: At risk of further decompensation at lower level care.
[2018-01-09] MEDS: Vitamin B Complex/Vit C/Folic Tablet PO SCH (21:03)
[2018-01-10] MEDS: LORazepam 0.5 MG Tablet PO SCH ×2 (08:06→20:22)
[2018-01-10] MEDS: Senna/Docusate Sodium 8.6/50 MG Tablet PO SCH ×2 (08:06→20:23)
[2018-01-10] MEDS: Levothyroxine 50 MCG Tablet PO SCH (08:07)
[2018-01-10] MEDS: Lactobacillus Acidophilus/L. Spores Tablet PO SCH ×2 (08:07→20:23)
[2018-01-10] MEDS: amLODIPine 5 MG Tablet PO SCH (08:07)
[2018-01-10] MEDS: Venlafaxine XR 37.5 MG Capsule PO SCH (08:07)
[2018-01-10] MEDS: Sodium Chloride 0.9% 2 ML Flush BID IV.FLUSH SCH ×2 (08:08→20:23)
[2018-01-10] MEDS: Insulin NovoLOG Aspart Correctional Sugar Inj SQ SCH ×2 (08:08→20:23)
[2018-01-10] MEDS: lamoTRIgine 25 MG TABLET PO SCH ×2 (08:08→20:23)
[2018-01-10 10:14] LABS: Baso # (Auto) 0.1 th/mm3 (0.0-0.2); Baso % (Auto) 2.2 % (0.0-2.0); Eos # (Auto) 0.2 th/mm3 (0.0-0.4); Eos % (Auto) 3.9 % (0.0-4.0); Hematocrit 34.5 % (35.0-46.0); Hemoglobin 11.9 gm/dL (11.6-15.3); Lymph # (Auto) 0.7 th/mm3 (1.0-4.8); Lymph % (Auto) 18.8 % (9.0-44.0); Mean Corpuscular HGB Conc 34.6 % (32.0-36.0); Mean Corpuscular Hemoglobin 29.6 pg (27.0-34.0); Mean Corpuscular Volume 85.8 fL (80.0-100.0); Mean Platelet Volume 8.3 fL (7.0-11.0); Mono # (Auto) 0.4 th/mm3 (0.0-0.9); Mono % (Auto) 10.3 % (0.0-8.0); Neut # (Auto) 2.5 th/mm3 (1.8-7.7); Neut % (Auto) 64.8 % (16.0-70.0); Platelet Count 140 th/mm3 (150-450); Red Blood Count 4.03 mil/mm3 (4.00-5.30); Red Cell Distribution Width 14.3 % (11.6-17.2); White Blood Count 3.9 th/mm3 (4.0-11.0)
[2018-01-10 10:45] LABS: Calcium 10.1 mg/dL (8.5-10.1); Carbon Dioxide 32.3 meq/L (21.0-32.0); Phosphorus 7.4 mg/dL (2.5-4.9); Potassium 4.3 meq/L (3.5-5.1)
--- NOTE | 2018-01-10 11:54 | P.PNNP ---
Subjective Interval history: Patient was seen, no distress. Patient gets dialysis TTS. Patient was dialyzed yesterday 2.5 L removed. Patient currently Sahni Acted. Per nurse, possible discharge to rehab facility today or tomorrow, they are looking for placement. <Santos Good - Last Filed: 01/10/18 11:49> Physical Exam Vital signs: Vital Signs 01/09/18 17:13 01/10/18 06:00 Temperature 98.1 F 98.3 F Pulse Rate 96 H 81 Respiratory Rate 16 16 Blood Pressure 110/60 119/69 Pulse Oximetry 95 94 L Intake & Output 01/09/18 01/10/18 01/10/18 18:59 06:59 18:59 Intake Total 600 / 600 340 / 340 240 / 240 Output Total 2500 / 2500 Balance -1900 / -1900 340 / 340 240 / 240 Weight 82.5 kg Intake: Oral 600 / 600 240 / 240 240 / 240 Oral Supplement 100 / 100 Output: Hemodialysis Amount 2500 / 2500 Other: # Voids 3 1 - Constitutional no acute distress - Routine HEENT Exam Head: Present: normocephalic Eye: Present: EOMI, PERRL ENT: Present: mucous membranes moist - Routine Neck Exam Present: trachea midline. Absent: JVD, tracheal deviation - Routine Respiratory Exam Absent: accessory muscle use, respiratory distress - Routine Cardiovascular Exam Present: RRR - Routine Abdominal Exam Present: soft. Absent: tenderness - Routine Extremities Exam Present: AV fistula <Santos Good - Last Filed: 01/10/18 11:49> Vital signs: Vital Signs 01/10/18 06:00 01/10/18 18:26 Temperature 98.3 F 97.9 F Pulse Rate 81 86 Respiratory Rate 16 18 Blood Pressure 119/69 119/69 Pulse Oximetry 94 L 98 Intake & Output 01/09/18 01/10/18 01/10/18 18:59 06:59 18:59 Intake Total 600 / 600 340 / 340 1200 / 1200 Output Total 2500 / 2500 Balance -1900 / -1900 340 / 340 1200 / 1200 Weight 82.5 kg Intake: Oral 600 / 600 240 / 240 1200 / 1200 Oral Supplement 100 / 100 Output: Hemodialysis Amount 2500 / 2500 Other: # Voids 3 1 <Onur Santos - Last Filed: 01/10/18 18:50> Assessment and Plan - Assessment (1) ESRD (end stage renal disease) on dialysis Code(s): N18.6 - End stage renal disease; Z99.2 - Dependence on renal dialysis Status: Acute Plan: Patient gets dialysis TTS. Patient dialyzed yesterday, 2.5 L removed. Monitor fluid and electrolytes. (2) Metabolic bone disease Code(s): E88.9 - Metabolic disorder, unspecified; M90.80 - Osteopathy in diseases classified elsewhere, unspecified site Status: Acute Plan: Continue Renvela with meals. Monitor phosphorus intermittently. Phosphorus 7.4. (3) Anemia Code(s): D64.9 - Anemia, unspecified Status: Acute Plan: Epogen with dialysis. Hgb 11.9. (4) HTN (hypertension) Code(s): I10 - Essential (primary) hypertension Status: Acute Plan: Well controlled. Will monitor. (5) Depression Code(s): F32.9 - Major depressive disorder, single episode, unspecified Status : Acute Plan: History of bipolar illness. Currently Sahni acted. (6) Hypothyroidism Code(s): E03.9 - Hypothyroidism, unspecified Status: Acute Plan: Continue Levothyroxine. <Santos Good - Last Filed: 01/10/18 11:49> - Assessment (1) ESRD (end stage renal disease) on dialysis Code(s): N18.6 - End stage renal disease; Z99.2 - Dependence on renal dialysis Status: Acute (2) Metabolic bone disease Code(s): E88.9 - Metabolic disorder, unspecified; M90.80 - Osteopathy in diseases classified elsewhere, unspecified site Status: Acute (3) Anemia Code(s): D64.9 - Anemia, unspecified Status: Acute (4) HTN (hypertension) Code(s): I10 - Essential (primary) hypertension Status: Acute (5) Depression Code(s): F32.9 - Major depressive disorder, single episode, unspecified Status : Acute (6) Hypothyroidism Code(s): E03.9 - Hypothyroidism, unspecified Status: Acute - Attending Attestation patient was seen and examined. Medications were reviewed. Discharge plans are being made. <Onur Santos - Last Filed: 01/10/18 18:50>
--- NOTE | 2018-01-10 13:43 | P.TTN ---
- Patient Problems Problems: 1. Discharge planning 2. Medication compliance 3. Knowledge deficit 4. Lack of coping skills - Progress Toward Goals Provider Present: Dr. Tristin Castillo Provider Input: 01/10/2018; patient is stable on medication, no med adjustment at this time. 01/08/2018; patient continues to require medication stablizing prior to dc. No med adjustment at this time. Patient still appears flat affect and depressed. Nurse(s) Present: RN Nurse Input: 01/10/2018; patient is taking her medication, and eating meals no behavior. 01/08/2018; patient is taking medication with prompting, and eating meals with compliance, no behavior she does however appearance to be responding to internal stimili. New onset of diabetes. Psychiatric Counselors Present: MICHELLE Leung, Other Psychiatric Therapist Input: 01/10/2018; patient will be linked with HH, and [facility] to ensure successful dc. 01/08/2018; patient will be dc home with outpatient service in place. Patient appears a little brighter and more talkative although still minimal. Very soft spoken. Did shower and has clean hygiene Group Spec/RT/OT/MARSH Present: MAXIMO Ahn Andrew Harrison, OT Group Spec/RT/OT/MARSH Input: 01/10/2018; patient participate with selective activities only. 01/08/2018; patient has selective activity participation. Patient did go outside today which was a big step. - Documentation Teaching Recipient: Patient
--- NOTE | 2018-01-10 14:27 | P.PNPSY ---
Subjective Chief Complaint: Feels slightly better today, plans on calling a friend later. Remarks: Patient seen for follow up; chart reviewed. Discussion with nursing staff reported that patient found ambulating with walker on the unit, noted with improved affect. Patient was found sitting on hospital bed, noted to be calm and cooperative. Patient states that she was feeling anxious last night which interrupted her sleep but that her mood is "ok". She continues to report feeling depressed but lessening, continues to deny any suicidal ideation. Plan to have patient referred to a health and rehab continues to be explored but may require to return home with home health services if she does not necessitate inpatient rehab. She is noted to smile at times with improved affect. Review of Systems All other systems reviewed negative except as stated in HPI Mental Status Examination Appearance: Appropriate Consciousness: Alert Orientation: x4 Motor Activity: Other (No abnormal motor movements noted) Speech: Hesitant, Slow Language: Adequate Fund of Knowledge: Adequate Attention and Concentration: Adequate Memory: Unremarkable Mood: Sad Affect: Sad (lessening, smiling at times) Thought Process & Associations: Intact, Linear Thought Content: Appropriate, Preoccupations (with discharge plan) Hallucination Type: None Delusion Type: None Suicidal Ideation: No Suicidal Plan: No Suicidal Intention: No Homicidal Ideation: No Homicidal Plan: No Homicidal Intention: No Insight: Fair Judgment: Impulsive Assessment and Plan - Assessment (1) Bipolar depression Code(s): F31.30 - Bipolar disorder, current episode depressed, mild or moderate severity, unspecified Status: Acute - Plan Plan: Patient noted to continue to improve, continues to endorse depressed mood but continues to deny any suicidality. Continue current treatment, continue to encourage patient to participate in groups and activities. Continue to monitor mood and behavior. Continue to explore if patient will need inpatient rehab or if patient can manage with home health services. Discharge planning in progress. Justification for Continued Inpatient Stay: At risk for further decompensation at lower level of care.
[2018-01-10] MEDS: Vitamin B Complex/Vit C/Folic Tablet PO SCH (22:24)
[2018-01-11 08:03] LABS: Baso # (Auto) 0.1 th/mm3 (0.0-0.2); Baso % (Auto) 1.4 % (0.0-2.0); Eos # (Auto) 0.2 th/mm3 (0.0-0.4); Eos % (Auto) 5.6 % (0.0-4.0); Hemoglobin 11.3 gm/dL (11.6-15.3); Lymph # (Auto) 0.8 th/mm3 (1.0-4.8); Lymph % (Auto) 21.5 % (9.0-44.0); Mean Corpuscular HGB Conc 34.1 % (32.0-36.0); Mean Corpuscular Hemoglobin 29.2 pg (27.0-34.0); Mean Corpuscular Volume 85.4 fL (80.0-100.0); Mean Platelet Volume 8.4 fL (7.0-11.0); Mono # (Auto) 0.4 th/mm3 (0.0-0.9); Mono % (Auto) 11.2 % (0.0-8.0); Neut # (Auto) 2.2 th/mm3 (1.8-7.7); Neut % (Auto) 60.3 % (16.0-70.0); Platelet Count 137 th/mm3 (150-450); Red Blood Count 3.86 mil/mm3 (4.00-5.30); Red Cell Distribution Width 14.2 % (11.6-17.2); White Blood Count 3.7 th/mm3 (4.0-11.0)
[2018-01-11 08:30] LABS: Calcium 9.7 mg/dL (8.5-10.1); Carbon Dioxide 25.1 meq/L (21.0-32.0); Potassium 4.3 meq/L (3.5-5.1)
--- NOTE | 2018-01-11 09:23 | P.PNNP ---
Subjective Interval history: patient was seen during dialysis. Possible discharge tomorrow. She may be going home. She is thinking that she may not be ready. Physical Exam Vital signs: Vital Signs 01/10/18 18:26 01/11/18 06:00 Temperature 97.9 F 97.7 F Pulse Rate 86 78 Respiratory Rate 18 15 Blood Pressure 119/69 131/59 L Pulse Oximetry 98 96 Intake & Output 01/10/18 01/11/18 01/11/18 18:59 06:59 18:59 Intake Total 1200 / 1200 480 / 480 240 / 240 Balance 1200 / 1200 480 / 480 240 / 240 Intake: Oral 1200 / 1200 480 / 480 240 / 240 Narrative: GENERAL: Well developed, Well-nourished, female in no acute distress. SKIN: Warm and dry. Bilateral upper arm, and right lower extremity skin rash. Right hip round wound with scab. Right hip surgical incision healed HEENT: Normocephalic. Atraumatic. Pupils equal and round. Mucous membranes pink and moist. NECK: Supple. Trachea midline. CARDIOVASCULAR: Regular rate and rhythm. No murmur appreciated. Left upper arm AV fistula with positive bruit and thrill. RESPIRATORY: No accessory muscle use. Clear to auscultation. Breath sounds equal bilaterally. GASTROINTESTINAL: Abdomen obese, soft, non-tender, nondistended. Normoactive bowel sounds x4. MUSCULOSKELETAL: No obvious deformities. Extremities without clubbing, cyanosis , or edema. NEUROLOGICAL: Awake and alert and oriented x 3. No obvious cranial nerve deficits. Motor grossly within normal limits. Moving all 4 extremities. Speech is clear but slow. PSYCHIATRIC: Flat affect. Pleasant and follows commands Assessment and Plan - Assessment (1) ESRD (end stage renal disease) on dialysis Code(s): N18.6 - End stage renal disease; Z99.2 - Dependence on renal dialysis Status: Acute Plan: Patient gets dialysis TTS. Seen during dialysis today. Orders were reviewed. She is tolerating it well. (2) Metabolic bone disease Code(s): E88.9 - Metabolic disorder, unspecified; M90.80 - Osteopathy in diseases classified elsewhere, unspecified site Status: Acute Plan: Continue Renvela with meals. Monitor phosphorus intermittently. (3) Anemia Code(s): D64.9 - Anemia, unspecified Status: Acute Plan: Epogen with dialysis. (4) HTN (hypertension) Code(s): I10 - Essential (primary) hypertension Status: Acute Plan: Well controlled. Will monitor. (5) Depression Code(s): F32.9 - Major depressive disorder, single episode, unspecified Status : Acute Plan: History of bipolar illness. Currently Sahni acted. (6) Hypothyroidism Code(s): E03.9 - Hypothyroidism, unspecified Status: Acute Plan: Continue Levothyroxine. - Attending Attestation patient is concerned that she will have difficulty with getting new prescriptions from pharmacy as she does not drive. Case management to address this issue.
[2018-01-11] MEDS: Levothyroxine 50 MCG Tablet PO SCH (13:20)
[2018-01-11] MEDS: Lactobacillus Acidophilus/L. Spores Tablet PO SCH ×2 (13:21→20:43)
[2018-01-11] MEDS: lamoTRIgine 25 MG TABLET PO SCH ×2 (13:23→20:43)
[2018-01-11] MEDS: Senna/Docusate Sodium 8.6/50 MG Tablet PO SCH ×2 (13:23→20:44)
[2018-01-11] MEDS: LORazepam 0.5 MG Tablet PO SCH ×2 (13:23→20:43)
[2018-01-11] MEDS: Venlafaxine XR 37.5 MG Capsule PO SCH (13:23)
[2018-01-11] MEDS: amLODIPine 5 MG Tablet PO SCH (13:23)
[2018-01-11] MEDS: Insulin NovoLOG Aspart Correctional Sugar Inj SQ SCH ×2 (14:15→20:44)
[2018-01-11] MEDS: Sodium Chloride 0.9% 2 ML Flush BID IV.FLUSH SCH ×2 (14:16→20:44)
--- NOTE | 2018-01-11 16:15 | P.PNPSY ---
Subjective Chief Complaint: Feels slightly better today, plans on calling a friend later. Remarks: Patient seen for follow-up, chart reviewed. Discussion with nursing staff reported that patient continues to endorse feeling depressed, but noted now to be participating more in ADLs, showered and more ambulatory now. Patient was found sitting in hospital bed noted B, cooperative. Patient says she has some difficulty with sleep last night that she was nervous about going home soon. Patient continues report feeling depressed although patient was noted to have more participating in self-care. Patient denies any suicide ideation at this time. Discussion of having patient discharged home tomorrow was reviewed which patient would continue outpatient mental health follow-up and continue dialysis as scheduled. Patient did not oppose this plan and continue to not wanting to go to health and rehab facility which physical therapy also deemed patient did not require this type of rehabilitation at this time and able to go home with services. Review of Systems All other systems reviewed negative except as stated in HPI Mental Status Examination Appearance: Appropriate Consciousness: Alert Orientation: x4 Motor Activity: Other (No abnormal motor movements noted) Speech: Slow (Improving) Language: Adequate Fund of Knowledge: Adequate Attention and Concentration: Adequate Memory: Unremarkable Mood: Anxious Affect: Anxious Thought Process & Associations: Intact, Linear Thought Content: Appropriate, Preoccupations (with discharge plan) Hallucination Type: None Delusion Type: None Suicidal Ideation: No Suicidal Plan: No Suicidal Intention: No Homicidal Ideation: No Homicidal Plan: No Homicidal Intention: No Insight: Fair Judgment: Impulsive Assessment and Plan - Assessment (1) Bipolar depression Code(s): F31.30 - Bipolar disorder, current episode depressed, mild or moderate severity, unspecified Status: Acute - Plan Plan: Patient this time noted with improved engagement in interview, coherent relevant and logical. Patient continues to endorse depressed mood although denying any suicide ideation. Patient also noted to have more participation in ADLs and ambulation on the unit. We will plan for discharge tomorrow, treatment team to arrange resuming of hospice services as well as scheduling of dialysis this week. Continue to monitor mood and behavior. Discharge planning in progress. Justification for Continued Inpatient Stay: At risk of further decompensation at lower level care.
[2018-01-11] MEDS: Vitamin B Complex/Vit C/Folic Tablet PO SCH (20:43)
[2018-01-12] MEDS: Levothyroxine 50 MCG Tablet PO SCH (06:26)
[2018-01-12] MEDS: amLODIPine 5 MG Tablet PO SCH (08:41)
[2018-01-12] MEDS: LORazepam 0.5 MG Tablet PO SCH (08:41)
[2018-01-12] MEDS: lamoTRIgine 25 MG TABLET PO SCH (08:41)
[2018-01-12] MEDS: Lactobacillus Acidophilus/L. Spores Tablet PO SCH (08:41)
[2018-01-12] MEDS: Senna/Docusate Sodium 8.6/50 MG Tablet PO SCH (08:41)
[2018-01-12] MEDS: Venlafaxine XR 37.5 MG Capsule PO SCH (08:41)
[2018-01-12] MEDS: Insulin NovoLOG Aspart Correctional Sugar Inj SQ SCH (10:30)
[2018-01-12] MEDS: Sodium Chloride 0.9% 2 ML Flush BID IV.FLUSH SCH (10:31)
--- NOTE | 2018-01-12 12:39 | P.PNNP ---
Subjective Interval history: Patient was seen, no distress, more talkative today. Possible discharge today. She may be going home. Patient gets dialysis TTS. <Santos Good - Last Filed: 01/12/18 12:34> Physical Exam Vital signs: Vital Signs 01/11/18 17:53 01/12/18 05:55 Temperature 97.7 F 97.8 F Pulse Rate 92 H 83 Respiratory Rate 16 16 Blood Pressure 114/70 112/79 Pulse Oximetry 94 L Intake & Output 01/11/18 01/12/18 01/12/18 18:59 06:59 18:59 Intake Total 240 / 240 240 / 240 Balance 240 / 240 240 / 240 Intake: Oral 240 / 240 240 / 240 Other: # Voids 0 Date of Last Bowel Movement 01/02/18 - Constitutional no acute distress - Routine HEENT Exam Head: Present: normocephalic Eye: Present: EOMI, PERRL ENT: Present: mucous membranes moist - Routine Neck Exam Absent: JVD, trachea midline, tracheal deviation - Routine Respiratory Exam Present: CTA bilaterally. Absent: accessory muscle use, respiratory distress - Routine Cardiovascular Exam Present: RRR. Absent: murmur - Routine Abdominal Exam Present: soft, normoactive bowel sounds. Absent: tenderness - Routine Extremities Exam Present: pulses intact. Absent: edema - Routine Neurological Exam Present: alert <Santos Good - Last Filed: 01/12/18 12:34> Vital signs: Vital Signs 01/12/18 05:55 Temperature 97.8 F Pulse Rate 83 Respiratory Rate 16 Blood Pressure 112/79 Pulse Oximetry 94 L Intake & Output 01/12/18 01/12/18 01/13/18 06:59 18:59 06:59 Intake Total 240 / 240 0 / 0 Balance 240 / 240 0 / 0 Intake: Oral 240 / 240 0 / 0 Other: # Voids 0 <Onur Santos - Last Filed: 01/12/18 21:45> Assessment and Plan - Assessment (1) ESRD (end stage renal disease) on dialysis Code(s): N18.6 - End stage renal disease; Z99.2 - Dependence on renal dialysis Status: Acute Plan: Patient gets dialysis TTS. Patient dialyzed yesterday, 2.5 L removed. (2) Metabolic bone disease Code(s): E88.9 - Metabolic disorder, unspecified; M90.80 - Osteopathy in diseases classified elsewhere, unspecified site Status: Acute Plan: Continue Renvela with meals. (3) Anemia Code(s): D64.9 - Anemia, unspecified Status: Acute Plan: Epogen with dialysis. (4) HTN (hypertension) Code(s): I10 - Essential (primary) hypertension Status: Acute Plan: Well controlled. Will monitor. (5) Depression Code(s): F32.9 - Major depressive disorder, single episode, unspecified Status : Acute Plan: History of bipolar illness. (6) Hypothyroidism Code(s): E03.9 - Hypothyroidism, unspecified Status: Acute Plan: Continue Levothyroxine. <Santos Good - Last Filed: 01/12/18 12:34> - Assessment (1) ESRD (end stage renal disease) on dialysis Code(s): N18.6 - End stage renal disease; Z99.2 - Dependence on renal dialysis Status: Acute (2) Metabolic bone disease Code(s): E88.9 - Metabolic disorder, unspecified; M90.80 - Osteopathy in diseases classified elsewhere, unspecified site Status: Acute (3) Anemia Code(s): D64.9 - Anemia, unspecified Status: Acute (4) HTN (hypertension) Code(s): I10 - Essential (primary) hypertension Status: Acute (5) Depression Code(s): F32.9 - Major depressive disorder, single episode, unspecified Status : Acute (6) Hypothyroidism Code(s): E03.9 - Hypothyroidism, unspecified Status: Acute - Attending Attestation patient was seen and examined. Agree with above assessment and plan. <Onur Santos - Last Filed: 01/12/18 21:45>
--- NOTE | 2018-01-12 15:25 | P.DSPSY ---
Psychiatry Discharge Summary Inpatient Psychiatric care?: Yes Advance Directives: No Mental Health Advance Directive: No Health Care Proxy: No - Admission Admission Date: December 27, 2017 09:03 - Admission Diagnosis (1) Bipolar depression Code(s): F31.30 - Bipolar disorder, current episode depressed, mild or moderate severity, unspecified Brief History: The he patient is 57 year-old woman, domiciled along in an independent living facility in [place], , no kids, well-known by the service, with a psychiatric history of schizoaffective disorder, bipolar type, bipolar disorder, anxiety, multiple psychiatric hospitalizations, last hospitalization was here in [place] under the care of Dr. Castillo in November 2017 , the patient is in Abilify 10 mg daily prescribed by nurse practitioner in [facility], medical history hypertension, hypothyroidism, end- stage renal disease and hemodialysis, arthritis who presents under a Sahni Act. She was at dialysis today and she appeared to be acutely depressed and not herself. The patient had banged herself in the head with her hands. She did imply that she was feeling depressed and having suicidal thoughts. Patient's oncology social worker/adult protective caseworker came out to the scene. Police were notified. Patient was placed under a Sahni act. Patient here admits to feeling depressed and suicidal but does not have any current plan on self-harm. She denies any homicidal ideation. No toxic ingestions. She states that her conditions are chronic and nothing is more acute today. She denies any fever or chills. No chest pain or shortness of breath. No pedal edema. She has been eating and drinking. She does urinate once a day. She felt her dialysis went well. She denies any alcohol, tobacco, or drugs. On my psychiatric evaluation today I find a patient that is very psychomotor retarded, with a prominent flat affect, delay speech, blocking thought and seems to be internally preoccupied. The patient tells me that she is very depressed and she can barely talk. At the same time she tells me that she is paranoid, and she feels that she cannot trust anybody. She says that she wishes that she would be better because I am very sick and I do not know what to do anymore. The patient reports that she is not sleeping, does not have any appetite, she has no energy no motivation to do anything. She is fully oriented x3, at times confused, but no major gross cognitive impairment present. I have been informed that this patient is in hospice, I have called her [facility]na hospice [facility], [phone], who has explained me that the patient was placed in hospice due to CHF, but this condition has improved to the point that the patient does not need to be in hospice anymore. She also has told me that the end-stage renal disease of the patient, for which the patient needs hemodialysis, is not a terminal disease and the patient is in the transplant list with the inconvenience that the patient has a very poor family and social support. I have also tried to obtain collateral information from her brother Shamar Vargas , , but he was not available to answer the phone. PPHx: with a psychiatric history of bipolar disorder, anxiety, multiple psychiatric hospitalizations, last hospitalization was here in [place] under the care of Dr. Castillo in November 2017, the patient is in Abilify 10 mg daily prescribed by nurse practitioner in [facility], PMHx: Hypertension, hypothyroidism, arthritis, end-stage renal disease Substance Hx: She denies the use of illegal drugs and alcohol Family Hx: Patient denies psychiatric family history Social Hx: The patient was born and raised in [place], she lives in an independent living facility in [place], she is , no acute Meds torvastatin 10 mg Tablet 10 mg PO DAILY RF: 0 hydralazine 25 mg Tablet 25 mg PO HS RF: 0 hydroxyzine HCl 50 mg Tablet 50 mg PO TID PRN (Reason: Itching) RF: 0 aspirin [Aspir-81] 81 mg Tablet,Delayed Release (Dr/Ec) 81 tab PO DAILY RF: 0 tramadol 50 mg Tablet 50 mg PO Q6H PRN (Reason: Pain) RF: 0 lorazepam [Ativan] 0.5 mg Tablet 0.5 mg PO HS RF: 0 amlodipine 10 mg Tablet 10 mg PO DAILY RF: 0 diphenhydramine HCl [Benadryl] 25 mg Capsule 25 mg PO HS PRN (Reason: Insomnia) RF: 0 losartan 25 mg Tablet 25 mg PO DAILY RF: 0 B complex with C#20-folic acid [Renal Caps] 1 mg Capsule 1 cap PO HS RF: 0 ondansetron 4 mg Tablet,Disintegrating 4 mg PO BID PRN (Reason: Nausea) RF: 0 prazosin 2 mg Capsule 2 mg PO HS RF: 0 Tobacco Use In Past 30 Days: No How Often Do You Have a Drink Containing Alcohol: Never Hospital Course: Patient is a 57-year-old woman, , no children, domiciled and close, with a past psychiatric history of schizoaffective disorder, previous psychiatric admissions, with a past medical history of hypertension, hypothyroidism, anemia, end-stage renal disease on who presented under Sahni act from dialysis Center for worsening depression and suicidal ideation which patient was admitted to the inpatient psychiatry unit for further evaluation and management. Patient was admitted to a locked, inpatient psychiatric unit. Appropriate precautions were in place throughout patient's hospital stay. Patient was seen and examined on the unit by psychiatry. Psychotropic medications were adjusted. There was no evidence of any suicidality or homicidality on the inpatient unit. Patient's mood and psychosis improved with the benefit of psychopharmacological treatment and had no behavioral disturbance since admission. Patient was noted to have reached stable mood, noted to participate and engage in treatment and interact with staff adequately. Patient noted to be future oriented with plans to continue treatment and outpatient follow-up appointments for continuity of care. Counselor has arranged discharge plan which patient will return back to her residence with reinstatement of hospice services along with continued dialysis at dialysis center. On the day of discharge: Patient seen and examined; chart reviewed. Case discussed with nurse and counselor. No behavioral issues overnight. On my examination today, the patient denies any suicidal homicidal ideation, intent or plan on direct questioning and contracts for safety. Patient denies any perceptional disturbances and no delusional material verbalized today. Patient denies any side effects from medication and has understanding of medication regimen and education. No physical complaints. Suicide and violence risk assessment on day of discharge both suggest lower imminent risk, and the patient's level of function is adequate for plan level of outpatient care. Patient has maximized benefit from this inpatient psychiatric hospital stay and will be discharged with discharge plan as arranged by counselor. Patient advised to return to psychiatric emergency room for any concerning psychiatric symptoms. Patient agrees with plan. - Discharge Discharge Date: 01/12/18 - Discharge Diagnosis (1) Bipolar depression Code(s): F31.30 - Bipolar disorder, current episode depressed, mild or moderate severity, unspecified Status: Acute Discharge Disposition: Home - Discharge Instructions Discharge Diet: Heart Healthy Diet Activities You Can Perform: Weight Bearing As Tolerat - Discharge Time > 30 minutes Mental Status Examination Appearance: Appropriate Consciousness: Alert Orientation: x4 Motor Activity: Other (No abnormal motor movements noted) Speech: Slow (Improving) Language: Adequate Fund of Knowledge: Adequate Attention and Concentration: Adequate Memory: Unremarkable Mood: Anxious Affect: Anxious Thought Process & Associations: Intact, Linear Thought Content: Appropriate, Preoccupations (with discharge plan) Hallucination Type: None Delusion Type: None Suicidal Ideation: No Suicidal Plan: No Suicidal Intention: No Homicidal Ideation: No Homicidal Plan: No Homicidal Intention: No Insight: Fair Judgment: Impulsive Discharge/Advance Care Plan - Results Vital Signs: Last Vital Signs Temp 97.8 F 01/12/18 05:55 Pulse 83 01/12/18 05:55 Resp 16 01/12/18 05:55 BP 112/79 01/12/18 05:55 Pulse Ox 94 L 01/12/18 05:55 Lab Results: Abnormal Lab Results 01/11/18 01/12/18 19:09 09:07 POC Glucose 121 H 174 H Laboratory Results Hemoglobin A1c 6.6 % (4.3-6.0) H 12/28/17 07:08 Triglycerides 294 mg/dL (42-150) H 12/28/17 07:08 Cholesterol 165 mg/dL (120-200) 12/28/17 07:08 LDL Cholesterol, Calc 72 mg/dL (0-99) 12/28/17 07:08 HDL Cholesterol 34.1 mg/dL (40.0-60.0) L 12/28/17 07:08 TSH 25.100 uIU/mL (0.358-3.740) H 12/29/17 07:21 Free T4 1.25 ng/dL (0.76-1.46) 12/29/17 07:21 Urine Culture Comments Culture indicated 12/26/17 21:16 Summary of Procedures: none Pending Results: None - Medications Number of antipsychotic medications at discharge: 1 - Discharge Care Plan Goals to Promote Your Health: * To prevent worsening of your condition and complications * To maintain your health at the optimal level Directions to Meet Your Goals: Take your medications as prescribed Follow your dietary instruction Follow activity as directed Keep your appointments as scheduled Take your immunizations and boosters as scheduled If your symptoms worsen call your PCP, if no PCP go to Urgent Care Center or Emergency Room For 05/09 questions related to your inpatient stay or results of tests pending at discharge, please contact Dr. Mac Castillo MD at Smoking is Dangerous to Your Health. Avoid second hand smoking
== END 2018-01-12 14:50 ==
LOC: NEDAMB 17:32 → NEDA 12-27 09:03 → H4EA 12-27 11:27
PROVIDERS: ADMIT Student in an Organized Health Care Education/Training Program; ATTEND Student in an Organized Health Care Education/Training Program